=== PATIENT | male | born 1955 | race Caucasian/White ===

== ENCOUNTER 2018-09-20 12:59 | Inpatient (IN) ==
[2018-09-20] MEDS ORDERED: *HR* HYDROmorphone 2 MG/ML SYRINGE IM ONE (14:11)
[2018-09-20] MEDS ORDERED: Ondansetron ODT 4 MG TAB.RAPDIS SL ONE (14:11)
--- NOTE | 2018-09-20 14:17 | Emergency Department Note ---
Disposition Clinical Impression: Intractable low back pain Closed wedge compression fracture of T1 vertebra Qualifiers: Encounter type: initial encounter Qualified Code(s): S22.010A - Wedge compression fracture of first thoracic vertebra, initial encounter for closed fracture Ankylosing spondylitis Qualifiers: Ankylosing spondylitis location: unspecified site of spine Qualified Code(s): M 45.9 - Ankylosing spondylitis of unspecified sites in spine Disposition: Admitted As Inpatient Condition: Fair Referrals: Rafal Conklin DO [Primary Care Provider] - Forms: ED Satisfaction Letter Back Pain HPI - General Chief Complaint: ED Back Pain/Injury Stated Complaint: back pain Time Seen by Provider: 09/20/18 13:02 Source: patient, family, EMS Mode of arrival: EMS Limitations: no limitations Nursing Notes Reviewed: Yes Vital Signs Reviewed: Yes - History of Present Illness HPI Narrative: Patient presents by squad for evaluation of back pain. He has a history of transverse myelitis, status post internal fixation of fractures at T T12 and L1. He also has history of ankylosing spondylitis. He has had intermittent muscle spasms in the left hip flexor that caused him severe pain and often result in him falling because of the severe pain. He denies weakness in the legs or syncopal episode. He denies any new paresthesias since the fall. The pain is across the low back and does not radiate. It is worse with movement and nothing makes it better. He denies abdominal pain, dysuria, loss of bowel control, changes in his intermittent urinary incontinence, saddle anesthesia or leg weakness. He has had no recent procedures. 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 Denies: numbness, weakness, incontinence of bowel/bladder, fever, chills, abdominal pain, dysuria, hematuria Treatments prior to arrival: other (none) - Related Data Home Medications Medication Instructions Recorded Confirmed Acarbose [Precose] 100 mg PO TID 10/21/15 05/29/18 Atorvastatin [Lipitor] 40 mg PO HS 10/21/15 05/29/18 Esomeprazole Magnesium [Nexium] 20 mg PO Q48H 10/21/15 05/29/18 Gabapentin [Neurontin] 600 mg PO TID 10/21/15 05/29/18 Lisinopril 15 mg PO DAILY 10/21/15 05/29/18 Metformin HCl [Glucophage] 1,000 mg PO BID 10/21/15 05/29/18 Multivitamin [Multivitamins] 1 tab PO HS 10/21/15 05/29/18 Nadolol 20 mg PO HS 10/21/15 05/29/18 Tamsulosin HCl [Flomax] 0.4 mg PO HS 10/21/15 05/29/18 amLODIPine [Norvasc] 5 mg PO QPM 10/21/15 05/29/18 hydroCHLOROthiazide 12.5 mg PO DAILY 10/21/15 05/29/18 [Hydrochlorothiazide] OxyCODONE/APAP 10/325 [Percocet 1 tab PO Q6HR PRN 04/26/16 05/29/18 10/325 MG] Empagliflozin [Jardiance] 25 mg PO DAILY 05/29/18 05/29/18 Liraglutide [Victoza 2-Darell] 1.8 mg SQ DAILY 05/29/18 05/29/18 Tizanidine HCl 4 mg PO HS 05/29/18 05/29/18 Previous Rx's Medication Instructions Recorded Levofloxacin [Levaquin] 750 mg PO DAILY #2 tablet 06/05/18 Sennosides/Docusate Sodium [Senna 2 each PO BID #0 tablet 06/05/18 Plus] Allergies Allergy/AdvReac Type Severity Reaction Status Date / Time celecoxib [From Celebrex] AdvReac See Verified 05/29/18 21:58 Comments infliximab [From Remicade] AdvReac See Verified 05/29/18 21:58 Comments NSAIDS (Non-Steroidal AdvReac See Verified 05/29/18 21:58 Anti-Inflamma Comments All systems ED: reviewed and negative except as stated. Review of Systems: As Per HPI Constitutional: Denies: fever, chills, weakness Cardiovascular: Denies: chest pain, palpitations, dyspnea on exertion Respiratory: Denies: cough, dyspnea Gastrointestinal: Denies: abdominal pain, nausea, vomiting, diarrhea, constipation, hematemesis, melena, hematochezia Genitourinary: Denies: urgency, dysuria, frequency, hematuria, discharge Musculoskeletal: Reports: as per HPI, back pain. Denies: neck pain, joint swelling, arthralgia, myalgia Integumentary: Denies: rash, lesions Neurological: Denies: headache, weakness, numbness, paresthesias Hematological/Lymphatic: Denies: easy bleeding, easy bruising Past Medical History - Past Medical History Attestation: Yes The following information was validated with the patient. Source: patient Medical history: Reports: arthritis, diabetes, hypertension, renal disease, other (, Transverse myelitis, T and L fractures s/p ORIF 05/25) Surgical history: Reports: no surgical history Psychiatric history: Reports: no psych history - Social History Smoking Status: Former smoker Smokeless Tobacco Status: No Alcohol use: Reports: none Drug use: Reports: none Physical Exam - General Limitations: no limitations General appearance: alert, in no apparent distress - Head Head exam: atraumatic, normocephalic, normal inspection - Eye Eye exam: Present: normal appearance. Absent: scleral icterus, conjunctival injection, periorbital swelling - ENT ENT exam: mucous membranes moist - Neck Neck exam: Present: normal inspection, full ROM, trachea midline. Absent: tenderness, meningismus - Chest Chest inspection: Present: normal inspection - Respiratory Respiratory exam: Absent: respiratory distress - Cardiovascular Cardiovascular exam: Present: regular rate - Extremities Exam Extremities exam: Present: normal inspection, normal capillary refill. Absent: tenderness, pedal edema, joint swelling, calf tenderness - Expanded Lower Extremity Exam Hip/Pelvis exam: Absent: tenderness, swelling, ecchymosis, deformity, crepitus, dislocation, erythema, external rotation, internal rotation, shortening, pelvis stable Upper leg exam: Absent: tenderness, swelling Knee exam: Present: full ROM, knee extension intact. Absent: tenderness, swelling Lower leg exam: Present: Achilles tendon intact. Absent: tenderness, swelling, Homans' sign Ankle exam: Present: normal inspection, full ROM. Absent: tenderness Foot/toe exam: Present: normal inspection, full ROM. Absent: tenderness Neurovascular/Tendon exam: Present: normal capillary refill, normal fine/light touch. Absent: pulse deficit, motor deficit, extremity cold to touch, pallor, foot drop, significant pain with passive ROM of distal joint - Back Exam Back exam: Present: paraspinal tenderness, vertebral tenderness. Absent: full ROM, tenderness, CVA tenderness (L), sciatic notch tenderness (R), sciatic notch tenderness (L) - Neurological Exam Neurological exam: Present: alert, oriented X3, CN II-XII intact, normal gait. Absent: motor sensory deficit - Psychiatric Psychiatric exam: Present: normal affect, normal mood - Skin Skin exam: Present: warm, dry, intact, normal color Course Course Narrative: Patient has history of ankylosing spondylitis, is status post fall in May with fracture of L1 and T12 that required internal fixation, as well as transverse myelitis. He presents from home by squad for evaluation of back pain after fall. He states that he has been having intermittent muscle cramps in the left hip flexor for several months. Sometimes they are worse than others. Sometimes they cause him to fall. He has had two falls in the last six months, but was able to get assistance to get back up to his walker. Today when he fell, it was initially to the right side but then onto his back on a tile floor. He denies hitting his head and denies neck pain or injury. He denies any new paresthesias or weakness. He states that he was down for about an hour before someone was able to help him. He crawled over to the door and let his dog out. A neighbor saw the dog and came over to help him. EMS was then called. On exam he appears uncomfortable but nontoxic. He is very pleasant and cooperative with the exam. Given his extensive spine history. I do not think that plain films will be adequate to evaluate. Additionally, patient is followed by Dr. Ordonez and he recommended to the patient's that the patient have a CAT scan done. CT and pain meds have been ordered. Labs ordered for admitted. No results available. - Reevaluation(s) Reevaluation #1: Patient has not yet received his pain medication. Case was discussed with Dr. Iverson. He has had [id number] time with the patient and agrees with the assessment, plan. Time: 15:17 Reevaluation #2: Pain is improved waiting on CAT scan Time: 16:15 Reevaluation #3: Went to discuss the results with the patient. He appears to be more comfortable however, states that the medication is no longer helping. He states that when he returned from CAT scan he had an episode of urinary incontinence that consi sted of more volume than usual. He also has tried but is unable to get up and walk due to the pain. Strength and sensation are still intact, normal and symmetric bilaterally. Sensory/ motor/ reflex exam were repeated and are unchanged. Will consult with Dr. Ordonez. Time: 17:05 - Consultations Consultation #1: Case discussed with Dr. Ordonez. He requests that we order an MRI of the cervical, thoracic and lumbar spine without contrast and that the patient be admitted to the hospitalist for pain control. Case discussed with hospitalist. Patient has been accepted for admission. Time: 17:11 Vital Signs Temperature 98.2 F 09/20/18 13:03 Pulse Rate 77 09/20/18 13:03 Respiratory Rate 18 09/20/18 13:03 Blood Pressure 139/85 09/20/18 13:03 O2 Sat by Pulse Oximetry 98 09/20/18 13:03 Temperature 98.2 F 09/20/18 13:03 Pulse Rate 64 09/20/18 16:14 Respiratory Rate 18 09/20/18 16:14 Blood Pressure 177/94 09/20/18 16:14 O2 Sat by Pulse Oximetry 100 09/20/18 16:14 Oxygen Delivery Oxygen Delivery Room Air Back Pain/Injury - Medical Records Medical records reviewed: Yes I reviewed the patient's medical records. - Radiology Data Radiology results reviewed: Yes I reviewed the patient's radiology results. Attestation Statement - Attestation Attestation: For this encounter, I have reviewed the COLLEGE DIRECTOR or PA documentation, treatment plan, and medical decision making; and I have had face to face time with this patient. [id number] time provided. Patient sustained a mechanical fall. He has a history of ankylosing spondylitis and previous fracture secondary to trauma. CT studies of his thoracic and lumbar spine ordered by the physician retail assistant
[2018-09-20] MEDS ORDERED: *HR* HYDROmorphone (PF) 1 MG/ML SYRINGE IVP ONE (16:56)
[2018-09-20] MEDS ORDERED: Ondansetron 4 MG/2 ML VIAL IVP ONE (16:56)
[2018-09-20] MEDS ORDERED: Naloxone 0.4 MG/ML INJ IVP PRN (17:55)
[2018-09-20] MEDS ORDERED: D5% in Water 1,000 ML IVC PRN (17:57)
[2018-09-20] MEDS ORDERED: Dextrose Gel 15 GM/37.5 ML TUBE PO PRN ×2 (17:57)
[2018-09-20] MEDS ORDERED: *HR* Dextrose 50 % in Water (Syg) 50 ML SYRINGE IVP PRN (17:57)
--- NOTE | 2018-09-20 18:29 | Internal Med History&Physical ---
Date of Encounter: 09/20/18 Time of Encounter: 18:21 Internal Medicine - H&P: HPI Chief complaint: back pain/spasm and frequent falls Admitted From: Home Plans for Post Hospital Care: Home History of present illness: Mr. Lyles is a 63 year old male PMH of transverse myelitis, ankylosis spondilitis, DM, HTN, HLD and spinal fusion T9-L4 on 05/31/18. Patient presented to the ED due to back spasms, and pain associated with frequent falls. Patient reports that for the past 2 weeks he has been experiencing severe 10/10 back spasms and everything he has one of those episodes if he is stand up he has fell to the ground. He denies hitting his head, or loosing consciousness. Reports that today while he was standing at the kitchen table he had this severe back spam and fell to the ground again. states that this has happened 3 times this week and 1-2 times last week. He denies fever/chills. Reports constant sharp 8/10 back pain, reports that he has back pain for the most part but it is about 5/10, but for the past couple of days he believes the back pain is worsening. He reports a chronic hx of bowel incontinence due to his hx of transverse myelitis, but stated that for the past couple of days he has notice urinary incontinence which is new to him. report chronic numbness and tingling. Past Med Surg Social Fam HX - Past Medical History Medical history: arthritis, diabetes, hypertension, renal disease, other (, Transverse myelitis, T and L fractures s/p ORIF 05/25) Additional medical history: Ankylosing spondilitis, Psychiatric history: no psych history - Past Surgical History Surgical History: no surgical history Additional surgical history: Kypho, lami, rt. knee replacement, tosillectomy, ankle surgery, 3 back surgery in total - Social History Smoking Status: Former smoker Smokeless Tobacco Status: No Alcohol use: none Drug use: none - Family History Father Living Status: Hx Family Cancer: Yes ( at age 65 - Spine cancer) Mother Family Member Ethnicity: Non- Living Status: Still Living Hx Family Cardiac Disorders: Yes Internal Medicine - H&P: Meds Acarbose [Precose] 100 mg PO TID 10/21/15 [History] Atorvastatin [Lipitor] 40 mg PO HS 10/21/15 [History] Esomeprazole Magnesium [Nexium] 20 mg PO Q48H 10/21/15 [History] Gabapentin [Neurontin] 600 mg PO 1500 10/21/15 [History] Lisinopril 15 mg PO QAM 10/21/15 [History] Metformin HCl [Glucophage] 1,000 mg PO BIDWM 10/21/15 [History] Multivitamin [Multivitamins] 1 tab PO HS 10/21/15 [History] Nadolol 20 mg PO HS 10/21/15 [History] Tamsulosin HCl [Flomax] 0.4 mg PO HS 10/21/15 [History] amLODIPine [Norvasc] 5 mg PO QPM 10/21/15 [History] hydroCHLOROthiazide [Hydrochlorothiazide] 12.5 mg PO QAM 10/21/15 [History] OxyCODONE/APAP 10/325 [Percocet 10/325 MG] 1 tab PO Q6HR PRN 04/26/16 [History] Empagliflozin [Jardiance] 25 mg PO DAILY 05/29/18 [History] Tizanidine HCl 4 mg PO TID 05/29/18 [History] Aspirin [Adult Aspirin Regimen] 81 mg PO QAM 09/20/18 [History] Dulaglutide [Trulicity] 1.5 mg SQ MO 09/20/18 [History] Fluticasone Propionate Nasal [Flonase] 2 spray NS HS PRN 09/20/18 [History] Gabapentin 300 mg PO QAM 09/20/18 [History] Gabapentin 900 mg PO HS 09/20/18 [History] Glucosamine HCl 3,000 mg PO QAM 09/20/18 [History] Levocetirizine Dihydrochloride [Allergy Relief (Xyzal)] 5 mg PO DAILY 09/20/18 [History] Sennosides/Docusate Sodium [Senna Plus] 2 tab PO QPM 09/20/18 [History] Turmeric Root Extract [Turmeric Curcumin] 500 mg PO TID 09/20/18 [History] Allergy/AdvReac Type Severity Reaction Status Date / Time celecoxib [From Celebrex] AdvReac See Verified 09/20/18 18:10 Comments infliximab [From Remicade] AdvReac See Verified 09/20/18 18:10 Comments NSAIDS (Non-Steroidal AdvReac See Verified 09/20/18 18:10 Anti-Inflamma Comments All Systems PM: A 10-system review of systems was performed and is negative for pertinent findings except as documented above in the HPI. - Constitutional Constitutional: weakness, no chills, no fever(s) - EENT Eyes: no irritation, no pain Nose, mouth and throat: no bleeding gums, no mouth pain - Breasts Breasts: no pain, no swelling - Cardiovascular Cardiovascular ROS IM: no chest pain, no dyspnea, no edema, no orthopnea, no palpitations - Respiratory Respiratory: no cough, no wheezing - Gastrointestinal Gastrointestinal: fecal incontinence (chornic), no abdominal pain, no nausea, no vomiting - Genitourinary Genitourinary ROS male: urinary incontinence, no dysuria, no nocturia - Musculoskeletal Musculoskeletal ROS IM: back pain, muscle cramps, muscle weakness, numbness, stiffness, tingling - Integumentary Integumentary IM: no erythema, no rash, no sores - Neurological Neurological ROS: no frequent falls, no lack of coordination - Psychiatric Psychiatric: no anxiety, no irritability - Endocrine Endocrine IM: no cold intolerance, no excessive sweating - Allergic/Immunologic Allergic/Immunologic: no uticaria, no GI upset with certain foods - Constitutional Vitals: Temp Pulse Resp BP Pulse Ox 98.2 F 64 18 177/94 100 09/20/18 13:03 09/20/18 16:14 09/20/18 16:14 09/20/18 16:14 09/20/18 16:14 Exam: Vitals: reviewed General: Alert and oriented x4. In mild distress due to back pain and spasms Skin: Normal color, no rash, no lesions. HEENT: EOM, pupils equal, round and reactive. Cardiovascular: RRR, normal S1 & S2, no rubs, murmurs or gallops. Lungs: CTA b/l, no wheezes or crackles. Abdomen: Soft, non-tender, no rigidity. Extremities: strength is 5/5 in the lower and upper extremities. 2+ reflexes. Neurological: Normal cognition and motor skills. Rest of the physical exam is non contributory Internal Med - H&P Results - Impressions ITS Impressions Lumbar Spine CT 09/20/18 14:11 IMPRESSION: 1. Redemonstration of findings consistent with cervical and thoracic ankylosing spondylitis. 2. Subtle new irregularity of the T1 superior endplate which may represent mild posttraumatic superior endplate compression fracture. No evidence of posttraumatic canal/foraminal stenosis. 3. 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 4. Interval T9-L4 posterior fusion with intact hardware. The right T12 intrapedicular screw tip inferior margin abuts the chronic fracture plane and avascular necrosis of the vertebral body from the prior May fracture. 5. Normal lumbar spine alignment with intact fixation hardware in multilevel degenerative changes. No acute fracture. 6. Remote L3 vertebroplasty. D/ / 09/20/2018 16:35:04 Ezekiel Moran MD / sloan Interpreting Provider: Ezekiel Moran MD Thoracic Spine CT 09/20/18 14:11 IMPRESSION: 1. Redemonstration of findings consistent with cervical and thoracic ankylosing spondylitis. 2. Subtle new irregularity of the T1 superior endplate which may represent mild posttraumatic superior endplate compression fracture. No evidence of posttraumatic canal/foraminal stenosis. 3. 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 4. Interval T9-L4 posterior fusion with intact hardware. The right T12 intrapedicular screw tip inferior margin abuts the chronic fracture plane and avascular necrosis of the vertebral body from the prior May fracture. 5. Normal lumbar spine alignment with intact fixation hardware in multilevel degenerative changes. No acute fracture. 6. Remote L3 vertebroplasty. D/ / 09/20/2018 16:35:04 Ezekiel Moran MD / sloan Interpreting Provider: Ezekiel Moran MD - Assessment and Plan (1) Intractable low back pain Current Visit: Yes Status: Acute Assessment and plan: CT/CT lumbar spine wo con IMPRESSION: 1. Redemonstration of findings consistent with cervical and thoracic ankylosing spondylitis. 2. Subtle new irregularity of the T1 superior endplate which may represent mild posttraumatic superior endplate compression fracture. No evidence of posttraumatic canal/foraminal stenosis. 3. 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 4. Interval T9-L4 posterior fusion with intact hardware. The right T12 intrapedicular screw tip inferior margin abuts the chronic fracture plane and avascular necrosis of the vertebral body from the prior May fracture. 5. Normal lumbar spine alignment with intact fixation hardware in multilevel degenerative changes. No acute fracture. 6. Remote L3 vertebroplasty. Plan spinal surgeon consulted, recemmended MRI of the spine ESR, CPR ordered pain control with percocet 10/325mg/PO 1tab Q6HR PRN senna plus UA Pt/OT (2) HLD (hyperlipidemia) Current Visit: Yes Status: Chronic Assessment and plan: on atorvastatin 40mg/PO daily Qualifiers: Hyperlipidemia type: unspecified Qualified Code(s): E78.5 - Hyperlipidemia, unspecified (3) Ankylosing spondylitis Current Visit: Yes Status: Chronic Assessment and plan: plan of care as per problem #1. Qualifiers: Ankylosing spondylitis location: unspecified site of spine Qualified Code(s): M45.9 - Ankylosing spondylitis of unspecified sites in spine (4) DMII (diabetes mellitus, type 2) Current Visit: No Status: Chronic Assessment and plan: carbs controlled diet. will start patient on short and long acting insulin coverage Qualifiers: Diabetes mellitus half-way insulin use: unspecified assistant terminal manager insulin use status Diabetes mellitus complication status: with unspecified complications Qualified Code(s): E11.8 - Type 2 diabetes mellitus with unspecified complications (5) HTN (hypertension) Current Visit: No Status: Chronic Assessment and plan: will resume home mediations after verified by the pharmacy Qualifiers: Hypertension type: essential hypertension Qualified Code(s): I10 - Essential (primary) hypertension (6) DVT prophylaxis Current Visit: Yes Status: Acute Assessment and plan: heparin Subq - Time Spent With Patient Total time spent is greater than 50% in coordination of care (as documented) at patient's floor/unit and/or counseling patient: Greater than 35 minutes (45)
[2018-09-20 19:35] LABS: Bilirubin,Urine Negative (Negative); Blood,Urine Small (Negative); Clarity,Urine Cloudy (Clear); Color,Urine Yellow (Yellow); Glucose,Urine (UA) >=1000 mg/dL (Normal); Ketones,Urine Negative (Negative); Leukocyte Esterase,Urine Small (Negative); Nitrite,Urine Positive (Negative); Protein,Urine Negative (Neg-Trace); Specific Gravity,Urine 1.018 (1.010-1.025); Urobilinogen,Urine Normal (Normal)
[2018-09-20 19:37] LABS: Bacteria,Urine Many per hpf (None-Few); Hyaline Casts,Urine None Seen per lpf (None-Few); Squamous Epithelial Cell,Urine Few per lpf (None-Few); WBC,Urine 30-50 per hpf (0-3)
[2018-09-20 19:45] LABS: Basophils # 0.1 K/mcL (0.0-0.2); Basophils % 0.7 %; Eosinophils # 0.3 K/mcL (0.0-0.6); Eosinophils % 3.3 %; Hematocrit 36.5 % (37.5-50.1); Hemoglobin 11.6 g/dL (12.9-16.9); Immature Granulocytes % 0.4 % (0-4); Lymphocytes # 1.9 K/mcL (0.6-4.6); Lymphocytes % 22.8 %; Mean Corpuscular HGB Conc 31.8 g/dL (31.6-35.5); Mean Corpuscular Hemoglobin 27.1 pg (28.0-33.3); Mean Corpuscular Volume 85.3 fL (83.0-100.0); Mean Platelet Volume 8.9 fL (9.4-12.4); Monocytes % 11.3 %; Neutrophils # 5.2 K/mcL (1.6-8.9); Platelet Count 242 K/mcL (140-400); Red Blood Count 4.28 M/mcL (4.19-5.50); Segmented Neutrophils % 61.5 %
[2018-09-20 19:57] LABS: Prothrombin Time 11.7 Seconds (9.4-12.1)
[2018-09-20 20:03] LABS: BUN/Creatinine Ratio 21 (6-26); Blood Urea Nitrogen 24 mg/dL (8-23); Calcium 8.8 mg/dL (8.6-10.3); Carbon Dioxide 30 mEq/L (23-29); Chloride 108 mEq/L (98-107); Glucose 90 mg/dL (70-105); Magnesium 1.9 mg/dL (1.6-2.6); Osmolality,Calculated 300 (280-300); Phosphorous 3.7 mg/dL (2.7-4.5); Potassium 4.5 mEq/L (3.5-5.1); Sodium 143 mEq/L (136-145); eGFR For Non-African Americans > 60 (> 60)
[2018-09-20] MEDS: amLODIPine 5 MG TABLET PO SCH (23:17)
[2018-09-20] MEDS: Gabapentin 300 MG CAPSULE PO SCH (23:17)
[2018-09-20] MEDS: Insulin DETEMIR 100 UNIT/ML X5UNITS SQ SCH (23:18)
[2018-09-20] MEDS: *HR* OxyCODONE/APAP 10/325 TABLET PO PRN (23:18)
[2018-09-20] MEDS: *HR* Heparin 5,000 UNIT/ML VIAL SQ SCH (23:18)
[2018-09-21] MEDS: *HR* Heparin 5,000 UNIT/ML VIAL SQ SCH ×2 (06:15→18:25)
[2018-09-21 06:48] LABS: Eosinophils % 1.5 %; Hematocrit 35.5 % (37.5-50.1); Hemoglobin 11.3 g/dL (12.9-16.9); Immature Granulocytes % 0.3 % (0-4); Mean Corpuscular HGB Conc 31.8 g/dL (31.6-35.5); Mean Corpuscular Hemoglobin 27.3 pg (28.0-33.3); Mean Corpuscular Volume 85.7 fL (83.0-100.0); Mean Platelet Volume 9.4 fL (9.4-12.4); Monocytes % 8.4 %; Platelet Count 246 K/mcL (140-400); Red Blood Count 4.14 M/mcL (4.19-5.50); Segmented Neutrophils % 69.2 %
[2018-09-21 06:49] LABS: Basophils # 0.1 K/mcL (0.0-0.2); Basophils % 0.6 %; Eosinophils # 0.1 K/mcL (0.0-0.6); Lymphocytes # 1.6 K/mcL (0.6-4.6); Monocytes # 0.7 K/mcL (0.0-1.3); Neutrophils # 5.4 K/mcL (1.6-8.9)
[2018-09-21 07:08] LABS: BUN/Creatinine Ratio 17 (6-26); Blood Urea Nitrogen 22 mg/dL (8-23); Calcium 9.2 mg/dL (8.6-10.3); Carbon Dioxide 27 mEq/L (23-29); Chloride 103 mEq/L (98-107); Glucose 156 mg/dL (70-105); Osmolality,Calculated 297 (280-300); Potassium 4.6 mEq/L (3.5-5.1); Sodium 140 mEq/L (136-145); eGFR For Non-African Americans 57 (> 60)
[2018-09-21] MEDS: Insulin LISPRO 300 UNITS/3 ML VIAL SQ SCH ×3 (07:59→20:59)
--- NOTE | 2018-09-21 10:04 | Internal Med Progress Note ---
Hospitalist Progress Note - Encounter Date of Encounter: 09/21/18 Time of Encounter: 10:02 - Subjective Interval History: I have seen and evaluated the patient at bedside. Patient reports the back pain has decreased to a 2-3/10 while he is in bed, denies back spams. denies chest pain, shortness of breath, fever or chills. - Exam Vitals: Temp Pulse Resp BP Pulse Ox 98.4 F 60 18 116/73 98 09/21/18 07:04 09/21/18 07:04 09/21/18 07:04 09/21/18 07:04 09/21/18 07:04 Exam: Vitals: reviewed General: Alert and oriented x4. In no distress Cardiovascular: RRR, normal S1 & S2, no rubs, murmurs or gallops. Lungs: CTA b/l, no wheezes or crackles. Abdomen: Soft, non-tender, no rigidity. NABS in all 4 quadrants Extremities: strength is 5/5 in the lower and upper extremities. 2+ reflexes. Neurological: No focal neurological abnormalities Rest of the physical exam is non contributory - Assessment and Plan (1) Intractable low back pain Current Visit: Yes Status: Acute Assessment and Plan: MR/MR cervical spine wo con IMPRESSION: 1. Mild central spinal canal narrowing at C3-C4 and C4-C5. 2. No evidence of an acute fracture. MR/MR lumbar spine wo con IMPRESSION: 1. There is a T12 inferior endplate fracture, better seen on the previous CT. This is partially obscured by susceptibility artifact on today's exam. 2. No other evidence of an acute fracture. 3. Mild-moderate central spinal canal MR/MR thoracic spine wo con IMPRESSION: 1. T12 inferior endplate fracture better seen on the previous CT. 2. Sequela of a T9-L4 fusion. 3. Epidural lipomatosis. 4. No new fracture is identified. Plan Continue pain control with Percocet 10/325 one tablet by mouth every 6 hours when necessary Orthopedic recommendation appreciated. Continue senna + 1 tab by mouth daily. Baclofen 15 mg by mouth 3 times a day when necessary for muscle spasm. (2) HLD (hyperlipidemia) Current Visit: Yes Status: Chronic Assessment and Plan: Continue atorvastatin 40 mg by mouth daily. (3) Ankylosing spondylitis Current Visit: Yes Status: Chronic (4) DMII (diabetes mellitus, type 2) Current Visit: No Status: Chronic Assessment and Plan: Blood sugar is well controlled. Continue Levemir 5 units twice a day, and lispro low-dose sliding scale before meals. (5) HTN (hypertension) Current Visit: No Status: Chronic Assessment and Plan: Blood pressures well controlled on amlodipine and lisinopril. On nadolol 20 mg by mouth at bedtime. (6) UTI (urinary tract infection) Current Visit: No Status: Acute Assessment and Plan: Patient reported urinary incontinence. Started on ceftriaxone 1 g IV daily Urine culture: Pending. DVT Prophylaxis: On heparin subcutaneous. - Summary of Assessment and Plan Summary of Assessment and Plan: Patient to remain in the hospital due to back pain, muscle spasm and urinary tract infection. - Time Spent with Patient Total time spent is greater than 50% in coordination of care (as documented) at patient's floor/unit and/or counseling patient: Greater than 35 minutes (40) Plan of Care Discussed with: patient (and the nurse.) Internal Medicine: Result - Labs CBC & Chem 7: 09/21/18 06:14 09/21/18 06:14 Labs: Short CBC 09/20/18 09/21/18 Range/Units 17:48 06:14 WBC 8.4 7.8 (4.3-11.1) K/mcL Hgb 11.6 L 11.3 L (12.9-16.9) g/dL Hct 36.5 L 35.5 L (37.5-50.1) % Plt Count 242 246 (140-400) K/mcL Neutrophils # 5.2 5.4 (1.6-8.9) K/mcL BMP 09/20/18 09/21/18 17:48 06:14 Sodium 143 140 Potassium 4.5 4.6 Chloride 108 H 103 Carbon Dioxide 30 H 27 BUN 24 H 22 Creatinine 1.15 1.27 Glucose 90 156 H Calcium 8.8 9.2 Urine 09/20/18 Range/Units 19:15 Urine Color Yellow (Yellow) Urine Clarity Cloudy A (Clear) Urine pH 6.0 (5.0-8.0) pH Units Ur Specific [place] 1.018 (1.010-1.025) Urine Protein Negative (Neg-Trace) mg/dL Urine Glucose (UA) >=1000 H (Normal) mg/dL - ABG Interpretation ABG results: PT/INR, D-dimer PT 11.7 Seconds (9.4-12.1) 09/20/18 17:55 - Impressions Impressions Lumbar Spine CT 09/20/18 14:11 IMPRESSION: 1. Redemonstration of findings consistent with cervical and thoracic ankylosing spondylitis. 2. Subtle new irregularity of the T1 superior endplate which may represent mild posttraumatic superior endplate compression fracture. No evidence of posttraumatic canal/foraminal stenosis. 3. 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 4. Interval T9-L4 posterior fusion with intact hardware. The right T12 intrapedicular screw tip inferior margin abuts the chronic fracture plane and avascular necrosis of the vertebral body from the prior May fracture. 5. Normal lumbar spine alignment with intact fixation hardware in multilevel degenerative changes. No acute fracture. 6. Remote L3 vertebroplasty. D/ / 09/20/2018 16:35:04 Ezekiel Moran MD / sloan Interpreting Provider: Ezekiel Moran MD Thoracic Spine CT 09/20/18 14:11 IMPRESSION: 1. Redemonstration of findings consistent with cervical and thoracic ankylosing spondylitis. 2. Subtle new irregularity of the T1 superior endplate which may represent mild posttraumatic superior endplate compression fracture. No evidence of posttraumatic canal/foraminal stenosis. 3. 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 4. Interval T9-L4 posterior fusion with intact hardware. The right T12 intrapedicular screw tip inferior margin abuts the chronic fracture plane and avascular necrosis of the vertebral body from the prior May fracture. 5. Normal lumbar spine alignment with intact fixation hardware in multilevel degenerative changes. No acute fracture. 6. Remote L3 vertebroplasty. D/ / 09/20/2018 16:35:04 Ezekiel Moran MD / sloan Interpreting Provider: Ezekiel Moran MD Cervical Spine MRI 09/20/18 17:46 IMPRESSION: 1. Mild central spinal canal narrowing at C3-C4 and C4-C5. 2. No evidence of an acute fracture. D/ / 09/20/2018 22:04:26 Clayton Tamayo MD / heather Interpreting Provider: Clayton Tamayo MD Lumbar Spine MRI 09/20/18 17:46 IMPRESSION: 1. There is a T12 inferior endplate fracture, better seen on the previous CT. This is partially obscured by susceptibility artifact on today's exam. 2. No other evidence of an acute fracture. 3. Mild-moderate central spinal canal narrowing at L4-L5. 4. Sequela of L3 vertebroplasty. D/ / 09/20/2018 22:13:03 Clayton Tamayo MD / heather Interpreting Provider: Clayton Tamayo MD Thoracic Spine MRI 09/20/18 17:46 IMPRESSION: 1. T12 inferior endplate fracture better seen on the previous CT. 2. Sequela of a T9-L4 fusion. 3. Epidural lipomatosis. 4. No new fracture is identified. D/ / 09/20/2018 22:21:53 Clayton Tamayo MD / heather Interpreting Provider: Clayton Tamayo MD Consult Discharge Plan - Plan Referrals: Rafal Conklin DO [Primary Care Provider] - (2) HLD (hyperlipidemia) Qualifiers: Hyperlipidemia type: unspecified Qualified Code(s): E78.5 - Hyperlipidemia, unspecified (3) Ankylosing spondylitis Qualifiers: Ankylosing spondylitis location: unspecified site of spine Qualified Code(s): M45.9 - Ankylosing spondylitis of unspecified sites in spine (4) DMII (diabetes mellitus, type 2) Qualifiers: Diabetes mellitus mcfp insulin use: unspecified mcfp insulin use status Diabetes mellitus complication status: with unspecified complications Qualified Code(s): E11.8 - Type 2 diabetes mellitus with unspecified complications (5) HTN (hypertension) Qualifiers: Hypertension type: essential hypertension Qualified Code(s): I10 - Essential (primary) hypertension (6) UTI (urinary tract infection) Qualifiers: Urinary tract infection type: site unspecified Hematuria presence: without hematuria Qualified Code(s): N39.0 - Urinary tract infection, site not specified
[2018-09-21] MEDS: Gabapentin 300 MG CAPSULE PO SCH ×3 (10:59→21:01)
[2018-09-21] MEDS: cefTRIAXone 1,000 MG in Water for inj. (sterile) 20 ML 10 ML IVP SCH (11:00)
[2018-09-21] MEDS: *HR* OxyCODONE/APAP 10/325 TABLET PO PRN ×2 (11:00→23:27)
[2018-09-21] MEDS: amLODIPine 5 MG TABLET PO SCH (11:00)
[2018-09-21] MEDS: Baclofen 10 MG TABLET PO PRN ×2 (11:01→18:46)
[2018-09-21] MEDS: Insulin DETEMIR 100 UNIT/ML X5UNITS SQ SCH ×2 (11:04→21:02)
--- NOTE | 2018-09-21 11:18 | Orthopedic Consult Note ---
Date of Encounter: 09/21/18 Time of Encounter: 11:16 Assessment and Plan (1) Intractable low back pain Current Visit: Yes Status: Acute The diagnosis and treatment recommendations were discussed with patient. Pain control per primary team. Up with PT as he is able this weekend. Dr. Ordonez will be back to evaluate him and to review his recent imaging and discuss any further recommendations. History of Present Illness HPI: Mr. Lyles is a 63 year old male with PMH of transverse myelitis, ankylosis spondilitis, DM, HTN, HLD and spinal fusion T9-L4 on 05/31/18. Patient presented to the ED due to back spasms, and pain associated with frequent falls, ongoing for about the past 2 weeks. He denies hitting his head, or LOC. Reports that today while he was standing at the kitchen table he had this severe back spasm and fell to the ground again, this has happened multiple times over past few weeks. Has had worsening back pain as well. He reports a chronic hx of bowel incontinence due to his hx of transverse myelitis, but stated that for the past couple of days he has notice urinary incontinence which is new to him. Report chronic numbness and tingling that is unchanged. Past Med Surg Social Fam HX - Past Medical History Medical history: arthritis, diabetes, hypertension, renal disease, other Additional medical history: Ankylosing spondilitis, Psychiatric history: no psych history - Past Surgical History Surgical History: no surgical history Additional surgical history: Kypho, lami, rt. knee replacement, tosillectomy, ankle surgery, T12-L1 fusion - Social History Smoking Status: Former smoker Smokeless Tobacco Status: No Alcohol use: occasionally Drug use: none - Family History Father Living Status: Hx Family Cancer: Yes ( at age 65 - Spine cancer) Mother Family Member Ethnicity: Non- Living Status: Still Living Hx Family Cardiac Disorders: Yes Medications and Allergies Acarbose [Precose] 100 mg PO TID 10/21/15 [History] Atorvastatin [Lipitor] 40 mg PO HS 10/21/15 [History] Esomeprazole Magnesium [Nexium] 20 mg PO Q48H 10/21/15 [History] Gabapentin [Neurontin] 600 mg PO 1500 10/21/15 [History] Lisinopril 15 mg PO QAM 10/21/15 [History] Metformin HCl [Glucophage] 1,000 mg PO BIDWM 10/21/15 [History] Multivitamin [Multivitamins] 1 tab PO HS 10/21/15 [History] Nadolol 20 mg PO HS 10/21/15 [History] Tamsulosin HCl [Flomax] 0.4 mg PO HS 10/21/15 [History] amLODIPine [Norvasc] 5 mg PO QPM 10/21/15 [History] hydroCHLOROthiazide [Hydrochlorothiazide] 12.5 mg PO QAM 10/21/15 [History] OxyCODONE/APAP 10/325 [Percocet 10/325 MG] 1 tab PO Q6HR PRN 04/26/16 [History] Empagliflozin [Jardiance] 25 mg PO DAILY 05/29/18 [History] Tizanidine HCl 4 mg PO TID PRN 05/29/18 [History] Aspirin [Adult Aspirin Regimen] 81 mg PO QAM 09/20/18 [History] Dulaglutide [Trulicity] 1.5 mg SQ MO 09/20/18 [History] Fluticasone Propionate Nasal [Flonase] 2 spray NS HS PRN 09/20/18 [History] Gabapentin 300 mg PO QAM 09/20/18 [History] Gabapentin 900 mg PO HS 09/20/18 [History] Glucosamine HCl 3,000 mg PO QAM 09/20/18 [History] Levocetirizine Dihydrochloride [Allergy Relief (Xyzal)] 5 mg PO DAILY 09/20/18 [History] Sennosides/Docusate Sodium [Senna Plus] 2 tab PO QPM 09/20/18 [History] Turmeric Root Extract [Turmeric Curcumin] 500 mg PO TID 09/20/18 [History] Allergy/AdvReac Type Severity Reaction Status Date / Time celecoxib [From Celebrex] AdvReac See Verified 09/20/18 18:10 Comments infliximab [From Remicade] AdvReac See Verified 09/20/18 18:10 Comments NSAIDS (Non-Steroidal AdvReac See Verified 09/20/18 18:10 Anti-Inflamma Comments All Systems Reviewed: The remainder of the systems were reviewed and are negative except as noted in the HPI. Physical Exam - Constitutional Vitals: Temp Pulse Resp BP Pulse Ox 98.3 F 64 16 117/71 96 09/21/18 11:11 09/21/18 11:11 09/21/18 11:11 09/21/18 11:11 09/21/18 11:11 Exam: Consult Exam: Constitutional -Vitals reviewed -The patient is well developed and well nourished. -Mood is pleasant. -The patient is well groomed. Psychiatric -The patient is fully alert and oriented x 3. Respiratory: -Respiratory effort normal Abdomen: -Soft abdomen -Non tender -Non distended: Back: Incision c/d/i with no surrounding erythema or drainage. Left upper extremity: -No tenderness to palpation throughout. -Able to make an "OK" sign, cross the index and long fingers, and extend the thumb. -Sensation grossly intact to light touch throughout the median, radial, and ulnar distributions. -Radial pulse is present; Fingers have good capillary refill. Right upper extremity: -No tenderness to palpation throughout. -Able to make an "OK" sign, cross the index and long fingers, and extend the thumb. -Sensation grossly intact to light touch throughout the median, radial, and ulnar distributions. -Radial pulse is present; Fingers have good capillary refill. Left lower extremity: -No deformities. The overlying skin is intact. No obvious signs of acute trauma. -No tenderness to palpation throughout. -No pain with passive motion of the hip, knee, ankle, and toes within the limits of the bed. -Able to dorsiflex and plantarflex the ankle and toes with maintained strength. -Toes have good capillary refill. Right lower extremity: -No deformities. The overlying skin is intact. No obvious signs of acute trauma. -No tenderness to palpation throughout. -No pain with passive motion of the hip, knee, ankle, and toes within the limits of the bed. -Able to dorsiflex and plantarflex the ankle and toes with maintained strength. -Toes have good capillary refill. Results - Labs Result Diagrams: 09/21/18 06:14 09/21/18 06:14 Labs: Abnormal lab results RBC 4.14 M/mcL (4.19-5.50) L 09/21/18 06:14 Hgb 11.3 g/dL (12.9-16.9) L 09/21/18 06:14 Hct 35.5 % (37.5-50.1) L 09/21/18 06:14 MCH 27.3 pg (28.0-33.3) L 09/21/18 06:14 MPV 8.9 fL (9.4-12.4) L 09/20/18 17:48 Chloride 108 mEq/L (98-107) H 09/20/18 17:48 Carbon Dioxide 30 mEq/L (23-29) H 09/20/18 17:48 BUN 24 mg/dL (8-23) H 09/20/18 17:48 Est GFR (Non-Af Amer) 57 (> 60) L 09/21/18 06:14 Glucose 156 mg/dL (70-105) H 09/21/18 06:14 POC Glucose 120 mg/dL (70-99) H 09/21/18 07:10 Cloudy (Clear) A 09/20/18 19:15 >=1000 mg/dL (Normal) H 09/20/18 19:15 Small (Negative) H 09/20/18 19:15 Positive (Negative) A 09/20/18 19:15 Ur Leukocyte Esterase Small (Negative) H 09/20/18 19:15 3-5 per hpf (0-3) H 09/20/18 19:15 30-50 per hpf (0-3) H 09/20/18 19:15 Many per hpf (None-Few) H 09/20/18 19:15 Ur Culture Indicated? YES (NO) A 09/20/18 19:15 H & H 09/20/18 09/21/18 Range/Units 17:48 06:14 Hgb 11.6 L 11.3 L (12.9-16.9) g/dL Hct 36.5 L 35.5 L (37.5-50.1) % All other labs normal. Consult Discharge Plan - Plan Referrals: Rafal Conklin, [Primary Care Provider] -
[2018-09-21] MEDS: Ondansetron 4 MG/2 ML VIAL IVP PRN (15:45)
[2018-09-21] MEDS: Sennosides/Docusate Sodium TABLET PO PRN (18:46)
[2018-09-22] MEDS: Baclofen 10 MG TABLET PO PRN ×2 (07:15→15:34)
[2018-09-22] MEDS: *HR* Heparin 5,000 UNIT/ML VIAL SQ SCH (07:15)
[2018-09-22] MEDS: Gabapentin 300 MG CAPSULE PO SCH ×2 (08:22→15:29)
[2018-09-22] MEDS: amLODIPine 5 MG TABLET PO SCH (08:22)
[2018-09-22] MEDS: cefTRIAXone 1,000 MG in Water for inj. (sterile) 20 ML 10 ML IVP SCH (08:23)
[2018-09-22] MEDS: Insulin DETEMIR 100 UNIT/ML X5UNITS SQ SCH (08:23)
[2018-09-22] MEDS: Insulin LISPRO 300 UNITS/3 ML VIAL SQ SCH ×2 (08:24→12:00)
--- NOTE | 2018-09-22 08:45 | Discharge Summary ---
Orders not resulted at time of discharge: Pending orders 09/20/18 19:15 Culture,Urine [RM] Stat Date of Encounter: 09/22/18 Time of Encounter: 08:45 - Discharge Diagnosis (1) Intractable low back pain Priority: Primary Status: Acute (2) HLD (hyperlipidemia) Priority: Secondary Status: Chronic Qualifiers: Hyperlipidemia type: unspecified Qualified Code(s): E78.5 - Hyperlipidemia, unspecified (3) Ankylosing spondylitis Priority: Secondary Status: Chronic Qualifiers: Ankylosing spondylitis location: unspecified site of spine Qualified Code(s): M45.9 - Ankylosing spondylitis of unspecified sites in spine (4) DMII (diabetes mellitus, type 2) Priority: Secondary Status: Chronic Qualifiers: Diabetes mellitus fpc insulin use: unspecified fpc insulin use status Diabetes mellitus complication status: with unspecified complications Qualified Code(s): E11.8 - Type 2 diabetes mellitus with unspecified complications (5) HTN (hypertension) Priority: Secondary Status: Chronic Qualifiers: Hypertension type: essential hypertension Qualified Code(s): I10 - Essential (primary) hypertension (6) UTI (urinary tract infection) Priority: Secondary Status: Acute Qualifiers: Urinary tract infection type: site unspecified Hematuria presence: without hematuria Qualified Code(s): N39.0 - Urinary tract infection, site not sp ecified Hospital course: Mr. Lyles is a 63 year old male PMH of transverse myelitis, ankylosis spondilitis, DM, HTN, HLD and spinal fusion T9-L4 on 05/31/18. Patient presented to the ED due to back spasms, and pain associated with frequent falls. Patient was admitted to the hospital due to intractable back pain and frequent falls. Spinal surgery consulted and recommended to obtain multiple images of the spine. CT/CT lumbar spine wo con IMPRESSION: 1. Redemonstration of findings consistent with cervical and thoracic. ankylosing spondylitis. 2. Subtle new irregularity of the T1 superior endplate which may represent mild posttraumatic superior endplate compression fracture. No evidence of posttraumatic canal/foraminal stenosis. 3. 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 horizontal fracture plane with mild progressive paravertebral soft tissue density which may represent hemorrhage or inflammation. 4. Interval T9-L4 posterior fusion with intact hardware. The right T12 intrapedicular screw tip inferior margin abuts the chronic fracture plane and avascular necrosis of the vertebral body from the prior May fracture. 5. Normal lumbar spine alignment with intact fixation hardware in multilevel. degenerative changes. No acute fracture. 6. Remote L3 vertebroplasty. MR/MR cervical spine wo con IMPRESSION: 1. Mild central spinal canal narrowing at C3-C4 and C4-C5. 2. No evidence of an acute fracture. MR/MR lumbar spine wo con IMPRESSION: 1. There is a T12 inferior endplate fracture, better seen on the previous CT. This is partially obscured by susceptibility artifact on today's exam. 2. No other evidence of an acute fracture. 3. Mild-moderate central spinal canal narrowing at L4-L5. 4. Sequela of L3 vertebroplasty. MR/MR thoracic spine wo con IMPRESSION: 1. T12 inferior endplate fracture better seen on the previous CT. 2. Sequela of a T9-L4 fusion. 3. Epidural lipomatosis. 4. No new fracture is identified. Patient was managed with pain control and muscle relaxant with significant improvement of his symptoms. Patient also complained of urinary incontinence and UA was diagnostic for a UTI. UC grew gram negative ben. Spinal surgeon recommended the patient to follow up at his office on Sunday09/27/18. Patient is hemodynamically stable to be discharged home. PT/OT evaluated the patient and recommended outpatient rehab. - Time Spent with Patient Total time spent providing and/or coordinating discharge services: Time spent: Greater than 30 minutes (35) - Discharge Medications Prescriptions: New Amoxicillin/Clavulanate [Augmentin] 875 mg PO BIDWM 4 Days #8 tablet Baclofen [Lioresal] 15 mg PO TID PRN 30 Days #90 tablet PRN Reason: Spasms Continued amLODIPine [Norvasc] 5 mg PO QPM Atorvastatin [Lipitor] 40 mg PO HS Tamsulosin HCl [Flomax] 0.4 mg PO HS Nadolol 20 mg PO HS Multivitamin [Multivitamins] 1 tab PO HS Metformin HCl [Glucophage] 1,000 mg PO BIDWM Lisinopril 15 mg PO QAM hydroCHLOROthiazide [Hydrochlorothiazide] 12.5 mg PO QAM Gabapentin [Neurontin] 600 mg PO 1500 Esomeprazole Magnesium [Nexium] 20 mg PO Q48H Acarbose [Precose] 100 mg PO TID OxyCODONE/APAP 10/325 [Percocet 10/325 MG] 1 tab PO Q6HR PRN PRN Reason: Pain Empagliflozin [Jardiance] 25 mg PO DAILY Aspirin [Adult Aspirin Regimen] 81 mg PO QAM Dulaglutide [Trulicity] 1.5 mg SQ MO Fluticasone Propionate Nasal [Flonase] 2 spray NS HS PRN PRN Reason: Allergy Symptoms Gabapentin 300 mg PO QAM Gabapentin 900 mg PO HS Glucosamine HCl 3,000 mg PO QAM Levocetirizine Dihydrochloride [Allergy Relief (Xyzal)] 5 mg PO DAILY Sennosides/Docusate Sodium [Senna Plus] 2 tab PO QPM Turmeric Root Extract [Turmeric Curcumin] 500 mg PO TID Discontinued Tizanidine HCl 4 mg PO TID PRN PRN Reason: Muscle Spasm Home Medications: Acarbose [Precose] 100 mg PO TID 10/21/15 [History] Atorvastatin [Lipitor] 40 mg PO HS 10/21/15 [History] Esomeprazole Magnesium [Nexium] 20 mg PO Q48H 10/21/15 [History] Gabapentin [Neurontin] 600 mg PO 1500 10/21/15 [History] Lisinopril 15 mg PO QAM 10/21/15 [History] Metformin HCl [Glucophage] 1,000 mg PO BIDWM 10/21/15 [History] Multivitamin [Multivitamins] 1 tab PO HS 10/21/15 [History] Nadolol 20 mg PO HS 10/21/15 [History] Tamsulosin HCl [Flomax] 0.4 mg PO HS 10/21/15 [History] amLODIPine [Norvasc] 5 mg PO QPM 10/21/15 [History] hydroCHLOROthiazide [Hydrochlorothiazide] 12.5 mg PO QAM 10/21/15 [History] OxyCODONE/APAP 10/325 [Percocet 10/325 MG] 1 tab PO Q6HR PRN 04/26/16 [History] Empagliflozin [Jardiance] 25 mg PO DAILY 05/29/18 [History] Aspirin [Adult Aspirin Regimen] 81 mg PO QAM 09/20/18 [History] Dulaglutide [Trulicity] 1.5 mg SQ MO 09/20/18 [History] Fluticasone Propionate Nasal [Flonase] 2 spray NS HS PRN 09/20/18 [History] Gabapentin 300 mg PO QAM 09/20/18 [History] Gabapentin 900 mg PO HS 09/20/18 [History] Glucosamine HCl 3,000 mg PO QAM 09/20/18 [History] Levocetirizine Dihydrochloride [Allergy Relief (Xyzal)] 5 mg PO DAILY 09/20/18 [History] Sennosides/Docusate Sodium [Senna Plus] 2 tab PO QPM 09/20/18 [History] Turmeric Root Extract [Turmeric Curcumin] 500 mg PO TID 09/20/18 [History] Amoxicillin/Clavulanate [Augmentin] 875 mg PO BIDWM 4 Days #8 tablet 09/22/18 [Rx] Baclofen [Lioresal] 15 mg PO TID PRN 30 Days #90 tablet 09/22/18 [Rx] Allergies/Adverse Reactions: Allergy/AdvReac Type Severity Reaction Status Date / Time celecoxib [From Celebrex] AdvReac See Verified 09/20/18 18:10 Comments infliximab [From Remicade] AdvReac See Verified 09/20/18 18:10 Comments NSAIDS (Non-Steroidal AdvReac See Verified 09/20/18 18:10 Anti-Inflamma Comments Date of admission: 09/21/18 13:56 Primary care physician: Rafal Conklin DO Consults: 09/20/18 18:01 Consult to Orthopedic Surgery [CONS] Routine Consulting Provider: [facility] Reason for Consult: back pain Call Completed: No 09/21/18 08:39 Consult to Physical Therapy [CONS] Routine Comment: Evaluate, develop and implement POC Reason for Consult: eval and treat Does patient have active BEDREST order?: No Is patient medically & hemodynamically stable?: Yes Patient assessed for mobility or mobilized this visit?: No 09/21/18 08:40 Consult to Occupational Therapy [CONS] Routine Comment: Evaluate, develop and implement POC Reason for Consult: eval and treat Does patient have active BEDREST order?: No Is patient medically & hemodynamically stable?: Yes Patient assessed for mobility or mobilized this visit?: No - Constitutional Vitals: Temp Pulse Resp BP Pulse Ox 97.5 F L 70 16 144/83 97 09/22/18 07:00 09/22/18 07:00 09/22/18 07:00 09/22/18 07:00 09/22/18 07:00 Exam: Vitals: Reviewed General: Alert and oriented x4. In no distress Cardiovascular: RRR, normal S1 & S2, no rubs, murmurs or gallops. Lungs: CTA b/l, no wheezes or crackles. Abdomen: Soft, non-tender, no rigidity. NABS in all 4 quadrants Extremities: strength is 5/5 in the lower and upper extremities. 2+ reflexes. Neurological: No focal neurological abnormalities Rest of the physical exam is non contributory - Patient Status Disposition: Home, Self-Care Condition: Fair Functional capacity at discharge: uses cane/walker Overall status at discharge: patient is back to baseline - Discharge Instructions Follow Up With: Rafal Conklin DO [Primary Care Provider] - - Diet and Activity Activity: as per physical therapy, resume usual activities as tolerated Diet: diabetic diet, low salt diet
[2018-09-22] MEDS: *HR* OxyCODONE/APAP 10/325 TABLET PO PRN (13:28)
[2018-09-22] MEDS: Sennosides/Docusate Sodium TABLET PO PRN (13:28)
[2018-09-22 15:23] VITALS: BP 128/75
[2018-09-22] MEDS: Ondansetron 4 MG/2 ML VIAL IVP PRN (15:29)
== END 2018-09-22 16:05 | disposition home or self-care (01) | DRG 552 ==
LOC: EMEROOARM 12:59 → 3NENU 12:59
PROVIDERS: ADMIT Internal Medicine Nephrology; ATTEND Internal Medicine Nephrology

== ENCOUNTER 2019-02-03 10:16 | Observation (INO) ==
[2019-02-03 12:41] LABS: Basophils # 0.1 K/mcL (0.0-0.2); Basophils % 1.2 %; Eosinophils # 0.3 K/mcL (0.0-0.6); Eosinophils % 4.8 %; Hematocrit 37.2 % (37.5-50.1); Hemoglobin 11.7 g/dL (12.9-16.9); Immature Granulocytes % 0.6 % (0-4); Lymphocytes # 1.2 K/mcL (0.6-4.6); Lymphocytes % 18.5 %; Mean Corpuscular HGB Conc 31.5 g/dL (31.6-35.5); Mean Corpuscular Hemoglobin 27.5 pg (28.0-33.3); Mean Corpuscular Volume 87.3 fL (83.0-100.0); Mean Platelet Volume 9.3 fL (9.4-12.4); Monocytes # 0.6 K/mcL (0.0-1.3); Monocytes % 9.4 %; Neutrophils # 4.4 K/mcL (1.6-8.9); Platelet Count 252 K/mcL (140-400); Red Blood Count 4.26 M/mcL (4.19-5.50); Segmented Neutrophils % 65.5 %; White Blood Count 6.7 K/mcL (4.3-11.1)
[2019-02-03 12:59] LABS: Blood Urea Nitrogen 26 mg/dL (8-23); Carbon Dioxide 28 mEq/L (23-29); Chloride 106 mEq/L (98-107); Potassium 4.3 mEq/L (3.5-5.1); Sodium 143 mEq/L (136-145)
[2019-02-03 13:00] LABS: BUN/Creatinine Ratio 22 (6-26); Calcium 9.2 mg/dL (8.6-10.3); Glucose 136 mg/dL (70-105); Osmolality,Calculated 303 (280-300); eGFR For African Americans > 60 (> 60); eGFR For Non-African Americans > 60 (> 60)
[2019-02-03] MEDS ORDERED: Naloxone 0.4 MG/ML INJ IVP PRN (13:24)
[2019-02-03] MEDS ORDERED: Ondansetron 4 MG/2 ML VIAL IVP PRN (13:24)
[2019-02-03] MEDS ORDERED: *HR* Dextrose 50 % in Water (Syg) 50 ML SYRINGE IVP PRN (13:31)
[2019-02-03] MEDS ORDERED: Dextrose Gel 15 GM/37.5 ML TUBE PO PRN ×2 (13:31)
[2019-02-03] MEDS ORDERED: D5% in Water 1,000 ML IVC PRN (13:31)
[2019-02-03 13:57] LABS: Bilirubin,Urine Negative (Negative); Blood,Urine Negative (Negative); Clarity,Urine Cloudy (Clear); Color,Urine Yellow (Yellow); Glucose,Urine (UA) >=1000 mg/dL (Normal); Ketones,Urine Negative (Negative); Leukocyte Esterase,Urine Moderate (Negative); Nitrite,Urine Negative (Negative); Protein,Urine Trace mg/dL (Neg-Trace); Specific Gravity,Urine 1.023 (1.010-1.025); Urobilinogen,Urine Normal (Normal)
[2019-02-03 14:01] LABS: Bacteria,Urine Many per hpf (None-Few); Hyaline Casts,Urine Moderate per lpf (None-Few); RBC,Urine 0-3 per hpf (0-3); Squamous Epithelial Cell,Urine Many per lpf (None-Few); WBC,Urine 50-100 per hpf (0-3)
[2019-02-03] MEDS: 0.9 % Sodium Chloride 1,000 ML IVC SCH (15:55)
[2019-02-03] MEDS ORDERED: Fluticasone Propionate Nasal 50 MCG/SPRAY BOTTLE NS PRN (15:57)
[2019-02-03] MEDS: Insulin LISPRO 300 UNITS/3 ML VIAL SQ SCH (17:58)
[2019-02-03] MEDS: *HR* Heparin 5,000 UNIT/ML VIAL SQ SCH (22:02)
[2019-02-03] MEDS: Multivit/Ca/Min/Fe/FA 1 TAB TABLET PO SCH (22:02)
[2019-02-03] MEDS: Gabapentin 300 MG CAPSULE PO SCH (22:02)
[2019-02-03] MEDS: Baclofen 10 MG TABLET PO SCH (22:04)
[2019-02-03] MEDS: Loratadine 10 MG TABLET PO SCH (22:04)
[2019-02-04] MEDS: *HR* Heparin 5,000 UNIT/ML VIAL SQ SCH ×3 (06:09→21:42)
[2019-02-04 07:01] LABS: Hematocrit 34.6 % (37.5-50.1); Hemoglobin 10.9 g/dL (12.9-16.9); Mean Corpuscular HGB Conc 31.5 g/dL (31.6-35.5); Mean Corpuscular Hemoglobin 27.9 pg (28.0-33.3); Mean Corpuscular Volume 88.7 fL (83.0-100.0); Mean Platelet Volume 9.7 fL (9.4-12.4); Platelet Count 233 K/mcL (140-400); Red Cell Distribution Width 15.1 % (11.5-14.5); Segmented Neutrophils % 60.1 %; White Blood Count 7.5 K/mcL (4.3-11.1)
[2019-02-04 07:02] LABS: Basophils # 0.1 K/mcL (0.0-0.2); Basophils % 0.7 %; Eosinophils # 0.4 K/mcL (0.0-0.6); Eosinophils % 4.7 %; Immature Granulocytes % 0.5 % (0-4); Lymphocytes # 1.9 K/mcL (0.6-4.6); Lymphocytes % 25.2 %; Monocytes # 0.7 K/mcL (0.0-1.3); Monocytes % 8.8 %; Neutrophils # 4.5 K/mcL (1.6-8.9)
[2019-02-04 07:20] LABS: BUN/Creatinine Ratio 21 (6-26); Blood Urea Nitrogen 26 mg/dL (8-23); Calcium 8.8 mg/dL (8.6-10.3); Carbon Dioxide 28 mEq/L (23-29); Chloride 108 mEq/L (98-107); Glucose 118 mg/dL (70-105); Osmolality,Calculated 294 (280-300); Potassium 3.7 mEq/L (3.5-5.1); Sodium 139 mEq/L (136-145); eGFR For African Americans > 60 (> 60); eGFR For Non-African Americans > 60 (> 60)
[2019-02-04] MEDS: Insulin LISPRO 300 UNITS/3 ML VIAL SQ SCH ×3 (10:00→17:17)
[2019-02-04] MEDS: amLODIPine 5 MG TABLET PO SCH (10:02)
[2019-02-04] MEDS: Baclofen 10 MG TABLET PO SCH ×3 (10:02→21:41)
[2019-02-04] MEDS: hydroCHLOROthiazide 25 MG TABLET PO SCH (10:02)
[2019-02-04] MEDS: Aspirin Enteric Coated 81 MG Tablet PO SCH (10:02)
[2019-02-04] MEDS: Gabapentin 300 MG CAPSULE PO SCH ×2 (10:02→21:40)
[2019-02-04] MEDS: *HR* HYDROcodone/Acet 5/325 mg TABLET PO PRN (10:11)
[2019-02-04] MEDS ORDERED: cefTRIAXone 1,000 MG in Water for inj. (sterile) 10 ML IVP SCH (15:00)
[2019-02-04] MEDS: Loratadine 10 MG TABLET PO SCH (21:41)
[2019-02-04] MEDS: Multivit/Ca/Min/Fe/FA 1 TAB TABLET PO SCH (21:42)
[2019-02-04] MEDS: Nystatin POWDER 30 GM BOTTLE TP SCH (22:22)
[2019-02-05 00:58] LABS: % Iron Saturation 13 % (20-55); Iron 49 mcg/dL (65-175); Transferrin 279 mg/dL (203-362)
[2019-02-05] MEDS: 0.9 % Sodium Chloride 1,000 ML IVC SCH (03:48)
[2019-02-05] MEDS: *HR* Heparin 5,000 UNIT/ML VIAL SQ SCH ×2 (05:19→13:51)
[2019-02-05] MEDS: Insulin LISPRO 300 UNITS/3 ML VIAL SQ SCH ×2 (08:08→12:22)
[2019-02-05] MEDS: Aspirin Enteric Coated 81 MG Tablet PO SCH (09:29)
[2019-02-05] MEDS: amLODIPine 5 MG TABLET PO SCH (09:29)
[2019-02-05] MEDS: Baclofen 10 MG TABLET PO SCH (09:29)
[2019-02-05] MEDS: hydroCHLOROthiazide 25 MG TABLET PO SCH (09:29)
[2019-02-05] MEDS: Nystatin POWDER 30 GM BOTTLE TP SCH (09:30)
[2019-02-05] MEDS: Gabapentin 300 MG CAPSULE PO SCH (09:30)
[2019-02-05] MEDS: *HR* HYDROcodone/Acet 5/325 mg TABLET PO PRN (09:37)
[2019-02-05 11:46] VITALS: BP 161/78
== END 2019-02-05 14:46 ==
LOC: 3BNU 10:16 → EMEROOARM 10:16 → SUATTDRO 13:27 → 3BNU 13:51
PROVIDERS: ADMIT Pharmacist; ATTEND Family Medicine

== ENCOUNTER 2019-03-09 14:15 | Observation (INO) ==
[2019-03-09] MEDS ORDERED: Morphine Sulfate Immed Rel 15 MG TABLET PO STA ×2 (14:36→14:44)
[2019-03-09] MEDS ORDERED: *HR* FentaNYL (PF) 100 MCG/2 ML VIAL IM ONE (18:42)
[2019-03-09] MEDS ORDERED: Morphine Sulfate 2 MG/ML SYRINGE IVP ONE (23:04)
[2019-03-10 00:02] LABS: Alanine Aminotransferase 15 Units/L (7-52); Albumin 3.8 g/dL (3.5-5.7); Albumin/Globulin Ratio 1.2 (1.1-2.2); Alkaline Phosphatase 66 Units/L (34-104); Aspartate Amino Transferase 17 Units/L (13-39); BUN/Creatinine Ratio 24 (6-26); Bilirubin,Total 0.5 mg/dL (0.3-1.0); Blood Urea Nitrogen 29 mg/dL (8-23); Carbon Dioxide 24 mEq/L (23-29); Chloride 108 mEq/L (98-107); Globulin 3.3 g/dL (2.4-3.5); Glucose 90 mg/dL (70-105); Osmolality,Calculated 297 (280-300); Potassium 4.1 mEq/L (3.5-5.1); Sodium 141 mEq/L (136-145); Total Protein 7.1 g/dL (6.4-8.9); eGFR For African Americans > 60 (> 60); eGFR For Non-African Americans 60 (> 60)
[2019-03-10] MEDS ORDERED: Naloxone 0.4 MG/ML INJ IVP PRN (01:41)
[2019-03-10] MEDS ORDERED: D5% in Water 1,000 ML IVC PRN (01:43)
[2019-03-10] MEDS ORDERED: Dextrose Gel 15 GM/37.5 ML TUBE PO PRN ×2 (01:43)
[2019-03-10] MEDS ORDERED: *HR* Dextrose 50 % in Water (Syg) 50 ML SYRINGE IVP PRN (01:43)
[2019-03-10] MEDS: *HR* HYDROmorphone (PF) 1 MG/ML SYRINGE IVP PRN ×4 (03:23→20:28)
[2019-03-10 04:19] LABS: Hematocrit 38.4 % (37.5-50.1); Hemoglobin 12.1 g/dL (12.9-16.9); Mean Corpuscular HGB Conc 31.5 g/dL (31.6-35.5); Mean Corpuscular Hemoglobin 27.9 pg (28.0-33.3); Mean Corpuscular Volume 88.5 fL (83.0-100.0); Mean Platelet Volume 9.7 fL (9.4-12.4); Platelet Count 280 K/mcL (140-400); Red Blood Count 4.34 M/mcL (4.19-5.50)
[2019-03-10 04:39] LABS: BUN/Creatinine Ratio 22 (6-26); Blood Urea Nitrogen 28 mg/dL (8-23); Calcium 8.9 mg/dL (8.6-10.3); Carbon Dioxide 28 mEq/L (23-29); Chloride 105 mEq/L (98-107); Glucose 113 mg/dL (70-105); Osmolality,Calculated 300 (280-300); Potassium 3.8 mEq/L (3.5-5.1); Sodium 142 mEq/L (136-145); eGFR For African Americans > 60 (> 60); eGFR For Non-African Americans 57 (> 60)
[2019-03-10] MEDS: *HR* Heparin 5,000 UNIT/ML VIAL SQ SCH ×2 (05:33→16:04)
[2019-03-10] MEDS: Insulin LISPRO 300 UNITS/3 ML VIAL SQ SCH ×4 (09:51→20:44)
[2019-03-10] MEDS: Aspirin Enteric Coated 81 MG Tablet PO SCH (09:52)
[2019-03-10] MEDS: amLODIPine 5 MG TABLET PO SCH (09:52)
[2019-03-10] MEDS ORDERED: Ondansetron 4 MG/2 ML VIAL IVP ONE (11:51)
[2019-03-10] MEDS ORDERED: 0.9 % Sodium Chloride 1,000 ML IVC SCH (14:00)
[2019-03-10] MEDS ORDERED: Baclofen 10 MG TABLET PO SCH (16:12)
[2019-03-10] MEDS: Gabapentin 300 MG CAPSULE PO SCH ×2 (16:49→20:31)
[2019-03-10] MEDS: Baclofen 10 MG TABLET PO PRN (20:31)
[2019-03-10] MEDS: *HR* OxyCODONE/APAP 10/325 TABLET PO PRN (20:31)
[2019-03-11] MEDS: *HR* Heparin 5,000 UNIT/ML VIAL SQ SCH ×2 (05:11→18:06)
[2019-03-11] MEDS: *HR* Metformin 500 MG TABLET PO SCH ×2 (07:34→16:40)
[2019-03-11] MEDS: amLODIPine 5 MG TABLET PO SCH (07:34)
[2019-03-11] MEDS: Aspirin Enteric Coated 81 MG Tablet PO SCH (07:35)
[2019-03-11] MEDS: Insulin LISPRO 300 UNITS/3 ML VIAL SQ SCH ×4 (07:35→20:21)
[2019-03-11] MEDS: Gabapentin 300 MG CAPSULE PO SCH ×3 (07:35→20:12)
[2019-03-11] MEDS: *HR* OxyCODONE/APAP 10/325 TABLET PO PRN ×3 (07:41→20:12)
[2019-03-11] MEDS: Baclofen 10 MG TABLET PO PRN ×2 (10:10→16:40)
[2019-03-11] MEDS ORDERED: NON-FORMULARY MEDICATION 1 EACH EACH (Gabapentin [Neurontin] 600 MG) PO SCH (15:00)
[2019-03-11] MEDS ORDERED: Gabapentin 300 MG CAPSULE PO SCH ×2 (16:11→16:32)
[2019-03-12] MEDS: Baclofen 10 MG TABLET PO PRN ×2 (00:37→09:33)
[2019-03-12] MEDS: *HR* Heparin 5,000 UNIT/ML VIAL SQ SCH (06:06)
[2019-03-12 06:38] VITALS: BP 127/73
[2019-03-12] MEDS: Aspirin Enteric Coated 81 MG Tablet PO SCH (09:32)
[2019-03-12] MEDS: *HR* OxyCODONE/APAP 10/325 TABLET PO PRN (09:32)
[2019-03-12] MEDS: Gabapentin 300 MG CAPSULE PO SCH (09:33)
[2019-03-12] MEDS: *HR* Metformin 500 MG TABLET PO SCH (09:33)
[2019-03-12] MEDS: Insulin LISPRO 300 UNITS/3 ML VIAL SQ SCH (09:33)
[2019-03-12] MEDS: amLODIPine 5 MG TABLET PO SCH (09:33)
== END 2019-03-12 11:00 ==
LOC: EMEROOARM 14:15 → 3NENU 14:15 → SUATTDRO 23:34 → 3NENU 03-10 00:01
PROVIDERS: ADMIT Family Medicine; ATTEND Internal Medicine

== ENCOUNTER 2019-05-16 23:57 | Inpatient (IN) ==
[2019-05-17] MEDS ORDERED: *HR* OxyCODONE Immed Rel 5 MG TABLET PO STA (00:16)
[2019-05-17 01:05] LABS: Basophils # 0.1 K/mcL (0.0-0.2); Basophils % 0.7 %; Eosinophils # 0.2 K/mcL (0.0-0.6); Hematocrit 38.7 % (37.5-50.1); Hemoglobin 12.1 g/dL (12.9-16.9); Immature Granulocytes % 1.6 % (0-4); Lymphocytes # 1.5 K/mcL (0.6-4.6); Lymphocytes % 15.5 %; Mean Corpuscular HGB Conc 31.3 g/dL (31.6-35.5); Mean Corpuscular Hemoglobin 28.1 pg (28.0-33.3); Mean Platelet Volume 9.8 fL (9.4-12.4); Monocytes # 0.9 K/mcL (0.0-1.3); Neutrophils # 6.8 K/mcL (1.6-8.9); Platelet Count 242 K/mcL (140-400); Segmented Neutrophils % 71.2 %; White Blood Count 9.6 K/mcL (4.3-11.1)
[2019-05-17 01:09] LABS: BUN/Creatinine Ratio 18 (6-26); Blood Urea Nitrogen 24 mg/dL (8-23); C-Reactive Protein 10 mg/L (Less than 10); Calcium 9.2 mg/dL (8.6-10.3); Carbon Dioxide 27 mEq/L (23-29); Chloride 105 mEq/L (98-107); Glucose 138 mg/dL (70-105); Osmolality,Calculated 298 (280-300); Sodium 141 mEq/L (136-145); eGFR For African Americans > 60 (> 60); eGFR For Non-African Americans 56 (> 60)
[2019-05-17] MEDS ORDERED: *HR* HYDROmorphone (PF) 1 MG/ML SYRINGE IVP ONE ×2 (01:59→08:17)
[2019-05-17] MEDS ORDERED: 0.9 % Sodium Chloride 1,000 ML IVC ONE (02:46)
[2019-05-17] MEDS ORDERED: diazePAM 5 MG TABLET PO ONE (04:36)
[2019-05-17] MEDS ORDERED: *HR* FentaNYL (PF) 100 MCG/2 ML VIAL IVP ONE (04:36)
[2019-05-17] MEDS ORDERED: Naloxone 0.4 MG/ML INJ IVP PRN (10:46)
[2019-05-17] MEDS ORDERED: Dextrose Gel 15 GM/37.5 ML TUBE PO PRN ×2 (10:51)
[2019-05-17] MEDS ORDERED: *HR* Dextrose 50 % in Water (Syg) 50 ML SYRINGE IVP PRN (10:51)
[2019-05-17] MEDS ORDERED: D5% in Water 1,000 ML IVC PRN (10:51)
[2019-05-17] MEDS: Insulin LISPRO 300 UNITS/3 ML VIAL SQ SCH ×2 (12:32→16:15)
[2019-05-17] MEDS: Gabapentin 300 MG CAPSULE PO SCH ×2 (15:48→22:14)
[2019-05-17] MEDS: Baclofen 10 MG TABLET PO SCH ×2 (15:48→22:14)
[2019-05-17] MEDS: *HR* HYDROmorphone 20 MG/20 ML PCA IVC PRN (16:39)
[2019-05-17] MEDS: *HR* Heparin 5,000 UNIT/ML VIAL SQ SCH (17:50)
[2019-05-17] MEDS: Insulin DETEMIR 100 UNIT/ML X5UNITS SQ SCH (22:20)
[2019-05-18 08:16] LABS: Basophils # 0.1 K/mcL (0.0-0.2); Basophils % 0.6 %; Eosinophils # 0.4 K/mcL (0.0-0.6); Hematocrit 35.6 % (37.5-50.1); Hemoglobin 11.2 g/dL (12.9-16.9); INR 1.1; Immature Granulocytes % 0.3 % (0-4); Lymphocytes # 1.3 K/mcL (0.6-4.6); Lymphocytes % 14.3 %; Mean Corpuscular HGB Conc 31.5 g/dL (31.6-35.5); Mean Corpuscular Hemoglobin 28.4 pg (28.0-33.3); Mean Corpuscular Volume 90.1 fL (83.0-100.0); Mean Platelet Volume 9.9 fL (9.4-12.4); Monocytes % 11.7 %; Neutrophils # 6.1 K/mcL (1.6-8.9); Platelet Count 192 K/mcL (140-400); Prothrombin Time 12.4 Seconds (9.4-12.1); Red Blood Count 3.95 M/mcL (4.19-5.50); Red Cell Distribution Width 14.9 % (11.5-14.5); Segmented Neutrophils % 69.1 %; White Blood Count 8.8 K/mcL (4.3-11.1)
[2019-05-18 08:19] LABS: Activated Partial Thrombo Time 28.9 Seconds (26.0-36.0)
[2019-05-18 08:32] LABS: BUN/Creatinine Ratio 16 (6-26); Blood Urea Nitrogen 19 mg/dL (8-23); Calcium 8.5 mg/dL (8.6-10.3); Carbon Dioxide 26 mEq/L (23-29); Chloride 102 mEq/L (98-107); Glucose 125 mg/dL (70-105); Osmolality,Calculated 286 (280-300); Phosphorous 3.6 mg/dL (2.7-4.5); Potassium 3.9 mEq/L (3.5-5.1); Sodium 136 mEq/L (136-145); eGFR For African Americans > 60 (> 60); eGFR For Non-African Americans > 60 (> 60)
[2019-05-18] MEDS: Insulin LISPRO 300 UNITS/3 ML VIAL SQ SCH ×3 (08:49→16:34)
[2019-05-18] MEDS: Gabapentin 300 MG CAPSULE PO SCH ×3 (08:57→20:50)
[2019-05-18] MEDS: amLODIPine 5 MG TABLET PO SCH (08:57)
[2019-05-18] MEDS: Baclofen 10 MG TABLET PO SCH ×3 (08:57→20:52)
[2019-05-18] MEDS: Aspirin Enteric Coated 81 MG Tablet PO SCH (08:57)
[2019-05-18] MEDS: *HR* Heparin 5,000 UNIT/ML VIAL SQ SCH ×2 (08:57→19:30)
[2019-05-18] MEDS: 0.9 % Sodium Chloride 1,000 ML IVC SCH ×2 (19:39→19:40)
[2019-05-18] MEDS: Insulin DETEMIR 100 UNIT/ML X5UNITS SQ SCH (20:56)
[2019-05-19] MEDS: *HR* Heparin 5,000 UNIT/ML VIAL SQ SCH ×2 (06:07→18:09)
[2019-05-19] MEDS: Insulin LISPRO 300 UNITS/3 ML VIAL SQ SCH ×3 (08:21→18:09)
[2019-05-19] MEDS: Baclofen 10 MG TABLET PO SCH ×3 (08:23→21:18)
[2019-05-19] MEDS: Aspirin Enteric Coated 81 MG Tablet PO SCH (08:23)
[2019-05-19] MEDS: Gabapentin 300 MG CAPSULE PO SCH ×3 (08:23→21:18)
[2019-05-19] MEDS: amLODIPine 5 MG TABLET PO SCH (08:23)
[2019-05-19] MEDS: hydroCHLOROthiazide 25 MG TABLET PO SCH (08:23)
[2019-05-19] MEDS ORDERED: diazePAM 10 MG TABLET PO ONE (16:22)
[2019-05-19] MEDS ORDERED: *HR* FentaNYL (PF) 100 MCG/2 ML VIAL IVP PRN (17:23)
[2019-05-19] MEDS: Insulin DETEMIR 100 UNIT/ML X5UNITS SQ SCH (21:18)
[2019-05-19] MEDS: 0.9 % Sodium Chloride 1,000 ML IVC SCH (21:19)
[2019-05-19] MEDS: *HR* HYDROmorphone 20 MG/20 ML PCA IVC PRN (22:49)
[2019-05-20] MEDS: *HR* Heparin 5,000 UNIT/ML VIAL SQ SCH ×2 (05:44→17:47)
[2019-05-20] MEDS: Gabapentin 300 MG CAPSULE PO SCH ×3 (08:11→20:49)
[2019-05-20] MEDS: Aspirin Enteric Coated 81 MG Tablet PO SCH (08:11)
[2019-05-20] MEDS: Baclofen 10 MG TABLET PO SCH ×3 (08:11→20:49)
[2019-05-20] MEDS: Insulin LISPRO 300 UNITS/3 ML VIAL SQ SCH ×3 (08:12→17:47)
[2019-05-20] MEDS ORDERED: diazePAM 10 MG TABLET PO ONE (08:55)
[2019-05-20] MEDS ORDERED: *HR* FentaNYL (PF) 100 MCG/2 ML VIAL IVP PRN (08:57)
[2019-05-20] MEDS ORDERED: ceFAZolin 2,000 MG in 0.9 % Sodium Chloride 100 ML IVPB ONE (14:58)
[2019-05-20] MEDS: Insulin DETEMIR 100 UNIT/ML X5UNITS SQ SCH (20:49)
[2019-05-21] MEDS: 0.9 % Sodium Chloride 1,000 ML IVC SCH (00:02)
[2019-05-21 01:18] LABS: Hematocrit 36.2 % (37.5-50.1); Hemoglobin 11.4 g/dL (12.9-16.9); Mean Corpuscular HGB Conc 31.5 g/dL (31.6-35.5); Mean Corpuscular Hemoglobin 27.7 pg (28.0-33.3); Mean Corpuscular Volume 87.9 fL (83.0-100.0); Mean Platelet Volume 9.4 fL (9.4-12.4); Platelet Count 227 K/mcL (140-400); Red Blood Count 4.12 M/mcL (4.19-5.50); Red Cell Distribution Width 14.8 % (11.5-14.5)
[2019-05-21 01:21] LABS: INR 1.1; Prothrombin Time 12.4 Seconds (9.4-12.1)
[2019-05-21 01:41] LABS: BUN/Creatinine Ratio 20 (6-26); Blood Urea Nitrogen 24 mg/dL (8-23); Calcium 8.8 mg/dL (8.6-10.3); Carbon Dioxide 29 mEq/L (23-29); Chloride 100 mEq/L (98-107); Glucose 165 mg/dL (70-105); Osmolality,Calculated 292 (280-300); Potassium 4.5 mEq/L (3.5-5.1); Sodium 137 mEq/L (136-145); eGFR For African Americans > 60 (> 60); eGFR For Non-African Americans > 60 (> 60)
[2019-05-21] MEDS ORDERED: Morphine Sulfate 2 MG/ML SYRINGE IVP PRN (02:42)
[2019-05-21] MEDS: *HR* Heparin 5,000 UNIT/ML VIAL SQ SCH ×2 (05:11→18:39)
[2019-05-21] MEDS ORDERED: Bacitracin 50,000 UNIT, Polymyxin B Sulfate 500,000 UNIT, Sodium Chloride IRRigation 1,... IR ONE (06:00)
[2019-05-21] MEDS: amLODIPine 5 MG TABLET PO SCH (09:29)
[2019-05-21] MEDS: hydroCHLOROthiazide 25 MG TABLET PO SCH (09:29)
[2019-05-21] MEDS: Aspirin Enteric Coated 81 MG Tablet PO SCH (09:29)
[2019-05-21] MEDS: Baclofen 10 MG TABLET PO SCH ×3 (09:30→20:12)
[2019-05-21] MEDS: Insulin LISPRO 300 UNITS/3 ML VIAL SQ SCH ×3 (09:30→17:37)
[2019-05-21] MEDS: Gabapentin 300 MG CAPSULE PO SCH ×3 (09:30→20:12)
[2019-05-21] MEDS ORDERED: CeFAZolin Syr 2,000MG/20 ML 2,000 MG/20 ML SYRINGE IVPB ONE ×2 (09:45→10:00)
[2019-05-21] MEDS: *HR* HYDROmorphone 20 MG/20 ML PCA IVC PRN (11:20)
[2019-05-21] MEDS: Insulin DETEMIR 100 UNIT/ML X5UNITS SQ SCH (20:16)
[2019-05-22] MEDS: *HR* Heparin 5,000 UNIT/ML VIAL SQ SCH ×2 (06:02→19:36)
[2019-05-22] MEDS: hydroCHLOROthiazide 25 MG TABLET PO SCH (07:33)
[2019-05-22] MEDS: Aspirin Enteric Coated 81 MG Tablet PO SCH (07:33)
[2019-05-22] MEDS: Gabapentin 300 MG CAPSULE PO SCH ×3 (07:34→22:58)
[2019-05-22] MEDS: Baclofen 10 MG TABLET PO SCH ×3 (07:34→22:58)
[2019-05-22] MEDS: amLODIPine 5 MG TABLET PO SCH (07:34)
[2019-05-22] MEDS: Insulin LISPRO 300 UNITS/3 ML VIAL SQ SCH ×3 (07:38→19:35)
[2019-05-22] MEDS ORDERED: CeFAZolin Syr 2,000MG/20 ML 2,000 MG/20 ML SYRINGE IVPB ONE (14:00)
[2019-05-22] MEDS ORDERED: Bacitracin 50,000 UNIT, Polymyxin B Sulfate 500,000 UNIT, Sodium Chloride IRRigation 1,... IR ONE (14:30)
[2019-05-22] MEDS ORDERED: *HR* Propofol 200 MG/20 ML VIAL IVP ONE ×4 (14:34→20:14)
[2019-05-22] MEDS ORDERED: Propofol 500 MG/50 ML INFUS..BTL ONE ×4 (14:34→19:16)
[2019-05-22] MEDS ORDERED: *HR* Remifentanil 2 MG VIAL IVP ONE ×2 (14:35→17:16)
[2019-05-22] MEDS ORDERED: *HR* Midazolam HCl 2 MG/2 ML VIAL ONE (14:35)
[2019-05-22] MEDS ORDERED: *HR* Phenylephrine 10 MG/ML VIAL ONE (14:38)
[2019-05-22] MEDS ORDERED: Ondansetron 4 MG/2 ML VIAL ONE (14:44)
[2019-05-22] MEDS ORDERED: Lidocaine -MPF 4% 5 ML AMPUL ONE (14:44)
[2019-05-22] MEDS ORDERED: *HR* Succinylcholine 200 MG/10 ML VIAL IVP ONE (14:44)
[2019-05-22] MEDS ORDERED: Lidocaine -MPF 2% 2 ML VIAL ONE ×2 (14:44→14:45)
[2019-05-22] MEDS ORDERED: *HR* Rocuronium Bromide 50 MG/5 ML VIAL ONE (14:52)
[2019-05-22] MEDS ORDERED: *HR* FentaNYL (PF) 100 MCG/2 ML VIAL ONE (15:03)
[2019-05-22] MEDS ORDERED: Heparin 1,000 UNITS/500 mL 500 ML ONE (15:06)
[2019-05-22] MEDS ORDERED: Lacri-Lube 3.5 GM TUBE ONE (15:49)
[2019-05-22] MEDS ORDERED: EPHEDrine 50 MG/ML VIAL ONE (15:51)
[2019-05-22 17:32] LABS: ABG Base Excess -1 mEq/L (-2 to 3); ABG HCO3 27 mEq/L (21-27); ABG Oxygen Saturation 98 % (95-98); ABG PCO2 56 mmHg (35-45); ABG PH 7.29 pH Units (7.32-7.45); ABG PO2 120 mmHg (85-104); ABG TCO2 28 mEq/L (20-26); Blood Gas VT 500 cc
[2019-05-22] MEDS ORDERED: *HR* EPINEPHrine 30 MG/30 ML MDV ONE (17:36)
[2019-05-22 17:38] LABS: Basophils # 0.1 K/mcL (0.0-0.2); Basophils % 0.6 %; Eosinophils # 0.4 K/mcL (0.0-0.6); Eosinophils % 4.6 %; Hematocrit 32.2 % (37.5-50.1); Hemoglobin 10.2 g/dL (12.9-16.9); Immature Granulocytes % 0.5 % (0-4); Lymphocytes # 1.3 K/mcL (0.6-4.6); Lymphocytes % 17.3 %; Mean Corpuscular HGB Conc 31.7 g/dL (31.6-35.5); Mean Corpuscular Hemoglobin 28.7 pg (28.0-33.3); Mean Corpuscular Volume 90.7 fL (83.0-100.0); Mean Platelet Volume 9.7 fL (9.4-12.4); Monocytes # 0.7 K/mcL (0.0-1.3); Monocytes % 8.4 %; Neutrophils # 5.3 K/mcL (1.6-8.9); Platelet Count 239 K/mcL (140-400); Red Blood Count 3.55 M/mcL (4.19-5.50); Red Cell Distribution Width 14.7 % (11.5-14.5); Segmented Neutrophils % 68.6 %; White Blood Count 7.8 K/mcL (4.3-11.1)
[2019-05-22] MEDS ORDERED: *HR* Remifentanil 1 MG VIAL IVP ONE ×2 (18:31→19:06)
[2019-05-22] MEDS ORDERED: *HR* HYDROMORPHONE 2 MG/ML VIAL ONE (19:19)
[2019-05-22] MEDS ORDERED: *HR* Labetalol 20 MG/4 ML SYRINGE IVP PRN (20:25)
[2019-05-22] MEDS ORDERED: *HR* OxyCODONE Immed Rel 5 MG TABLET PO PRN (20:25)
[2019-05-22] MEDS ORDERED: *HR* Promethazine 25 MG/ML VIAL IVP PRN (20:25)
[2019-05-22] MEDS ORDERED: *HR* HYDROmorphone 2 MG TABLET PO PRN (20:25)
[2019-05-22] MEDS ORDERED: *HR* HYDROmorphone (PF) 1 MG/ML SYRINGE IVP PRN (20:25)
[2019-05-22] MEDS ORDERED: Dexamethasone 4 MG/ML VIAL ONE (21:06)
[2019-05-22] MEDS: 0.9 % Sodium Chloride 1,000 ML IVC SCH ×2 (22:57→22:58)
[2019-05-22] MEDS: Insulin DETEMIR 100 UNIT/ML X5UNITS SQ SCH (22:58)
[2019-05-23] MEDS ORDERED: *HR* HYDROcodone/Acet 5/325 mg TABLET PO PRN ×2 (00:41→12:42)
[2019-05-23] MEDS ORDERED: Ondansetron 4 MG/2 ML VIAL IVP PRN ×2 (00:41→12:42)
[2019-05-23] MEDS ORDERED: Naloxone 0.4 MG/ML INJ IVP PRN ×2 (00:41→12:42)
[2019-05-23] MEDS ORDERED: Acetaminophen 325 MG TABLET PO PRN ×2 (00:41→12:42)
[2019-05-23] MEDS: *HR* OxyCODONE Immed Rel 5 MG TABLET PO PRN ×4 (01:12→20:13)
[2019-05-23] MEDS: Ringers Solution, Lactated 1,000 ML IVC SCH ×2 (01:14→19:33)
[2019-05-23] MEDS ORDERED: *HR* FentaNYL PATCH 50 MCG PATCH TD SCH (02:45)
[2019-05-23] MEDS ORDERED: Ketorolac 15 MG/ML VIAL IVP ONE (02:47)
[2019-05-23 04:55] LABS: Basophils % 0.3 %; Eosinophils % 0.1 %; Hematocrit 33.4 % (37.5-50.1); Immature Granulocytes % 0.7 % (0-4); Lymphocytes # 0.6 K/mcL (0.6-4.6); Lymphocytes % 5.5 %; Mean Corpuscular HGB Conc 32.9 g/dL (31.6-35.5); Mean Corpuscular Hemoglobin 28.4 pg (28.0-33.3); Mean Corpuscular Volume 86.3 fL (83.0-100.0); Mean Platelet Volume 9.8 fL (9.4-12.4); Monocytes # 0.4 K/mcL (0.0-1.3); Monocytes % 3.7 %; Neutrophils # 9.1 K/mcL (1.6-8.9); Platelet Count 197 K/mcL (140-400); Red Blood Count 3.87 M/mcL (4.19-5.50); Red Cell Distribution Width 14.2 % (11.5-14.5); Segmented Neutrophils % 89.7 %; White Blood Count 10.1 K/mcL (4.3-11.1)
[2019-05-23 05:10] LABS: BUN/Creatinine Ratio 28 (6-26); Blood Urea Nitrogen 31 mg/dL (8-23); Calcium 8.6 mg/dL (8.6-10.3); Carbon Dioxide 25 mEq/L (23-29); Chloride 99 mEq/L (98-107); Glucose 234 mg/dL (70-105); Osmolality,Calculated 296 (280-300); Potassium 4.4 mEq/L (3.5-5.1); Sodium 136 mEq/L (136-145); eGFR For African Americans > 60 (> 60); eGFR For Non-African Americans > 60 (> 60)
[2019-05-23] MEDS ORDERED: *HR* OxyCODONE Immed Rel 5 MG TABLET PO PRN ×2 (12:42→14:04)
[2019-05-23] MEDS ORDERED: *HR* Dextrose 50 % in Water (Syg) 50 ML SYRINGE IVP PRN (13:47)
[2019-05-23] MEDS ORDERED: D5% in Water 1,000 ML IVC PRN (13:47)
[2019-05-23] MEDS ORDERED: Dextrose Gel 15 GM/37.5 ML TUBE PO PRN ×2 (13:47)
[2019-05-23] MEDS ORDERED: HYDROcodone BIT/Homatropine 5 MG TABLET PO PRN (14:04)
[2019-05-23] MEDS ORDERED: Gabapentin 300 MG CAPSULE PO SCH (15:00)
[2019-05-23] MEDS ORDERED: Baclofen 10 MG TABLET PO SCH (15:00)
[2019-05-23 15:27] LABS: Estimated Average Glucose 166 mg/dl
[2019-05-23] MEDS: Acetaminophen IV 1,000 MG/100 ML INFUS..BTL IVPB SCH ×2 (17:25→22:34)
[2019-05-23] MEDS: Insulin LISPRO 300 UNITS/3 ML VIAL SQ SCH (17:26)
[2019-05-23] MEDS: Gabapentin 300 MG CAPSULE PO SCH (20:13)
[2019-05-23] MEDS ORDERED: Insulin LISPRO 300 UNITS/3 ML VIAL SQ SCH (21:00)
[2019-05-24] MEDS: HYDROcodone BIT/Homatropine 5 MG TABLET PO PRN ×3 (01:00→20:36)
[2019-05-24 01:28] LABS: Basophils % 0.2 %; Eosinophils % 0.4 %; Hematocrit 28.5 % (37.5-50.1); Immature Granulocytes % 0.5 % (0-4); Lymphocytes # 0.9 K/mcL (0.6-4.6); Lymphocytes % 9.9 %; Mean Corpuscular HGB Conc 32.6 g/dL (31.6-35.5); Mean Corpuscular Hemoglobin 27.9 pg (28.0-33.3); Mean Corpuscular Volume 85.6 fL (83.0-100.0); Mean Platelet Volume 9.8 fL (9.4-12.4); Monocytes # 0.9 K/mcL (0.0-1.3); Monocytes % 10.3 %; Neutrophils # 6.7 K/mcL (1.6-8.9); Platelet Count 223 K/mcL (140-400); Red Blood Count 3.33 M/mcL (4.19-5.50); Red Cell Distribution Width 14.5 % (11.5-14.5); Segmented Neutrophils % 78.7 %; White Blood Count 8.6 K/mcL (4.3-11.1)
[2019-05-24 01:32] LABS: Hemoglobin 9.3 g/dL (12.9-16.9)
[2019-05-24 01:46] LABS: Alanine Aminotransferase 8 Units/L (7-52); Albumin 3.3 g/dL (3.5-5.7); Alkaline Phosphatase 77 Units/L (34-104); Aspartate Amino Transferase 16 Units/L (13-39); BUN/Creatinine Ratio 31 (6-26); Bilirubin,Total 0.4 mg/dL (0.3-1.0); Blood Urea Nitrogen 34 mg/dL (8-23); Calcium 8.4 mg/dL (8.6-10.3); Carbon Dioxide 25 mEq/L (23-29); Chloride 101 mEq/L (98-107); Globulin 3.3 g/dL (2.4-3.5); Glucose 176 mg/dL (70-105); Magnesium 2.1 mg/dL (1.6-2.6); Osmolality,Calculated 292 (280-300); Potassium 4.1 mEq/L (3.5-5.1); Sodium 135 mEq/L (136-145); Total Protein 6.6 g/dL (6.4-8.9); eGFR For African Americans > 60 (> 60); eGFR For Non-African Americans > 60 (> 60)
[2019-05-24] MEDS: *HR* OxyCODONE Immed Rel 5 MG TABLET PO PRN ×3 (04:16→18:09)
[2019-05-24] MEDS: Acetaminophen IV 1,000 MG/100 ML INFUS..BTL IVPB SCH ×3 (06:01→22:40)
[2019-05-24] MEDS: Gabapentin 300 MG CAPSULE PO SCH ×3 (07:55→20:36)
[2019-05-24] MEDS: Insulin LISPRO 300 UNITS/3 ML VIAL SQ SCH ×3 (07:57→17:51)
[2019-05-24] MEDS ORDERED: Baclofen 10 MG TABLET PO SCH (09:00)
[2019-05-24] MEDS: hydroCHLOROthiazide 25 MG TABLET PO SCH (13:06)
[2019-05-24] MEDS: Baclofen 10 MG TABLET PO SCH ×2 (14:28→20:36)
[2019-05-24] MEDS: Insulin DETEMIR 100 UNIT/ML X5UNITS SQ SCH (20:36)
[2019-05-25] MEDS: *HR* OxyCODONE Immed Rel 5 MG TABLET PO PRN ×3 (01:20→17:34)
[2019-05-25 02:30] LABS: Hematocrit 27.9 % (37.5-50.1); Hemoglobin 8.8 g/dL (12.9-16.9)
[2019-05-25] MEDS: HYDROcodone BIT/Homatropine 5 MG TABLET PO PRN ×3 (03:10→20:30)
[2019-05-25] MEDS: Acetaminophen IV 1,000 MG/100 ML INFUS..BTL IVPB SCH ×3 (06:42→23:13)
[2019-05-25] MEDS: Insulin LISPRO 300 UNITS/3 ML VIAL SQ SCH ×3 (08:22→17:34)
[2019-05-25] MEDS: Baclofen 10 MG TABLET PO SCH ×3 (08:23→20:30)
[2019-05-25] MEDS: Gabapentin 300 MG CAPSULE PO SCH ×3 (08:25→20:30)
[2019-05-25] MEDS: hydroCHLOROthiazide 25 MG TABLET PO SCH (08:25)
[2019-05-25] MEDS: Insulin DETEMIR 100 UNIT/ML X5UNITS SQ SCH (20:30)
[2019-05-26] MEDS: *HR* OxyCODONE Immed Rel 5 MG TABLET PO PRN ×3 (01:55→23:11)
[2019-05-26] MEDS ORDERED: *HR* FentaNYL PATCH 50 MCG PATCH TD SCH (02:45)
[2019-05-26] MEDS: Acetaminophen IV 1,000 MG/100 ML INFUS..BTL IVPB SCH (06:14)
[2019-05-26 06:52] LABS: Hematocrit 31.1 % (37.5-50.1); Hemoglobin 9.8 g/dL (12.9-16.9)
[2019-05-26 07:10] LABS: BUN/Creatinine Ratio 22 (6-26); Blood Urea Nitrogen 20 mg/dL (8-23); Calcium 8.7 mg/dL (8.6-10.3); Carbon Dioxide 27 mEq/L (23-29); Chloride 102 mEq/L (98-107); Glucose 158 mg/dL (70-105); Osmolality,Calculated 292 (280-300); Potassium 4.2 mEq/L (3.5-5.1); Sodium 138 mEq/L (136-145); eGFR For African Americans > 60 (> 60); eGFR For Non-African Americans > 60 (> 60)
[2019-05-26] MEDS: hydroCHLOROthiazide 25 MG TABLET PO SCH (07:38)
[2019-05-26] MEDS: Gabapentin 300 MG CAPSULE PO SCH ×3 (07:39→21:47)
[2019-05-26] MEDS: Baclofen 10 MG TABLET PO SCH ×3 (07:39→21:47)
[2019-05-26] MEDS: Insulin LISPRO 300 UNITS/3 ML VIAL SQ SCH ×3 (07:41→16:22)
[2019-05-26] MEDS: *HR* FentaNYL PATCH 50 MCG PATCH TD SCH (10:09)
[2019-05-26] MEDS: HYDROcodone BIT/Homatropine 5 MG TABLET PO PRN ×2 (13:21→19:23)
[2019-05-26] MEDS: Insulin DETEMIR 100 UNIT/ML X5UNITS SQ SCH (21:48)
[2019-05-27] MEDS: HYDROcodone BIT/Homatropine 5 MG TABLET PO PRN ×2 (03:14→22:55)
[2019-05-27 06:47] LABS: Hematocrit 29.6 % (37.5-50.1); Hemoglobin 9.5 g/dL (12.9-16.9); Mean Corpuscular HGB Conc 32.1 g/dL (31.6-35.5); Mean Corpuscular Hemoglobin 27.9 pg (28.0-33.3); Mean Corpuscular Volume 87.1 fL (83.0-100.0); Mean Platelet Volume 9.8 fL (9.4-12.4); Platelet Count 289 K/mcL (140-400); Red Cell Distribution Width 14.6 % (11.5-14.5); White Blood Count 10.3 K/mcL (4.3-11.1)
[2019-05-27 07:07] LABS: BUN/Creatinine Ratio 20 (6-26); Blood Urea Nitrogen 18 mg/dL (8-23); Calcium 8.4 mg/dL (8.6-10.3); Carbon Dioxide 25 mEq/L (23-29); Chloride 102 mEq/L (98-107); Glucose 152 mg/dL (70-105); Osmolality,Calculated 291 (280-300); Potassium 4.3 mEq/L (3.5-5.1); Sodium 138 mEq/L (136-145); eGFR For African Americans > 60 (> 60); eGFR For Non-African Americans > 60 (> 60)
[2019-05-27] MEDS: Insulin LISPRO 300 UNITS/3 ML VIAL SQ SCH ×3 (08:10→17:36)
[2019-05-27] MEDS: *HR* OxyCODONE Immed Rel 5 MG TABLET PO PRN ×3 (09:06→20:06)
[2019-05-27] MEDS: Baclofen 10 MG TABLET PO SCH ×3 (09:06→20:05)
[2019-05-27] MEDS: Gabapentin 300 MG CAPSULE PO SCH ×3 (09:06→20:05)
[2019-05-27] MEDS: hydroCHLOROthiazide 25 MG TABLET PO SCH (09:07)
[2019-05-27] MEDS: Insulin DETEMIR 100 UNIT/ML X5UNITS SQ SCH (20:06)
[2019-05-28] MEDS: *HR* OxyCODONE Immed Rel 5 MG TABLET PO PRN ×4 (02:22→21:07)
[2019-05-28] MEDS: HYDROcodone BIT/Homatropine 5 MG TABLET PO PRN ×2 (06:36→13:06)
[2019-05-28] MEDS: Gabapentin 300 MG CAPSULE PO SCH ×3 (07:53→21:06)
[2019-05-28] MEDS: Insulin LISPRO 300 UNITS/3 ML VIAL SQ SCH ×3 (07:53→18:04)
[2019-05-28] MEDS: Baclofen 10 MG TABLET PO SCH ×3 (07:53→21:05)
[2019-05-28] MEDS: hydroCHLOROthiazide 25 MG TABLET PO SCH (07:54)
[2019-05-28] MEDS: Insulin DETEMIR 100 UNIT/ML X5UNITS SQ SCH (21:07)
[2019-05-29] MEDS: *HR* OxyCODONE Immed Rel 5 MG TABLET PO PRN (04:26)
[2019-05-29 06:27] VITALS: BP 105/67
[2019-05-29] MEDS: Insulin LISPRO 300 UNITS/3 ML VIAL SQ SCH (08:02)
[2019-05-29] MEDS: hydroCHLOROthiazide 25 MG TABLET PO SCH (08:03)
[2019-05-29] MEDS: Baclofen 10 MG TABLET PO SCH (08:03)
[2019-05-29] MEDS: Gabapentin 300 MG CAPSULE PO SCH (08:03)
[2019-05-29] MEDS: *HR* FentaNYL PATCH 50 MCG PATCH TD SCH (08:04)
== END 2019-05-29 09:40 | DRG 457 ==
LOC: 3NENU 23:57 → EMEROOARM 23:57 → SUATTDRO 05-17 10:18 → 3NENU 05-17 11:00 → SUATTDRO 05-18 12:20 → ICNU 05-22 22:28 → 3NENU 05-23 14:14
PROVIDERS: ADMIT Internal Medicine; ATTEND Internal Medicine

== ENCOUNTER 2019-06-05 19:13 | Inpatient (IN) ==
[2019-06-05] MEDS ORDERED: 0.9 % Sodium Chloride 1,000 ML IVC ONE ×2 (19:27→20:56)
[2019-06-05 19:51] LABS: Basophils # 0.1 K/mcL (0.0-0.2); Basophils % 0.3 %; Hematocrit 34.5 % (37.5-50.1); Hemoglobin 10.8 g/dL (12.9-16.9); Lymphocytes # 0.6 K/mcL (0.6-4.6); Lymphocytes % 2.6 %; Mean Corpuscular HGB Conc 31.3 g/dL (31.6-35.5); Mean Corpuscular Hemoglobin 27.1 pg (28.0-33.3); Mean Corpuscular Volume 86.7 fL (83.0-100.0); Mean Platelet Volume 8.8 fL (9.4-12.4); Monocytes # 1.4 K/mcL (0.0-1.3); Monocytes % 6.7 %; Platelet Count 314 K/mcL (140-400); Red Blood Count 3.98 M/mcL (4.19-5.50); Red Cell Distribution Width 14.8 % (11.5-14.5); Segmented Neutrophils % 89.4 %; White Blood Count 21.3 K/mcL (4.3-11.1)
[2019-06-05 20:00] LABS: INR 1.3; Prothrombin Time 15.1 Seconds (9.4-12.1)
[2019-06-05 20:13] LABS: Alanine Aminotransferase 11 Units/L (7-52); Albumin 3.5 g/dL (3.5-5.7); Albumin/Globulin Ratio 0.9 (1.1-2.2); Alkaline Phosphatase 152 Units/L (34-104); Aspartate Amino Transferase 19 Units/L (13-39); BUN/Creatinine Ratio 15 (6-26); Bilirubin,Total 0.9 mg/dL (0.3-1.0); Blood Urea Nitrogen 53 mg/dL (8-23); Calcium 8.9 mg/dL (8.6-10.3); Carbon Dioxide 20 mEq/L (23-29); Chloride 99 mEq/L (98-107); Globulin 3.8 g/dL (2.4-3.5); Glucose 186 mg/dL (70-105); Osmolality,Calculated 299 (280-300); Sodium 135 mEq/L (136-145); Total Protein 7.3 g/dL (6.4-8.9); Troponin I < 0.03 ng/mL (< 0.04); eGFR For African Americans 22 (> 60); eGFR For Non-African Americans 18 (> 60)
[2019-06-05 20:24] LABS: Bilirubin,Urine Negative (Negative); Blood,Urine Large (Negative); Clarity,Urine Turbid (Clear); Color,Urine Yellow (Yellow); Glucose,Urine (UA) >=1000 mg/dL (Normal); Ketones,Urine Negative (Negative); Leukocyte Esterase,Urine Large (Negative); Nitrite,Urine Negative (Negative); Protein,Urine 100 mg/dL (Neg-Trace); Urobilinogen,Urine Normal (Normal)
[2019-06-05 20:25] LABS: Bacteria,Urine Many per hpf (None-Few); Hyaline Casts,Urine None Seen per lpf (None-Few); RBC,Urine 30-50 per hpf (0-3); Squamous Epithelial Cell,Urine Many per lpf (None-Few); WBC,Urine TNTC per hpf (0-3)
[2019-06-05] MEDS ORDERED: cefTRIAXone 1,000 MG in Water for inj. (sterile) 10 ML IVP ONE (20:54)
[2019-06-05] MEDS ORDERED: Ondansetron ODT 4 MG TAB.RAPDIS SL PRN (22:41)
[2019-06-05] MEDS ORDERED: Naloxone 0.4 MG/ML INJ IVP PRN (22:41)
[2019-06-05] MEDS ORDERED: 0.9 % Sodium Chloride 1,000 ML ONE (22:47)
[2019-06-05] MEDS ORDERED: 0.9 % Sodium Chloride 500 ML IVC ONE (22:58)
[2019-06-06] MEDS ORDERED: *HR* Heparin 5,000 UNIT/ML VIAL IVP ONE (01:01)
[2019-06-06] MEDS ORDERED: *HR* Heparin 5,000 UNIT/ML VIAL IVP PRN ×2 (01:01)
[2019-06-06] MEDS ORDERED: Heparin 25,000 UNIT/250 ML D5W 25,000 UNIT/250 ML IV.SOLN IVC SCH (01:15)
[2019-06-06] MEDS: 0.9 % Sodium Chloride 1,000 ML IVC SCH ×2 (02:04→06:28)
[2019-06-06] MEDS ORDERED: Acetaminophen IV 500 MG/50 ML INFUS..BTL IVPB ONE (03:53)
[2019-06-06] MEDS ORDERED: Dextrose Gel 15 GM/37.5 ML TUBE PO PRN ×2 (03:59)
[2019-06-06] MEDS ORDERED: D5% in Water 1,000 ML IVC PRN (03:59)
[2019-06-06] MEDS ORDERED: *HR* Dextrose 50 % in Water (Syg) 50 ML SYRINGE IVP PRN (03:59)
[2019-06-06 04:43] LABS: Basophils # 0.1 K/mcL (0.0-0.2); Basophils % 0.3 %; Eosinophils % 0.1 %; Hematocrit 28.4 % (37.5-50.1); Immature Granulocytes % 1.1 % (0-4); Lymphocytes # 0.6 K/mcL (0.6-4.6); Lymphocytes % 3.5 %; Mean Corpuscular HGB Conc 32.4 g/dL (31.6-35.5); Mean Corpuscular Hemoglobin 27.6 pg (28.0-33.3); Mean Corpuscular Volume 85.3 fL (83.0-100.0); Monocytes # 1.1 K/mcL (0.0-1.3); Monocytes % 6.2 %; Platelet Count 257 K/mcL (140-400); Red Blood Count 3.33 M/mcL (4.19-5.50); Red Cell Distribution Width 14.7 % (11.5-14.5); Segmented Neutrophils % 88.8 %; White Blood Count 16.9 K/mcL (4.3-11.1)
[2019-06-06 04:44] LABS: Hemoglobin 9.2 g/dL (12.9-16.9)
[2019-06-06 04:48] LABS: Heparin anti-factor XA UFH 0.28 IU/mL (0.30-0.70); INR 1.4; Prothrombin Time 15.9 Seconds (9.4-12.1)
[2019-06-06 05:05] LABS: Magnesium 1.8 mg/dL (1.6-2.6); Phosphorous 4.2 mg/dL (2.7-4.5)
[2019-06-06] MEDS: Insulin LISPRO 300 UNITS/3 ML VIAL SQ SCH ×2 (06:03→11:47)
[2019-06-06 06:29] LABS: Basophils # 0.1 K/mcL (0.0-0.2); Basophils % 0.3 %; Eosinophils % 0.2 %; Hemoglobin 8.1 g/dL (12.9-16.9); Immature Granulocytes % 1.3 % (0-4); Lymphocytes # 0.5 K/mcL (0.6-4.6); Lymphocytes % 3.6 %; Mean Corpuscular HGB Conc 32.4 g/dL (31.6-35.5); Mean Corpuscular Hemoglobin 27.9 pg (28.0-33.3); Mean Corpuscular Volume 86.2 fL (83.0-100.0); Mean Platelet Volume 8.9 fL (9.4-12.4); Monocytes # 1.1 K/mcL (0.0-1.3); Monocytes % 6.9 %; Neutrophils # 13.3 K/mcL (1.6-8.9); Platelet Count 223 K/mcL (140-400); Red Cell Distribution Width 14.6 % (11.5-14.5); Segmented Neutrophils % 87.7 %; White Blood Count 15.2 K/mcL (4.3-11.1)
[2019-06-06] MEDS ORDERED: Norepinephrine 4 MG in 0.9 % Sodium Chloride 250 ML IVC SCH (06:45)
[2019-06-06 06:47] LABS: Albumin 2.6 g/dL (3.5-5.7); Albumin/Globulin Ratio 0.9 (1.1-2.2); Bilirubin,Total 0.5 mg/dL (0.3-1.0); Calcium 7.6 mg/dL (8.6-10.3); Globulin 2.9 g/dL (2.4-3.5); Magnesium 1.7 mg/dL (1.6-2.6); Phosphorous 4.1 mg/dL (2.7-4.5); Potassium 4.1 mEq/L (3.5-5.1); Total Protein 5.5 g/dL (6.4-8.9)
[2019-06-06] MEDS ORDERED: Piperacillin/Tazobactam 3.375 GM in 0.9 % Sodium Chloride Mini Bag 100 ML IVPB SCH (08:00)
[2019-06-06] MEDS ORDERED: Perflutren Lipid Microsphere 1.3 ML in 0.9 % Sodium Chloride 8.7 ML IVP ONE (08:48)
[2019-06-06 11:38] LABS: Acinetobacter baumannii by PCR Not Detected (Not Detect); Candida albicans by PCR Not Detected (Not Detect); Candida glabrata by PCR Not Detected (Not Detect); Candida krusei by PCR Not Detected (Not Detect); Candida parapsilosis by PCR Not Detected (Not Detect); Candida tropicalis by PCR Not Detected (Not Detect); Enterobacter cloacae Cmplx PCR Not Detected (Not Detect); Enterococcus by PCR Not Detected (Not Detect); Escherichia coli by PCR Not Detected (Not Detect); Klebsiella oxytoca by PCR Not Detected (Not Detect); Klebsiella pneumoniae by PCR DETECTED (Not Detect); Proteus by PCR Not Detected (Not Detect); Pseudomonas aeruginosa by PCR Not Detected (Not Detect); Serratia marcescens by PCR Not Detected (Not Detect); Staphylococcus aureus by PCR Not Detected (Not Detect); Staphylococcus by PCR Not Detected (Not Detect); Streptococcus agalactiae(B)PCR Not Detected (Not Detect); Streptococcus by PCR Not Detected (Not Detect); Streptococcus pneumoniae PCR Not Detected (Not Detect); Streptococcus pyogenes (A) PCR Not Detected (Not Detect); blaKPC Carbapenem-Resist Gene Not Detected (Not Detect); mecA Methicillin-Resist Gene Not Detected (Not Detect); vanA/B Vancomycin-Resist Genes Not Detected (Not Detect)
[2019-06-06] MEDS ORDERED: Acetaminophen 325 MG TABLET PO PRN (11:46)
[2019-06-06 12:18] VITALS: BP 92/57
[2019-06-06] MEDS ORDERED: Aminoglycoside Consult 1 EACH MC ONE (13:19)
[2019-06-06] MEDS ORDERED: Insulin DETEMIR 100 UNIT/ML X5UNITS SQ SCH (21:00)
== END 2019-06-06 13:20 | disposition short-term general hospital (02) | DRG 871 ==
LOC: EMEROOARM 19:13 → ICNU 19:13 → 2ANU 19:13 → ICNU 06-06 01:55
PROVIDERS: ADMIT Internal Medicine; ATTEND Internal Medicine

== ENCOUNTER 2021-01-28 20:32 | Observation (INO) ==
[2021-01-29] MEDS ORDERED: *HR* HYDROmorphone (PF) 1 MG/ML SYRINGE IVP ONE ×3 (00:14→09:45)
[2021-01-29 00:58] LABS: Calcium 8.2 mg/dL (8.6-10.3); Potassium 3.8 mEq/L (3.5-5.1)
[2021-01-29 01:02] LABS: Basophils % 0.4 %; Eosinophils # 0.2 K/mcL (0.0-0.6); Eosinophils % 1.9 %; Hematocrit 34.5 % (37.5-50.1); Hemoglobin 11.1 g/dL (12.9-16.9); Immature Granulocytes % 0.4 % (0-4); Lymphocytes # 1.3 K/mcL (0.6-4.6); Lymphocytes % 12.9 %; Mean Corpuscular HGB Conc 32.2 g/dL (31.6-35.5); Mean Corpuscular Hemoglobin 29.7 pg (28.0-33.3); Mean Corpuscular Volume 92.2 fL (83.0-100.0); Mean Platelet Volume 10.5 fL (9.4-12.4); Monocytes # 1.1 K/mcL (0.0-1.3); Monocytes % 11.1 %; Neutrophils # 7.1 K/mcL (1.6-8.9); Platelet Count 228 K/mcL (140-400); Red Blood Count 3.74 M/mcL (4.19-5.50); Red Cell Distribution Width 13.9 % (11.5-14.5); Segmented Neutrophils % 73.3 %; White Blood Count 9.7 K/mcL (4.3-11.1)
[2021-01-29] MEDS ORDERED: 0.9 % Sodium Chloride 1,000 ML IVC ONE (04:37)
[2021-01-29] MEDS ORDERED: Ondansetron 4 MG/2 ML VIAL IVP PRN (05:30)
[2021-01-29] MEDS ORDERED: Naloxone 0.4 MG/ML INJ IVP PRN (05:30)
[2021-01-29] MEDS ORDERED: Acetaminophen 325 MG TABLET PO PRN (06:00)
[2021-01-29] MEDS ORDERED: D5% in Water 1,000 ML IVC PRN (06:32)
[2021-01-29] MEDS ORDERED: *HR* Dextrose 50 % in Water (Syg) 50 ML SYRINGE IVP PRN (06:32)
[2021-01-29] MEDS ORDERED: Dextrose Gel 15 GM/37.5 ML TUBE PO PRN ×2 (06:32)
[2021-01-29] MEDS ORDERED: *HR* HYDROmorphone (PF) 1 MG/ML SYRINGE IVP PRN (06:32)
[2021-01-29] MEDS: Insulin LISPRO 300 UNITS/3 ML VIAL SUBQ SCH ×3 (09:19→17:48)
[2021-01-29] MEDS ORDERED: 0.9 % Sodium Chloride 1,000 ML IVC SCH (10:00)
[2021-01-29] MEDS ORDERED: Baclofen 10 MG TABLET PO STA (11:00)
[2021-01-29 16:12] LABS: Bacteria,Urine Few per hpf (None-Few); Bilirubin,Urine Negative (Negative); Blood,Urine Moderate (Negative); Clarity,Urine Turbid (Clear); Color,Urine Light-Yellow (Yellow); Glucose,Urine (UA) Normal (Normal); Ketones,Urine Negative (Negative); Leukocyte Esterase,Urine Large (Negative); Mucus,Urine Few per lpf (None-Few); Nitrite,Urine Negative (Negative); Protein,Urine 70 mg/dL (Neg-Trace); Specific Gravity,Urine 1.016 (1.010-1.025); Squamous Epithelial Cell,Urine Few per hpf (None-Few); Urobilinogen,Urine Normal (Normal); WBC,Urine TNTC per hpf (0-3)
[2021-01-29] MEDS: Baclofen 10 MG TABLET PO SCH ×2 (17:47→21:16)
[2021-01-29 19:06] LABS: Basophils % 0.5 %; Eosinophils # 0.2 K/mcL (0.0-0.6); Eosinophils % 2.9 %; Hematocrit 35.5 % (37.5-50.1); Hemoglobin 11.8 g/dL (12.9-16.9); Immature Granulocytes % 0.7 % (0-4); Lymphocytes # 0.9 K/mcL (0.6-4.6); Lymphocytes % 11.2 %; Mean Corpuscular HGB Conc 33.2 g/dL (31.6-35.5); Mean Corpuscular Hemoglobin 30.5 pg (28.0-33.3); Mean Corpuscular Volume 91.7 fL (83.0-100.0); Mean Platelet Volume 10.1 fL (9.4-12.4); Monocytes # 0.8 K/mcL (0.0-1.3); Monocytes % 9.9 %; Neutrophils # 6.1 K/mcL (1.6-8.9); Platelet Count 242 K/mcL (140-400); Red Blood Count 3.87 M/mcL (4.19-5.50); Red Cell Distribution Width 13.7 % (11.5-14.5); Segmented Neutrophils % 74.8 %; White Blood Count 8.2 K/mcL (4.3-11.1)
[2021-01-29 19:18] LABS: INR 1.1; Prothrombin Time 12.4 Seconds (9.4-12.1)
[2021-01-29 19:27] LABS: Albumin 3.2 g/dL (3.5-5.7); Albumin/Globulin Ratio 0.8 (1.1-2.2); Bilirubin,Total 0.7 mg/dL (0.3-1.0); Calcium 8.4 mg/dL (8.6-10.3); Globulin 3.9 g/dL (2.4-3.5); Magnesium 2.1 mg/dL (1.6-2.6); Potassium 3.9 mEq/L (3.5-5.1); Total Protein 7.1 g/dL (6.4-8.9)
[2021-01-29 19:29] LABS: Estimated Average Glucose 126 mg/dl
[2021-01-29] MEDS: Sennosides/Docusate Sodium TABLET PO SCH (21:17)
[2021-01-30 05:20] LABS: Calcium 8.3 mg/dL (8.6-10.3); Potassium 4.2 mEq/L (3.5-5.1)
[2021-01-30 05:39] LABS: Basophils % 0.4 %; Eosinophils # 0.3 K/mcL (0.0-0.6); Eosinophils % 3.6 %; Hematocrit 34.1 % (37.5-50.1); Immature Granulocytes % 0.9 % (0-4); Lymphocytes # 0.9 K/mcL (0.6-4.6); Lymphocytes % 11.7 %; Mean Corpuscular HGB Conc 32.3 g/dL (31.6-35.5); Mean Corpuscular Hemoglobin 29.4 pg (28.0-33.3); Mean Corpuscular Volume 91.2 fL (83.0-100.0); Mean Platelet Volume 10.4 fL (9.4-12.4); Monocytes # 0.6 K/mcL (0.0-1.3); Monocytes % 7.8 %; Neutrophils # 6.1 K/mcL (1.6-8.9); Platelet Count 239 K/mcL (140-400); Red Blood Count 3.74 M/mcL (4.19-5.50); Red Cell Distribution Width 13.8 % (11.5-14.5); Segmented Neutrophils % 75.6 %
[2021-01-30] MEDS: Baclofen 10 MG TABLET PO SCH ×3 (08:08→19:35)
[2021-01-30] MEDS: Sennosides/Docusate Sodium TABLET PO SCH ×2 (08:09→19:35)
[2021-01-30] MEDS: Insulin LISPRO 300 UNITS/3 ML VIAL SUBQ SCH ×3 (08:10→18:30)
[2021-01-30] MEDS ORDERED: *HR* HYDROmorphone (PF) 1 MG/ML SYRINGE IVP PRN (09:47)
[2021-01-31] MEDS: Baclofen 10 MG TABLET PO SCH ×3 (08:38→20:27)
[2021-01-31] MEDS: Insulin LISPRO 300 UNITS/3 ML VIAL SUBQ SCH ×3 (08:39→17:36)
[2021-01-31] MEDS: Sennosides/Docusate Sodium TABLET PO SCH ×2 (08:39→20:27)
[2021-01-31] MEDS: predniSONE 20 MG TABLET PO SCH (10:03)
[2021-01-31 12:48] LABS: Calcium 8.8 mg/dL (8.6-10.3); Potassium 4.5 mEq/L (3.5-5.1)
[2021-01-31] MEDS ORDERED: Ringers Solution, Lactated 1,000 ML IVC SCH (20:45)
[2021-02-01] MEDS: Sennosides/Docusate Sodium TABLET PO SCH ×2 (08:32→20:35)
[2021-02-01] MEDS: Baclofen 10 MG TABLET PO SCH ×3 (08:33→20:34)
[2021-02-01] MEDS: predniSONE 20 MG TABLET PO SCH (08:33)
[2021-02-01] MEDS: Insulin LISPRO 300 UNITS/3 ML VIAL SUBQ SCH ×3 (08:37→17:22)
[2021-02-02 04:56] LABS: Basophils % 0.3 %; Hematocrit 36.2 % (37.5-50.1); Hemoglobin 12.1 g/dL (12.9-16.9); Immature Granulocytes % 1.6 % (0-4); Lymphocytes # 0.8 K/mcL (0.6-4.6); Lymphocytes % 5.3 %; Mean Corpuscular HGB Conc 33.4 g/dL (31.6-35.5); Mean Corpuscular Hemoglobin 29.9 pg (28.0-33.3); Mean Corpuscular Volume 89.4 fL (83.0-100.0); Mean Platelet Volume 9.6 fL (9.4-12.4); Monocytes % 6.9 %; Platelet Count 298 K/mcL (140-400); Red Blood Count 4.05 M/mcL (4.19-5.50); Red Cell Distribution Width 13.2 % (11.5-14.5); Segmented Neutrophils % 85.9 %
[2021-02-02 04:58] LABS: Neutrophils # 12.6 K/mcL (1.6-8.9); White Blood Count 14.7 K/mcL (4.3-11.1)
[2021-02-02 05:18] LABS: Calcium 9.3 mg/dL (8.6-10.3); Potassium 5.3 mEq/L (3.5-5.1)
[2021-02-02] MEDS: Sennosides/Docusate Sodium TABLET PO SCH ×2 (08:11→20:42)
[2021-02-02] MEDS: Baclofen 10 MG TABLET PO SCH ×3 (08:12→20:41)
[2021-02-02] MEDS: Insulin LISPRO 300 UNITS/3 ML VIAL SUBQ SCH ×3 (08:21→16:48)
[2021-02-02] MEDS: hydroCHLOROthiazide 25 MG TABLET PO SCH (10:10)
[2021-02-02] MEDS: predniSONE 20 MG TABLET PO SCH (10:10)
[2021-02-02] MEDS: amLODIPine 5 MG TABLET PO SCH (10:10)
[2021-02-02] MEDS ORDERED: Milk and Molasses Enema 200 ML RC ONE (17:50)
[2021-02-03] MEDS ORDERED: hydrALAZINE 10 MG TABLET PO PRN (00:29)
[2021-02-03 03:49] VITALS: O2SAT 96
[2021-02-03] MEDS ORDERED: *HR* Labetalol 20 MG/4 ML SYRINGE IVP ONE (03:51)
[2021-02-03 05:49] LABS: Basophils % 0.3 %; Eosinophils % 0.1 %; Hematocrit 37.5 % (37.5-50.1); Hemoglobin 12.4 g/dL (12.9-16.9); Immature Granulocytes % 1.6 % (0-4); Lymphocytes # 0.9 K/mcL (0.6-4.6); Lymphocytes % 6.9 %; Mean Corpuscular HGB Conc 33.1 g/dL (31.6-35.5); Mean Corpuscular Hemoglobin 30.3 pg (28.0-33.3); Mean Corpuscular Volume 91.7 fL (83.0-100.0); Mean Platelet Volume 9.8 fL (9.4-12.4); Monocytes % 7.1 %; Neutrophils # 11.5 K/mcL (1.6-8.9); Platelet Count 312 K/mcL (140-400); Red Blood Count 4.09 M/mcL (4.19-5.50); Red Cell Distribution Width 13.2 % (11.5-14.5); White Blood Count 13.7 K/mcL (4.3-11.1)
[2021-02-03 06:11] LABS: BUN/Creatinine Ratio 36 (6-26); Blood Urea Nitrogen 50 mg/dL (8-23); Calcium 9.5 mg/dL (8.6-10.3); Carbon Dioxide 24 mEq/L (23-29); Chloride 105 mEq/L (98-107); Glucose 260 mg/dL (70-105); Osmolality,Calculated 306 (280-300); Potassium 5.3 mEq/L (3.5-5.1); Sodium 137 mEq/L (136-145); eGFR For African Americans > 60 (> 60); eGFR For Non-African Americans 51 (> 60)
[2021-02-03] MEDS ORDERED: Aspirin Enteric Coated 81 MG Tablet PO SCH (09:00)
[2021-02-03] MEDS: Insulin LISPRO 300 UNITS/3 ML VIAL SUBQ SCH ×2 (09:08→13:39)
[2021-02-03] MEDS: Baclofen 10 MG TABLET PO SCH ×2 (09:08→13:36)
[2021-02-03] MEDS: predniSONE 20 MG TABLET PO SCH (09:09)
[2021-02-03] MEDS: amLODIPine 5 MG TABLET PO SCH (09:09)
[2021-02-03] MEDS: hydroCHLOROthiazide 25 MG TABLET PO SCH (09:10)
[2021-02-03] MEDS: Sennosides/Docusate Sodium TABLET PO SCH (09:10)
[2021-02-03 12:05] VITALS: PULSE 52; TEMP 97.9
[2021-02-03] MEDS ORDERED: lisinopriL 20 MG TABLET PO SCH (13:45)
[2021-02-03 14:39] LABS: Influenza A PCR Negative (Negative); Influenza B PCR Negative (Negative); Resp. Syncytial Virus PCR Negative (Negative)
[2021-02-03 15:05] LABS: SARS-CoV-2 by PCR (In House) Negative (Negative)
[2021-02-03 15:25] VITALS: BP 169/71
[2021-02-04] MEDS ORDERED: predniSONE 20 MG TABLET PO SCH (09:00)
[2021-02-05] MEDS ORDERED: predniSONE 20 MG TABLET PO SCH (09:00)
== END 2021-02-03 16:06 | disposition other institution (70) ==
LOC: 4WAOSI 20:32 → EMEROOARM 20:32 → SUATTDRO 01-29 05:22 → 4WAOSI 01-29 06:35
PROVIDERS: ADMIT Internal Medicine; ATTEND Internal Medicine

== ENCOUNTER 2021-02-15 14:59 | Inpatient (IN) ==
[2021-02-16] MEDS ORDERED: Naloxone 0.4 MG/ML INJ IVP PRN (03:25)
[2021-02-16 05:08] LABS: Basophils % 0.3 %; Eosinophils # 0.2 K/mcL (0.0-0.6); Eosinophils % 1.9 %; Hemoglobin 9.2 g/dL (12.9-16.9); Immature Granulocytes % 0.7 % (0-4); Lymphocytes # 1.4 K/mcL (0.6-4.6); Mean Corpuscular HGB Conc 32.9 g/dL (31.6-35.5); Mean Corpuscular Hemoglobin 30.5 pg (28.0-33.3); Mean Corpuscular Volume 92.7 fL (83.0-100.0); Mean Platelet Volume 10.1 fL (9.4-12.4); Monocytes # 1.2 K/mcL (0.0-1.3); Monocytes % 10.7 %; Neutrophils # 7.9 K/mcL (1.6-8.9); Platelet Count 257 K/mcL (140-400); Red Blood Count 3.02 M/mcL (4.19-5.50); Red Cell Distribution Width 13.5 % (11.5-14.5); Segmented Neutrophils % 73.4 %; White Blood Count 10.8 K/mcL (4.3-11.1)
[2021-02-16 05:24] LABS: Calcium 8.6 mg/dL (8.6-10.3); Potassium 4.9 mEq/L (3.5-5.1)
[2021-02-16 05:28] LABS: INR 1.1; Prothrombin Time 12.1 Seconds (9.4-12.1)
[2021-02-16] MEDS: *HR* OxyCODONE/APAP 10/325 TABLET PO SCH ×5 (05:46→21:43)
[2021-02-16] MEDS: Sennosides/Docusate Sodium TABLET PO PRN (05:51)
[2021-02-16] MEDS: Insulin DETEMIR 100 UNIT/ML X5UNITS SUBQ SCH ×2 (07:59→21:44)
[2021-02-16] MEDS: amLODIPine 5 MG TABLET PO SCH (07:59)
[2021-02-16] MEDS: Baclofen 10 MG TABLET PO SCH ×3 (07:59→21:43)
[2021-02-16] MEDS: Gabapentin 300 MG CAPSULE PO SCH ×3 (07:59→21:44)
[2021-02-16] MEDS: Aspirin Enteric Coated 81 MG Tablet PO SCH (07:59)
[2021-02-16] MEDS: Fluticasone Propionate Nasal 50 MCG/SPRAY BOTTLE NS PRN (08:00)
[2021-02-16] MEDS: Piperacillin/Tazobactam 3.375 GM in 0.9 % Sodium Chloride Mini Bag 100 ML IVPB SCH ×2 (16:00→23:59)
[2021-02-16 18:30] LABS: Bilirubin,Urine Negative (Negative); Blood,Urine Negative (Negative); Clarity,Urine Clear (Clear); Color,Urine Yellow (Yellow); Glucose,Urine (UA) Normal (Normal); Ketones,Urine Negative (Negative); Leukocyte Esterase,Urine Moderate (Negative); Nitrite,Urine Negative (Negative); Protein,Urine 30 mg/dL (Neg-Trace); RBC,Urine 0-3 per hpf (0-3); Squamous Epithelial Cell,Urine Few per hpf (None-Few); Urobilinogen,Urine Normal (Normal); WBC,Urine 30-50 per hpf (0-3)
[2021-02-16] MEDS: Loratadine 10 MG TABLET PO SCH (21:44)
[2021-02-17] MEDS: *HR* OxyCODONE/APAP 10/325 TABLET PO SCH ×4 (08:14→23:02)
[2021-02-17] MEDS: Aspirin Enteric Coated 81 MG Tablet PO SCH (08:14)
[2021-02-17] MEDS: Gabapentin 300 MG CAPSULE PO SCH ×3 (08:14→23:02)
[2021-02-17] MEDS: lisinopriL 20 MG TABLET PO SCH (08:14)
[2021-02-17] MEDS: Baclofen 10 MG TABLET PO SCH ×3 (08:14→23:02)
[2021-02-17] MEDS: Piperacillin/Tazobactam 3.375 GM in 0.9 % Sodium Chloride Mini Bag 100 ML IVPB SCH ×3 (08:15→23:03)
[2021-02-17] MEDS: Insulin DETEMIR 100 UNIT/ML X5UNITS SUBQ SCH (08:15)
[2021-02-17] MEDS: amLODIPine 5 MG TABLET PO SCH (08:15)
[2021-02-17] MEDS ORDERED: Dextrose Gel 15 GM/37.5 ML TUBE PO PRN ×2 (10:35)
[2021-02-17] MEDS ORDERED: *HR* Dextrose 50 % in Water (Syg) 50 ML SYRINGE IVP PRN (10:35)
[2021-02-17] MEDS ORDERED: D5% in Water 1,000 ML IVC PRN (10:35)
[2021-02-17] MEDS: Insulin LISPRO 300 UNITS/3 ML VIAL SUBQ SCH ×4 (11:59→16:49)
[2021-02-17] MEDS: *HR* Heparin 5,000 UNIT/ML VIAL SQ SCH (16:34)
[2021-02-17] MEDS ORDERED: Insulin DETEMIR 100 UNIT/ML X5UNITS SUBQ SCH (21:00)
[2021-02-17] MEDS: Loratadine 10 MG TABLET PO SCH (23:03)
[2021-02-18 05:06] LABS: Basophils % 0.3 %; Calcium 8.1 mg/dL (8.6-10.3); Eosinophils # 0.3 K/mcL (0.0-0.6); Hematocrit 26.4 % (37.5-50.1); Hemoglobin 8.5 g/dL (12.9-16.9); Immature Granulocytes % 0.7 % (0-4); Lymphocytes # 1.3 K/mcL (0.6-4.6); Lymphocytes % 14.9 %; Magnesium 1.7 mg/dL (1.6-2.6); Mean Corpuscular HGB Conc 32.2 g/dL (31.6-35.5); Mean Corpuscular Hemoglobin 29.6 pg (28.0-33.3); Mean Platelet Volume 10.4 fL (9.4-12.4); Monocytes # 0.8 K/mcL (0.0-1.3); Monocytes % 8.7 %; Neutrophils # 6.3 K/mcL (1.6-8.9); Phosphorous 3.3 mg/dL (2.7-4.5); Platelet Count 189 K/mcL (140-400); Potassium 4.9 mEq/L (3.5-5.1); Red Blood Count 2.87 M/mcL (4.19-5.50); Red Cell Distribution Width 13.6 % (11.5-14.5); Segmented Neutrophils % 72.4 %; White Blood Count 8.7 K/mcL (4.3-11.1)
[2021-02-18] MEDS: *HR* Heparin 5,000 UNIT/ML VIAL SQ SCH ×2 (05:14→17:10)
[2021-02-18] MEDS: Insulin LISPRO 300 UNITS/3 ML VIAL SUBQ SCH ×6 (08:48→17:09)
[2021-02-18] MEDS: Aspirin Enteric Coated 81 MG Tablet PO SCH (08:56)
[2021-02-18] MEDS: Gabapentin 300 MG CAPSULE PO SCH ×3 (08:57→22:01)
[2021-02-18] MEDS: amLODIPine 5 MG TABLET PO SCH (08:57)
[2021-02-18] MEDS: lisinopriL 20 MG TABLET PO SCH (08:57)
[2021-02-18] MEDS: *HR* OxyCODONE/APAP 10/325 TABLET PO SCH ×4 (08:57→22:00)
[2021-02-18] MEDS: Baclofen 10 MG TABLET PO SCH ×3 (08:58→22:01)
[2021-02-18] MEDS: Piperacillin/Tazobactam 3.375 GM in 0.9 % Sodium Chloride Mini Bag 100 ML IVPB SCH ×2 (08:59→17:08)
[2021-02-18] MEDS: Insulin DETEMIR 100 UNIT/ML X5UNITS SUBQ SCH ×2 (10:46→22:01)
[2021-02-18] MEDS: Loratadine 10 MG TABLET PO SCH (22:00)
[2021-02-19] MEDS: Piperacillin/Tazobactam 3.375 GM in 0.9 % Sodium Chloride Mini Bag 100 ML IVPB SCH ×2 (00:26→09:34)
[2021-02-19] MEDS: *HR* Heparin 5,000 UNIT/ML VIAL SQ SCH ×2 (06:23→17:20)
[2021-02-19] MEDS: amLODIPine 5 MG TABLET PO SCH (09:35)
[2021-02-19] MEDS: *HR* OxyCODONE/APAP 10/325 TABLET PO SCH ×4 (09:35→23:08)
[2021-02-19] MEDS: Gabapentin 300 MG CAPSULE PO SCH ×3 (09:35→23:08)
[2021-02-19] MEDS: Baclofen 10 MG TABLET PO SCH ×3 (09:35→23:08)
[2021-02-19] MEDS: lisinopriL 20 MG TABLET PO SCH (09:35)
[2021-02-19] MEDS: Aspirin Enteric Coated 81 MG Tablet PO SCH (09:35)
[2021-02-19] MEDS: Insulin LISPRO 300 UNITS/3 ML VIAL SUBQ SCH ×6 (09:36→17:19)
[2021-02-19] MEDS: Insulin DETEMIR 100 UNIT/ML X5UNITS SUBQ SCH ×2 (10:00→23:08)
[2021-02-19 20:37] LABS: Calcium 8.3 mg/dL (8.6-10.3); Magnesium 1.9 mg/dL (1.6-2.6); Phosphorous 3.3 mg/dL (2.7-4.5); Potassium 4.6 mEq/L (3.5-5.1)
[2021-02-19] MEDS: Loratadine 10 MG TABLET PO SCH (23:08)
[2021-02-20 05:29] LABS: Calcium 8.2 mg/dL (8.6-10.3); Magnesium 1.9 mg/dL (1.6-2.6); Phosphorous 3.6 mg/dL (2.7-4.5); Potassium 4.7 mEq/L (3.5-5.1)
[2021-02-20] MEDS: *HR* Heparin 5,000 UNIT/ML VIAL SQ SCH ×2 (06:46→17:56)
[2021-02-20] MEDS: amLODIPine 5 MG TABLET PO SCH (09:47)
[2021-02-20] MEDS: Aspirin Enteric Coated 81 MG Tablet PO SCH (09:47)
[2021-02-20] MEDS: Gabapentin 300 MG CAPSULE PO SCH ×3 (09:47→20:55)
[2021-02-20] MEDS: lisinopriL 20 MG TABLET PO SCH (09:47)
[2021-02-20] MEDS: Baclofen 10 MG TABLET PO SCH ×3 (09:48→20:55)
[2021-02-20] MEDS: Insulin LISPRO 300 UNITS/3 ML VIAL SUBQ SCH ×6 (09:49→17:57)
[2021-02-20] MEDS: Insulin DETEMIR 100 UNIT/ML X5UNITS SUBQ SCH ×2 (10:02→20:56)
[2021-02-20] MEDS: *HR* OxyCODONE/APAP 10/325 TABLET PO SCH ×2 (10:19→16:05)
[2021-02-20] MEDS: cefTRIAXone 1,000 MG in Water for inj. (sterile) 10 ML IVP SCH (11:08)
[2021-02-20] MEDS: Sennosides/Docusate Sodium TABLET PO PRN (17:56)
[2021-02-20] MEDS: Loratadine 10 MG TABLET PO SCH (20:55)
[2021-02-20] MEDS: Acetaminophen 325 MG TABLET PO PRN (20:55)
[2021-02-21] MEDS: *HR* Heparin 5,000 UNIT/ML VIAL SQ SCH ×2 (06:27→17:10)
[2021-02-21] MEDS: Insulin LISPRO 300 UNITS/3 ML VIAL SUBQ SCH ×6 (07:41→17:11)
[2021-02-21] MEDS: amLODIPine 5 MG TABLET PO SCH (08:47)
[2021-02-21] MEDS: Aspirin Enteric Coated 81 MG Tablet PO SCH (08:47)
[2021-02-21] MEDS: lisinopriL 20 MG TABLET PO SCH (08:47)
[2021-02-21] MEDS: Gabapentin 300 MG CAPSULE PO SCH ×3 (08:47→23:00)
[2021-02-21] MEDS: Insulin DETEMIR 100 UNIT/ML X5UNITS SUBQ SCH ×2 (08:48→23:00)
[2021-02-21] MEDS: Baclofen 10 MG TABLET PO SCH ×3 (08:48→23:00)
[2021-02-21] MEDS: cefTRIAXone 1,000 MG in Water for inj. (sterile) 10 ML IVP SCH (08:48)
[2021-02-21] MEDS: Sennosides/Docusate Sodium TABLET PO PRN (08:57)
[2021-02-21] MEDS: *HR* OxyCODONE/APAP 10/325 TABLET PO PRN ×2 (08:57→22:59)
[2021-02-21 12:47] LABS: Basophils % 0.4 %; Eosinophils # 0.2 K/mcL (0.0-0.6); Eosinophils % 2.7 %; Hematocrit 24.5 % (37.5-50.1); Hemoglobin 7.8 g/dL (12.9-16.9); Immature Granulocytes % 1.1 % (0-4); Lymphocytes # 1.1 K/mcL (0.6-4.6); Lymphocytes % 13.3 %; Mean Corpuscular HGB Conc 31.8 g/dL (31.6-35.5); Mean Corpuscular Hemoglobin 29.1 pg (28.0-33.3); Mean Corpuscular Volume 91.4 fL (83.0-100.0); Mean Platelet Volume 10.2 fL (9.4-12.4); Monocytes # 0.8 K/mcL (0.0-1.3); Monocytes % 9.4 %; Platelet Count 259 K/mcL (140-400); Red Blood Count 2.68 M/mcL (4.19-5.50); Red Cell Distribution Width 13.8 % (11.5-14.5); Segmented Neutrophils % 73.1 %; White Blood Count 8.3 K/mcL (4.3-11.1)
[2021-02-21 13:08] LABS: Calcium 8.3 mg/dL (8.6-10.3); Potassium 4.5 mEq/L (3.5-5.1)
[2021-02-21] MEDS: Piperacillin/Tazobactam 3.375 GM in 0.9 % Sodium Chloride Mini Bag 100 ML IVPB SCH ×3 (13:19→23:01)
[2021-02-21] MEDS: (Dulaglutide [Trulicity] 1.5 MG/0.5 ML Pen.Injctr) SQ SCH (13:23)
[2021-02-21 14:12] LABS: Bacteria,Urine Few per hpf (None-Few); Bilirubin,Urine Negative (Negative); Blood,Urine Negative (Negative); Clarity,Urine Clear (Clear); Color,Urine Yellow (Yellow); Glucose,Urine (UA) 30 mg/dL (Normal); Ketones,Urine Negative (Negative); Leukocyte Esterase,Urine Small (Negative); Mucus,Urine Few per lpf (None-Few); Nitrite,Urine Negative (Negative); Protein,Urine 70 mg/dL (Neg-Trace); RBC,Urine 0-3 per hpf (0-3); Specific Gravity,Urine 1.021 (1.010-1.025); Squamous Epithelial Cell,Urine Few per hpf (None-Few); Urobilinogen,Urine Normal (Normal)
[2021-02-21] MEDS: Loratadine 10 MG TABLET PO SCH (23:00)
[2021-02-22 05:22] LABS: Basophils % 0.5 %; Eosinophils # 0.3 K/mcL (0.0-0.6); Eosinophils % 4.1 %; Hematocrit 25.4 % (37.5-50.1); Hemoglobin 7.9 g/dL (12.9-16.9); Immature Granulocytes % 1.3 % (0-4); Lymphocytes # 1.5 K/mcL (0.6-4.6); Lymphocytes % 18.3 %; Mean Corpuscular HGB Conc 31.1 g/dL (31.6-35.5); Mean Corpuscular Hemoglobin 28.6 pg (28.0-33.3); Mean Platelet Volume 10.3 fL (9.4-12.4); Monocytes % 12.3 %; Neutrophils # 5.3 K/mcL (1.6-8.9); Platelet Count 302 K/mcL (140-400); Red Blood Count 2.76 M/mcL (4.19-5.50); Red Cell Distribution Width 13.9 % (11.5-14.5); Segmented Neutrophils % 63.5 %; White Blood Count 8.3 K/mcL (4.3-11.1)
[2021-02-22] MEDS: *HR* Heparin 5,000 UNIT/ML VIAL SQ SCH ×2 (05:30→17:06)
[2021-02-22 07:08] LABS: Calcium 8.3 mg/dL (8.6-10.3); Magnesium 1.8 mg/dL (1.6-2.6); Phosphorous 4.1 mg/dL (2.7-4.5); Potassium 4.7 mEq/L (3.5-5.1)
[2021-02-22] MEDS: Aspirin Enteric Coated 81 MG Tablet PO SCH (08:51)
[2021-02-22] MEDS: Gabapentin 300 MG CAPSULE PO SCH ×3 (08:51→21:44)
[2021-02-22] MEDS: Baclofen 10 MG TABLET PO SCH ×3 (08:51→21:44)
[2021-02-22] MEDS: amLODIPine 5 MG TABLET PO SCH (08:51)
[2021-02-22] MEDS: lisinopriL 20 MG TABLET PO SCH (08:51)
[2021-02-22] MEDS: Insulin LISPRO 300 UNITS/3 ML VIAL SUBQ SCH ×6 (08:55→17:06)
[2021-02-22] MEDS: Insulin DETEMIR 100 UNIT/ML X5UNITS SUBQ SCH ×2 (11:33→21:46)
[2021-02-22] MEDS: Piperacillin/Tazobactam 3.375 GM in 0.9 % Sodium Chloride Mini Bag 100 ML IVPB SCH ×2 (15:33→16:02)
[2021-02-22] MEDS: *HR* OxyCODONE/APAP 10/325 TABLET PO PRN (21:44)
[2021-02-22] MEDS: Loratadine 10 MG TABLET PO SCH (21:45)
[2021-02-23] MEDS: Piperacillin/Tazobactam 3.375 GM in 0.9 % Sodium Chloride Mini Bag 100 ML IVPB SCH ×3 (00:40→15:08)
[2021-02-23] MEDS: *HR* Heparin 5,000 UNIT/ML VIAL SQ SCH ×2 (05:32→17:22)
[2021-02-23] MEDS: Insulin DETEMIR 100 UNIT/ML X5UNITS SUBQ SCH ×2 (07:33→21:27)
[2021-02-23] MEDS: Insulin LISPRO 300 UNITS/3 ML VIAL SUBQ SCH ×6 (07:33→17:23)
[2021-02-23] MEDS: Baclofen 10 MG TABLET PO SCH ×3 (07:34→21:27)
[2021-02-23] MEDS: lisinopriL 20 MG TABLET PO SCH (07:34)
[2021-02-23] MEDS: Aspirin Enteric Coated 81 MG Tablet PO SCH (07:34)
[2021-02-23] MEDS: Gabapentin 300 MG CAPSULE PO SCH ×3 (07:34→21:27)
[2021-02-23] MEDS: amLODIPine 5 MG TABLET PO SCH (07:34)
[2021-02-23 07:57] LABS: Hematocrit 28.5 % (37.5-50.1)
[2021-02-23 08:07] LABS: BUN/Creatinine Ratio 19 (6-26); Blood Urea Nitrogen 26 mg/dL (8-23); Calcium 8.5 mg/dL (8.6-10.3); Carbon Dioxide 25 mEq/L (23-29); Chloride 104 mEq/L (98-107); Glucose 133 mg/dL (70-105); Magnesium 1.8 mg/dL (1.6-2.6); Osmolality,Calculated 289 (280-300); Potassium 4.3 mEq/L (3.5-5.1); Sodium 136 mEq/L (136-145); eGFR For African Americans > 60 (> 60); eGFR For Non-African Americans 54 (> 60)
[2021-02-23] MEDS: *HR* OxyCODONE/APAP 10/325 TABLET PO PRN ×2 (11:58→21:27)
[2021-02-23] MEDS: Sennosides/Docusate Sodium TABLET PO PRN (21:27)
[2021-02-23] MEDS: Loratadine 10 MG TABLET PO SCH (21:27)
[2021-02-24] MEDS: Piperacillin/Tazobactam 3.375 GM in 0.9 % Sodium Chloride Mini Bag 100 ML IVPB SCH ×3 (00:11→16:50)
[2021-02-24] MEDS: Acetaminophen 325 MG TABLET PO PRN (04:30)
[2021-02-24 04:45] LABS: Basophils % 0.5 %; Eosinophils # 0.6 K/mcL (0.0-0.6); Eosinophils % 7.5 %; Hematocrit 26.8 % (37.5-50.1); Hemoglobin 8.7 g/dL (12.9-16.9); Immature Granulocytes % 3.6 % (0-4); Lymphocytes % 24.7 %; Mean Corpuscular HGB Conc 32.5 g/dL (31.6-35.5); Mean Corpuscular Hemoglobin 29.9 pg (28.0-33.3); Mean Corpuscular Volume 92.1 fL (83.0-100.0); Mean Platelet Volume 10.2 fL (9.4-12.4); Monocytes # 0.7 K/mcL (0.0-1.3); Monocytes % 8.5 %; Neutrophils # 4.6 K/mcL (1.6-8.9); Platelet Count 369 K/mcL (140-400); Red Blood Count 2.91 M/mcL (4.19-5.50); Red Cell Distribution Width 13.3 % (11.5-14.5); Segmented Neutrophils % 55.2 %; White Blood Count 8.3 K/mcL (4.3-11.1)
[2021-02-24 05:08] LABS: BUN/Creatinine Ratio 19 (6-26); Blood Urea Nitrogen 25 mg/dL (8-23); Calcium 7.9 mg/dL (8.6-10.3); Carbon Dioxide 27 mEq/L (23-29); Chloride 102 mEq/L (98-107); Glucose 114 mg/dL (70-105); Magnesium 1.9 mg/dL (1.6-2.6); Osmolality,Calculated 287 (280-300); Potassium 4.4 mEq/L (3.5-5.1); Sodium 136 mEq/L (136-145); eGFR For African Americans > 60 (> 60); eGFR For Non-African Americans 56 (> 60)
[2021-02-24] MEDS: *HR* Heparin 5,000 UNIT/ML VIAL SQ SCH ×2 (05:34→16:51)
[2021-02-24] MEDS: *HR* OxyCODONE/APAP 10/325 TABLET PO PRN ×2 (05:34→17:02)
[2021-02-24 06:42] LABS: Estimated Average Glucose 183 mg/dl
[2021-02-24] MEDS: Insulin LISPRO 300 UNITS/3 ML VIAL SUBQ SCH ×6 (08:00→17:12)
[2021-02-24] MEDS: Insulin DETEMIR 100 UNIT/ML X5UNITS SUBQ SCH ×2 (08:01→20:49)
[2021-02-24] MEDS: Aspirin Enteric Coated 81 MG Tablet PO SCH (08:02)
[2021-02-24] MEDS: Gabapentin 300 MG CAPSULE PO SCH ×3 (08:02→20:48)
[2021-02-24] MEDS: Baclofen 10 MG TABLET PO SCH ×3 (08:03→20:48)
[2021-02-24] MEDS: amLODIPine 5 MG TABLET PO SCH (08:03)
[2021-02-24] MEDS: lisinopriL 20 MG TABLET PO SCH (08:03)
[2021-02-24] MEDS: polyethylene glycoL 3350 17 GM POWD.PACK PO SCH (11:20)
[2021-02-24] MEDS: Simethicone 80 MG TAB.CHEW PO PRN (14:41)
[2021-02-24] MEDS: Sennosides/Docusate Sodium TABLET PO PRN (20:48)
[2021-02-24] MEDS: Loratadine 10 MG TABLET PO SCH (20:49)
[2021-02-24] MEDS: Fluticasone Propionate Nasal 50 MCG/SPRAY BOTTLE NS PRN (20:58)
[2021-02-25] MEDS: *HR* OxyCODONE/APAP 10/325 TABLET PO PRN ×2 (00:52→12:26)
[2021-02-25 04:29] LABS: Basophils # 0.1 K/mcL (0.0-0.2); Basophils % 0.7 %; Eosinophils # 0.7 K/mcL (0.0-0.6); Eosinophils % 7.1 %; Hematocrit 26.2 % (37.5-50.1); Hemoglobin 8.6 g/dL (12.9-16.9); Immature Granulocytes % 3.9 % (0-4); Lymphocytes # 2.2 K/mcL (0.6-4.6); Lymphocytes % 20.9 %; Mean Corpuscular HGB Conc 32.8 g/dL (31.6-35.5); Mean Corpuscular Hemoglobin 29.9 pg (28.0-33.3); Mean Platelet Volume 10.1 fL (9.4-12.4); Monocytes # 0.7 K/mcL (0.0-1.3); Monocytes % 7.2 %; Neutrophils # 6.2 K/mcL (1.6-8.9); Platelet Count 442 K/mcL (140-400); Red Blood Count 2.88 M/mcL (4.19-5.50); Red Cell Distribution Width 13.4 % (11.5-14.5); Segmented Neutrophils % 60.2 %; White Blood Count 10.3 K/mcL (4.3-11.1)
[2021-02-25 04:51] LABS: BUN/Creatinine Ratio 18 (6-26); Blood Urea Nitrogen 23 mg/dL (8-23); Calcium 8.1 mg/dL (8.6-10.3); Carbon Dioxide 25 mEq/L (23-29); Chloride 104 mEq/L (98-107); Glucose 200 mg/dL (70-105); Magnesium 1.8 mg/dL (1.6-2.6); Osmolality,Calculated 291 (280-300); Potassium 4.8 mEq/L (3.5-5.1); Sodium 136 mEq/L (136-145); eGFR For African Americans > 60 (> 60); eGFR For Non-African Americans 55 (> 60)
[2021-02-25] MEDS: *HR* Heparin 5,000 UNIT/ML VIAL SQ SCH ×2 (06:28→17:04)
[2021-02-25] MEDS: Aspirin Enteric Coated 81 MG Tablet PO SCH (07:33)
[2021-02-25] MEDS: Baclofen 10 MG TABLET PO SCH ×3 (07:33→21:20)
[2021-02-25] MEDS: Gabapentin 300 MG CAPSULE PO SCH ×3 (07:33→21:20)
[2021-02-25] MEDS: amLODIPine 5 MG TABLET PO SCH (07:34)
[2021-02-25] MEDS: Insulin LISPRO 300 UNITS/3 ML VIAL SUBQ SCH ×6 (07:34→17:05)
[2021-02-25] MEDS: polyethylene glycoL 3350 17 GM POWD.PACK PO SCH (07:34)
[2021-02-25] MEDS: lisinopriL 20 MG TABLET PO SCH (07:34)
[2021-02-25] MEDS: Insulin DETEMIR 100 UNIT/ML X5UNITS SUBQ SCH ×2 (07:35→21:20)
[2021-02-25] MEDS ORDERED: Sulfamethoxazole/Trimeth DS 1 EACH TABLET PO SCH (09:00)
[2021-02-25] MEDS ORDERED: Linezolid 600 MG TABLET PO SCH (12:15)
[2021-02-25] MEDS: Simethicone 80 MG TAB.CHEW PO PRN (14:16)
[2021-02-25] MEDS: Lactobacillus 1 EACH CAP.SPRINK PO SCH (21:19)
[2021-02-25] MEDS: Loratadine 10 MG TABLET PO SCH (21:20)
[2021-02-26] MEDS: *HR* Heparin 5,000 UNIT/ML VIAL SQ SCH ×2 (05:08→18:01)
[2021-02-26 06:45] LABS: Hematocrit 26.7 % (37.5-50.1); Hemoglobin 8.7 g/dL (12.9-16.9); Mean Corpuscular HGB Conc 32.6 g/dL (31.6-35.5); Mean Corpuscular Hemoglobin 29.5 pg (28.0-33.3); Mean Corpuscular Volume 90.5 fL (83.0-100.0); Mean Platelet Volume 9.8 fL (9.4-12.4); Platelet Count 503 K/mcL (140-400); Red Blood Count 2.95 M/mcL (4.19-5.50); Red Cell Distribution Width 13.6 % (11.5-14.5); White Blood Count 9.5 K/mcL (4.3-11.1)
[2021-02-26 07:08] LABS: % Iron Saturation 13 % (20-55); BUN/Creatinine Ratio 19 (6-26); Blood Urea Nitrogen 24 mg/dL (8-23); Calcium 8.5 mg/dL (8.6-10.3); Carbon Dioxide 24 mEq/L (23-29); Chloride 104 mEq/L (98-107); Glucose 137 mg/dL (70-105); Iron 30 mcg/dL (65-175); Magnesium 1.8 mg/dL (1.6-2.6); Osmolality,Calculated 286 (280-300); Potassium 4.7 mEq/L (3.5-5.1); Sodium 135 mEq/L (136-145); Transferrin 164 mg/dL (203-362); eGFR For African Americans > 60 (> 60); eGFR For Non-African Americans 57 (> 60)
[2021-02-26 07:23] LABS: Ferritin 479 ng/mL (20-250)
[2021-02-26 07:28] LABS: Folate 12.5 ng/mL (3.0-16.0)
[2021-02-26] MEDS: Insulin LISPRO 300 UNITS/3 ML VIAL SUBQ SCH ×6 (07:59→18:23)
[2021-02-26] MEDS: polyethylene glycoL 3350 17 GM POWD.PACK PO SCH (08:00)
[2021-02-26] MEDS: Lactobacillus 1 EACH CAP.SPRINK PO SCH ×2 (08:00→22:02)
[2021-02-26] MEDS: Aspirin Enteric Coated 81 MG Tablet PO SCH (08:00)
[2021-02-26] MEDS: amLODIPine 5 MG TABLET PO SCH (08:00)
[2021-02-26] MEDS: Gabapentin 300 MG CAPSULE PO SCH ×3 (08:00→22:02)
[2021-02-26] MEDS: Baclofen 10 MG TABLET PO SCH ×3 (08:00→22:02)
[2021-02-26] MEDS: Insulin DETEMIR 100 UNIT/ML X5UNITS SUBQ SCH ×2 (08:04→22:09)
[2021-02-26 08:41] LABS: Eosinophils # 0.4 K/mcL (0.0-0.6); Monocytes # 0.2 K/mcL (0.0-1.3); Platelet Estimate Normal (Normal)
[2021-02-26] MEDS: *HR* OxyCODONE/APAP 10/325 TABLET PO PRN (15:13)
[2021-02-26] MEDS: Loratadine 10 MG TABLET PO SCH (22:02)
[2021-02-27] MEDS: *HR* OxyCODONE/APAP 10/325 TABLET PO PRN ×2 (00:31→22:05)
[2021-02-27 04:45] LABS: Hematocrit 27.4 % (37.5-50.1); Hemoglobin 8.5 g/dL (12.9-16.9); Mean Corpuscular Hemoglobin 28.9 pg (28.0-33.3); Mean Corpuscular Volume 93.2 fL (83.0-100.0); Mean Platelet Volume 9.7 fL (9.4-12.4); Platelet Count 479 K/mcL (140-400); Red Blood Count 2.94 M/mcL (4.19-5.50); Red Cell Distribution Width 13.7 % (11.5-14.5); White Blood Count 8.1 K/mcL (4.3-11.1)
[2021-02-27 04:55] LABS: BUN/Creatinine Ratio 20 (6-26); Blood Urea Nitrogen 28 mg/dL (8-23); Calcium 8.1 mg/dL (8.6-10.3); Carbon Dioxide 26 mEq/L (23-29); Chloride 103 mEq/L (98-107); Glucose 199 mg/dL (70-105); Magnesium 1.8 mg/dL (1.6-2.6); Osmolality,Calculated 289 (280-300); Potassium 5.2 mEq/L (3.5-5.1); Sodium 134 mEq/L (136-145); eGFR For African Americans > 60 (> 60); eGFR For Non-African Americans 52 (> 60)
[2021-02-27 05:56] LABS: Anisocytosis 1+ (Not Present); Lymphocytes # 0.3 K/mcL (0.6-4.6); Monocytes # 0.8 K/mcL (0.0-1.3); Neutrophils # 6.6 K/mcL (1.6-8.9); Platelet Estimate Normal (Normal); Poikilocytosis 1+ (Not Present)
[2021-02-27] MEDS: *HR* Heparin 5,000 UNIT/ML VIAL SQ SCH ×2 (06:13→17:34)
[2021-02-27] MEDS ORDERED: SODIUM ZIRCONIUM CYCLOSILICATE 5 GM POWD.PACK PO ONE (09:00)
[2021-02-27] MEDS: Insulin LISPRO 300 UNITS/3 ML VIAL SUBQ SCH ×6 (09:51→18:51)
[2021-02-27] MEDS: Insulin DETEMIR 100 UNIT/ML X5UNITS SUBQ SCH ×2 (09:57→22:09)
[2021-02-27] MEDS: polyethylene glycoL 3350 17 GM POWD.PACK PO SCH (09:57)
[2021-02-27] MEDS: amLODIPine 5 MG TABLET PO SCH (09:58)
[2021-02-27] MEDS: Baclofen 10 MG TABLET PO SCH ×3 (09:58→22:05)
[2021-02-27] MEDS: Gabapentin 300 MG CAPSULE PO SCH ×3 (09:58→22:05)
[2021-02-27] MEDS: Lactobacillus 1 EACH CAP.SPRINK PO SCH ×2 (09:59→22:06)
[2021-02-27] MEDS: Aspirin Enteric Coated 81 MG Tablet PO SCH (09:59)
[2021-02-27] MEDS: Loratadine 10 MG TABLET PO SCH (22:06)
[2021-02-27] MEDS: Fluticasone Propionate Nasal 50 MCG/SPRAY BOTTLE NS PRN (22:26)
[2021-02-28 04:14] LABS: Hematocrit 27.9 % (37.5-50.1); Hemoglobin 8.9 g/dL (12.9-16.9); Mean Corpuscular HGB Conc 31.9 g/dL (31.6-35.5); Mean Corpuscular Hemoglobin 29.2 pg (28.0-33.3); Mean Corpuscular Volume 91.5 fL (83.0-100.0); Mean Platelet Volume 9.6 fL (9.4-12.4); Platelet Count 472 K/mcL (140-400); Red Blood Count 3.05 M/mcL (4.19-5.50); Red Cell Distribution Width 13.9 % (11.5-14.5)
[2021-02-28 04:31] LABS: Anisocytosis 1+ (Not Present); Eosinophils # 0.2 K/mcL (0.0-0.6); Lymphocytes # 1.4 K/mcL (0.6-4.6); Monocytes # 0.8 K/mcL (0.0-1.3); Neutrophils # 5.1 K/mcL (1.6-8.9); Platelet Estimate Normal (Normal); Polychromasia 1+ (Not Present)
[2021-02-28 04:32] LABS: BUN/Creatinine Ratio 24 (6-26); Blood Urea Nitrogen 31 mg/dL (8-23); Calcium 7.9 mg/dL (8.6-10.3); Carbon Dioxide 27 mEq/L (23-29); Chloride 104 mEq/L (98-107); Glucose 204 mg/dL (70-105); Magnesium 1.9 mg/dL (1.6-2.6); Osmolality,Calculated 292 (280-300); Potassium 4.6 mEq/L (3.5-5.1); Sodium 135 mEq/L (136-145); eGFR For African Americans > 60 (> 60); eGFR For Non-African Americans 56 (> 60)
[2021-02-28] MEDS: *HR* Heparin 5,000 UNIT/ML VIAL SQ SCH ×2 (06:36→17:23)
[2021-02-28] MEDS: lisinopriL 10 MG TABLET PO SCH (10:10)
[2021-02-28] MEDS: Baclofen 10 MG TABLET PO SCH ×3 (10:10→20:49)
[2021-02-28] MEDS: amLODIPine 5 MG TABLET PO SCH (10:10)
[2021-02-28] MEDS: Lactobacillus 1 EACH CAP.SPRINK PO SCH ×2 (10:11→20:49)
[2021-02-28] MEDS: polyethylene glycoL 3350 17 GM POWD.PACK PO SCH (10:11)
[2021-02-28] MEDS: Aspirin Enteric Coated 81 MG Tablet PO SCH (10:11)
[2021-02-28] MEDS: Gabapentin 300 MG CAPSULE PO SCH ×3 (10:11→20:49)
[2021-02-28] MEDS: *HR* OxyCODONE/APAP 10/325 TABLET PO PRN (10:17)
[2021-02-28] MEDS: Insulin LISPRO 300 UNITS/3 ML VIAL SUBQ SCH ×6 (10:18→17:28)
[2021-02-28] MEDS: Insulin DETEMIR 100 UNIT/ML X5UNITS SUBQ SCH ×2 (12:03→20:50)
[2021-02-28] MEDS: (Dulaglutide [Trulicity] 1.5 MG/0.5 ML Pen.Injctr) SQ SCH (20:29)
[2021-02-28] MEDS: Loratadine 10 MG TABLET PO SCH (20:49)
[2021-02-28] MEDS: Fluticasone Propionate Nasal 50 MCG/SPRAY BOTTLE NS PRN (23:12)
[2021-03-01] MEDS: *HR* Heparin 5,000 UNIT/ML VIAL SQ SCH ×2 (05:45→17:51)
[2021-03-01 05:54] LABS: Hemoglobin 9.7 g/dL (12.9-16.9); Mean Corpuscular HGB Conc 32.3 g/dL (31.6-35.5); Mean Corpuscular Hemoglobin 29.4 pg (28.0-33.3); Mean Corpuscular Volume 90.9 fL (83.0-100.0); Mean Platelet Volume 9.4 fL (9.4-12.4); Platelet Count 539 K/mcL (140-400); Red Cell Distribution Width 13.9 % (11.5-14.5); White Blood Count 9.7 K/mcL (4.3-11.1)
[2021-03-01 06:13] LABS: Calcium 8.5 mg/dL (8.6-10.3); Magnesium 1.9 mg/dL (1.6-2.6); Potassium 4.7 mEq/L (3.5-5.1)
[2021-03-01 06:24] LABS: Eosinophils # 0.4 K/mcL (0.0-0.6); Lymphocytes # 2.5 K/mcL (0.6-4.6); Monocytes # 0.4 K/mcL (0.0-1.3)
[2021-03-01 06:25] LABS: Anisocytosis 1+ (Not Present); Ovalocytes 1+ (Not Present); Poikilocytosis 1+ (Not Present); Reactive Lymphocytes Present (Not Present)
[2021-03-01] MEDS: lisinopriL 10 MG TABLET PO SCH (09:29)
[2021-03-01] MEDS: amLODIPine 5 MG TABLET PO SCH (09:29)
[2021-03-01] MEDS: Gabapentin 300 MG CAPSULE PO SCH ×3 (09:29→20:39)
[2021-03-01] MEDS: Aspirin Enteric Coated 81 MG Tablet PO SCH (09:29)
[2021-03-01] MEDS: Lactobacillus 1 EACH CAP.SPRINK PO SCH ×2 (09:29→20:40)
[2021-03-01] MEDS: Baclofen 10 MG TABLET PO SCH ×3 (09:30→20:40)
[2021-03-01] MEDS: polyethylene glycoL 3350 17 GM POWD.PACK PO SCH (09:33)
[2021-03-01] MEDS: Insulin DETEMIR 100 UNIT/ML X5UNITS SUBQ SCH ×2 (09:59→20:40)
[2021-03-01] MEDS: Insulin LISPRO 300 UNITS/3 ML VIAL SUBQ SCH ×6 (09:59→16:39)
[2021-03-01] MEDS ORDERED: Lactulose Oral Soln 20 GM/30 ML UDC PO ONE (12:50)
[2021-03-01] MEDS: Loratadine 10 MG TABLET PO SCH (20:39)
[2021-03-02] MEDS: *HR* OxyCODONE/APAP 10/325 TABLET PO PRN ×2 (00:46→11:00)
[2021-03-02] MEDS: Fluticasone Propionate Nasal 50 MCG/SPRAY BOTTLE NS PRN (00:46)
[2021-03-02] MEDS: *HR* Heparin 5,000 UNIT/ML VIAL SQ SCH (05:28)
[2021-03-02 07:28] VITALS: BP 105/64; PULSE 84; TEMP 97.9; O2SAT 95
[2021-03-02] MEDS: lisinopriL 10 MG TABLET PO SCH (08:42)
[2021-03-02] MEDS: amLODIPine 5 MG TABLET PO SCH (08:42)
[2021-03-02] MEDS: Lactobacillus 1 EACH CAP.SPRINK PO SCH (08:42)
[2021-03-02] MEDS: Gabapentin 300 MG CAPSULE PO SCH (08:42)
[2021-03-02] MEDS: Baclofen 10 MG TABLET PO SCH (08:43)
[2021-03-02] MEDS: Insulin LISPRO 300 UNITS/3 ML VIAL SUBQ SCH ×2 (08:43→08:45)
[2021-03-02] MEDS: Insulin DETEMIR 100 UNIT/ML X5UNITS SUBQ SCH (08:43)
[2021-03-02] MEDS: Aspirin Enteric Coated 81 MG Tablet PO SCH (08:43)
[2021-03-02] MEDS: polyethylene glycoL 3350 17 GM POWD.PACK PO SCH (08:43)
== END 2021-03-02 11:23 | DRG 570 ==
LOC: 4WAOSI → SUATTDRO 02-16 02:59
PROVIDERS: ADMIT Family Medicine; ATTEND Internal Medicine

== ENCOUNTER 2021-03-18 19:29 | Inpatient (IN) ==
[2021-03-18] MEDS ORDERED: Ertapenem 1,000 MG in 0.9 % Sodium Chloride Mini Bag 100 ML IVPB STA (20:59)
[2021-03-18 21:08] LABS: Basophils # 0.1 K/mcL (0.0-0.2); Basophils % 0.8 %; Eosinophils # 0.7 K/mcL (0.0-0.6); Eosinophils % 4.6 %; Hemoglobin 9.5 g/dL (12.9-16.9); Immature Granulocytes % 2.9 % (0-4); Lymphocytes # 1.8 K/mcL (0.6-4.6); Lymphocytes % 12.8 %; Mean Corpuscular HGB Conc 30.6 g/dL (31.6-35.5); Mean Corpuscular Hemoglobin 27.8 pg (28.0-33.3); Mean Corpuscular Volume 90.6 fL (83.0-100.0); Mean Platelet Volume 9.9 fL (9.4-12.4); Monocytes % 6.8 %; Neutrophils # 10.3 K/mcL (1.6-8.9); Platelet Count 508 K/mcL (140-400); Red Blood Count 3.42 M/mcL (4.19-5.50); Red Cell Distribution Width 14.3 % (11.5-14.5); Segmented Neutrophils % 72.1 %; White Blood Count 14.3 K/mcL (4.3-11.1)
[2021-03-18 21:17] LABS: Calcium 8.6 mg/dL (8.6-10.3); Potassium 4.5 mEq/L (3.5-5.1)
[2021-03-18] MEDS ORDERED: *HR* OxyCODONE/APAP 10/325 TABLET PO STA (22:23)
[2021-03-18 23:58] LABS: Bacteria,Urine Few per hpf (None-Few); Bilirubin,Urine Negative (Negative); Blood,Urine Negative (Negative); Clarity,Urine Turbid (Clear); Color,Urine Yellow (Yellow); Glucose,Urine (UA) Normal (Normal); Hyaline Casts,Urine Few per lpf (None Seen); Ketones,Urine Negative (Negative); Leukocyte Esterase,Urine Large (Negative); Mucus,Urine Few per lpf (None-Few); Nitrite,Urine Negative (Negative); PH,Urine 5.5 pH Units (5.0-8.0); Protein,Urine 50 mg/dL (Neg-Trace); Specific Gravity,Urine 1.017 (1.010-1.025); Squamous Epithelial Cell,Urine Moderate per hpf (None-Few); Urobilinogen,Urine Normal (Normal); WBC,Urine 50-100 per hpf (0-3)
[2021-03-19] MEDS ORDERED: Naloxone 0.4 MG/ML INJ IVP PRN (00:20)
[2021-03-19] MEDS ORDERED: D5% in Water 1,000 ML IVC PRN (01:12)
[2021-03-19] MEDS ORDERED: *HR* Dextrose 50 % in Water (Syg) 50 ML SYRINGE IVP PRN (01:12)
[2021-03-19] MEDS ORDERED: Dextrose Gel 15 GM/37.5 ML TUBE PO PRN ×2 (01:12)
[2021-03-19] MEDS: *HR* OxyCODONE/APAP 10/325 TABLET PO PRN ×4 (03:11→23:31)
[2021-03-19 05:51] LABS: Basophils # 0.1 K/mcL (0.0-0.2); Basophils % 0.6 %; Eosinophils # 0.7 K/mcL (0.0-0.6); Eosinophils % 5.6 %; Hematocrit 28.1 % (37.5-50.1); Hemoglobin 8.9 g/dL (12.9-16.9); Immature Granulocytes % 1.2 % (0-4); Lymphocytes # 1.9 K/mcL (0.6-4.6); Lymphocytes % 15.4 %; Mean Corpuscular HGB Conc 31.7 g/dL (31.6-35.5); Mean Corpuscular Hemoglobin 28.1 pg (28.0-33.3); Mean Corpuscular Volume 88.6 fL (83.0-100.0); Mean Platelet Volume 9.7 fL (9.4-12.4); Monocytes % 8.3 %; Neutrophils # 8.3 K/mcL (1.6-8.9); Platelet Count 428 K/mcL (140-400); Red Blood Count 3.17 M/mcL (4.19-5.50); Red Cell Distribution Width 14.2 % (11.5-14.5); Segmented Neutrophils % 68.9 %
[2021-03-19 06:08] LABS: Alanine Aminotransferase 33 Units/L (7-52); Albumin 2.4 g/dL (3.5-5.7); Albumin/Globulin Ratio 0.6 (1.1-2.2); Alkaline Phosphatase 111 Units/L (34-104); Aspartate Amino Transferase 33 Units/L (13-39); BUN/Creatinine Ratio 14 (6-26); Bilirubin,Total 0.3 mg/dL (0.3-1.0); Blood Urea Nitrogen 19 mg/dL (8-23); Calcium 8.1 mg/dL (8.6-10.3); Carbon Dioxide 25 mEq/L (23-29); Chloride 105 mEq/L (98-107); Globulin 4.1 g/dL (2.4-3.5); Glucose 136 mg/dL (70-105); Osmolality,Calculated 290 (280-300); Potassium 4.2 mEq/L (3.5-5.1); Sodium 138 mEq/L (136-145); Total Protein 6.5 g/dL (6.4-8.9); eGFR For African Americans > 60 (> 60); eGFR For Non-African Americans 54 (> 60)
[2021-03-19] MEDS: Insulin LISPRO 300 UNITS/3 ML VIAL SUBQ SCH ×4 (07:22→21:09)
[2021-03-19] MEDS ORDERED: Simethicone 80 MG TAB.CHEW PO PRN (07:50)
[2021-03-19] MEDS: Gabapentin 300 MG CAPSULE PO SCH ×3 (08:07→21:09)
[2021-03-19] MEDS: Cefepime HCl 1,000 MG in Water for inj. (sterile) 10 ML IVP SCH ×3 (08:07→23:32)
[2021-03-19] MEDS: Aspirin Enteric Coated 81 MG Tablet PO SCH (08:07)
[2021-03-19] MEDS: Baclofen 10 MG TABLET PO SCH ×3 (08:07→21:07)
[2021-03-19] MEDS: Lactobacillus 1 EACH CAP.SPRINK PO SCH ×2 (08:07→21:07)
[2021-03-19] MEDS: polyethylene glycoL 3350 17 GM POWD.PACK PO SCH (08:08)
[2021-03-19] MEDS: Insulin DETEMIR 100 UNIT/ML X5UNITS SUBQ SCH ×2 (09:40→21:12)
[2021-03-19] MEDS: Fluticasone Propionate Nasal 50 MCG/SPRAY BOTTLE NS PRN (21:05)
[2021-03-19] MEDS: Loratadine 10 MG TABLET PO SCH (21:07)
[2021-03-19] MEDS: Multivit/Ca/Min/Fe/FA 1 TAB TABLET PO SCH (21:09)
[2021-03-20] MEDS: Insulin LISPRO 300 UNITS/3 ML VIAL SUBQ SCH ×4 (09:09→21:48)
[2021-03-20] MEDS: Lactobacillus 1 EACH CAP.SPRINK PO SCH ×2 (09:11→21:46)
[2021-03-20] MEDS: Aspirin Enteric Coated 81 MG Tablet PO SCH (09:11)
[2021-03-20] MEDS: Gabapentin 300 MG CAPSULE PO SCH ×3 (09:11→21:49)
[2021-03-20] MEDS: hydroCHLOROthiazide 25 MG TABLET PO SCH (09:11)
[2021-03-20] MEDS: Insulin DETEMIR 100 UNIT/ML X5UNITS SUBQ SCH ×2 (09:12→21:49)
[2021-03-20] MEDS: Cefepime HCl 1,000 MG in Water for inj. (sterile) 10 ML IVP SCH ×2 (09:12→16:09)
[2021-03-20] MEDS: Baclofen 10 MG TABLET PO SCH ×3 (09:12→21:49)
[2021-03-20] MEDS: polyethylene glycoL 3350 17 GM POWD.PACK PO SCH (09:12)
[2021-03-20] MEDS ORDERED: Vancomycin 1,500 MG/265 ML IV.SOLN IVPB ONE (12:26)
[2021-03-20] MEDS: *HR* Heparin 5,000 UNIT/ML VIAL SQ SCH (17:41)
[2021-03-20] MEDS: Loratadine 10 MG TABLET PO SCH (21:45)
[2021-03-20] MEDS: Multivit/Ca/Min/Fe/FA 1 TAB TABLET PO SCH (21:50)
[2021-03-20] MEDS: *HR* OxyCODONE/APAP 10/325 TABLET PO PRN (21:50)
[2021-03-20] MEDS: Fluticasone Propionate Nasal 50 MCG/SPRAY BOTTLE NS PRN (21:53)
[2021-03-21] MEDS: Cefepime HCl 1,000 MG in Water for inj. (sterile) 10 ML IVP SCH ×2 (02:01→08:16)
[2021-03-21] MEDS: *HR* Heparin 5,000 UNIT/ML VIAL SQ SCH ×2 (05:01→16:31)
[2021-03-21 06:38] LABS: Basophils # 0.1 K/mcL (0.0-0.2); Basophils % 0.6 %; Eosinophils # 0.4 K/mcL (0.0-0.6); Eosinophils % 2.5 %; Hematocrit 26.8 % (37.5-50.1); Hemoglobin 8.6 g/dL (12.9-16.9); Immature Granulocytes % 2.7 % (0-4); Lymphocytes # 1.8 K/mcL (0.6-4.6); Lymphocytes % 10.7 %; Mean Corpuscular HGB Conc 32.1 g/dL (31.6-35.5); Mean Corpuscular Hemoglobin 28.7 pg (28.0-33.3); Mean Corpuscular Volume 89.3 fL (83.0-100.0); Mean Platelet Volume 9.6 fL (9.4-12.4); Monocytes % 5.7 %; Neutrophils # 13.3 K/mcL (1.6-8.9); Platelet Count 481 K/mcL (140-400); Red Cell Distribution Width 14.5 % (11.5-14.5); Segmented Neutrophils % 77.8 %; White Blood Count 17.1 K/mcL (4.3-11.1)
[2021-03-21 06:58] LABS: BUN/Creatinine Ratio 14 (6-26); Blood Urea Nitrogen 20 mg/dL (8-23); Calcium 8.3 mg/dL (8.6-10.3); Carbon Dioxide 23 mEq/L (23-29); Chloride 101 mEq/L (98-107); Glucose 239 mg/dL (70-105); Magnesium 1.8 mg/dL (1.6-2.6); Osmolality,Calculated 282 (280-300); Potassium 4.3 mEq/L (3.5-5.1); Sodium 131 mEq/L (136-145); eGFR For African Americans > 60 (> 60); eGFR For Non-African Americans 52 (> 60)
[2021-03-21] MEDS: polyethylene glycoL 3350 17 GM POWD.PACK PO SCH (08:15)
[2021-03-21] MEDS: Baclofen 10 MG TABLET PO SCH ×3 (08:15→20:22)
[2021-03-21] MEDS: Lactobacillus 1 EACH CAP.SPRINK PO SCH ×2 (08:16→20:21)
[2021-03-21] MEDS: Gabapentin 300 MG CAPSULE PO SCH ×3 (08:16→20:22)
[2021-03-21] MEDS: Aspirin Enteric Coated 81 MG Tablet PO SCH (08:16)
[2021-03-21] MEDS: hydroCHLOROthiazide 25 MG TABLET PO SCH (08:16)
[2021-03-21] MEDS: Insulin LISPRO 300 UNITS/3 ML VIAL SUBQ SCH ×4 (08:19→20:22)
[2021-03-21] MEDS: Insulin DETEMIR 100 UNIT/ML X5UNITS SUBQ SCH ×2 (08:20→20:39)
[2021-03-21] MEDS: *HR* OxyCODONE/APAP 10/325 TABLET PO PRN ×2 (08:28→17:24)
[2021-03-21] MEDS: Sennosides/Docusate Sodium TABLET PO PRN (08:28)
[2021-03-21] MEDS: Piperacillin/Tazobactam 3.375 GM in 0.9 % Sodium Chloride Mini Bag 100 ML IVPB SCH (16:31)
[2021-03-21] MEDS: Loratadine 10 MG TABLET PO SCH (20:22)
[2021-03-21] MEDS: Multivit/Ca/Min/Fe/FA 1 TAB TABLET PO SCH (20:22)
[2021-03-22] MEDS: Piperacillin/Tazobactam 3.375 GM in 0.9 % Sodium Chloride Mini Bag 100 ML IVPB SCH ×3 (00:12→14:39)
[2021-03-22] MEDS: *HR* OxyCODONE/APAP 10/325 TABLET PO PRN ×4 (00:12→22:27)
[2021-03-22] MEDS: *HR* Heparin 5,000 UNIT/ML VIAL SQ SCH ×2 (05:38→17:13)
[2021-03-22] MEDS: Aspirin Enteric Coated 81 MG Tablet PO SCH (08:10)
[2021-03-22] MEDS: polyethylene glycoL 3350 17 GM POWD.PACK PO SCH (08:10)
[2021-03-22] MEDS: Baclofen 10 MG TABLET PO SCH ×3 (08:10→21:06)
[2021-03-22] MEDS: hydroCHLOROthiazide 25 MG TABLET PO SCH (08:11)
[2021-03-22] MEDS: Gabapentin 300 MG CAPSULE PO SCH ×3 (08:11→21:06)
[2021-03-22] MEDS: Lactobacillus 1 EACH CAP.SPRINK PO SCH ×2 (08:11→21:04)
[2021-03-22] MEDS: Sennosides/Docusate Sodium TABLET PO PRN (08:11)
[2021-03-22] MEDS: Insulin LISPRO 300 UNITS/3 ML VIAL SUBQ SCH ×4 (08:12→21:05)
[2021-03-22] MEDS: Insulin DETEMIR 100 UNIT/ML X5UNITS SUBQ SCH ×2 (08:13→21:05)
[2021-03-22 09:58] LABS: Basophils # 0.1 K/mcL (0.0-0.2); Basophils % 0.6 %; Eosinophils # 0.7 K/mcL (0.0-0.6); Eosinophils % 5.6 %; Hematocrit 25.2 % (37.5-50.1); Immature Granulocytes % 2.2 % (0-4); Lymphocytes # 1.6 K/mcL (0.6-4.6); Lymphocytes % 12.7 %; Mean Corpuscular HGB Conc 31.7 g/dL (31.6-35.5); Mean Corpuscular Hemoglobin 28.2 pg (28.0-33.3); Mean Corpuscular Volume 88.7 fL (83.0-100.0); Mean Platelet Volume 9.5 fL (9.4-12.4); Monocytes % 7.3 %; Neutrophils # 9.3 K/mcL (1.6-8.9); Platelet Count 459 K/mcL (140-400); Red Blood Count 2.84 M/mcL (4.19-5.50); Red Cell Distribution Width 14.3 % (11.5-14.5); Segmented Neutrophils % 71.6 %
[2021-03-22 10:12] LABS: BUN/Creatinine Ratio 15 (6-26); Blood Urea Nitrogen 20 mg/dL (8-23); Calcium 7.9 mg/dL (8.6-10.3); Carbon Dioxide 26 mEq/L (23-29); Chloride 101 mEq/L (98-107); Glucose 173 mg/dL (70-105); Magnesium 1.8 mg/dL (1.6-2.6); Osmolality,Calculated 283 (280-300); Phosphorous 3.2 mg/dL (2.7-4.5); Potassium 4.1 mEq/L (3.5-5.1); Sodium 133 mEq/L (136-145); eGFR For African Americans > 60 (> 60); eGFR For Non-African Americans 55 (> 60)
[2021-03-22] MEDS ORDERED: polyethylene glycoL 3350 17 GM POWD.PACK PO SCH (21:00)
[2021-03-22] MEDS: Loratadine 10 MG TABLET PO SCH (21:04)
[2021-03-22] MEDS: Multivit/Ca/Min/Fe/FA 1 TAB TABLET PO SCH (21:06)
[2021-03-23] MEDS: Piperacillin/Tazobactam 3.375 GM in 0.9 % Sodium Chloride Mini Bag 100 ML IVPB SCH ×3 (01:29→20:08)
[2021-03-23] MEDS ORDERED: *HR* FentaNYL (PF) 100 MCG/2 ML VIAL ONE ×2 (07:16→09:46)
[2021-03-23] MEDS ORDERED: *HR* Propofol 200 MG/20 ML VIAL IVP ONE (07:16)
[2021-03-23] MEDS ORDERED: *HR* Succinylcholine 200 MG/10 ML VIAL IVP ONE (07:19)
[2021-03-23] MEDS ORDERED: Lidocaine -MPF 2% 5 ML VIAL ONE (07:19)
[2021-03-23] MEDS ORDERED: Ondansetron 4 MG/2 ML VIAL ONE (07:19)
[2021-03-23] MEDS ORDERED: Lidocaine HCL 4 ML Topical Solution (Laryng-O-Jet Kit Sterile Pak) TP ONE (07:19)
[2021-03-23 07:53] LABS: Basophils # 0.1 K/mcL (0.0-0.2); Basophils % 0.8 %; Eosinophils # 0.6 K/mcL (0.0-0.6); Eosinophils % 4.5 %; Hemoglobin 8.8 g/dL (12.9-16.9); Immature Granulocytes % 1.6 % (0-4); Lymphocytes # 1.7 K/mcL (0.6-4.6); Lymphocytes % 12.3 %; Mean Corpuscular HGB Conc 30.3 g/dL (31.6-35.5); Mean Corpuscular Hemoglobin 27.5 pg (28.0-33.3); Mean Corpuscular Volume 90.6 fL (83.0-100.0); Mean Platelet Volume 9.6 fL (9.4-12.4); Monocytes # 1.1 K/mcL (0.0-1.3); Monocytes % 8.3 %; Platelet Count 533 K/mcL (140-400); Red Cell Distribution Width 14.4 % (11.5-14.5); Segmented Neutrophils % 72.5 %; White Blood Count 13.7 K/mcL (4.3-11.1)
[2021-03-23 08:12] LABS: BUN/Creatinine Ratio 15 (6-26); Blood Urea Nitrogen 18 mg/dL (8-23); Calcium 8.5 mg/dL (8.6-10.3); Carbon Dioxide 23 mEq/L (23-29); Chloride 102 mEq/L (98-107); Glucose 136 mg/dL (70-105); Magnesium 1.8 mg/dL (1.6-2.6); Osmolality,Calculated 282 (280-300); Phosphorous 3.2 mg/dL (2.7-4.5); Potassium 4.4 mEq/L (3.5-5.1); Sodium 134 mEq/L (136-145); eGFR For African Americans > 60 (> 60); eGFR For Non-African Americans > 60 (> 60)
[2021-03-23] MEDS: Insulin LISPRO 300 UNITS/3 ML VIAL SUBQ SCH ×3 (08:19→20:57)
[2021-03-23] MEDS: hydroCHLOROthiazide 25 MG TABLET PO SCH (08:26)
[2021-03-23] MEDS: Baclofen 10 MG TABLET PO SCH ×3 (08:27→20:59)
[2021-03-23] MEDS: Gabapentin 300 MG CAPSULE PO SCH ×3 (08:27→20:59)
[2021-03-23] MEDS: Aspirin Enteric Coated 81 MG Tablet PO SCH (08:27)
[2021-03-23] MEDS: *HR* Heparin 5,000 UNIT/ML VIAL SQ SCH ×2 (08:27→17:56)
[2021-03-23] MEDS: Lactobacillus 1 EACH CAP.SPRINK PO SCH ×2 (08:27→20:57)
[2021-03-23] MEDS ORDERED: *HR* HYDROmorphone PF 0.5 MG/0.5 ML SYRINGE IVP PRN (08:51)
[2021-03-23] MEDS ORDERED: *HR* Rocuronium Bromide 50 MG/5 ML VIAL ONE (09:03)
[2021-03-23] MEDS ORDERED: EPHEDrine 50 MG/ML VIAL ONE (09:21)
[2021-03-23] MEDS ORDERED: Sugammadex Sodium 200 MG/2 ML VIAL IV ONE (09:54)
[2021-03-23] MEDS ORDERED: Dextrose Gel 15 GM/37.5 ML TUBE PO PRN ×2 (11:50)
[2021-03-23] MEDS ORDERED: D5% in Water 1,000 ML IVC PRN (11:50)
[2021-03-23] MEDS ORDERED: Sennosides/Docusate Sodium TABLET PO PRN (11:50)
[2021-03-23] MEDS ORDERED: Simethicone 80 MG TAB.CHEW PO PRN (11:50)
[2021-03-23] MEDS ORDERED: Fluticasone Propionate Nasal 50 MCG/SPRAY BOTTLE NS PRN (11:50)
[2021-03-23] MEDS ORDERED: *HR* Dextrose 50 % in Water (Syg) 50 ML SYRINGE IVP PRN (11:50)
[2021-03-23] MEDS ORDERED: Naloxone 0.4 MG/ML INJ IVP PRN (11:50)
[2021-03-23] MEDS: Insulin DETEMIR 100 UNIT/ML X5UNITS SUBQ SCH (12:10)
[2021-03-23] MEDS: *HR* OxyCODONE/APAP 10/325 TABLET PO PRN ×2 (13:55→20:58)
[2021-03-23] MEDS: Loratadine 10 MG TABLET PO SCH (20:58)
[2021-03-23] MEDS: Multivit/Ca/Min/Fe/FA 1 TAB TABLET PO SCH (20:59)
[2021-03-23] MEDS ORDERED: Insulin DETEMIR 100 UNIT/ML X5UNITS SUBQ SCH (21:00)
[2021-03-23] MEDS: polyethylene glycoL 3350 17 GM POWD.PACK PO SCH (21:06)
[2021-03-24] MEDS: Piperacillin/Tazobactam 3.375 GM in 0.9 % Sodium Chloride Mini Bag 100 ML IVPB SCH ×4 (00:36→23:18)
[2021-03-24] MEDS ORDERED: 0.9 % Sodium Chloride 250 ML ONE (02:46)
[2021-03-24] MEDS: *HR* OxyCODONE/APAP 10/325 TABLET PO PRN ×3 (03:37→21:39)
[2021-03-24] MEDS: *HR* Heparin 5,000 UNIT/ML VIAL SQ SCH ×2 (05:10→18:26)
[2021-03-24 07:23] LABS: Basophils % 0.3 %; Hematocrit 26.2 % (37.5-50.1); Hemoglobin 8.1 g/dL (12.9-16.9); Immature Granulocytes % 1.2 % (0-4); Lymphocytes # 1.1 K/mcL (0.6-4.6); Mean Corpuscular HGB Conc 30.9 g/dL (31.6-35.5); Mean Corpuscular Hemoglobin 27.7 pg (28.0-33.3); Mean Corpuscular Volume 89.7 fL (83.0-100.0); Mean Platelet Volume 9.8 fL (9.4-12.4); Monocytes # 0.8 K/mcL (0.0-1.3); Monocytes % 5.3 %; Neutrophils # 13.2 K/mcL (1.6-8.9); Platelet Count 488 K/mcL (140-400); Red Blood Count 2.92 M/mcL (4.19-5.50); Segmented Neutrophils % 86.2 %; White Blood Count 15.4 K/mcL (4.3-11.1)
[2021-03-24] MEDS: polyethylene glycoL 3350 17 GM POWD.PACK PO SCH ×2 (07:54→21:33)
[2021-03-24] MEDS: Gabapentin 300 MG CAPSULE PO SCH ×3 (07:55→21:33)
[2021-03-24] MEDS: Lactobacillus 1 EACH CAP.SPRINK PO SCH ×2 (07:55→21:33)
[2021-03-24] MEDS: Baclofen 10 MG TABLET PO SCH ×3 (07:56→21:34)
[2021-03-24] MEDS: Insulin LISPRO 300 UNITS/3 ML VIAL SUBQ SCH ×7 (07:56→21:42)
[2021-03-24] MEDS: hydroCHLOROthiazide 25 MG TABLET PO SCH (08:14)
[2021-03-24 08:17] LABS: BUN/Creatinine Ratio 17 (6-26); Blood Urea Nitrogen 19 mg/dL (8-23); Calcium 8.3 mg/dL (8.6-10.3); Carbon Dioxide 23 mEq/L (23-29); Chloride 102 mEq/L (98-107); Glucose 343 mg/dL (70-105); Magnesium 1.8 mg/dL (1.6-2.6); Osmolality,Calculated 294 (280-300); Phosphorous 2.9 mg/dL (2.7-4.5); Potassium 4.4 mEq/L (3.5-5.1); Sodium 134 mEq/L (136-145); eGFR For African Americans > 60 (> 60); eGFR For Non-African Americans > 60 (> 60)
[2021-03-24] MEDS: Aspirin Enteric Coated 81 MG Tablet PO SCH (08:22)
[2021-03-24] MEDS: Insulin DETEMIR 100 UNIT/ML X5UNITS SUBQ SCH ×2 (10:38→22:01)
[2021-03-24] MEDS: Loratadine 10 MG TABLET PO SCH (21:33)
[2021-03-24] MEDS: Multivit/Ca/Min/Fe/FA 1 TAB TABLET PO SCH (21:33)
[2021-03-25] MEDS: *HR* Heparin 5,000 UNIT/ML VIAL SQ SCH ×2 (05:24→18:23)
[2021-03-25] MEDS: Lactobacillus 1 EACH CAP.SPRINK PO SCH ×2 (08:49→20:21)
[2021-03-25] MEDS: Insulin DETEMIR 100 UNIT/ML X5UNITS SUBQ SCH ×2 (08:49→20:22)
[2021-03-25] MEDS: polyethylene glycoL 3350 17 GM POWD.PACK PO SCH ×2 (08:49→20:22)
[2021-03-25] MEDS: Baclofen 10 MG TABLET PO SCH ×3 (08:49→20:21)
[2021-03-25] MEDS: Gabapentin 300 MG CAPSULE PO SCH ×3 (08:50→20:21)
[2021-03-25] MEDS: Insulin LISPRO 300 UNITS/3 ML VIAL SUBQ SCH ×7 (08:51→20:45)
[2021-03-25] MEDS: Aspirin Enteric Coated 81 MG Tablet PO SCH (08:51)
[2021-03-25] MEDS: hydroCHLOROthiazide 25 MG TABLET PO SCH (08:51)
[2021-03-25] MEDS: Piperacillin/Tazobactam 3.375 GM in 0.9 % Sodium Chloride Mini Bag 100 ML IVPB SCH ×3 (08:52→23:22)
[2021-03-25] MEDS ORDERED: Lidocaine -MPF 1% 5 ML AMPUL INFILT ONE (11:40)
[2021-03-25] MEDS: *HR* OxyCODONE/APAP 10/325 TABLET PO PRN ×2 (13:06→20:20)
[2021-03-25] MEDS: Loratadine 10 MG TABLET PO SCH (20:21)
[2021-03-25] MEDS: Multivit/Ca/Min/Fe/FA 1 TAB TABLET PO SCH (20:21)
[2021-03-26] MEDS: *HR* OxyCODONE/APAP 10/325 TABLET PO PRN ×3 (04:10→21:01)
[2021-03-26] MEDS: *HR* Heparin 5,000 UNIT/ML VIAL SQ SCH ×2 (05:23→17:21)
[2021-03-26 05:39] LABS: Basophils # 0.1 K/mcL (0.0-0.2); Basophils % 0.9 %; Eosinophils # 0.4 K/mcL (0.0-0.6); Eosinophils % 3.2 %; Hematocrit 25.5 % (37.5-50.1); Hemoglobin 7.9 g/dL (12.9-16.9); Lymphocytes # 2.4 K/mcL (0.6-4.6); Lymphocytes % 17.4 %; Mean Corpuscular Hemoglobin 27.7 pg (28.0-33.3); Mean Corpuscular Volume 89.5 fL (83.0-100.0); Mean Platelet Volume 9.4 fL (9.4-12.4); Monocytes # 0.8 K/mcL (0.0-1.3); Monocytes % 5.7 %; Neutrophils # 9.8 K/mcL (1.6-8.9); Platelet Count 480 K/mcL (140-400); Red Blood Count 2.85 M/mcL (4.19-5.50); Red Cell Distribution Width 14.3 % (11.5-14.5); Segmented Neutrophils % 70.8 %; White Blood Count 13.8 K/mcL (4.3-11.1)
[2021-03-26 06:01] LABS: BUN/Creatinine Ratio 24 (6-26); Blood Urea Nitrogen 27 mg/dL (8-23); Carbon Dioxide 26 mEq/L (23-29); Chloride 105 mEq/L (98-107); Glucose 219 mg/dL (70-105); Magnesium 1.6 mg/dL (1.6-2.6); Osmolality,Calculated 294 (280-300); Phosphorous 3.3 mg/dL (2.7-4.5); Potassium 4.3 mEq/L (3.5-5.1); Sodium 136 mEq/L (136-145); eGFR For African Americans > 60 (> 60); eGFR For Non-African Americans > 60 (> 60)
[2021-03-26] MEDS: Insulin LISPRO 300 UNITS/3 ML VIAL SUBQ SCH ×7 (08:23→20:57)
[2021-03-26] MEDS: Piperacillin/Tazobactam 3.375 GM in 0.9 % Sodium Chloride Mini Bag 100 ML IVPB SCH ×3 (08:24→23:50)
[2021-03-26] MEDS: polyethylene glycoL 3350 17 GM POWD.PACK PO SCH ×2 (08:24→20:59)
[2021-03-26] MEDS: Lactobacillus 1 EACH CAP.SPRINK PO SCH ×2 (08:24→20:58)
[2021-03-26] MEDS: Baclofen 10 MG TABLET PO SCH ×3 (08:25→20:56)
[2021-03-26] MEDS: Aspirin Enteric Coated 81 MG Tablet PO SCH (08:25)
[2021-03-26] MEDS: hydroCHLOROthiazide 25 MG TABLET PO SCH (08:25)
[2021-03-26] MEDS: Gabapentin 300 MG CAPSULE PO SCH ×3 (08:25→20:56)
[2021-03-26] MEDS: Insulin DETEMIR 100 UNIT/ML X5UNITS SUBQ SCH ×2 (08:32→20:56)
[2021-03-26] MEDS: Multivit/Ca/Min/Fe/FA 1 TAB TABLET PO SCH (20:56)
[2021-03-26] MEDS: Loratadine 10 MG TABLET PO SCH (20:56)
[2021-03-27] MEDS: *HR* Heparin 5,000 UNIT/ML VIAL SQ SCH ×2 (05:43→17:56)
[2021-03-27 06:14] LABS: Hematocrit 26.7 % (37.5-50.1); Hemoglobin 8.3 g/dL (12.9-16.9); Mean Corpuscular HGB Conc 31.1 g/dL (31.6-35.5); Mean Corpuscular Hemoglobin 27.7 pg (28.0-33.3); Mean Platelet Volume 9.5 fL (9.4-12.4); Platelet Count 482 K/mcL (140-400); Red Cell Distribution Width 14.4 % (11.5-14.5); White Blood Count 15.8 K/mcL (4.3-11.1)
[2021-03-27 06:34] LABS: BUN/Creatinine Ratio 21 (6-26); Blood Urea Nitrogen 21 mg/dL (8-23); Calcium 8.2 mg/dL (8.6-10.3); Carbon Dioxide 26 mEq/L (23-29); Chloride 105 mEq/L (98-107); Glucose 136 mg/dL (70-105); Osmolality,Calculated 291 (280-300); Potassium 4.1 mEq/L (3.5-5.1); Sodium 138 mEq/L (136-145); eGFR For African Americans > 60 (> 60); eGFR For Non-African Americans > 60 (> 60)
[2021-03-27] MEDS: Gabapentin 300 MG CAPSULE PO SCH ×3 (08:29→21:44)
[2021-03-27] MEDS: hydroCHLOROthiazide 25 MG TABLET PO SCH (08:29)
[2021-03-27] MEDS: Baclofen 10 MG TABLET PO SCH ×3 (08:29→21:44)
[2021-03-27] MEDS: Lactobacillus 1 EACH CAP.SPRINK PO SCH ×2 (08:29→21:44)
[2021-03-27] MEDS: Aspirin Enteric Coated 81 MG Tablet PO SCH (08:29)
[2021-03-27] MEDS: polyethylene glycoL 3350 17 GM POWD.PACK PO SCH ×2 (08:31→21:45)
[2021-03-27] MEDS: Piperacillin/Tazobactam 3.375 GM in 0.9 % Sodium Chloride Mini Bag 100 ML IVPB SCH ×3 (08:32→23:41)
[2021-03-27] MEDS: Insulin LISPRO 300 UNITS/3 ML VIAL SUBQ SCH ×7 (08:47→21:44)
[2021-03-27] MEDS: Insulin DETEMIR 100 UNIT/ML X5UNITS SUBQ SCH ×2 (08:51→21:44)
[2021-03-27] MEDS: *HR* OxyCODONE/APAP 10/325 TABLET PO PRN ×2 (08:52→17:55)
[2021-03-27] MEDS: Multivit/Ca/Min/Fe/FA 1 TAB TABLET PO SCH (21:44)
[2021-03-27] MEDS: Loratadine 10 MG TABLET PO SCH (21:44)
[2021-03-28] MEDS: *HR* OxyCODONE/APAP 10/325 TABLET PO PRN ×3 (01:39→17:07)
[2021-03-28] MEDS: *HR* Heparin 5,000 UNIT/ML VIAL SQ SCH ×2 (05:32→16:54)
[2021-03-28 05:58] LABS: Basophils # 0.1 K/mcL (0.0-0.2); Basophils % 0.7 %; Eosinophils # 0.5 K/mcL (0.0-0.6); Hematocrit 25.1 % (37.5-50.1); Hemoglobin 8.1 g/dL (12.9-16.9); Immature Granulocytes % 1.6 % (0-4); Lymphocytes # 2.2 K/mcL (0.6-4.6); Lymphocytes % 16.6 %; Mean Corpuscular HGB Conc 32.3 g/dL (31.6-35.5); Mean Corpuscular Hemoglobin 28.7 pg (28.0-33.3); Mean Platelet Volume 9.5 fL (9.4-12.4); Monocytes # 0.9 K/mcL (0.0-1.3); Monocytes % 6.3 %; Neutrophils # 9.5 K/mcL (1.6-8.9); Platelet Count 456 K/mcL (140-400); Red Blood Count 2.82 M/mcL (4.19-5.50); Red Cell Distribution Width 15.2 % (11.5-14.5); Segmented Neutrophils % 70.8 %; White Blood Count 13.4 K/mcL (4.3-11.1)
[2021-03-28 06:18] LABS: Alanine Aminotransferase 20 Units/L (7-52); Albumin 2.5 g/dL (3.5-5.7); Albumin/Globulin Ratio 0.7 (1.1-2.2); Alkaline Phosphatase 80 Units/L (34-104); Aspartate Amino Transferase 24 Units/L (13-39); BUN/Creatinine Ratio 23 (6-26); Bilirubin,Total 0.3 mg/dL (0.3-1.0); Blood Urea Nitrogen 24 mg/dL (8-23); Calcium 8.2 mg/dL (8.6-10.3); Carbon Dioxide 27 mEq/L (23-29); Chloride 104 mEq/L (98-107); Globulin 3.5 g/dL (2.4-3.5); Glucose 196 mg/dL (70-105); Osmolality,Calculated 295 (280-300); Potassium 4.2 mEq/L (3.5-5.1); Sodium 138 mEq/L (136-145); eGFR For African Americans > 60 (> 60); eGFR For Non-African Americans > 60 (> 60)
[2021-03-28] MEDS: Insulin LISPRO 300 UNITS/3 ML VIAL SUBQ SCH ×7 (08:43→21:33)
[2021-03-28] MEDS: Piperacillin/Tazobactam 3.375 GM in 0.9 % Sodium Chloride Mini Bag 100 ML IVPB SCH ×2 (08:44→16:55)
[2021-03-28] MEDS: Aspirin Enteric Coated 81 MG Tablet PO SCH (08:45)
[2021-03-28] MEDS: Gabapentin 300 MG CAPSULE PO SCH ×3 (08:45→21:39)
[2021-03-28] MEDS: Lactobacillus 1 EACH CAP.SPRINK PO SCH ×2 (08:46→21:39)
[2021-03-28] MEDS: hydroCHLOROthiazide 25 MG TABLET PO SCH (08:46)
[2021-03-28] MEDS: Insulin DETEMIR 100 UNIT/ML X5UNITS SUBQ SCH ×2 (08:46→21:40)
[2021-03-28] MEDS: Baclofen 10 MG TABLET PO SCH ×3 (08:46→21:39)
[2021-03-28] MEDS: polyethylene glycoL 3350 17 GM POWD.PACK PO SCH ×2 (08:56→21:41)
[2021-03-28] MEDS: Loratadine 10 MG TABLET PO SCH (21:39)
[2021-03-28] MEDS: Multivit/Ca/Min/Fe/FA 1 TAB TABLET PO SCH (21:39)
[2021-03-29] MEDS: Piperacillin/Tazobactam 3.375 GM in 0.9 % Sodium Chloride Mini Bag 100 ML IVPB SCH ×4 (01:01→23:52)
[2021-03-29] MEDS: *HR* OxyCODONE/APAP 10/325 TABLET PO PRN ×3 (01:01→20:58)
[2021-03-29] MEDS: *HR* Heparin 5,000 UNIT/ML VIAL SQ SCH ×2 (05:54→17:51)
[2021-03-29] MEDS: Insulin DETEMIR 100 UNIT/ML X5UNITS SUBQ SCH ×2 (08:26→20:22)
[2021-03-29] MEDS: Lactobacillus 1 EACH CAP.SPRINK PO SCH ×2 (08:28→20:20)
[2021-03-29] MEDS: polyethylene glycoL 3350 17 GM POWD.PACK PO SCH ×2 (08:28→20:22)
[2021-03-29] MEDS: Gabapentin 300 MG CAPSULE PO SCH ×3 (08:28→20:21)
[2021-03-29] MEDS: Baclofen 10 MG TABLET PO SCH ×3 (08:28→20:21)
[2021-03-29] MEDS: hydroCHLOROthiazide 25 MG TABLET PO SCH (08:28)
[2021-03-29] MEDS: Insulin LISPRO 300 UNITS/3 ML VIAL SUBQ SCH ×7 (08:29→20:21)
[2021-03-29] MEDS: Aspirin Enteric Coated 81 MG Tablet PO SCH (13:47)
[2021-03-29] MEDS: Multivit/Ca/Min/Fe/FA 1 TAB TABLET PO SCH (20:21)
[2021-03-29] MEDS: Loratadine 10 MG TABLET PO SCH (20:22)
[2021-03-30] MEDS: *HR* Heparin 5,000 UNIT/ML VIAL SQ SCH ×2 (06:25→18:44)
[2021-03-30] MEDS: Piperacillin/Tazobactam 3.375 GM in 0.9 % Sodium Chloride Mini Bag 100 ML IVPB SCH ×3 (09:40→23:45)
[2021-03-30] MEDS: Insulin LISPRO 300 UNITS/3 ML VIAL SUBQ SCH ×7 (09:41→21:10)
[2021-03-30] MEDS: Insulin DETEMIR 100 UNIT/ML X5UNITS SUBQ SCH ×2 (09:41→21:19)
[2021-03-30] MEDS: Aspirin Enteric Coated 81 MG Tablet PO SCH (09:42)
[2021-03-30] MEDS: hydroCHLOROthiazide 25 MG TABLET PO SCH (09:42)
[2021-03-30] MEDS: Gabapentin 300 MG CAPSULE PO SCH ×3 (09:42→21:20)
[2021-03-30] MEDS: Lactobacillus 1 EACH CAP.SPRINK PO SCH ×2 (09:42→21:20)
[2021-03-30] MEDS: *HR* OxyCODONE/APAP 10/325 TABLET PO PRN ×3 (09:42→23:45)
[2021-03-30] MEDS: Baclofen 10 MG TABLET PO SCH ×3 (09:42→21:16)
[2021-03-30] MEDS: polyethylene glycoL 3350 17 GM POWD.PACK PO SCH ×2 (09:48→21:27)
[2021-03-30] MEDS: Loratadine 10 MG TABLET PO SCH (21:16)
[2021-03-30] MEDS: Multivit/Ca/Min/Fe/FA 1 TAB TABLET PO SCH (21:18)
[2021-03-31 04:32] LABS: Basophils # 0.1 K/mcL (0.0-0.2); Basophils % 0.9 %; Eosinophils # 0.7 K/mcL (0.0-0.6); Eosinophils % 7.3 %; Hematocrit 26.8 % (37.5-50.1); Hemoglobin 8.5 g/dL (12.9-16.9); Immature Granulocytes % 1.3 % (0-4); Lymphocytes # 1.7 K/mcL (0.6-4.6); Lymphocytes % 17.8 %; Mean Corpuscular HGB Conc 31.7 g/dL (31.6-35.5); Mean Corpuscular Hemoglobin 28.8 pg (28.0-33.3); Mean Corpuscular Volume 90.8 fL (83.0-100.0); Mean Platelet Volume 9.5 fL (9.4-12.4); Monocytes # 0.9 K/mcL (0.0-1.3); Monocytes % 9.6 %; Platelet Count 391 K/mcL (140-400); Red Blood Count 2.95 M/mcL (4.19-5.50); Red Cell Distribution Width 16.4 % (11.5-14.5); Segmented Neutrophils % 63.1 %; White Blood Count 9.5 K/mcL (4.3-11.1)
[2021-03-31 04:49] LABS: BUN/Creatinine Ratio 20 (6-26); Blood Urea Nitrogen 22 mg/dL (8-23); Carbon Dioxide 25 mEq/L (23-29); Chloride 100 mEq/L (98-107); Glucose 263 mg/dL (70-105); Osmolality,Calculated 288 (280-300); Potassium 4.1 mEq/L (3.5-5.1); Sodium 133 mEq/L (136-145); eGFR For African Americans > 60 (> 60); eGFR For Non-African Americans > 60 (> 60)
[2021-03-31] MEDS: *HR* Heparin 5,000 UNIT/ML VIAL SQ SCH ×2 (06:20→16:25)
[2021-03-31] MEDS: Piperacillin/Tazobactam 3.375 GM in 0.9 % Sodium Chloride Mini Bag 100 ML IVPB SCH ×3 (09:11→23:43)
[2021-03-31] MEDS: *HR* OxyCODONE/APAP 10/325 TABLET PO PRN ×3 (09:12→23:43)
[2021-03-31] MEDS: polyethylene glycoL 3350 17 GM POWD.PACK PO SCH ×2 (09:12→21:13)
[2021-03-31] MEDS: Lactobacillus 1 EACH CAP.SPRINK PO SCH ×2 (09:13→21:05)
[2021-03-31] MEDS: Aspirin Enteric Coated 81 MG Tablet PO SCH (09:13)
[2021-03-31] MEDS: Gabapentin 300 MG CAPSULE PO SCH ×3 (09:13→21:05)
[2021-03-31] MEDS: Baclofen 10 MG TABLET PO SCH ×3 (09:13→21:05)
[2021-03-31] MEDS: hydroCHLOROthiazide 25 MG TABLET PO SCH (09:13)
[2021-03-31] MEDS: Insulin LISPRO 300 UNITS/3 ML VIAL SUBQ SCH ×7 (09:14→21:06)
[2021-03-31] MEDS: Insulin DETEMIR 100 UNIT/ML X5UNITS SUBQ SCH ×2 (09:14→21:07)
[2021-03-31] MEDS: Loratadine 10 MG TABLET PO SCH (21:05)
[2021-03-31] MEDS: Multivit/Ca/Min/Fe/FA 1 TAB TABLET PO SCH (21:05)
[2021-04-01] MEDS: *HR* Heparin 5,000 UNIT/ML VIAL SQ SCH ×2 (06:19→17:44)
[2021-04-01 06:48] LABS: Basophils # 0.1 K/mcL (0.0-0.2); Basophils % 0.7 %; Eosinophils # 0.7 K/mcL (0.0-0.6); Eosinophils % 6.8 %; Hematocrit 27.1 % (37.5-50.1); Hemoglobin 8.5 g/dL (12.9-16.9); Immature Granulocytes % 0.9 % (0-4); Lymphocytes # 1.8 K/mcL (0.6-4.6); Lymphocytes % 18.6 %; Mean Corpuscular HGB Conc 31.4 g/dL (31.6-35.5); Mean Corpuscular Hemoglobin 28.4 pg (28.0-33.3); Mean Corpuscular Volume 90.6 fL (83.0-100.0); Mean Platelet Volume 9.6 fL (9.4-12.4); Monocytes # 0.9 K/mcL (0.0-1.3); Monocytes % 9.8 %; Platelet Count 374 K/mcL (140-400); Red Blood Count 2.99 M/mcL (4.19-5.50); Red Cell Distribution Width 16.4 % (11.5-14.5); Segmented Neutrophils % 63.2 %; White Blood Count 9.6 K/mcL (4.3-11.1)
[2021-04-01 07:07] LABS: BUN/Creatinine Ratio 16 (6-26); Blood Urea Nitrogen 20 mg/dL (8-23); Calcium 8.2 mg/dL (8.6-10.3); Carbon Dioxide 27 mEq/L (23-29); Chloride 103 mEq/L (98-107); Glucose 186 mg/dL (70-105); Osmolality,Calculated 289 (280-300); Potassium 4.2 mEq/L (3.5-5.1); Sodium 136 mEq/L (136-145); eGFR For African Americans > 60 (> 60); eGFR For Non-African Americans 56 (> 60)
[2021-04-01] MEDS: Insulin LISPRO 300 UNITS/3 ML VIAL SUBQ SCH ×6 (08:38→17:43)
[2021-04-01] MEDS: Piperacillin/Tazobactam 3.375 GM in 0.9 % Sodium Chloride Mini Bag 100 ML IVPB SCH ×2 (08:38→16:06)
[2021-04-01] MEDS: hydroCHLOROthiazide 25 MG TABLET PO SCH (08:39)
[2021-04-01] MEDS: Aspirin Enteric Coated 81 MG Tablet PO SCH (08:39)
[2021-04-01] MEDS: Insulin DETEMIR 100 UNIT/ML X5UNITS SUBQ SCH (08:39)
[2021-04-01] MEDS: polyethylene glycoL 3350 17 GM POWD.PACK PO SCH (08:39)
[2021-04-01] MEDS: Baclofen 10 MG TABLET PO SCH ×2 (08:39→16:06)
[2021-04-01] MEDS: *HR* OxyCODONE/APAP 10/325 TABLET PO PRN ×2 (08:39→16:06)
[2021-04-01] MEDS: Lactobacillus 1 EACH CAP.SPRINK PO SCH (08:39)
[2021-04-01] MEDS: Gabapentin 300 MG CAPSULE PO SCH ×2 (08:39→16:05)
[2021-04-01 14:49] LABS: Adenovirus Not Detected (Not Detect); Bordetella Pertussis Not Detected (Not Detect); Chlamydophila pneumoniae Not Detected (Not Detect); Coronavirus 229E Not Detected (Not Detect); Coronavirus HKU1 Not Detected (Not Detect); Coronavirus NL63 Not Detected (Not Detect); Coronavirus OC43 Not Detected (Not Detect); Human Metapneumovirus Not Detected (Not Detect); Human Rhinovirus/Enterovirus Not Detected (Not Detect); Influenza A Subtype 2009 H1 Not Detected (Not Detect); Influenza B Not Detected (Not Detect); Mycoplasma pneumoniae Not Detected (Not Detect); Parainfluenza Virus 1 Not Detected (Not Detect); Parainfluenza Virus 2 Not Detected (Not Detect); Parainfluenza Virus 3 Not Detected (Not Detect); Parainfluenza Virus 4 Not Detected (Not Detect); Respiratory Syncytial Virus DETECTED (Not Detect); SARS-CoV-2 Not Detected (Not Detect)
[2021-04-01 15:21] VITALS: BP 132/71; PULSE 65; TEMP 97.9; O2SAT 98
== END 2021-04-01 19:15 | DRG 853 ==
LOC: EMEROOARM 19:29 → 3ANU 19:29 → SUATTDRO 23:14 → 3ANU 23:56 → SUATTDRO 03-19 09:53
PROVIDERS: ADMIT Internal Medicine; ATTEND Internal Medicine

== ENCOUNTER 2021-04-22 09:12 | Inpatient (IN) ==
[2021-04-22] MEDS ORDERED: Piperacillin/Tazobactam 3.375 GM in 0.9 % Sodium Chloride Mini Bag 100 ML IVPB ONE (09:18)
[2021-04-22] MEDS ORDERED: Cefepime HCl 2,000 MG in 0.9 % Sodium Chloride Mini Bag 100 ML IVPB STA (09:40)
[2021-04-22] MEDS ORDERED: *HR* FentaNYL (PF) 100 MCG/2 ML VIAL IVP STA (10:01)
[2021-04-22] MEDS ORDERED: Ondansetron 4 MG/2 ML VIAL IVP ONE (10:01)
[2021-04-22 10:13] LABS: Hematocrit 32.5 % (37.5-50.1); Hemoglobin 10.2 g/dL (12.9-16.9); Mean Corpuscular HGB Conc 31.4 g/dL (31.6-35.5); Mean Corpuscular Hemoglobin 27.9 pg (28.0-33.3); Mean Corpuscular Volume 88.8 fL (83.0-100.0); Mean Platelet Volume 10.3 fL (9.4-12.4); Platelet Count 278 K/mcL (140-400); Red Blood Count 3.66 M/mcL (4.19-5.50); Red Cell Distribution Width 17.1 % (11.5-14.5); White Blood Count 9.9 K/mcL (4.3-11.1)
[2021-04-22 10:29] LABS: Alanine Aminotransferase 8 Units/L (7-52); Albumin 2.8 g/dL (3.5-5.7); Albumin/Globulin Ratio 0.7 (1.1-2.2); Alkaline Phosphatase 65 Units/L (34-104); Aspartate Amino Transferase 18 Units/L (13-39); Bilirubin,Direct 0.2 mg/dL (0.0-0.2); Bilirubin,Indirect 0.1 mg/dL (0.0-1.0); Bilirubin,Total 0.3 mg/dL (0.3-1.0); Blood Urea Nitrogen 40 mg/dL (8-23); Calcium 8.7 mg/dL (8.6-10.3); Carbon Dioxide 22 mEq/L (23-29); Chloride 110 mEq/L (98-107); Globulin 3.9 g/dL (2.4-3.5); Glucose 142 mg/dL (70-105); Osmolality,Calculated 296 (280-300); Sodium 137 mEq/L (136-145); Total Protein 6.7 g/dL (6.4-8.9)
[2021-04-22] MEDS ORDERED: Melatonin 3 MG TABLET PO PRN (11:08)
[2021-04-22] MEDS ORDERED: Naloxone 0.4 MG/ML INJ IVP PRN (11:08)
[2021-04-22] MEDS ORDERED: Dextrose Gel 15 GM/37.5 ML TUBE PO PRN ×2 (11:10)
[2021-04-22] MEDS ORDERED: *HR* Dextrose 50 % in Water (Syg) 50 ML SYRINGE IVP PRN (11:10)
[2021-04-22] MEDS ORDERED: D5% in Water 1,000 ML IVC PRN (11:10)
[2021-04-22 11:33] LABS: BUN/Creatinine Ratio 30 (6-26); eGFR For African Americans > 60 (> 60); eGFR For Non-African Americans 54 (> 60)
[2021-04-22 12:19] LABS: Influenza A PCR Negative (Negative); Influenza B PCR Negative (Negative); Resp. Syncytial Virus PCR Negative (Negative)
[2021-04-22 12:23] LABS: SARS-CoV-2 by PCR (In House) Negative (Negative)
[2021-04-22] MEDS: Ringers Solution, Lactated 1,000 ML IVC SCH (14:21)
[2021-04-22 15:43] LABS: C-Reactive Protein 52 mg/L (Less than 10)
[2021-04-22] MEDS ORDERED: Piperacillin/Tazobactam 3.375 GM in 0.9 % Sodium Chloride Mini Bag 100 ML IVPB SCH (16:00)
[2021-04-22] MEDS ORDERED: Fluticasone Propionate Nasal 50 MCG/SPRAY BOTTLE NS PRN (18:26)
[2021-04-22] MEDS: Lactobacillus 1 EACH CAP.SPRINK PO SCH (21:50)
[2021-04-22] MEDS: Baclofen 10 MG TABLET PO SCH (21:50)
[2021-04-22] MEDS: Gabapentin 300 MG CAPSULE PO SCH (21:51)
[2021-04-22] MEDS: *HR* Heparin 5,000 UNIT/ML VIAL SQ SCH (21:51)
[2021-04-22] MEDS: Vancomycin 1,500 MG/265 ML IV.SOLN IVPB SCH (22:03)
[2021-04-23] MEDS: MetroNIDAZOLE 500 MG/100 ML 500 MG/100 ML BAG IVPB SCH ×3 (01:33→17:00)
[2021-04-23] MEDS: Ringers Solution, Lactated 1,000 ML IVC SCH (03:56)
[2021-04-23 04:17] LABS: Amorphous Sediment,Urine Few per hpf (None-Few); Bacteria,Urine Few per hpf (None-Few); Bilirubin,Urine Negative (Negative); Blood,Urine Moderate (Negative); Clarity,Urine Ex.Turbid (Clear); Color,Urine Yellow (Yellow); Glucose,Urine (UA) Normal (Normal); Ketones,Urine Negative (Negative); Leukocyte Esterase,Urine Large (Negative); Mucus,Urine Few per lpf (None-Few); Nitrite,Urine Negative (Negative); Protein,Urine 100 mg/dL (Neg-Trace); RBC,Urine 50-100 per hpf (0-3); Squamous Epithelial Cell,Urine Few per hpf (None-Few); Transitional Epi Cells,Urine Few per hpf (None-Few); Urobilinogen,Urine Normal (Normal); WBC,Urine TNTC per hpf (0-3)
[2021-04-23 04:20] LABS: Basophils # 0.1 K/mcL (0.0-0.2); Eosinophils # 0.4 K/mcL (0.0-0.6); Eosinophils % 4.9 %; Hematocrit 29.2 % (37.5-50.1); Hemoglobin 8.9 g/dL (12.9-16.9); Immature Granulocytes % 0.6 % (0-4); Lymphocytes # 0.8 K/mcL (0.6-4.6); Lymphocytes % 9.5 %; Mean Corpuscular HGB Conc 30.5 g/dL (31.6-35.5); Mean Corpuscular Hemoglobin 27.1 pg (28.0-33.3); Mean Platelet Volume 10.3 fL (9.4-12.4); Monocytes % 11.9 %; Neutrophils # 6.3 K/mcL (1.6-8.9); Platelet Count 261 K/mcL (140-400); Red Blood Count 3.28 M/mcL (4.19-5.50); Red Cell Distribution Width 17.3 % (11.5-14.5); Segmented Neutrophils % 72.1 %; White Blood Count 8.8 K/mcL (4.3-11.1)
[2021-04-23 05:02] LABS: Folate 17.9 ng/mL (3.0-16.0)
[2021-04-23] MEDS: *HR* Heparin 5,000 UNIT/ML VIAL SQ SCH ×3 (05:27→21:43)
[2021-04-23 05:42] LABS: BUN/Creatinine Ratio 25 (6-26); Blood Urea Nitrogen 39 mg/dL (8-23); Calcium 8.3 mg/dL (8.6-10.3); Carbon Dioxide 21 mEq/L (23-29); Chloride 111 mEq/L (98-107); Glucose 125 mg/dL (70-105); Iron < 10 mcg/dL (65-175); Magnesium 1.7 mg/dL (1.6-2.6); Osmolality,Calculated 297 (280-300); Phosphorous 2.9 mg/dL (2.7-4.5); Potassium 4.2 mEq/L (3.5-5.1); Sodium 138 mEq/L (136-145); Transferrin 91 mg/dL (203-362); eGFR For African Americans 56 (> 60); eGFR For Non-African Americans 46 (> 60)
[2021-04-23 06:16] LABS: Ferritin 278 ng/mL (20-250)
[2021-04-23] MEDS ORDERED: 0.9 % Sodium Chloride 1,000 ML IVC SCH (07:45)
[2021-04-23] MEDS: Lactobacillus 1 EACH CAP.SPRINK PO SCH ×2 (08:49→21:43)
[2021-04-23] MEDS: Baclofen 10 MG TABLET PO SCH ×3 (08:50→21:43)
[2021-04-23] MEDS: Gabapentin 300 MG CAPSULE PO SCH ×3 (08:50→21:43)
[2021-04-23] MEDS ORDERED: lisinopriL 20 MG TABLET PO SCH (09:00)
[2021-04-23] MEDS ORDERED: Aspirin Enteric Coated 81 MG Tablet PO SCH (09:00)
[2021-04-23] MEDS ORDERED: Vitamin B Complex/Vit C/Vit E 1 EACH TABLET PO SCH (09:00)
[2021-04-23] MEDS ORDERED: Iron Sucrose Complex 400 MG in 0.9 % Sodium Chloride 250 ML IVPB ONE (09:22)
[2021-04-23] MEDS ORDERED: Acetaminophen 325 MG TABLET PO PRN (13:14)
[2021-04-23] MEDS: Insulin LISPRO 300 UNITS/3 ML VIAL SUBQ SCH ×2 (13:46→17:10)
[2021-04-23] MEDS: Vancomycin 1,500 MG/265 ML IV.SOLN IVPB SCH ×2 (13:51→21:44)
[2021-04-23] MEDS: Cefepime HCl 2,000 MG in Water for inj. (sterile) 20 ML IVP SCH (18:03)
[2021-04-23] MEDS ORDERED: Insulin LISPRO 300 UNITS/3 ML VIAL SUBQ SCH (21:00)
[2021-04-24] MEDS: MetroNIDAZOLE 500 MG/100 ML 500 MG/100 ML BAG IVPB SCH (00:55)
[2021-04-24] MEDS: Cefepime HCl 2,000 MG in Water for inj. (sterile) 20 ML IVP SCH ×2 (05:06→18:45)
[2021-04-24] MEDS: *HR* Heparin 5,000 UNIT/ML VIAL SQ SCH ×3 (05:06→22:05)
[2021-04-24] MEDS ORDERED: Lidocaine -MPF 2% 5 ML VIAL ONE (07:05)
[2021-04-24] MEDS ORDERED: Ondansetron 4 MG/2 ML VIAL ONE (07:05)
[2021-04-24] MEDS ORDERED: *HR* Succinylcholine 200 MG/10 ML VIAL IVP ONE (07:05)
[2021-04-24] MEDS ORDERED: Lidocaine HCL 4 ML Topical Solution (Laryng-O-Jet Kit Sterile Pak) TP ONE (07:05)
[2021-04-24] MEDS ORDERED: *HR* Rocuronium Bromide 50 MG/5 ML VIAL ONE (07:05)
[2021-04-24] MEDS ORDERED: *HR* Propofol 200 MG/20 ML VIAL IVP ONE (07:06)
[2021-04-24] MEDS ORDERED: *HR* FentaNYL (PF) 100 MCG/2 ML VIAL ONE (07:13)
[2021-04-24] MEDS: Insulin LISPRO 300 UNITS/3 ML VIAL SUBQ SCH ×4 (07:21→22:07)
[2021-04-24] MEDS ORDERED: Famotidine 20 MG/2 ML VIAL ONE (07:37)
[2021-04-24] MEDS ORDERED: Acetaminophen IV 1,000 MG/100 ML BAG IVPB ONE (07:37)
[2021-04-24] MEDS ORDERED: Ondansetron 4 MG/2 ML VIAL IVP PRN ×2 (08:42→10:07)
[2021-04-24] MEDS ORDERED: *HR* HYDROmorphone PF 0.5 MG/0.5 ML SYRINGE IVP PRN ×2 (08:42→10:07)
[2021-04-24] MEDS ORDERED: Ketamine HCL *QUVA* 50mg (1mL) SYRINGE ONE (09:01)
[2021-04-24] MEDS ORDERED: Sugammadex Sodium 200 MG/2 ML VIAL IV ONE (09:08)
[2021-04-24] MEDS ORDERED: Fluticasone Propionate Nasal 50 MCG/SPRAY BOTTLE NS PRN (10:07)
[2021-04-24] MEDS ORDERED: *HR* Dextrose 50 % in Water (Syg) 50 ML SYRINGE IVP PRN (10:07)
[2021-04-24] MEDS ORDERED: Acetaminophen 325 MG TABLET PO PRN (10:07)
[2021-04-24] MEDS ORDERED: Dextrose Gel 15 GM/37.5 ML TUBE PO PRN ×2 (10:07)
[2021-04-24] MEDS ORDERED: Naloxone 0.4 MG/ML INJ IVP PRN (10:07)
[2021-04-24] MEDS ORDERED: D5% in Water 1,000 ML IVC PRN (10:07)
[2021-04-24] MEDS ORDERED: 0.9 % Sodium Chloride 1,000 ML IVC ONE (11:05)
[2021-04-24] MEDS ORDERED: 0.9 % Sodium Chloride 1,000 ML ONE (11:10)
[2021-04-24 11:26] LABS: Basophils # 0.1 K/mcL (0.0-0.2); Basophils % 0.7 %; Eosinophils # 0.4 K/mcL (0.0-0.6); Eosinophils % 3.8 %; Hematocrit 26.1 % (37.5-50.1); Hemoglobin 7.9 g/dL (12.9-16.9); Immature Granulocytes % 1.2 % (0-4); Lymphocytes # 0.4 K/mcL (0.6-4.6); Lymphocytes % 3.3 %; Mean Corpuscular HGB Conc 30.3 g/dL (31.6-35.5); Mean Corpuscular Hemoglobin 27.3 pg (28.0-33.3); Mean Corpuscular Volume 90.3 fL (83.0-100.0); Mean Platelet Volume 10.1 fL (9.4-12.4); Monocytes # 0.5 K/mcL (0.0-1.3); Monocytes % 4.4 %; Neutrophils # 9.8 K/mcL (1.6-8.9); Platelet Count 224 K/mcL (140-400); Red Blood Count 2.89 M/mcL (4.19-5.50); Red Cell Distribution Width 17.2 % (11.5-14.5); Segmented Neutrophils % 86.6 %; White Blood Count 11.3 K/mcL (4.3-11.1)
[2021-04-24 11:46] LABS: Calcium 7.6 mg/dL (8.6-10.3); Potassium 4.1 mEq/L (3.5-5.1)
[2021-04-24] MEDS: 0.9 % Sodium Chloride 1,000 ML IVC SCH ×2 (13:26→22:04)
[2021-04-24] MEDS ORDERED: Gabapentin 300 MG CAPSULE PO SCH (15:00)
[2021-04-24] MEDS: Baclofen 10 MG TABLET PO SCH ×2 (15:52→22:06)
[2021-04-24] MEDS ORDERED: MetroNIDAZOLE 500 MG/100 ML 500 MG/100 ML BAG IVPB SCH (16:00)
[2021-04-24] MEDS ORDERED: Vancomycin 1,500 MG/265 ML IV.SOLN IVPB SCH (21:00)
[2021-04-24] MEDS: Lactobacillus 1 EACH CAP.SPRINK PO SCH (22:06)
[2021-04-24] MEDS: Gabapentin 300 MG CAPSULE PO SCH (22:06)
[2021-04-25] MEDS: MetroNIDAZOLE 500 MG/100 ML 500 MG/100 ML BAG IVPB SCH ×2 (00:23→09:22)
[2021-04-25 05:06] LABS: Hematocrit 25.8 % (37.5-50.1); Hemoglobin 8.1 g/dL (12.9-16.9); Mean Corpuscular HGB Conc 31.4 g/dL (31.6-35.5); Mean Corpuscular Hemoglobin 28.2 pg (28.0-33.3); Mean Corpuscular Volume 89.9 fL (83.0-100.0); Mean Platelet Volume 10.3 fL (9.4-12.4); Platelet Count 242 K/mcL (140-400); Red Blood Count 2.87 M/mcL (4.19-5.50); Red Cell Distribution Width 17.2 % (11.5-14.5); White Blood Count 9.3 K/mcL (4.3-11.1)
[2021-04-25 05:25] LABS: Calcium 7.8 mg/dL (8.6-10.3); Potassium 4.2 mEq/L (3.5-5.1)
[2021-04-25] MEDS: Cefepime HCl 2,000 MG in Water for inj. (sterile) 20 ML IVP SCH ×2 (05:27→17:45)
[2021-04-25] MEDS: *HR* Heparin 5,000 UNIT/ML VIAL SQ SCH ×3 (05:28→20:42)
[2021-04-25] MEDS ORDERED: lisinopriL 20 MG TABLET PO SCH (09:00)
[2021-04-25] MEDS: Insulin LISPRO 300 UNITS/3 ML VIAL SUBQ SCH ×4 (09:22→20:45)
[2021-04-25] MEDS: Baclofen 10 MG TABLET PO SCH ×3 (09:23→20:41)
[2021-04-25] MEDS: Lactobacillus 1 EACH CAP.SPRINK PO SCH ×2 (09:23→20:41)
[2021-04-25] MEDS: Vitamin B Complex/Vit C/Vit E 1 EACH TABLET PO SCH (09:23)
[2021-04-25] MEDS: Aspirin Enteric Coated 81 MG Tablet PO SCH (09:23)
[2021-04-25] MEDS: Gabapentin 300 MG CAPSULE PO SCH ×3 (09:23→20:41)
[2021-04-25] MEDS: metroNIDAZOLE 500 MG TABLET PO SCH ×2 (14:50→20:40)
[2021-04-25 18:31] LABS: Sodium, Urine 88.2 mEq/L
[2021-04-26] MEDS: *HR* Heparin 5,000 UNIT/ML VIAL SQ SCH ×3 (06:15→20:16)
[2021-04-26] MEDS: Cefepime HCl 1,000 MG in 0.9 % Sodium Chloride Mini Bag 100 ML IVPB SCH ×2 (06:15→18:55)
[2021-04-26] MEDS: Insulin LISPRO 300 UNITS/3 ML VIAL SUBQ SCH ×4 (08:18→20:28)
[2021-04-26] MEDS: Aspirin Enteric Coated 81 MG Tablet PO SCH (08:33)
[2021-04-26] MEDS: Vitamin B Complex/Vit C/Vit E 1 EACH TABLET PO SCH (08:33)
[2021-04-26] MEDS: Gabapentin 300 MG CAPSULE PO SCH ×3 (08:33→20:16)
[2021-04-26] MEDS: Lactobacillus 1 EACH CAP.SPRINK PO SCH ×2 (08:33→20:16)
[2021-04-26] MEDS: Baclofen 10 MG TABLET PO SCH ×3 (08:33→20:16)
[2021-04-26] MEDS: metroNIDAZOLE 500 MG TABLET PO SCH ×3 (08:33→20:15)
[2021-04-26 09:06] LABS: Hematocrit 31.8 % (37.5-50.1); Mean Corpuscular HGB Conc 30.5 g/dL (31.6-35.5); Mean Corpuscular Hemoglobin 26.9 pg (28.0-33.3); Mean Corpuscular Volume 88.3 fL (83.0-100.0); Mean Platelet Volume 9.9 fL (9.4-12.4); Platelet Count 256 K/mcL (140-400); Red Cell Distribution Width 17.1 % (11.5-14.5); White Blood Count 9.2 K/mcL (4.3-11.1)
[2021-04-26 09:19] LABS: Hemoglobin 9.7 g/dL (12.9-16.9)
[2021-04-26 09:27] LABS: Calcium 8.4 mg/dL (8.6-10.3); Potassium 4.1 mEq/L (3.5-5.1)
[2021-04-26 09:35] LABS: Acinetobacter baumannii by PCR Not Detected (Not Detect); Candida glabrata by PCR Not Detected (Not Detect); Candida krusei by PCR Not Detected (Not Detect); Candida parapsilosis by PCR Not Detected (Not Detect); Candida tropicalis by PCR Not Detected (Not Detect); Enterobacter cloacae Cmplx PCR Not Detected (Not Detect); Enterobacteriaceae by PCR Not Detected (Not Detect); Enterococcus by PCR Not Detected (Not Detect); Escherichia coli by PCR Not Detected (Not Detect); Klebsiella oxytoca by PCR Not Detected (Not Detect); Klebsiella pneumoniae by PCR Not Detected (Not Detect); Proteus by PCR Not Detected (Not Detect); Pseudomonas aeruginosa by PCR Not Detected (Not Detect); Serratia marcescens by PCR Not Detected (Not Detect); Staphylococcus aureus by PCR Not Detected (Not Detect); Staphylococcus by PCR Not Detected (Not Detect); Streptococcus agalactiae(B)PCR Not Detected (Not Detect); Streptococcus by PCR Not Detected (Not Detect); Streptococcus pneumoniae PCR Not Detected (Not Detect); Streptococcus pyogenes (A) PCR Not Detected (Not Detect)
[2021-04-26 09:36] LABS: Candida albicans by PCR DETECTED (Not Detect)
[2021-04-26] MEDS: Micafungin 100 MG in 0.9 % Sodium Chloride Mini Bag 100 ML IVPB SCH (11:56)
[2021-04-27] MEDS: Cefepime HCl 1,000 MG in 0.9 % Sodium Chloride Mini Bag 100 ML IVPB SCH ×2 (05:13→17:37)
[2021-04-27] MEDS: *HR* Heparin 5,000 UNIT/ML VIAL SQ SCH (05:14)
[2021-04-27 08:18] LABS: Basophils # 0.1 K/mcL (0.0-0.2); Basophils % 0.7 %; Eosinophils # 0.5 K/mcL (0.0-0.6); Eosinophils % 7.1 %; Hematocrit 32.2 % (37.5-50.1); Hemoglobin 9.8 g/dL (12.9-16.9); Immature Granulocytes % 1.1 % (0-4); Lymphocytes # 0.6 K/mcL (0.6-4.6); Lymphocytes % 7.2 %; Mean Corpuscular HGB Conc 30.4 g/dL (31.6-35.5); Mean Corpuscular Hemoglobin 27.2 pg (28.0-33.3); Mean Corpuscular Volume 89.4 fL (83.0-100.0); Mean Platelet Volume 10.5 fL (9.4-12.4); Monocytes # 0.6 K/mcL (0.0-1.3); Monocytes % 7.6 %; Neutrophils # 5.8 K/mcL (1.6-8.9); Platelet Count 210 K/mcL (140-400); Red Cell Distribution Width 17.2 % (11.5-14.5); Segmented Neutrophils % 76.3 %; White Blood Count 7.6 K/mcL (4.3-11.1)
[2021-04-27] MEDS ORDERED: *HR* Alteplase (Cathflo) 2 MG VIAL IVP ONE (09:42)
[2021-04-27 09:46] LABS: Albumin 2.5 g/dL (3.5-5.7); Albumin/Globulin Ratio 0.7 (1.1-2.2); Bilirubin,Total 0.3 mg/dL (0.3-1.0); Calcium 7.9 mg/dL (8.6-10.3); Globulin 3.5 g/dL (2.4-3.5); Potassium 3.9 mEq/L (3.5-5.1)
[2021-04-27] MEDS: Vitamin B Complex/Vit C/Vit E 1 EACH TABLET PO SCH (10:24)
[2021-04-27] MEDS: metroNIDAZOLE 500 MG TABLET PO SCH ×3 (10:25→20:14)
[2021-04-27] MEDS: Lactobacillus 1 EACH CAP.SPRINK PO SCH ×2 (10:25→20:16)
[2021-04-27] MEDS: Baclofen 10 MG TABLET PO SCH ×3 (10:25→20:16)
[2021-04-27] MEDS: Insulin LISPRO 300 UNITS/3 ML VIAL SUBQ SCH ×4 (10:26→20:22)
[2021-04-27] MEDS: Gabapentin 300 MG CAPSULE PO SCH ×3 (10:26→20:16)
[2021-04-27] MEDS: Aspirin Enteric Coated 81 MG Tablet PO SCH (10:26)
[2021-04-27 12:37] LABS: Adenovirus Not Detected (Not Detect); Bordetella Pertussis Not Detected (Not Detect); Chlamydophila pneumoniae Not Detected (Not Detect); Coronavirus 229E Not Detected (Not Detect); Coronavirus HKU1 Not Detected (Not Detect); Coronavirus NL63 Not Detected (Not Detect); Coronavirus OC43 Not Detected (Not Detect); Human Metapneumovirus Not Detected (Not Detect); Human Rhinovirus/Enterovirus Not Detected (Not Detect); Influenza A Subtype 2009 H1 Not Detected (Not Detect); Influenza B Not Detected (Not Detect); Mycoplasma pneumoniae Not Detected (Not Detect); Parainfluenza Virus 1 Not Detected (Not Detect); Parainfluenza Virus 2 Not Detected (Not Detect); Parainfluenza Virus 3 Not Detected (Not Detect); Parainfluenza Virus 4 Not Detected (Not Detect); Respiratory Syncytial Virus Not Detected (Not Detect)
[2021-04-27 12:40] LABS: SARS-CoV-2 DETECTED (Not Detect)
[2021-04-27] MEDS: Ipratropium 1 PUFF INHALER IH SCH ×2 (15:53→19:57)
[2021-04-27] MEDS ORDERED: Remdesivir 200 MG in 0.9 % Sodium Chloride 100 ML IVPB ONE (16:30)
[2021-04-27] MEDS: Micafungin 100 MG in 0.9 % Sodium Chloride Mini Bag 100 ML IVPB SCH (18:03)
[2021-04-28] MEDS: Ipratropium 1 PUFF INHALER IH SCH ×7 (00:04→23:32)
[2021-04-28] MEDS: *HR* Enoxaparin 40 MG/0.4 ML SYRINGE SQ SCH (05:32)
[2021-04-28] MEDS: Cefepime HCl 1,000 MG in 0.9 % Sodium Chloride Mini Bag 100 ML IVPB SCH ×2 (05:32→18:16)
[2021-04-28] MEDS ORDERED: Remdesivir 200 MG in 0.9 % Sodium Chloride 100 ML IVPB ONE (08:47)
[2021-04-28] MEDS: Insulin LISPRO 300 UNITS/3 ML VIAL SUBQ SCH ×4 (08:58→20:46)
[2021-04-28] MEDS: Vitamin B Complex/Vit C/Vit E 1 EACH TABLET PO SCH ×2 (08:59→10:01)
[2021-04-28] MEDS: Baclofen 10 MG TABLET PO SCH ×4 (08:59→20:34)
[2021-04-28] MEDS: Gabapentin 300 MG CAPSULE PO SCH ×4 (08:59→20:32)
[2021-04-28] MEDS: Aspirin Enteric Coated 81 MG Tablet PO SCH ×2 (08:59→10:00)
[2021-04-28] MEDS: Lactobacillus 1 EACH CAP.SPRINK PO SCH ×3 (08:59→20:31)
[2021-04-28] MEDS: metroNIDAZOLE 500 MG TABLET PO SCH ×4 (08:59→20:32)
[2021-04-28] MEDS: Micafungin 100 MG in 0.9 % Sodium Chloride Mini Bag 100 ML IVPB SCH (10:02)
[2021-04-28 11:20] LABS: Hematocrit 30.2 % (37.5-50.1); Hemoglobin 9.3 g/dL (12.9-16.9); Mean Corpuscular HGB Conc 30.8 g/dL (31.6-35.5); Mean Corpuscular Volume 87.8 fL (83.0-100.0); Mean Platelet Volume 10.5 fL (9.4-12.4); Platelet Count 217 K/mcL (140-400); Red Blood Count 3.44 M/mcL (4.19-5.50); Red Cell Distribution Width 17.4 % (11.5-14.5); White Blood Count 9.2 K/mcL (4.3-11.1)
[2021-04-28 11:52] LABS: Albumin 2.5 g/dL (3.5-5.7); Albumin/Globulin Ratio 0.8 (1.1-2.2); Bilirubin,Indirect 0.3 mg/dL (0.0-1.0); Bilirubin,Total 0.3 mg/dL (0.3-1.0); Calcium 7.7 mg/dL (8.6-10.3); Globulin 3.1 g/dL (2.4-3.5); Potassium 3.9 mEq/L (3.5-5.1); Total Protein 5.6 g/dL (6.4-8.9)
[2021-04-28] MEDS ORDERED: Fluconazole 400 MG/200 ML 400 MG/200 ML BAG IVPB ONE (15:15)
[2021-04-28] MEDS ORDERED: Remdesivir 100 MG in 0.9 % Sodium Chloride 100 ML IVPB SCH (16:30)
[2021-04-28] MEDS: 0.9 % Sodium Chloride 1,000 ML IVC SCH (18:15)
[2021-04-29] MEDS: Ipratropium 1 PUFF INHALER IH SCH ×6 (03:41→23:39)
[2021-04-29 05:14] LABS: Hematocrit 28.2 % (37.5-50.1); Mean Corpuscular HGB Conc 31.9 g/dL (31.6-35.5); Mean Corpuscular Volume 87.9 fL (83.0-100.0); Mean Platelet Volume 10.5 fL (9.4-12.4); Platelet Count 202 K/mcL (140-400); Red Blood Count 3.21 M/mcL (4.19-5.50); Red Cell Distribution Width 17.1 % (11.5-14.5); White Blood Count 7.2 K/mcL (4.3-11.1)
[2021-04-29 05:16] LABS: Albumin 2.3 g/dL (3.5-5.7); Albumin/Globulin Ratio 0.8 (1.1-2.2); Bilirubin,Direct 0.1 mg/dL (0.0-0.2); Bilirubin,Indirect 0.2 mg/dL (0.0-1.0); Bilirubin,Total 0.3 mg/dL (0.3-1.0); Total Protein 5.3 g/dL (6.4-8.9)
[2021-04-29] MEDS: Cefepime HCl 1,000 MG in 0.9 % Sodium Chloride Mini Bag 100 ML IVPB SCH (05:19)
[2021-04-29] MEDS: *HR* Enoxaparin 40 MG/0.4 ML SYRINGE SQ SCH (05:20)
[2021-04-29 05:38] LABS: Calcium 7.3 mg/dL (8.6-10.3); Magnesium 1.7 mg/dL (1.6-2.6); Potassium 4.2 mEq/L (3.5-5.1)
[2021-04-29] MEDS: 0.9 % Sodium Chloride 1,000 ML IVC SCH (05:48)
[2021-04-29] MEDS ORDERED: 0.9 % Sodium Chloride 1,000 ML IVC SCH (07:30)
[2021-04-29] MEDS: Aspirin Enteric Coated 81 MG Tablet PO SCH (09:32)
[2021-04-29] MEDS: metroNIDAZOLE 500 MG TABLET PO SCH (09:32)
[2021-04-29] MEDS: Lactobacillus 1 EACH CAP.SPRINK PO SCH ×2 (09:33→21:14)
[2021-04-29] MEDS: Vitamin B Complex/Vit C/Vit E 1 EACH TABLET PO SCH (09:33)
[2021-04-29] MEDS: Baclofen 10 MG TABLET PO SCH ×3 (09:33→21:14)
[2021-04-29] MEDS: Gabapentin 300 MG CAPSULE PO SCH ×2 (09:33→21:14)
[2021-04-29] MEDS: Remdesivir 100 MG in 0.9 % Sodium Chloride 100 ML IVPB SCH (09:38)
[2021-04-29] MEDS: Insulin LISPRO 300 UNITS/3 ML VIAL SUBQ SCH ×3 (09:43→18:20)
[2021-04-29] MEDS: Fluconazole 200 MG/100 ML 200 MG/100 ML BAG IVPB SCH (12:14)
[2021-04-29] MEDS: Piperacillin/Tazobactam 3.375 GM in 0.9 % Sodium Chloride Mini Bag 100 ML IVPB SCH (16:02)
[2021-04-30] MEDS: Piperacillin/Tazobactam 3.375 GM in 0.9 % Sodium Chloride Mini Bag 100 ML IVPB SCH ×3 (01:00→16:53)
[2021-04-30] MEDS: Ipratropium 1 PUFF INHALER IH SCH ×6 (03:20→23:59)
[2021-04-30] MEDS: *HR* Enoxaparin 40 MG/0.4 ML SYRINGE SQ SCH (05:58)
[2021-04-30 06:35] LABS: Calcium 7.5 mg/dL (8.6-10.3); Potassium 3.7 mEq/L (3.5-5.1)
[2021-04-30 06:37] LABS: Albumin 2.5 g/dL (3.5-5.7); Albumin/Globulin Ratio 0.8 (1.1-2.2); Bilirubin,Direct 0.1 mg/dL (0.0-0.2); Bilirubin,Indirect 0.3 mg/dL (0.0-1.0); Bilirubin,Total 0.4 mg/dL (0.3-1.0); Globulin 3.3 g/dL (2.4-3.5); Total Protein 5.8 g/dL (6.4-8.9)
[2021-04-30] MEDS: Insulin LISPRO 300 UNITS/3 ML VIAL SUBQ SCH ×5 (10:06→20:52)
[2021-04-30] MEDS: Gabapentin 300 MG CAPSULE PO SCH ×2 (10:10→20:49)
[2021-04-30] MEDS: Vitamin B Complex/Vit C/Vit E 1 EACH TABLET PO SCH (10:10)
[2021-04-30] MEDS: Lactobacillus 1 EACH CAP.SPRINK PO SCH ×2 (10:10→20:49)
[2021-04-30] MEDS: Baclofen 10 MG TABLET PO SCH ×3 (10:11→20:49)
[2021-04-30] MEDS: Fluconazole 200 MG/100 ML 200 MG/100 ML BAG IVPB SCH (10:11)
[2021-04-30] MEDS: Aspirin Enteric Coated 81 MG Tablet PO SCH (10:11)
[2021-04-30] MEDS ORDERED: Albumin 25% 25gram/100mL 25 GM/100 ML IV.SOLN IVPB SCH (18:00)
[2021-04-30] MEDS: Albumin 25% 25gram/100mL 25 GM/100 ML IV.SOLN IVPB SCH (23:08)
[2021-05-01] MEDS: Piperacillin/Tazobactam 3.375 GM in 0.9 % Sodium Chloride Mini Bag 100 ML IVPB SCH ×3 (02:48→15:10)
[2021-05-01] MEDS: Ipratropium 1 PUFF INHALER IH SCH ×6 (04:54→23:53)
[2021-05-01] MEDS: *HR* Enoxaparin 40 MG/0.4 ML SYRINGE SQ SCH (05:44)
[2021-05-01] MEDS ORDERED: 0.9 % Sodium Chloride 1,000 ML IVC SCH (08:00)
[2021-05-01] MEDS: Baclofen 10 MG TABLET PO SCH ×3 (08:16→20:27)
[2021-05-01] MEDS: Vitamin B Complex/Vit C/Vit E 1 EACH TABLET PO SCH (08:17)
[2021-05-01] MEDS: Fluconazole 200 MG/100 ML 200 MG/100 ML BAG IVPB SCH (08:17)
[2021-05-01] MEDS: Gabapentin 300 MG CAPSULE PO SCH (08:17)
[2021-05-01] MEDS: Aspirin Enteric Coated 81 MG Tablet PO SCH (08:17)
[2021-05-01] MEDS: Lactobacillus 1 EACH CAP.SPRINK PO SCH ×2 (08:17→20:27)
[2021-05-01] MEDS: Insulin DETEMIR 100 UNIT/ML X5UNITS SUBQ SCH ×2 (08:18→20:28)
[2021-05-01] MEDS: Insulin LISPRO 300 UNITS/3 ML VIAL SUBQ SCH ×4 (08:18→20:28)
[2021-05-01] MEDS: Albumin 25% 25gram/100mL 25 GM/100 ML IV.SOLN IVPB SCH ×2 (12:37→20:29)
[2021-05-01] MEDS: amLODIPine 5 MG TABLET PO SCH (18:59)
[2021-05-01] MEDS: Gabapentin 100 MG CAPSULE PO SCH (20:28)
[2021-05-01] MEDS ORDERED: 0.9 % Sodium Chloride 1,000 ML IV ONE (21:07)
[2021-05-02] MEDS: Piperacillin/Tazobactam 3.375 GM in 0.9 % Sodium Chloride Mini Bag 100 ML IVPB SCH ×3 (00:51→16:03)
[2021-05-02] MEDS: Ipratropium 1 PUFF INHALER IH SCH ×7 (04:39→23:46)
[2021-05-02] MEDS: *HR* Enoxaparin 40 MG/0.4 ML SYRINGE SQ SCH (06:49)
[2021-05-02 07:05] LABS: Hematocrit 26.5 % (37.5-50.1); Hemoglobin 8.6 g/dL (12.9-16.9); Mean Corpuscular HGB Conc 32.5 g/dL (31.6-35.5); Mean Corpuscular Hemoglobin 27.8 pg (28.0-33.3); Mean Corpuscular Volume 85.8 fL (83.0-100.0); Mean Platelet Volume 10.9 fL (9.4-12.4); Platelet Count 201 K/mcL (140-400); Red Blood Count 3.09 M/mcL (4.19-5.50)
[2021-05-02 07:27] LABS: Calcium 7.1 mg/dL (8.6-10.3); Potassium 3.3 mEq/L (3.5-5.1)
[2021-05-02] MEDS: Fluconazole 200 MG/100 ML 200 MG/100 ML BAG IVPB SCH (10:53)
[2021-05-02] MEDS: Insulin LISPRO 300 UNITS/3 ML VIAL SUBQ SCH ×6 (10:54→20:54)
[2021-05-02] MEDS: Insulin DETEMIR 100 UNIT/ML X5UNITS SUBQ SCH ×2 (10:55→20:54)
[2021-05-02] MEDS: Baclofen 10 MG TABLET PO SCH ×3 (11:09→22:17)
[2021-05-02] MEDS: Gabapentin 100 MG CAPSULE PO SCH ×2 (11:09→22:18)
[2021-05-02] MEDS: Aspirin Enteric Coated 81 MG Tablet PO SCH (11:10)
[2021-05-02] MEDS: amLODIPine 5 MG TABLET PO SCH (11:10)
[2021-05-02] MEDS: Vitamin B Complex/Vit C/Vit E 1 EACH TABLET PO SCH (11:10)
[2021-05-02] MEDS: Lactobacillus 1 EACH CAP.SPRINK PO SCH ×2 (11:10→22:17)
[2021-05-02] MEDS: Albumin 25% 25gram/100mL 25 GM/100 ML IV.SOLN IVPB SCH (15:55)
[2021-05-03] MEDS: Piperacillin/Tazobactam 3.375 GM in 0.9 % Sodium Chloride Mini Bag 100 ML IVPB SCH ×3 (00:31→16:20)
[2021-05-03] MEDS: Ipratropium 1 PUFF INHALER IH SCH (03:43)
[2021-05-03 05:33] LABS: Hematocrit 33.5 % (37.5-50.1); Mean Corpuscular HGB Conc 33.1 g/dL (31.6-35.5); Mean Corpuscular Hemoglobin 27.5 pg (28.0-33.3); Mean Corpuscular Volume 82.9 fL (83.0-100.0); Mean Platelet Volume 10.9 fL (9.4-12.4); Platelet Count 249 K/mcL (140-400); Red Blood Count 4.04 M/mcL (4.19-5.50); Red Cell Distribution Width 16.8 % (11.5-14.5)
[2021-05-03 05:38] LABS: Hemoglobin 11.1 g/dL (12.9-16.9); White Blood Count 21.3 K/mcL (4.3-11.1)
[2021-05-03] MEDS: *HR* Enoxaparin 40 MG/0.4 ML SYRINGE SQ SCH (05:39)
[2021-05-03 06:36] LABS: Calcium 7.4 mg/dL (8.6-10.3); Potassium 3.5 mEq/L (3.5-5.1)
[2021-05-03] MEDS: Insulin LISPRO 300 UNITS/3 ML VIAL SUBQ SCH ×7 (09:36→22:36)
[2021-05-03] MEDS: Insulin DETEMIR 100 UNIT/ML X5UNITS SUBQ SCH ×2 (09:37→22:36)
[2021-05-03] MEDS: Lactobacillus 1 EACH CAP.SPRINK PO SCH ×2 (09:37→22:34)
[2021-05-03] MEDS: Fluconazole 100 MG TABLET PO SCH (09:37)
[2021-05-03] MEDS: Aspirin Enteric Coated 81 MG Tablet PO SCH (09:37)
[2021-05-03] MEDS: Baclofen 10 MG TABLET PO SCH ×2 (09:38→22:49)
[2021-05-03] MEDS: amLODIPine 5 MG TABLET PO SCH (09:39)
[2021-05-03] MEDS: Vitamin B Complex/Vit C/Vit E 1 EACH TABLET PO SCH (09:39)
[2021-05-03] MEDS: Gabapentin 100 MG CAPSULE PO SCH ×2 (09:39→22:47)
[2021-05-03] MEDS: Remdesivir 100 MG in 0.9 % Sodium Chloride 100 ML IVPB SCH (22:51)
[2021-05-04] MEDS: Piperacillin/Tazobactam 3.375 GM in 0.9 % Sodium Chloride Mini Bag 100 ML IVPB SCH ×3 (00:44→17:26)
[2021-05-04] MEDS: *HR* Enoxaparin 40 MG/0.4 ML SYRINGE SQ SCH (05:18)
[2021-05-04 06:13] LABS: Basophils # 0.1 K/mcL (0.0-0.2); Basophils % 0.6 %; Eosinophils # 1.8 K/mcL (0.0-0.6); Eosinophils % 8.7 %; Hematocrit 36.1 % (37.5-50.1); Hemoglobin 11.9 g/dL (12.9-16.9); Immature Granulocytes % 0.7 % (0-4); Lymphocytes # 3.8 K/mcL (0.6-4.6); Mean Corpuscular Hemoglobin 27.7 pg (28.0-33.3); Monocytes # 0.8 K/mcL (0.0-1.3); Monocytes % 3.8 %; Neutrophils # 14.3 K/mcL (1.6-8.9); Platelet Count 276 K/mcL (140-400); Red Cell Distribution Width 17.3 % (11.5-14.5); Segmented Neutrophils % 68.2 %; White Blood Count 20.9 K/mcL (4.3-11.1)
[2021-05-04 06:34] LABS: Calcium 7.7 mg/dL (8.6-10.3); Potassium 3.8 mEq/L (3.5-5.1)
[2021-05-04 06:38] LABS: Anisocytosis 1+ (Not Present); Platelet Estimate Normal (Normal); Reactive Lymphocytes Present (Not Present)
[2021-05-04] MEDS: Insulin LISPRO 300 UNITS/3 ML VIAL SUBQ SCH ×7 (08:58→21:30)
[2021-05-04] MEDS: Insulin DETEMIR 100 UNIT/ML X5UNITS SUBQ SCH ×2 (09:04→21:47)
[2021-05-04] MEDS: Fluconazole 100 MG TABLET PO SCH (09:15)
[2021-05-04] MEDS: Gabapentin 100 MG CAPSULE PO SCH ×2 (09:15→21:45)
[2021-05-04] MEDS: Aspirin Enteric Coated 81 MG Tablet PO SCH (09:15)
[2021-05-04] MEDS: amLODIPine 5 MG TABLET PO SCH (09:16)
[2021-05-04] MEDS: Baclofen 10 MG TABLET PO SCH ×2 (09:16→21:45)
[2021-05-04] MEDS: Lactobacillus 1 EACH CAP.SPRINK PO SCH (09:19)
[2021-05-04] MEDS: Vitamin B Complex/Vit C/Vit E 1 EACH TABLET PO SCH (09:20)
[2021-05-05] MEDS: Piperacillin/Tazobactam 3.375 GM in 0.9 % Sodium Chloride Mini Bag 100 ML IVPB SCH ×3 (00:34→18:25)
[2021-05-05] MEDS: Lactobacillus 1 EACH CAP.SPRINK PO SCH ×2 (00:55→10:24)
[2021-05-05 05:48] LABS: Basophils # 0.1 K/mcL (0.0-0.2); Basophils % 0.5 %; Eosinophils # 2.5 K/mcL (0.0-0.6); Eosinophils % 12.7 %; Hematocrit 35.3 % (37.5-50.1); Hemoglobin 11.4 g/dL (12.9-16.9); Immature Granulocytes % 0.6 % (0-4); Lymphocytes # 4.1 K/mcL (0.6-4.6); Lymphocytes % 20.3 %; Mean Corpuscular HGB Conc 32.3 g/dL (31.6-35.5); Mean Corpuscular Hemoglobin 27.2 pg (28.0-33.3); Mean Corpuscular Volume 84.2 fL (83.0-100.0); Mean Platelet Volume 11.5 fL (9.4-12.4); Monocytes # 0.8 K/mcL (0.0-1.3); Monocytes % 4.1 %; Neutrophils # 12.4 K/mcL (1.6-8.9); Platelet Count 262 K/mcL (140-400); Red Blood Count 4.19 M/mcL (4.19-5.50); Red Cell Distribution Width 17.5 % (11.5-14.5); Segmented Neutrophils % 61.8 %
[2021-05-05] MEDS: *HR* Enoxaparin 40 MG/0.4 ML SYRINGE SQ SCH (05:52)
[2021-05-05 06:09] LABS: Albumin 2.5 g/dL (3.5-5.7); Calcium 7.8 mg/dL (8.6-10.3); Magnesium 1.7 mg/dL (1.6-2.6); Phosphorous 3.2 mg/dL (2.7-4.5); Potassium 3.5 mEq/L (3.5-5.1)
[2021-05-05 06:22] LABS: Platelet Estimate Normal (Normal); Poikilocytosis 1+ (Not Present); Reactive Lymphocytes Present (Not Present)
[2021-05-05] MEDS: Baclofen 10 MG TABLET PO SCH (10:24)
[2021-05-05] MEDS: amLODIPine 5 MG TABLET PO SCH (10:24)
[2021-05-05] MEDS: Gabapentin 100 MG CAPSULE PO SCH (10:24)
[2021-05-05] MEDS: Aspirin Enteric Coated 81 MG Tablet PO SCH (10:24)
[2021-05-05] MEDS: Vitamin B Complex/Vit C/Vit E 1 EACH TABLET PO SCH (10:24)
[2021-05-05] MEDS: Fluconazole 100 MG TABLET PO SCH (10:24)
[2021-05-05] MEDS: Insulin DETEMIR 100 UNIT/ML X5UNITS SUBQ SCH (10:25)
[2021-05-05] MEDS: Insulin LISPRO 300 UNITS/3 ML VIAL SUBQ SCH ×6 (10:26→18:27)
[2021-05-06] MEDS: Lactobacillus 1 EACH CAP.SPRINK PO SCH ×3 (06:48→22:11)
[2021-05-06] MEDS: Insulin DETEMIR 100 UNIT/ML X5UNITS SUBQ SCH ×3 (06:50→22:12)
[2021-05-06] MEDS: Gabapentin 100 MG CAPSULE PO SCH ×3 (06:51→22:12)
[2021-05-06] MEDS: Piperacillin/Tazobactam 3.375 GM in 0.9 % Sodium Chloride Mini Bag 100 ML IVPB SCH ×2 (06:51→09:22)
[2021-05-06] MEDS: Baclofen 10 MG TABLET PO SCH ×3 (06:51→22:11)
[2021-05-06] MEDS: *HR* Enoxaparin 40 MG/0.4 ML SYRINGE SQ SCH (06:53)
[2021-05-06 08:00] LABS: Hematocrit 32.9 % (37.5-50.1); Hemoglobin 10.7 g/dL (12.9-16.9); Mean Corpuscular HGB Conc 32.5 g/dL (31.6-35.5); Mean Corpuscular Hemoglobin 28.2 pg (28.0-33.3); Mean Corpuscular Volume 86.6 fL (83.0-100.0); Mean Platelet Volume 11.6 fL (9.4-12.4); Platelet Count 219 K/mcL (140-400); Red Cell Distribution Width 17.5 % (11.5-14.5); White Blood Count 15.2 K/mcL (4.3-11.1)
[2021-05-06 08:04] LABS: Calcium 7.5 mg/dL (8.6-10.3); Potassium 3.5 mEq/L (3.5-5.1)
[2021-05-06] MEDS: Insulin LISPRO 300 UNITS/3 ML VIAL SUBQ SCH ×8 (09:08→22:14)
[2021-05-06] MEDS: amLODIPine 5 MG TABLET PO SCH (09:21)
[2021-05-06] MEDS: Vitamin B Complex/Vit C/Vit E 1 EACH TABLET PO SCH (09:21)
[2021-05-06] MEDS: Aspirin Enteric Coated 81 MG Tablet PO SCH (09:21)
[2021-05-06] MEDS: Fluconazole 100 MG TABLET PO SCH (09:21)
[2021-05-06 09:49] LABS: Anisocytosis 1+ (Not Present); Eosinophils # 3.7 K/mcL (0.0-0.6); Lymphocytes # 2.4 K/mcL (0.6-4.6); Monocytes # 0.3 K/mcL (0.0-1.3); Neutrophils # 8.8 K/mcL (1.6-8.9); Platelet Estimate Normal (Normal)
[2021-05-06] MEDS ORDERED: PrednisoLONE Oral Soln 15 MG/5 ML UDC PO ONE (10:06)
[2021-05-06] MEDS ORDERED: Famotidine 20 MG/2 ML VIAL IVP SCH (10:06)
[2021-05-06] MEDS: Loratadine 10 MG TABLET PO SCH (11:07)
[2021-05-06 11:24] LABS: Thyroid Stimulating Hormone 1.829 mcIU/mL (0.340-5.600)
[2021-05-06 11:26] LABS: Triiodothyronine (T3) Free 2.66 pg/mL (2.50-3.90)
[2021-05-06] MEDS: 0.9 % Sodium Chloride 1,000 ML IVC SCH (13:30)
[2021-05-06] MEDS: Cefepime HCl 2,000 MG in 0.9 % Sodium Chloride Mini Bag 100 ML IVPB SCH (17:13)
[2021-05-06] MEDS: Famotidine 20 MG/2 ML VIAL IVP SCH (22:13)
[2021-05-07] MEDS: 0.9 % Sodium Chloride 1,000 ML IVC SCH (04:37)
[2021-05-07 06:06] LABS: Amorphous Sediment,Urine Moderate per hpf (None-Few); Bacteria,Urine Few per hpf (None-Few); Bilirubin,Urine Negative (Negative); Blood,Urine Trace (Negative); Clarity,Urine Ex.Turbid (Clear); Color,Urine Yellow (Yellow); Glucose,Urine (UA) 100 mg/dL (Normal); Granular Casts,Urine Many per lpf (None Seen); Hyaline Casts,Urine Few per lpf (None Seen); Ketones,Urine Negative (Negative); Leukocyte Esterase,Urine Large (Negative); Mucus,Urine Few per lpf (None-Few); Nitrite,Urine Negative (Negative); Protein,Urine >=300 mg/dL (Neg-Trace); Specific Gravity,Urine 1.017 (1.010-1.025); Squamous Epithelial Cell,Urine Moderate per hpf (None-Few); Urobilinogen,Urine Normal (Normal); WBC,Urine 50-100 per hpf (0-3)
[2021-05-07] MEDS: *HR* Enoxaparin 40 MG/0.4 ML SYRINGE SQ SCH (06:21)
[2021-05-07] MEDS: Cefepime HCl 2,000 MG in 0.9 % Sodium Chloride Mini Bag 100 ML IVPB SCH (06:22)
[2021-05-07] MEDS: Insulin LISPRO 300 UNITS/3 ML VIAL SUBQ SCH ×7 (09:54→22:15)
[2021-05-07] MEDS: Aspirin Enteric Coated 81 MG Tablet PO SCH (09:55)
[2021-05-07] MEDS: Vitamin B Complex/Vit C/Vit E 1 EACH TABLET PO SCH (09:55)
[2021-05-07] MEDS: Insulin DETEMIR 100 UNIT/ML X5UNITS SUBQ SCH ×2 (09:55→22:18)
[2021-05-07] MEDS: Fluconazole 100 MG TABLET PO SCH (09:56)
[2021-05-07] MEDS: Baclofen 10 MG TABLET PO SCH ×2 (09:56→22:12)
[2021-05-07] MEDS: Gabapentin 100 MG CAPSULE PO SCH ×2 (09:56→22:12)
[2021-05-07] MEDS: amLODIPine 5 MG TABLET PO SCH (09:57)
[2021-05-07] MEDS: Lactobacillus 1 EACH CAP.SPRINK PO SCH (09:57)
[2021-05-07] MEDS: Famotidine 20 MG/2 ML VIAL IVP SCH (09:57)
[2021-05-07] MEDS: Loratadine 10 MG TABLET PO SCH (09:57)
[2021-05-07] MEDS: Meropenem 1,000 MG in 0.9 % Sodium Chloride Mini Bag 100 ML IVPB SCH (17:23)
[2021-05-08] MEDS: Famotidine 20 MG/2 ML VIAL IVP SCH ×2 (00:14→11:45)
[2021-05-08] MEDS: Lactobacillus 1 EACH CAP.SPRINK PO SCH ×3 (00:40→21:53)
[2021-05-08] MEDS: Meropenem 1,000 MG in 0.9 % Sodium Chloride Mini Bag 100 ML IVPB SCH ×2 (05:29→21:43)
[2021-05-08] MEDS: *HR* Enoxaparin 40 MG/0.4 ML SYRINGE SQ SCH (05:29)
[2021-05-08] MEDS: Insulin LISPRO 300 UNITS/3 ML VIAL SUBQ SCH ×3 (08:33→17:19)
[2021-05-08] MEDS: amLODIPine 5 MG TABLET PO SCH (08:51)
[2021-05-08] MEDS: Fluconazole 100 MG TABLET PO SCH (08:51)
[2021-05-08] MEDS: Gabapentin 100 MG CAPSULE PO SCH ×2 (08:52→21:53)
[2021-05-08] MEDS: Loratadine 10 MG TABLET PO SCH (08:52)
[2021-05-08] MEDS: Aspirin Enteric Coated 81 MG Tablet PO SCH (08:52)
[2021-05-08] MEDS: Baclofen 10 MG TABLET PO SCH ×2 (08:52→21:53)
[2021-05-08] MEDS: Vitamin B Complex/Vit C/Vit E 1 EACH TABLET PO SCH (08:52)
[2021-05-08] MEDS: Insulin DETEMIR 100 UNIT/ML X5UNITS SUBQ SCH (11:42)
[2021-05-08 15:20] LABS: ABG Base Excess -6 mEq/L (-2 to 3); ABG HCO3 20 mEq/L (21-27); ABG Oxygen Saturation 87 % (95-98); ABG PCO2 40 mmHg (35-45); ABG PH 7.31 pH Units (7.32-7.45); ABG PO2 58 mmHg (85-104); ABG TCO2 22 mEq/L (20-26)
[2021-05-08] MEDS ORDERED: Bumetanide 1 MG/4 ML VIAL IVP STA (15:33)
[2021-05-08] MEDS: Ipratropium 1 PUFF INHALER IH SCH ×4 (16:02→23:25)
[2021-05-08 17:25] LABS: Basophils % 0.1 %; Basophils % 0.2 %; Eosinophils # 1.6 K/mcL (0.0-0.6); Eosinophils # 1.7 K/mcL (0.0-0.6); Eosinophils % 10.7 %; Hemoglobin 10.1 g/dL (12.9-16.9); Immature Granulocytes % 0.7 % (0-4); Immature Granulocytes % 0.8 % (0-4); Lymphocytes # 1.2 K/mcL (0.6-4.6); Lymphocytes % 7.4 %; Lymphocytes % 7.7 %; Mean Corpuscular HGB Conc 31.6 g/dL (31.6-35.5); Mean Corpuscular HGB Conc 32.3 g/dL (31.6-35.5); Mean Corpuscular Hemoglobin 27.5 pg (28.0-33.3); Mean Corpuscular Hemoglobin 28.2 pg (28.0-33.3); Mean Corpuscular Volume 87.2 fL (83.0-100.0); Mean Corpuscular Volume 87.3 fL (83.0-100.0); Mean Platelet Volume 11.1 fL (9.4-12.4); Mean Platelet Volume 11.8 fL (9.4-12.4); Monocytes # 0.3 K/mcL (0.0-1.3); Monocytes # 0.4 K/mcL (0.0-1.3); Monocytes % 2.2 %; Neutrophils # 12.1 K/mcL (1.6-8.9); Neutrophils # 12.5 K/mcL (1.6-8.9); Platelet Count 167 K/mcL (140-400); Platelet Count 173 K/mcL (140-400); Red Blood Count 3.55 M/mcL (4.19-5.50); Red Blood Count 3.67 M/mcL (4.19-5.50); Red Cell Distribution Width 18.2 % (11.5-14.5); Segmented Neutrophils % 78.4 %; Segmented Neutrophils % 78.6 %; White Blood Count 15.3 K/mcL (4.3-11.1); White Blood Count 15.9 K/mcL (4.3-11.1)
[2021-05-08 17:34] LABS: INR 1.2; Prothrombin Time 12.9 Seconds (9.4-12.1)
[2021-05-08 17:40] LABS: Calcium 7.8 mg/dL (8.6-10.3); Magnesium 1.6 mg/dL (1.6-2.6); Phosphorous 3.6 mg/dL (2.7-4.5); Potassium 3.6 mEq/L (3.5-5.1)
[2021-05-08 17:41] LABS: Calcium 7.7 mg/dL (8.6-10.3); Potassium 3.6 mEq/L (3.5-5.1)
[2021-05-08] MEDS: Melatonin 3 MG TABLET PO PRN (21:44)
[2021-05-09] MEDS: Insulin DETEMIR 100 UNIT/ML X5UNITS SUBQ SCH ×3 (03:25→20:08)
[2021-05-09] MEDS: Insulin LISPRO 300 UNITS/3 ML VIAL SUBQ SCH ×5 (03:27→20:10)
[2021-05-09] MEDS: Ipratropium 1 PUFF INHALER IH SCH ×6 (03:49→23:45)
[2021-05-09] MEDS: Meropenem 1,000 MG in 0.9 % Sodium Chloride Mini Bag 100 ML IVPB SCH ×2 (05:34→17:10)
[2021-05-09] MEDS: *HR* Enoxaparin 40 MG/0.4 ML SYRINGE SQ SCH (05:36)
[2021-05-09 06:23] LABS: Basophils % 0.1 %; Eosinophils % 0.1 %; Hematocrit 28.1 % (37.5-50.1); Hemoglobin 9.2 g/dL (12.9-16.9); Immature Granulocytes % 0.8 % (0-4); Lymphocytes # 1.1 K/mcL (0.6-4.6); Lymphocytes % 8.1 %; Mean Corpuscular HGB Conc 32.7 g/dL (31.6-35.5); Mean Corpuscular Hemoglobin 28.1 pg (28.0-33.3); Mean Corpuscular Volume 85.9 fL (83.0-100.0); Monocytes # 0.2 K/mcL (0.0-1.3); Monocytes % 1.3 %; Neutrophils # 12.5 K/mcL (1.6-8.9); Platelet Count 145 K/mcL (140-400); Red Blood Count 3.27 M/mcL (4.19-5.50); Red Cell Distribution Width 18.5 % (11.5-14.5); Segmented Neutrophils % 89.6 %
[2021-05-09 06:51] LABS: Albumin 2.4 g/dL (3.5-5.7); Bilirubin,Direct 0.1 mg/dL (0.0-0.2); Bilirubin,Indirect 0.3 mg/dL (0.0-1.0); Bilirubin,Total 0.4 mg/dL (0.3-1.0); Calcium 7.8 mg/dL (8.6-10.3); Globulin 2.5 g/dL (2.4-3.5); Potassium 4.1 mEq/L (3.5-5.1); Total Protein 4.9 g/dL (6.4-8.9)
[2021-05-09] MEDS: Fluconazole 100 MG TABLET PO SCH (10:04)
[2021-05-09] MEDS: Baclofen 10 MG TABLET PO SCH ×2 (10:04→20:08)
[2021-05-09] MEDS: Lactobacillus 1 EACH CAP.SPRINK PO SCH ×2 (10:06→20:09)
[2021-05-09] MEDS: Gabapentin 100 MG CAPSULE PO SCH ×2 (10:06→20:09)
[2021-05-09] MEDS: Vitamin B Complex/Vit C/Vit E 1 EACH TABLET PO SCH (10:06)
[2021-05-09] MEDS: amLODIPine 5 MG TABLET PO SCH (10:06)
[2021-05-09] MEDS: Aspirin Enteric Coated 81 MG Tablet PO SCH (10:06)
[2021-05-09] MEDS: Loratadine 10 MG TABLET PO SCH (10:06)
[2021-05-09] MEDS: Bumetanide 1 MG/4 ML VIAL IVP SCH ×2 (10:15→17:11)
[2021-05-10] MEDS ORDERED: Piperacillin/Tazobactam 3.375 GM in 0.9 % Sodium Chloride Mini Bag 100 ML IVPB SCH
[2021-05-10] MEDS: Ipratropium 1 PUFF INHALER IH SCH ×6 (03:58→23:46)
[2021-05-10] MEDS: *HR* Enoxaparin 40 MG/0.4 ML SYRINGE SQ SCH (05:15)
[2021-05-10] MEDS: Meropenem 1,000 MG in 0.9 % Sodium Chloride Mini Bag 100 ML IVPB SCH ×2 (05:15→17:56)
[2021-05-10 05:52] LABS: Basophils % 0.1 %; Hematocrit 26.2 % (37.5-50.1); Hemoglobin 8.3 g/dL (12.9-16.9); Immature Granulocytes % 0.6 % (0-4); Lymphocytes # 1.4 K/mcL (0.6-4.6); Lymphocytes % 12.2 %; Mean Corpuscular HGB Conc 31.7 g/dL (31.6-35.5); Mean Corpuscular Hemoglobin 27.5 pg (28.0-33.3); Mean Corpuscular Volume 86.8 fL (83.0-100.0); Mean Platelet Volume 11.9 fL (9.4-12.4); Monocytes # 0.4 K/mcL (0.0-1.3); Monocytes % 3.7 %; Neutrophils # 9.5 K/mcL (1.6-8.9); Platelet Count 139 K/mcL (140-400); Red Blood Count 3.02 M/mcL (4.19-5.50); Red Cell Distribution Width 18.9 % (11.5-14.5); Segmented Neutrophils % 83.4 %; White Blood Count 11.4 K/mcL (4.3-11.1)
[2021-05-10 06:14] LABS: Albumin 2.5 g/dL (3.5-5.7); Albumin/Globulin Ratio 0.9 (1.1-2.2); Bilirubin,Direct 0.1 mg/dL (0.0-0.2); Bilirubin,Indirect 0.2 mg/dL (0.0-1.0); Bilirubin,Total 0.3 mg/dL (0.3-1.0); Globulin 2.7 g/dL (2.4-3.5); Potassium 4.1 mEq/L (3.5-5.1); Total Protein 5.2 g/dL (6.4-8.9)
[2021-05-10] MEDS: Insulin DETEMIR 100 UNIT/ML X5UNITS SUBQ SCH ×2 (09:42→21:18)
[2021-05-10] MEDS: Insulin LISPRO 300 UNITS/3 ML VIAL SUBQ SCH ×4 (09:43→21:19)
[2021-05-10] MEDS: Bumetanide 1 MG/4 ML VIAL IVP SCH (09:50)
[2021-05-10] MEDS: Baclofen 10 MG TABLET PO SCH ×2 (09:50→21:18)
[2021-05-10] MEDS: Fluconazole 100 MG TABLET PO SCH (09:53)
[2021-05-10] MEDS: Gabapentin 100 MG CAPSULE PO SCH ×2 (09:54→21:17)
[2021-05-10] MEDS: amLODIPine 5 MG TABLET PO SCH (12:29)
[2021-05-10] MEDS: Loratadine 10 MG TABLET PO SCH (12:29)
[2021-05-10] MEDS: Aspirin Enteric Coated 81 MG Tablet PO SCH (12:29)
[2021-05-10] MEDS: Lactobacillus 1 EACH CAP.SPRINK PO SCH ×2 (12:29→21:18)
[2021-05-10] MEDS: Vitamin B Complex/Vit C/Vit E 1 EACH TABLET PO SCH (12:31)
[2021-05-11] MEDS: Ipratropium 1 PUFF INHALER IH SCH ×6 (03:51→23:56)
[2021-05-11] MEDS: *HR* Enoxaparin 40 MG/0.4 ML SYRINGE SQ SCH (05:05)
[2021-05-11] MEDS: Meropenem 1,000 MG in 0.9 % Sodium Chloride Mini Bag 100 ML IVPB SCH ×2 (05:06→16:06)
[2021-05-11 06:39] LABS: Basophils % 0.2 %; Hematocrit 33.3 % (37.5-50.1); Immature Granulocytes % 0.9 % (0-4); Lymphocytes # 1.3 K/mcL (0.6-4.6); Lymphocytes % 10.3 %; Mean Corpuscular HGB Conc 30.9 g/dL (31.6-35.5); Mean Corpuscular Hemoglobin 27.3 pg (28.0-33.3); Mean Corpuscular Volume 88.3 fL (83.0-100.0); Mean Platelet Volume 11.7 fL (9.4-12.4); Monocytes # 0.6 K/mcL (0.0-1.3); Monocytes % 4.7 %; Neutrophils # 10.9 K/mcL (1.6-8.9); Platelet Count 168 K/mcL (140-400); Red Blood Count 3.77 M/mcL (4.19-5.50); Red Cell Distribution Width 19.4 % (11.5-14.5); Segmented Neutrophils % 83.9 %
[2021-05-11 06:44] LABS: Hemoglobin 10.3 g/dL (12.9-16.9)
[2021-05-11 07:05] LABS: Albumin 2.8 g/dL (3.5-5.7); Albumin/Globulin Ratio 0.9 (1.1-2.2); Bilirubin,Direct 0.1 mg/dL (0.0-0.2); Bilirubin,Indirect 0.2 mg/dL (0.0-1.0); Bilirubin,Total 0.3 mg/dL (0.3-1.0); Calcium 8.1 mg/dL (8.6-10.3); Potassium 4.3 mEq/L (3.5-5.1); Total Protein 5.8 g/dL (6.4-8.9)
[2021-05-11] MEDS: Vitamin B Complex/Vit C/Vit E 1 EACH TABLET PO SCH (10:00)
[2021-05-11] MEDS: amLODIPine 5 MG TABLET PO SCH (10:00)
[2021-05-11] MEDS: Loratadine 10 MG TABLET PO SCH (10:00)
[2021-05-11] MEDS: Aspirin Enteric Coated 81 MG Tablet PO SCH (10:00)
[2021-05-11] MEDS: Gabapentin 100 MG CAPSULE PO SCH ×2 (10:00→20:09)
[2021-05-11] MEDS: Baclofen 10 MG TABLET PO SCH ×2 (10:01→20:09)
[2021-05-11] MEDS: Lactobacillus 1 EACH CAP.SPRINK PO SCH ×2 (10:01→20:09)
[2021-05-11] MEDS: Insulin DETEMIR 100 UNIT/ML X5UNITS SUBQ SCH ×2 (10:02→20:09)
[2021-05-11] MEDS: Insulin LISPRO 300 UNITS/3 ML VIAL SUBQ SCH ×3 (10:13→16:11)
[2021-05-11] MEDS ORDERED: Insulin LISPRO 300 UNITS/3 ML VIAL SUBQ SCH (15:49)
[2021-05-11] MEDS ORDERED: Insulin DETEMIR 100 UNIT/ML X5UNITS SUBQ SCH (21:00)
[2021-05-12] MEDS: Ipratropium 1 PUFF INHALER IH SCH ×5 (04:41→20:20)
[2021-05-12] MEDS: Meropenem 1,000 MG in 0.9 % Sodium Chloride Mini Bag 100 ML IVPB SCH ×2 (05:03→17:25)
[2021-05-12] MEDS: *HR* Enoxaparin 40 MG/0.4 ML SYRINGE SQ SCH (05:03)
[2021-05-12 05:18] LABS: Basophils % 0.1 %; Hematocrit 29.6 % (37.5-50.1); Hemoglobin 9.3 g/dL (12.9-16.9); Immature Granulocytes % 0.9 % (0-4); Lymphocytes # 1.1 K/mcL (0.6-4.6); Lymphocytes % 11.6 %; Mean Corpuscular HGB Conc 31.4 g/dL (31.6-35.5); Mean Corpuscular Hemoglobin 27.8 pg (28.0-33.3); Mean Corpuscular Volume 88.4 fL (83.0-100.0); Mean Platelet Volume 12.1 fL (9.4-12.4); Monocytes # 0.5 K/mcL (0.0-1.3); Monocytes % 5.1 %; Platelet Count 159 K/mcL (140-400); Red Blood Count 3.35 M/mcL (4.19-5.50); Red Cell Distribution Width 19.3 % (11.5-14.5); Segmented Neutrophils % 82.3 %; White Blood Count 9.7 K/mcL (4.3-11.1)
[2021-05-12 05:37] LABS: Albumin 2.7 g/dL (3.5-5.7); Bilirubin,Indirect 0.3 mg/dL (0.0-1.0); Bilirubin,Total 0.3 mg/dL (0.3-1.0); Globulin 2.8 g/dL (2.4-3.5); Total Protein 5.5 g/dL (6.4-8.9)
[2021-05-12 05:38] LABS: Calcium 7.9 mg/dL (8.6-10.3); Potassium 4.8 mEq/L (3.5-5.1)
[2021-05-12] MEDS: Lactobacillus 1 EACH CAP.SPRINK PO SCH ×2 (09:33→20:14)
[2021-05-12] MEDS: Vitamin B Complex/Vit C/Vit E 1 EACH TABLET PO SCH (09:33)
[2021-05-12] MEDS: Baclofen 10 MG TABLET PO SCH ×2 (09:33→20:15)
[2021-05-12] MEDS: amLODIPine 5 MG TABLET PO SCH (09:37)
[2021-05-12] MEDS: Gabapentin 100 MG CAPSULE PO SCH ×2 (09:37→20:15)
[2021-05-12] MEDS: Aspirin Enteric Coated 81 MG Tablet PO SCH (09:37)
[2021-05-12] MEDS: Insulin DETEMIR 100 UNIT/ML X5UNITS SUBQ SCH ×2 (09:38→21:57)
[2021-05-12] MEDS: Loratadine 10 MG TABLET PO SCH (09:38)
[2021-05-12] MEDS: Insulin LISPRO 300 UNITS/3 ML VIAL SUBQ SCH ×4 (09:41→21:57)
[2021-05-13] MEDS: Ipratropium 1 PUFF INHALER IH SCH ×6 (00:25→20:03)
[2021-05-13] MEDS: *HR* Enoxaparin 40 MG/0.4 ML SYRINGE SQ SCH (05:20)
[2021-05-13] MEDS: Meropenem 1,000 MG in 0.9 % Sodium Chloride Mini Bag 100 ML IVPB SCH ×3 (05:20→23:39)
[2021-05-13] MEDS: Baclofen 10 MG TABLET PO SCH ×2 (07:55→21:15)
[2021-05-13] MEDS: amLODIPine 5 MG TABLET PO SCH (07:55)
[2021-05-13] MEDS: Lactobacillus 1 EACH CAP.SPRINK PO SCH ×2 (07:55→23:42)
[2021-05-13] MEDS: Gabapentin 100 MG CAPSULE PO SCH ×2 (07:55→21:15)
[2021-05-13] MEDS: Loratadine 10 MG TABLET PO SCH (07:55)
[2021-05-13] MEDS: Aspirin Enteric Coated 81 MG Tablet PO SCH (07:55)
[2021-05-13] MEDS: Vitamin B Complex/Vit C/Vit E 1 EACH TABLET PO SCH (07:56)
[2021-05-13] MEDS: Insulin DETEMIR 100 UNIT/ML X5UNITS SUBQ SCH ×2 (08:04→21:13)
[2021-05-13] MEDS: Insulin LISPRO 300 UNITS/3 ML VIAL SUBQ SCH ×4 (08:04→21:13)
[2021-05-13 09:26] LABS: Basophils % 0.2 %; Hematocrit 31.8 % (37.5-50.1); Hemoglobin 9.9 g/dL (12.9-16.9); Immature Granulocytes % 0.7 % (0-4); Lymphocytes # 1.6 K/mcL (0.6-4.6); Lymphocytes % 12.3 %; Mean Corpuscular HGB Conc 31.1 g/dL (31.6-35.5); Mean Corpuscular Hemoglobin 27.5 pg (28.0-33.3); Mean Corpuscular Volume 88.3 fL (83.0-100.0); Mean Platelet Volume 12.3 fL (9.4-12.4); Monocytes # 0.8 K/mcL (0.0-1.3); Neutrophils # 10.4 K/mcL (1.6-8.9); Platelet Count 178 K/mcL (140-400); Red Cell Distribution Width 18.8 % (11.5-14.5); Segmented Neutrophils % 80.8 %; White Blood Count 12.9 K/mcL (4.3-11.1)
[2021-05-13 09:51] LABS: Albumin 2.6 g/dL (3.5-5.7); Albumin/Globulin Ratio 0.9 (1.1-2.2); Bilirubin,Total 0.3 mg/dL (0.3-1.0); Calcium 8.2 mg/dL (8.6-10.3); Globulin 2.9 g/dL (2.4-3.5); Potassium 4.9 mEq/L (3.5-5.1); Total Protein 5.5 g/dL (6.4-8.9)
[2021-05-13] MEDS ORDERED: Morphine Sulfate 2 MG/ML SYRINGE IVP ONE (14:10)
[2021-05-13] MEDS ORDERED: E-Z-HD (BARIUM SULF) SUSPENSION PO ONE (15:59)
[2021-05-13] MEDS ORDERED: E-Z-PAQUE (BARIUM SULF) SUSP 1 BOTTLE PO ONE (15:59)
[2021-05-14] MEDS: Ipratropium 1 PUFF INHALER IH SCH ×7 (00:08→23:45)
[2021-05-14] MEDS: *HR* Enoxaparin 40 MG/0.4 ML SYRINGE SQ SCH (05:00)
[2021-05-14] MEDS: Lactobacillus 1 EACH CAP.SPRINK PO SCH ×2 (08:57→20:53)
[2021-05-14] MEDS: Gabapentin 100 MG CAPSULE PO SCH ×2 (08:57→20:53)
[2021-05-14] MEDS: Vitamin B Complex/Vit C/Vit E 1 EACH TABLET PO SCH (08:57)
[2021-05-14] MEDS: Aspirin Enteric Coated 81 MG Tablet PO SCH (08:57)
[2021-05-14] MEDS: Loratadine 10 MG TABLET PO SCH (08:58)
[2021-05-14] MEDS: Insulin LISPRO 300 UNITS/3 ML VIAL SUBQ SCH ×4 (08:58→20:54)
[2021-05-14] MEDS: amLODIPine 5 MG TABLET PO SCH (08:58)
[2021-05-14] MEDS: Insulin DETEMIR 100 UNIT/ML X5UNITS SUBQ SCH ×2 (08:58→20:53)
[2021-05-14] MEDS: Baclofen 10 MG TABLET PO SCH ×2 (08:58→20:53)
[2021-05-14] MEDS: Meropenem 1,000 MG in 0.9 % Sodium Chloride Mini Bag 100 ML IVPB SCH ×2 (08:59→16:32)
[2021-05-15] MEDS: Meropenem 1,000 MG in 0.9 % Sodium Chloride Mini Bag 100 ML IVPB SCH ×3 (00:47→20:13)
[2021-05-15] MEDS: Ipratropium 1 PUFF INHALER IH SCH ×5 (03:49→20:11)
[2021-05-15] MEDS: *HR* Enoxaparin 40 MG/0.4 ML SYRINGE SQ SCH (05:05)
[2021-05-15 07:26] LABS: Basophils # 0.1 K/mcL (0.0-0.2); Basophils % 0.6 %; Eosinophils # 0.1 K/mcL (0.0-0.6); Eosinophils % 0.8 %; Hemoglobin 9.6 g/dL (12.9-16.9); Immature Granulocytes % 9.4 % (0-4); Lymphocytes # 2.1 K/mcL (0.6-4.6); Lymphocytes % 12.4 %; Mean Corpuscular Hemoglobin 27.9 pg (28.0-33.3); Mean Corpuscular Volume 90.1 fL (83.0-100.0); Monocytes # 0.9 K/mcL (0.0-1.3); Monocytes % 5.5 %; Neutrophils # 12.2 K/mcL (1.6-8.9); Nucleated Red Blood Cells 0.2 /100 WBC (0); Platelet Count 163 K/mcL (140-400); Red Blood Count 3.44 M/mcL (4.19-5.50); Red Cell Distribution Width 19.3 % (11.5-14.5); Segmented Neutrophils % 71.3 %; White Blood Count 17.1 K/mcL (4.3-11.1)
[2021-05-15] MEDS: Insulin LISPRO 300 UNITS/3 ML VIAL SUBQ SCH ×4 (08:23→21:09)
[2021-05-15] MEDS: Baclofen 10 MG TABLET PO SCH ×2 (08:25→20:14)
[2021-05-15] MEDS: Loratadine 10 MG TABLET PO SCH (08:26)
[2021-05-15] MEDS: Lactobacillus 1 EACH CAP.SPRINK PO SCH ×2 (08:26→20:14)
[2021-05-15] MEDS: amLODIPine 5 MG TABLET PO SCH (08:26)
[2021-05-15] MEDS: Aspirin Enteric Coated 81 MG Tablet PO SCH (08:26)
[2021-05-15] MEDS: Gabapentin 100 MG CAPSULE PO SCH ×2 (08:26→20:14)
[2021-05-15] MEDS: Vitamin B Complex/Vit C/Vit E 1 EACH TABLET PO SCH (08:26)
[2021-05-15] MEDS: Insulin DETEMIR 100 UNIT/ML X5UNITS SUBQ SCH ×2 (08:30→21:09)
[2021-05-15 12:05] LABS: Potassium 5.5 mEq/L (3.5-5.1)
[2021-05-16] MEDS: Ipratropium 1 PUFF INHALER IH SCH ×6 (00:29→19:49)
[2021-05-16] MEDS: Meropenem 1,000 MG in 0.9 % Sodium Chloride Mini Bag 100 ML IVPB SCH ×3 (00:49→21:24)
[2021-05-16] MEDS: *HR* Enoxaparin 40 MG/0.4 ML SYRINGE SQ SCH (05:00)
[2021-05-16] MEDS ORDERED: D5% in Water 1,000 ML IVC SCH (07:45)
[2021-05-16] MEDS ORDERED: Insulin Human Regular 10 UNIT in 0.9 % Sodium Chloride 10 ML IV ONE (07:46)
[2021-05-16] MEDS ORDERED: *HR* Dextrose 50 % in Water (Vial) 50 ML VIAL IVP ONE (07:46)
[2021-05-16] MEDS ORDERED: Calcium Gluconate 1,000 MG/10 ML VIAL IVP ONE (08:00)
[2021-05-16] MEDS ORDERED: Calcium Gluconate 1gm/50mL 1 GM/50 ML BAG IVPB ONE (08:38)
[2021-05-16] MEDS: Lactobacillus 1 EACH CAP.SPRINK PO SCH ×2 (09:32→21:21)
[2021-05-16] MEDS: Loratadine 10 MG TABLET PO SCH (09:32)
[2021-05-16] MEDS: amLODIPine 5 MG TABLET PO SCH (09:32)
[2021-05-16] MEDS: Gabapentin 100 MG CAPSULE PO SCH ×2 (09:32→21:21)
[2021-05-16] MEDS: Aspirin Enteric Coated 81 MG Tablet PO SCH (09:33)
[2021-05-16] MEDS: Baclofen 10 MG TABLET PO SCH ×2 (09:33→21:21)
[2021-05-16] MEDS: Insulin LISPRO 300 UNITS/3 ML VIAL SUBQ SCH ×4 (09:34→21:20)
[2021-05-16] MEDS: Insulin DETEMIR 100 UNIT/ML X5UNITS SUBQ SCH ×2 (10:23→21:24)
[2021-05-16] MEDS: Vitamin B Complex/Vit C/Vit E 1 EACH TABLET PO SCH (10:31)
[2021-05-16 11:44] LABS: Basophils % 0.1 %; Eosinophils % 0.2 %; Hematocrit 32.2 % (37.5-50.1); Hemoglobin 9.5 g/dL (12.9-16.9); Immature Granulocytes % 0.5 % (0-4); Lymphocytes # 1.6 K/mcL (0.6-4.6); Lymphocytes % 8.9 %; Mean Corpuscular HGB Conc 29.5 g/dL (31.6-35.5); Mean Corpuscular Hemoglobin 27.5 pg (28.0-33.3); Mean Corpuscular Volume 93.3 fL (83.0-100.0); Mean Platelet Volume 12.3 fL (9.4-12.4); Monocytes # 0.8 K/mcL (0.0-1.3); Monocytes % 4.8 %; Platelet Count 189 K/mcL (140-400); Red Blood Count 3.45 M/mcL (4.19-5.50); Red Cell Distribution Width 19.7 % (11.5-14.5); Segmented Neutrophils % 85.5 %; White Blood Count 17.6 K/mcL (4.3-11.1)
[2021-05-16 12:02] LABS: Calcium 8.6 mg/dL (8.6-10.3); Potassium 5.2 mEq/L (3.5-5.1)
[2021-05-16] MEDS: D10% in Water 500 ML IVC SCH ×2 (16:27→23:40)
[2021-05-17] MEDS: Ipratropium 1 PUFF INHALER IH SCH ×6 (00:13→21:25)
[2021-05-17 01:08] LABS: Calcium 8.1 mg/dL (8.6-10.3); Potassium 5.5 mEq/L (3.5-5.1)
[2021-05-17] MEDS: D10% in Water 500 ML IVC SCH (06:31)
[2021-05-17] MEDS: *HR* Enoxaparin 40 MG/0.4 ML SYRINGE SQ SCH (06:31)
[2021-05-17] MEDS: Baclofen 10 MG TABLET PO SCH ×2 (09:38→22:06)
[2021-05-17] MEDS: amLODIPine 5 MG TABLET PO SCH (09:38)
[2021-05-17] MEDS: Gabapentin 100 MG CAPSULE PO SCH ×2 (09:38→22:06)
[2021-05-17] MEDS: Aspirin Enteric Coated 81 MG Tablet PO SCH (09:39)
[2021-05-17] MEDS: Vitamin B Complex/Vit C/Vit E 1 EACH TABLET PO SCH (09:39)
[2021-05-17] MEDS: SODIUM ZIRCONIUM CYCLOSILICATE 5 GM POWD.PACK PO SCH (09:39)
[2021-05-17] MEDS: Loratadine 10 MG TABLET PO SCH (09:39)
[2021-05-17] MEDS: Lactobacillus 1 EACH CAP.SPRINK PO SCH ×2 (09:39→22:06)
[2021-05-17] MEDS: Insulin DETEMIR 100 UNIT/ML X5UNITS SUBQ SCH ×2 (09:42→22:05)
[2021-05-17] MEDS: Insulin LISPRO 300 UNITS/3 ML VIAL SUBQ SCH ×7 (09:43→22:05)
[2021-05-17] MEDS: Meropenem 1,000 MG in 0.9 % Sodium Chloride Mini Bag 100 ML IVPB SCH ×2 (09:44→22:09)
[2021-05-17] MEDS ORDERED: Lidocaine -MPF 1% 5 ML AMPUL INFILT STA (14:15)
[2021-05-17] MEDS: D5% in Water 1,000 ML IVC SCH (18:20)
[2021-05-18] MEDS: Ipratropium 1 PUFF INHALER IH SCH ×8 (00:14→21:19)
[2021-05-18 04:34] LABS: Calcium 7.8 mg/dL (8.6-10.3); Potassium 4.7 mEq/L (3.5-5.1)
[2021-05-18] MEDS: *HR* Enoxaparin 40 MG/0.4 ML SYRINGE SQ SCH (07:30)
[2021-05-18] MEDS: Gabapentin 100 MG CAPSULE PO SCH ×3 (08:14→21:09)
[2021-05-18] MEDS: Aspirin Enteric Coated 81 MG Tablet PO SCH ×2 (08:14→08:30)
[2021-05-18] MEDS: amLODIPine 5 MG TABLET PO SCH ×2 (08:14→08:31)
[2021-05-18] MEDS: Loratadine 10 MG TABLET PO SCH ×2 (08:14→08:30)
[2021-05-18] MEDS: Lactobacillus 1 EACH CAP.SPRINK PO SCH ×3 (08:14→21:09)
[2021-05-18] MEDS: Vitamin B Complex/Vit C/Vit E 1 EACH TABLET PO SCH ×2 (08:14→08:31)
[2021-05-18] MEDS: Baclofen 10 MG TABLET PO SCH ×3 (08:14→21:09)
[2021-05-18] MEDS: SODIUM ZIRCONIUM CYCLOSILICATE 5 GM POWD.PACK PO SCH ×2 (08:15→08:31)
[2021-05-18] MEDS: Insulin LISPRO 300 UNITS/3 ML VIAL SUBQ SCH ×6 (08:15→20:52)
[2021-05-18] MEDS: Meropenem 1,000 MG in 0.9 % Sodium Chloride Mini Bag 100 ML IVPB SCH ×2 (08:16→17:26)
[2021-05-18] MEDS: Insulin DETEMIR 100 UNIT/ML X5UNITS SUBQ SCH ×2 (08:16→21:09)
[2021-05-18] MEDS ORDERED: *HR* Dextrose 50 % in Water (Syg) 50 ML SYRINGE IVP STA (08:22)
[2021-05-18] MEDS: D5% in Water 1,000 ML IVC SCH (09:10)
[2021-05-18] MEDS: D10% in Water 500 ML IVC SCH ×3 (11:44→21:07)
[2021-05-18] MEDS ORDERED: Perflutren Lipid Microsphere 1.3 ML in 0.9 % Sodium Chloride 8.7 ML IVP PRN (15:51)
[2021-05-19] MEDS: Meropenem 1,000 MG in 0.9 % Sodium Chloride Mini Bag 100 ML IVPB SCH ×3 (00:14→16:43)
[2021-05-19] MEDS: Ipratropium 1 PUFF INHALER IH SCH ×6 (00:18→20:38)
[2021-05-19 00:53] LABS: Basophils % 0.1 %; Eosinophils # 0.7 K/mcL (0.0-0.6); Eosinophils % 6.3 %; Hematocrit 25.7 % (37.5-50.1); Hemoglobin 7.9 g/dL (12.9-16.9); Immature Granulocytes % 0.4 % (0-4); Immature Platelets 8.9 % (1.1-6.1); Lymphocytes # 1.2 K/mcL (0.6-4.6); Lymphocytes % 10.6 %; Mean Corpuscular HGB Conc 30.7 g/dL (31.6-35.5); Mean Corpuscular Hemoglobin 27.7 pg (28.0-33.3); Mean Corpuscular Volume 90.2 fL (83.0-100.0); Mean Platelet Volume 13.1 fL (9.4-12.4); Monocytes # 0.6 K/mcL (0.0-1.3); Monocytes % 5.1 %; Neutrophils # 8.8 K/mcL (1.6-8.9); Platelet Count 145 K/mcL (140-400); Red Blood Count 2.85 M/mcL (4.19-5.50); Red Cell Distribution Width 19.2 % (11.5-14.5); Segmented Neutrophils % 77.5 %; White Blood Count 11.3 K/mcL (4.3-11.1)
[2021-05-19 01:09] LABS: Calcium 7.6 mg/dL (8.6-10.3); Potassium 4.9 mEq/L (3.5-5.1)
[2021-05-19 01:10] LABS: Magnesium 1.8 mg/dL (1.6-2.6); Phosphorous 3.6 mg/dL (2.7-4.5)
[2021-05-19] MEDS ORDERED: Albumin 25% 25gram/100mL 25 GM/100 ML IV.SOLN IVPB ONE (01:14)
[2021-05-19] MEDS ORDERED: Norepinephrine 4 MG in 0.9 % Sodium Chloride 250 ML IVC SCH (02:15)
[2021-05-19 02:41] LABS: Albumin 2.1 g/dL (3.5-5.7); Albumin/Globulin Ratio 0.8 (1.1-2.2); Bilirubin,Total 0.4 mg/dL (0.3-1.0); Globulin 2.5 g/dL (2.4-3.5); Total Protein 4.6 g/dL (6.4-8.9)
[2021-05-19] MEDS ORDERED: D5% in 0.45% NACL 1,000 ML IVC SCH (02:50)
[2021-05-19 03:58] LABS: Basophils % 0.1 %; Eosinophils # 0.5 K/mcL (0.0-0.6); Eosinophils % 4.5 %; Hematocrit 24.4 % (37.5-50.1); Hemoglobin 7.7 g/dL (12.9-16.9); Immature Granulocytes % 0.5 % (0-4); Lymphocytes # 0.6 K/mcL (0.6-4.6); Lymphocytes % 5.3 %; Mean Corpuscular HGB Conc 31.6 g/dL (31.6-35.5); Mean Corpuscular Hemoglobin 28.1 pg (28.0-33.3); Mean Corpuscular Volume 89.1 fL (83.0-100.0); Monocytes # 0.5 K/mcL (0.0-1.3); Platelet Count 183 K/mcL (140-400); Red Blood Count 2.74 M/mcL (4.19-5.50); Red Cell Distribution Width 19.5 % (11.5-14.5); Segmented Neutrophils % 85.6 %; White Blood Count 11.7 K/mcL (4.3-11.1)
[2021-05-19 04:56] LABS: INR 1.2; Prothrombin Time 13.7 Seconds (9.4-12.1)
[2021-05-19 05:13] LABS: Activated Partial Thrombo Time 28.5 Seconds (26.0-36.0)
[2021-05-19] MEDS: Albumin 25% 25gram/100mL 25 GM/100 ML IV.SOLN IVPB SCH ×2 (05:29→16:42)
[2021-05-19] MEDS: Pantoprazole 40 MG VIAL IVP SCH ×2 (06:13→16:44)
[2021-05-19] MEDS: D10% in Water 500 ML IVC SCH (07:20)
[2021-05-19] MEDS: Aspirin Enteric Coated 81 MG Tablet PO SCH (08:33)
[2021-05-19] MEDS: Lactobacillus 1 EACH CAP.SPRINK PO SCH ×2 (08:33→21:30)
[2021-05-19] MEDS: Baclofen 10 MG TABLET PO SCH ×2 (08:33→21:30)
[2021-05-19] MEDS: Gabapentin 100 MG CAPSULE PO SCH (08:33)
[2021-05-19] MEDS: Loratadine 10 MG TABLET PO SCH (08:33)
[2021-05-19] MEDS: Insulin DETEMIR 100 UNIT/ML X5UNITS SUBQ SCH (08:33)
[2021-05-19] MEDS: Vitamin B Complex/Vit C/Vit E 1 EACH TABLET PO SCH (08:33)
[2021-05-19] MEDS: D5% in Water 1,000 ML IVC SCH ×2 (08:34→21:31)
[2021-05-19] MEDS: Insulin LISPRO 300 UNITS/3 ML VIAL SUBQ SCH ×4 (08:37→21:31)
[2021-05-20] MEDS: Ipratropium 1 PUFF INHALER IH SCH ×6 (00:08→20:34)
[2021-05-20] MEDS: Meropenem 1,000 MG in 0.9 % Sodium Chloride Mini Bag 100 ML IVPB SCH ×4 (00:24→23:52)
[2021-05-20] MEDS: Albumin 25% 25gram/100mL 25 GM/100 ML IV.SOLN IVPB SCH ×3 (00:33→08:08)
[2021-05-20] MEDS: D5% in Water 1,000 ML IVC SCH ×4 (04:46→23:54)
[2021-05-20] MEDS: D10% in Water 500 ML IVC SCH (04:47)
[2021-05-20 05:15] LABS: Eosinophils % 3.9 %; Hematocrit 18.7 % (37.5-50.1); Mean Corpuscular Hemoglobin 28.3 pg (28.0-33.3); Mean Corpuscular Volume 91.2 fL (83.0-100.0); Red Blood Count 2.05 M/mcL (4.19-5.50); Red Cell Distribution Width 19.1 % (11.5-14.5)
[2021-05-20 05:17] LABS: Eosinophils # 0.2 K/mcL (0.0-0.6); Immature Granulocytes % 0.3 % (0-4); Immature Platelets 7.9 % (1.1-6.1); Lymphocytes # 0.8 K/mcL (0.6-4.6); Lymphocytes % 13.8 %; Mean Platelet Volume 12.3 fL (9.4-12.4); Monocytes # 0.4 K/mcL (0.0-1.3); Monocytes % 5.9 %; Segmented Neutrophils % 76.1 %
[2021-05-20 05:33] LABS: Calcium 7.6 mg/dL (8.6-10.3); Magnesium 1.8 mg/dL (1.6-2.6); Phosphorous 3.4 mg/dL (2.7-4.5); Potassium 4.7 mEq/L (3.5-5.1)
[2021-05-20 05:43] LABS: Hemoglobin 5.8 g/dL (12.9-16.9); Neutrophils # 4.6 K/mcL (1.6-8.9); Platelet Count 84 K/mcL (140-400)
[2021-05-20 06:09] LABS: Anisocytosis 1+ (Not Present)
[2021-05-20 06:10] LABS: Platelet Estimate Decreased (Normal)
[2021-05-20] MEDS: Pantoprazole 40 MG VIAL IVP SCH ×2 (06:19→16:29)
[2021-05-20] MEDS ORDERED: 0.9 % Sodium Chloride 250 ML ONE (07:21)
[2021-05-20] MEDS: Insulin LISPRO 300 UNITS/3 ML VIAL SUBQ SCH ×4 (08:07→19:53)
[2021-05-20] MEDS: Lactobacillus 1 EACH CAP.SPRINK PO SCH ×2 (08:09→19:53)
[2021-05-20] MEDS: Loratadine 10 MG TABLET PO SCH (08:09)
[2021-05-20] MEDS: Vitamin B Complex/Vit C/Vit E 1 EACH TABLET PO SCH (08:10)
[2021-05-20] MEDS: Gabapentin 100 MG CAPSULE PO SCH (08:10)
[2021-05-20] MEDS: Baclofen 10 MG TABLET PO SCH ×2 (08:10→19:53)
[2021-05-20] MEDS ORDERED: SODIUM CHLORIDE/NAHCO3/KCL/PEG 4,000 ML SOLN.RECON PO ONE (17:00)
[2021-05-20 18:37] LABS: Hematocrit 24.5 % (37.5-50.1)
[2021-05-20 18:48] LABS: Hemoglobin 7.8 g/dL (12.9-16.9)
[2021-05-21] MEDS: Ipratropium 1 PUFF INHALER IH SCH ×6 (00:31→19:57)
[2021-05-21 04:29] LABS: Basophils % 0.1 %; Eosinophils # 0.6 K/mcL (0.0-0.6); Eosinophils % 8.4 %; Hematocrit 24.6 % (37.5-50.1); Hemoglobin 7.8 g/dL (12.9-16.9); Immature Granulocytes % 0.4 % (0-4); Lymphocytes # 0.8 K/mcL (0.6-4.6); Lymphocytes % 10.9 %; Mean Corpuscular HGB Conc 31.7 g/dL (31.6-35.5); Mean Corpuscular Hemoglobin 28.5 pg (28.0-33.3); Mean Corpuscular Volume 89.8 fL (83.0-100.0); Mean Platelet Volume 12.5 fL (9.4-12.4); Monocytes # 0.5 K/mcL (0.0-1.3); Monocytes % 6.4 %; Neutrophils # 5.3 K/mcL (1.6-8.9); Platelet Count 102 K/mcL (140-400); Red Blood Count 2.74 M/mcL (4.19-5.50); Red Cell Distribution Width 18.1 % (11.5-14.5); Segmented Neutrophils % 73.8 %; White Blood Count 7.2 K/mcL (4.3-11.1)
[2021-05-21 04:32] LABS: Calcium 7.4 mg/dL (8.6-10.3); Magnesium 1.5 mg/dL (1.6-2.6); Phosphorous 2.1 mg/dL (2.7-4.5); Potassium 4.5 mEq/L (3.5-5.1)
[2021-05-21] MEDS: polyethylene glycoL 3350 17 GM POWD.PACK PO PRN (04:50)
[2021-05-21] MEDS: Pantoprazole 40 MG VIAL IVP SCH ×2 (05:24→16:26)
[2021-05-21] MEDS: Meropenem 1,000 MG in 0.9 % Sodium Chloride Mini Bag 100 ML IVPB SCH ×3 (07:25→23:51)
[2021-05-21] MEDS: Insulin LISPRO 300 UNITS/3 ML VIAL SUBQ SCH ×4 (07:25→21:28)
[2021-05-21] MEDS: Baclofen 10 MG TABLET PO SCH ×2 (07:26→21:13)
[2021-05-21] MEDS: Gabapentin 100 MG CAPSULE PO SCH (07:26)
[2021-05-21] MEDS: Lactobacillus 1 EACH CAP.SPRINK PO SCH ×2 (07:26→21:14)
[2021-05-21] MEDS: Loratadine 10 MG TABLET PO SCH (07:26)
[2021-05-21] MEDS: Vitamin B Complex/Vit C/Vit E 1 EACH TABLET PO SCH (07:27)
[2021-05-21] MEDS: D5% in Water 1,000 ML IVC SCH ×3 (07:27→23:51)
[2021-05-21] MEDS ORDERED: Lidocaine -MPF 2% 2 ML VIAL ONE ×2 (10:26)
[2021-05-21] MEDS ORDERED: *HR* Atropine Sulfate 1 MG/10 ML SYRINGE ONE (11:17)
[2021-05-21] MEDS ORDERED: *HR* EPINEPHrine 1 MG/10 ML SYRINGE ONE (11:17)
[2021-05-21] MEDS: Sucralfate 1 GM TABLET PO SCH (21:14)
[2021-05-22] MEDS: Ipratropium 1 PUFF INHALER IH SCH ×7 (00:02→23:36)
[2021-05-22 03:36] LABS: Eosinophils # 0.8 K/mcL (0.0-0.6); Eosinophils % 10.5 %; Hematocrit 23.9 % (37.5-50.1); Hemoglobin 7.8 g/dL (12.9-16.9); Immature Granulocytes % 0.4 % (0-4); Lymphocytes # 0.8 K/mcL (0.6-4.6); Lymphocytes % 11.6 %; Mean Corpuscular HGB Conc 32.6 g/dL (31.6-35.5); Mean Corpuscular Hemoglobin 29.4 pg (28.0-33.3); Mean Corpuscular Volume 90.2 fL (83.0-100.0); Mean Platelet Volume 12.2 fL (9.4-12.4); Monocytes # 0.5 K/mcL (0.0-1.3); Monocytes % 6.9 %; Neutrophils # 5.1 K/mcL (1.6-8.9); Platelet Count 117 K/mcL (140-400); Red Blood Count 2.65 M/mcL (4.19-5.50); Red Cell Distribution Width 18.2 % (11.5-14.5); Segmented Neutrophils % 70.6 %; White Blood Count 7.2 K/mcL (4.3-11.1)
[2021-05-22 03:56] LABS: Calcium 7.4 mg/dL (8.6-10.3); Magnesium 1.4 mg/dL (1.6-2.6); Phosphorous 2.1 mg/dL (2.7-4.5); Potassium 4.2 mEq/L (3.5-5.1)
[2021-05-22] MEDS: Pantoprazole 40 MG VIAL IVP SCH ×2 (06:17→17:01)
[2021-05-22] MEDS: D5% in Water 1,000 ML IVC SCH ×2 (09:40→18:28)
[2021-05-22] MEDS: Insulin LISPRO 300 UNITS/3 ML VIAL SUBQ SCH ×4 (09:41→21:20)
[2021-05-22] MEDS: Loratadine 10 MG TABLET PO SCH (09:42)
[2021-05-22] MEDS: Meropenem 1,000 MG in 0.9 % Sodium Chloride Mini Bag 100 ML IVPB SCH ×2 (09:42→17:01)
[2021-05-22] MEDS: Gabapentin 100 MG CAPSULE PO SCH (09:43)
[2021-05-22] MEDS: Lactobacillus 1 EACH CAP.SPRINK PO SCH ×2 (09:43→21:18)
[2021-05-22] MEDS: Baclofen 10 MG TABLET PO SCH ×2 (09:43→21:18)
[2021-05-22] MEDS: Vitamin B Complex/Vit C/Vit E 1 EACH TABLET PO SCH (09:43)
[2021-05-22] MEDS: Sucralfate 1 GM TABLET PO SCH ×2 (09:43→21:18)
[2021-05-23] MEDS: Meropenem 1,000 MG in 0.9 % Sodium Chloride Mini Bag 100 ML IVPB SCH ×4 (00:16→23:22)
[2021-05-23] MEDS: Ipratropium 1 PUFF INHALER IH SCH ×6 (03:00→23:39)
[2021-05-23] MEDS: D5% in Water 1,000 ML IVC SCH ×2 (03:41→13:04)
[2021-05-23] MEDS: Acetaminophen 325 MG TABLET PO PRN ×2 (03:45→20:21)
[2021-05-23 04:13] LABS: Eosinophils # 0.6 K/mcL (0.0-0.6); Eosinophils % 9.3 %; Hematocrit 22.6 % (37.5-50.1); Hemoglobin 7.4 g/dL (12.9-16.9); Immature Granulocytes % 0.3 % (0-4); Lymphocytes # 0.8 K/mcL (0.6-4.6); Lymphocytes % 11.4 %; Mean Corpuscular HGB Conc 32.7 g/dL (31.6-35.5); Mean Corpuscular Hemoglobin 29.4 pg (28.0-33.3); Mean Corpuscular Volume 89.7 fL (83.0-100.0); Mean Platelet Volume 11.8 fL (9.4-12.4); Monocytes # 0.4 K/mcL (0.0-1.3); Monocytes % 6.7 %; Neutrophils # 4.8 K/mcL (1.6-8.9); Platelet Count 104 K/mcL (140-400); Red Blood Count 2.52 M/mcL (4.19-5.50); Red Cell Distribution Width 17.8 % (11.5-14.5); Segmented Neutrophils % 72.3 %; White Blood Count 6.6 K/mcL (4.3-11.1)
[2021-05-23 04:30] LABS: Calcium 7.2 mg/dL (8.6-10.3); Magnesium 1.3 mg/dL (1.6-2.6); Potassium 4.1 mEq/L (3.5-5.1)
[2021-05-23] MEDS: Pantoprazole 40 MG VIAL IVP SCH ×2 (06:00→16:27)
[2021-05-23] MEDS: Sucralfate 1 GM TABLET PO SCH ×2 (09:40→20:20)
[2021-05-23] MEDS: Baclofen 10 MG TABLET PO SCH ×2 (09:40→20:20)
[2021-05-23] MEDS: Insulin LISPRO 300 UNITS/3 ML VIAL SUBQ SCH ×4 (09:40→20:20)
[2021-05-23] MEDS: Loratadine 10 MG TABLET PO SCH (09:41)
[2021-05-23] MEDS: Vitamin B Complex/Vit C/Vit E 1 EACH TABLET PO SCH (09:41)
[2021-05-23] MEDS: Gabapentin 100 MG CAPSULE PO SCH (09:41)
[2021-05-23] MEDS: Lactobacillus 1 EACH CAP.SPRINK PO SCH ×2 (09:41→20:20)
[2021-05-23] MEDS ORDERED: 0.9 % Sodium Chloride 500 ML IVC ONE (23:57)
[2021-05-24 02:02] LABS: Basophils % 0.2 %; Eosinophils # 0.6 K/mcL (0.0-0.6); Hematocrit 22.3 % (37.5-50.1); Hemoglobin 7.3 g/dL (12.9-16.9); Immature Granulocytes % 0.4 % (0-4); Lymphocytes # 0.8 K/mcL (0.6-4.6); Lymphocytes % 15.6 %; Mean Corpuscular HGB Conc 32.7 g/dL (31.6-35.5); Mean Corpuscular Hemoglobin 29.6 pg (28.0-33.3); Mean Corpuscular Volume 90.3 fL (83.0-100.0); Mean Platelet Volume 12.4 fL (9.4-12.4); Monocytes # 0.3 K/mcL (0.0-1.3); Monocytes % 5.5 %; Neutrophils # 3.4 K/mcL (1.6-8.9); Platelet Count 107 K/mcL (140-400); Red Blood Count 2.47 M/mcL (4.19-5.50); Red Cell Distribution Width 17.6 % (11.5-14.5); Segmented Neutrophils % 66.3 %; White Blood Count 5.1 K/mcL (4.3-11.1)
[2021-05-24 02:23] LABS: Albumin 2.1 g/dL (3.5-5.7); Albumin/Globulin Ratio 0.8 (1.1-2.2); Bilirubin,Direct 0.1 mg/dL (0.0-0.2); Bilirubin,Indirect 0.3 mg/dL (0.0-1.0); Bilirubin,Total 0.4 mg/dL (0.3-1.0); Calcium 7.3 mg/dL (8.6-10.3); Globulin 2.5 g/dL (2.4-3.5); Magnesium 1.4 mg/dL (1.6-2.6); Phosphorous 1.8 mg/dL (2.7-4.5); Potassium 4.5 mEq/L (3.5-5.1); Total Protein 4.6 g/dL (6.4-8.9)
[2021-05-24] MEDS: Ipratropium 1 PUFF INHALER IH SCH ×5 (04:12→21:00)
[2021-05-24] MEDS: Pantoprazole 40 MG VIAL IVP SCH ×2 (05:58→18:32)
[2021-05-24] MEDS: Acetaminophen 325 MG TABLET PO PRN (05:59)
[2021-05-24] MEDS: Insulin LISPRO 300 UNITS/3 ML VIAL SUBQ SCH ×4 (10:10→21:09)
[2021-05-24] MEDS: Baclofen 10 MG TABLET PO SCH ×2 (10:11→21:08)
[2021-05-24] MEDS: Loratadine 10 MG TABLET PO SCH (10:11)
[2021-05-24] MEDS: Lactobacillus 1 EACH CAP.SPRINK PO SCH ×2 (10:12→21:08)
[2021-05-24] MEDS: Gabapentin 100 MG CAPSULE PO SCH (10:12)
[2021-05-24] MEDS: Sucralfate 1 GM TABLET PO SCH ×2 (10:12→21:08)
[2021-05-24] MEDS: Vitamin B Complex/Vit C/Vit E 1 EACH TABLET PO SCH (10:12)
[2021-05-24] MEDS: Meropenem 1,000 MG in 0.9 % Sodium Chloride Mini Bag 100 ML IVPB SCH ×2 (10:13→16:27)
[2021-05-24 14:42] LABS: Amorphous Sediment,Urine Few per hpf (None-Few); Bacteria,Urine Few per hpf (None-Few); Bilirubin,Urine Negative (Negative); Blood,Urine Small (Negative); Clarity,Urine Turbid (Clear); Color,Urine Yellow (Yellow); Glucose,Urine (UA) 300 mg/dL (Normal); Ketones,Urine Negative (Negative); Leukocyte Esterase,Urine Small (Negative); Mucus,Urine Few per lpf (None-Few); Nitrite,Urine Negative (Negative); Protein,Urine 100 mg/dL (Neg-Trace); RBC,Urine 15-30 per hpf (0-3); Specific Gravity,Urine 1.014 (1.010-1.025); Squamous Epithelial Cell,Urine Few per hpf (None-Few); Urobilinogen,Urine Normal (Normal); WBC,Urine 15-30 per hpf (0-3)
[2021-05-25] MEDS: Meropenem 1,000 MG in 0.9 % Sodium Chloride Mini Bag 100 ML IVPB SCH ×3 (00:11→17:14)
[2021-05-25] MEDS: Ipratropium 1 PUFF INHALER IH SCH ×6 (00:13→20:36)
[2021-05-25 00:37] LABS: Eosinophils # 0.6 K/mcL (0.0-0.6); Eosinophils % 11.5 %; Hematocrit 21.5 % (37.5-50.1); Hemoglobin 6.9 g/dL (12.9-16.9); Immature Granulocytes % 0.2 % (0-4); Lymphocytes # 0.6 K/mcL (0.6-4.6); Lymphocytes % 12.7 %; Mean Corpuscular HGB Conc 32.1 g/dL (31.6-35.5); Mean Corpuscular Volume 90.3 fL (83.0-100.0); Mean Platelet Volume 11.6 fL (9.4-12.4); Monocytes # 0.4 K/mcL (0.0-1.3); Monocytes % 7.6 %; Neutrophils # 3.3 K/mcL (1.6-8.9); Platelet Count 115 K/mcL (140-400); Red Blood Count 2.38 M/mcL (4.19-5.50); Red Cell Distribution Width 17.7 % (11.5-14.5); White Blood Count 4.9 K/mcL (4.3-11.1)
[2021-05-25 00:59] LABS: Calcium 7.4 mg/dL (8.6-10.3); Magnesium 1.5 mg/dL (1.6-2.6); Phosphorous 2.3 mg/dL (2.7-4.5); Potassium 4.4 mEq/L (3.5-5.1)
[2021-05-25] MEDS: Acetaminophen 325 MG TABLET PO PRN (04:33)
[2021-05-25] MEDS: Pantoprazole 40 MG VIAL IVP SCH ×2 (04:34→17:16)
[2021-05-25] MEDS: Insulin LISPRO 300 UNITS/3 ML VIAL SUBQ SCH ×4 (09:35→21:34)
[2021-05-25] MEDS: Baclofen 10 MG TABLET PO SCH ×2 (09:37→21:29)
[2021-05-25] MEDS: Sucralfate 1 GM TABLET PO SCH ×2 (09:37→21:29)
[2021-05-25] MEDS: Gabapentin 100 MG CAPSULE PO SCH (09:37)
[2021-05-25] MEDS: Loratadine 10 MG TABLET PO SCH (09:37)
[2021-05-25] MEDS: Vitamin B Complex/Vit C/Vit E 1 EACH TABLET PO SCH (09:37)
[2021-05-25] MEDS: Lactobacillus 1 EACH CAP.SPRINK PO SCH ×2 (12:21→21:29)
[2021-05-25] MEDS: Insulin DETEMIR 100 UNIT/ML X5UNITS SUBQ SCH (21:29)
[2021-05-26] MEDS: Ipratropium 1 PUFF INHALER IH SCH ×7 (00:04→23:08)
[2021-05-26] MEDS: Meropenem 1,000 MG in 0.9 % Sodium Chloride Mini Bag 100 ML IVPB SCH ×3 (00:22→16:58)
[2021-05-26 05:42] LABS: Basophils % 0.2 %; Eosinophils # 0.5 K/mcL (0.0-0.6); Eosinophils % 7.8 %; Hematocrit 21.8 % (37.5-50.1); Hemoglobin 6.8 g/dL (12.9-16.9); Immature Granulocytes % 0.3 % (0-4); Lymphocytes # 0.9 K/mcL (0.6-4.6); Mean Corpuscular HGB Conc 31.2 g/dL (31.6-35.5); Mean Corpuscular Hemoglobin 28.9 pg (28.0-33.3); Mean Corpuscular Volume 92.8 fL (83.0-100.0); Mean Platelet Volume 11.5 fL (9.4-12.4); Monocytes # 0.5 K/mcL (0.0-1.3); Monocytes % 7.2 %; Neutrophils # 4.8 K/mcL (1.6-8.9); Platelet Count 137 K/mcL (140-400); Red Blood Count 2.35 M/mcL (4.19-5.50); Red Cell Distribution Width 18.4 % (11.5-14.5); Segmented Neutrophils % 71.5 %; White Blood Count 6.6 K/mcL (4.3-11.1)
[2021-05-26] MEDS: Pantoprazole 40 MG VIAL IVP SCH ×2 (05:44→17:05)
[2021-05-26 08:14] LABS: Calcium 7.7 mg/dL (8.6-10.3); Magnesium 1.9 mg/dL (1.6-2.6); Phosphorous 2.3 mg/dL (2.7-4.5); Potassium 4.5 mEq/L (3.5-5.1)
[2021-05-26] MEDS: Insulin LISPRO 300 UNITS/3 ML VIAL SUBQ SCH ×4 (09:41→21:45)
[2021-05-26] MEDS: Gabapentin 100 MG CAPSULE PO SCH (09:43)
[2021-05-26] MEDS: Lactobacillus 1 EACH CAP.SPRINK PO SCH ×2 (09:44→20:53)
[2021-05-26] MEDS: Vitamin B Complex/Vit C/Vit E 1 EACH TABLET PO SCH (09:44)
[2021-05-26] MEDS: Baclofen 10 MG TABLET PO SCH ×2 (09:44→20:53)
[2021-05-26] MEDS: Sucralfate 1 GM TABLET PO SCH ×2 (09:44→20:53)
[2021-05-26] MEDS: Loratadine 10 MG TABLET PO SCH (09:44)
[2021-05-26] MEDS ORDERED: 0.9 % Sodium Chloride 250 ML ONE (10:04)
[2021-05-26] MEDS: Simethicone 80 MG TAB.CHEW PO SCH ×2 (15:04→20:53)
[2021-05-26] MEDS: Melatonin 3 MG TABLET PO PRN (20:53)
[2021-05-26] MEDS: Insulin DETEMIR 100 UNIT/ML X5UNITS SUBQ SCH (21:01)
[2021-05-27] MEDS: Meropenem 1,000 MG in 0.9 % Sodium Chloride Mini Bag 100 ML IVPB SCH ×3 (00:55→16:45)
[2021-05-27] MEDS: Ondansetron ODT 4 MG TAB.RAPDIS SL PRN (00:55)
[2021-05-27] MEDS: Ipratropium 1 PUFF INHALER IH SCH ×6 (03:38→23:29)
[2021-05-27] MEDS: Pantoprazole 40 MG VIAL IVP SCH ×2 (05:41→18:32)
[2021-05-27 06:31] LABS: Calcium 7.7 mg/dL (8.6-10.3); Magnesium 1.7 mg/dL (1.6-2.6); Phosphorous 2.8 mg/dL (2.7-4.5); Potassium 4.5 mEq/L (3.5-5.1)
[2021-05-27 06:32] LABS: Basophils % 0.2 %; Eosinophils # 0.6 K/mcL (0.0-0.6); Hematocrit 22.5 % (37.5-50.1); Hemoglobin 7.3 g/dL (12.9-16.9); Immature Granulocytes % 0.4 % (0-4); Lymphocytes # 0.7 K/mcL (0.6-4.6); Lymphocytes % 12.7 %; Mean Corpuscular HGB Conc 32.4 g/dL (31.6-35.5); Mean Corpuscular Hemoglobin 30.5 pg (28.0-33.3); Mean Corpuscular Volume 94.1 fL (83.0-100.0); Mean Platelet Volume 11.5 fL (9.4-12.4); Monocytes # 0.5 K/mcL (0.0-1.3); Neutrophils # 3.4 K/mcL (1.6-8.9); Platelet Count 145 K/mcL (140-400); Red Blood Count 2.39 M/mcL (4.19-5.50); Red Cell Distribution Width 18.1 % (11.5-14.5); Segmented Neutrophils % 65.7 %; White Blood Count 5.1 K/mcL (4.3-11.1)
[2021-05-27] MEDS: Loratadine 10 MG TABLET PO SCH (07:52)
[2021-05-27] MEDS: Vitamin B Complex/Vit C/Vit E 1 EACH TABLET PO SCH (07:52)
[2021-05-27] MEDS: Sucralfate 1 GM TABLET PO SCH ×2 (07:52→21:36)
[2021-05-27] MEDS: Baclofen 10 MG TABLET PO SCH ×2 (07:53→21:36)
[2021-05-27] MEDS: Simethicone 80 MG TAB.CHEW PO SCH ×3 (07:53→21:36)
[2021-05-27] MEDS: Gabapentin 100 MG CAPSULE PO SCH (07:53)
[2021-05-27] MEDS: Lactobacillus 1 EACH CAP.SPRINK PO SCH ×2 (07:53→21:36)
[2021-05-27] MEDS: Insulin LISPRO 300 UNITS/3 ML VIAL SUBQ SCH ×4 (07:57→21:42)
[2021-05-27] MEDS: Insulin DETEMIR 100 UNIT/ML X5UNITS SUBQ SCH (21:46)
[2021-05-28] MEDS: Meropenem 1,000 MG in 0.9 % Sodium Chloride Mini Bag 100 ML IVPB SCH ×4 (01:10→23:20)
[2021-05-28 01:57] LABS: Basophils % 0.2 %; Eosinophils # 0.5 K/mcL (0.0-0.6); Eosinophils % 10.4 %; Hematocrit 22.5 % (37.5-50.1); Hemoglobin 7.1 g/dL (12.9-16.9); Immature Granulocytes % 0.4 % (0-4); Lymphocytes # 0.7 K/mcL (0.6-4.6); Lymphocytes % 15.2 %; Mean Corpuscular HGB Conc 31.6 g/dL (31.6-35.5); Mean Corpuscular Hemoglobin 29.6 pg (28.0-33.3); Mean Corpuscular Volume 93.8 fL (83.0-100.0); Mean Platelet Volume 11.1 fL (9.4-12.4); Monocytes # 0.5 K/mcL (0.0-1.3); Monocytes % 10.8 %; Neutrophils # 2.9 K/mcL (1.6-8.9); Platelet Count 147 K/mcL (140-400); Red Cell Distribution Width 17.8 % (11.5-14.5); White Blood Count 4.5 K/mcL (4.3-11.1)
[2021-05-28 02:16] LABS: Calcium 7.9 mg/dL (8.6-10.3); Magnesium 1.6 mg/dL (1.6-2.6); Phosphorous 2.8 mg/dL (2.7-4.5); Potassium 4.8 mEq/L (3.5-5.1)
[2021-05-28] MEDS: Ipratropium 1 PUFF INHALER IH SCH ×6 (03:45→23:24)
[2021-05-28] MEDS: Pantoprazole 40 MG VIAL IVP SCH ×2 (05:36→17:27)
[2021-05-28] MEDS: Gabapentin 100 MG CAPSULE PO SCH (09:35)
[2021-05-28] MEDS: Baclofen 10 MG TABLET PO SCH ×2 (09:35→20:45)
[2021-05-28] MEDS: Vitamin B Complex/Vit C/Vit E 1 EACH TABLET PO SCH (09:35)
[2021-05-28] MEDS: Loratadine 10 MG TABLET PO SCH (09:35)
[2021-05-28] MEDS: Lactobacillus 1 EACH CAP.SPRINK PO SCH ×2 (09:35→20:45)
[2021-05-28] MEDS: Sucralfate 1 GM TABLET PO SCH ×2 (09:35→20:45)
[2021-05-28] MEDS: Simethicone 80 MG TAB.CHEW PO SCH ×3 (09:35→20:45)
[2021-05-28] MEDS: Insulin LISPRO 300 UNITS/3 ML VIAL SUBQ SCH ×4 (09:37→20:44)
[2021-05-28] MEDS: Acetaminophen 325 MG TABLET PO PRN (20:44)
[2021-05-28] MEDS: Insulin DETEMIR 100 UNIT/ML X5UNITS SUBQ SCH (20:45)
[2021-05-28] MEDS: Mirtazapine 15 MG TABLET PO SCH (20:45)
[2021-05-29 02:16] LABS: Eosinophils # 0.4 K/mcL (0.0-0.6); Eosinophils % 10.8 %; Hematocrit 21.5 % (37.5-50.1); Immature Granulocytes % 0.5 % (0-4); Lymphocytes # 0.8 K/mcL (0.6-4.6); Lymphocytes % 22.6 %; Mean Corpuscular HGB Conc 32.6 g/dL (31.6-35.5); Mean Corpuscular Volume 95.1 fL (83.0-100.0); Mean Platelet Volume 11.2 fL (9.4-12.4); Monocytes # 0.5 K/mcL (0.0-1.3); Monocytes % 12.7 %; Platelet Count 156 K/mcL (140-400); Red Blood Count 2.26 M/mcL (4.19-5.50); Red Cell Distribution Width 17.5 % (11.5-14.5); Segmented Neutrophils % 53.4 %; White Blood Count 3.7 K/mcL (4.3-11.1)
[2021-05-29 02:33] LABS: Calcium 8.1 mg/dL (8.6-10.3); Magnesium 1.6 mg/dL (1.6-2.6); Phosphorous 3.1 mg/dL (2.7-4.5)
[2021-05-29] MEDS: Ipratropium 1 PUFF INHALER IH SCH ×6 (03:28→23:55)
[2021-05-29] MEDS: Pantoprazole 40 MG VIAL IVP SCH ×2 (04:57→19:17)
[2021-05-29] MEDS: Vitamin B Complex/Vit C/Vit E 1 EACH TABLET PO SCH (08:23)
[2021-05-29] MEDS: Sucralfate 1 GM TABLET PO SCH ×2 (08:23→20:25)
[2021-05-29] MEDS: Simethicone 80 MG TAB.CHEW PO SCH ×3 (08:23→20:25)
[2021-05-29] MEDS: Loratadine 10 MG TABLET PO SCH (08:24)
[2021-05-29] MEDS: Lactobacillus 1 EACH CAP.SPRINK PO SCH ×2 (08:24→20:25)
[2021-05-29] MEDS: Gabapentin 100 MG CAPSULE PO SCH (08:24)
[2021-05-29] MEDS: Baclofen 10 MG TABLET PO SCH ×2 (08:24→20:25)
[2021-05-29] MEDS: Meropenem 1,000 MG in 0.9 % Sodium Chloride Mini Bag 100 ML IVPB SCH ×2 (08:25→20:26)
[2021-05-29] MEDS: Insulin LISPRO 300 UNITS/3 ML VIAL SUBQ SCH ×4 (08:55→20:22)
[2021-05-29] MEDS: Acetaminophen 325 MG TABLET PO PRN (20:25)
[2021-05-29] MEDS: Mirtazapine 15 MG TABLET PO SCH (20:25)
[2021-05-29] MEDS: Insulin DETEMIR 100 UNIT/ML X5UNITS SUBQ SCH (20:26)
[2021-05-30] MEDS: Ipratropium 1 PUFF INHALER IH SCH ×4 (03:21→16:20)
[2021-05-30 04:34] LABS: Basophils % 0.2 %; Eosinophils # 0.5 K/mcL (0.0-0.6); Eosinophils % 10.8 %; Hematocrit 22.6 % (37.5-50.1); Hemoglobin 7.1 g/dL (12.9-16.9); Immature Granulocytes % 0.6 % (0-4); Lymphocytes % 20.6 %; Mean Corpuscular HGB Conc 31.4 g/dL (31.6-35.5); Mean Corpuscular Hemoglobin 29.2 pg (28.0-33.3); Mean Platelet Volume 10.3 fL (9.4-12.4); Monocytes # 0.7 K/mcL (0.0-1.3); Monocytes % 14.6 %; Neutrophils # 2.6 K/mcL (1.6-8.9); Platelet Count 188 K/mcL (140-400); Red Blood Count 2.43 M/mcL (4.19-5.50); Red Cell Distribution Width 17.5 % (11.5-14.5); Segmented Neutrophils % 53.2 %; White Blood Count 4.8 K/mcL (4.3-11.1)
[2021-05-30 04:56] LABS: Calcium 8.1 mg/dL (8.6-10.3); Magnesium 1.4 mg/dL (1.6-2.6); Phosphorous 2.7 mg/dL (2.7-4.5); Potassium 4.5 mEq/L (3.5-5.1)
[2021-05-30] MEDS: Pantoprazole 40 MG VIAL IVP SCH ×2 (05:42→17:59)
[2021-05-30] MEDS: Insulin LISPRO 300 UNITS/3 ML VIAL SUBQ SCH ×4 (08:24→21:28)
[2021-05-30] MEDS: Gabapentin 100 MG CAPSULE PO SCH (09:48)
[2021-05-30] MEDS: Meropenem 1,000 MG in 0.9 % Sodium Chloride Mini Bag 100 ML IVPB SCH ×2 (09:48→17:59)
[2021-05-30] MEDS: Baclofen 10 MG TABLET PO SCH ×2 (09:48→21:29)
[2021-05-30] MEDS: Lactobacillus 1 EACH CAP.SPRINK PO SCH ×2 (09:48→21:29)
[2021-05-30] MEDS: Loratadine 10 MG TABLET PO SCH (09:48)
[2021-05-30] MEDS: Vitamin B Complex/Vit C/Vit E 1 EACH TABLET PO SCH (09:48)
[2021-05-30] MEDS: Simethicone 80 MG TAB.CHEW PO SCH ×3 (09:48→21:29)
[2021-05-30] MEDS: Sucralfate 1 GM TABLET PO SCH ×2 (09:48→21:28)
[2021-05-30] MEDS ORDERED: Ipratropium 1 PUFF INHALER IH PRN (16:18)
[2021-05-30] MEDS ORDERED: Meropenem 1,000 MG in 0.9 % Sodium Chloride Mini Bag 100 ML IVPB SCH (17:00)
[2021-05-30] MEDS: Insulin DETEMIR 100 UNIT/ML X5UNITS SUBQ SCH (21:28)
[2021-05-30] MEDS: Mirtazapine 15 MG TABLET PO SCH (21:29)
[2021-05-30] MEDS: Acetaminophen 325 MG TABLET PO PRN (23:10)
[2021-05-31] MEDS: Meropenem 1,000 MG in 0.9 % Sodium Chloride Mini Bag 100 ML IVPB SCH ×3 (02:02→16:58)
[2021-05-31] MEDS: Ondansetron ODT 4 MG TAB.RAPDIS SL PRN ×2 (03:49→09:36)
[2021-05-31] MEDS: Pantoprazole 40 MG VIAL IVP SCH ×2 (05:28→16:59)
[2021-05-31] MEDS: Insulin LISPRO 300 UNITS/3 ML VIAL SUBQ SCH ×3 (09:37→21:14)
[2021-05-31] MEDS: Loratadine 10 MG TABLET PO SCH (09:38)
[2021-05-31] MEDS: Vitamin B Complex/Vit C/Vit E 1 EACH TABLET PO SCH (09:38)
[2021-05-31] MEDS: Simethicone 80 MG TAB.CHEW PO SCH ×3 (09:38→21:19)
[2021-05-31] MEDS: Baclofen 10 MG TABLET PO SCH ×2 (09:38→21:19)
[2021-05-31] MEDS: Lactobacillus 1 EACH CAP.SPRINK PO SCH ×2 (09:38→21:19)
[2021-05-31] MEDS: Gabapentin 100 MG CAPSULE PO SCH (09:38)
[2021-05-31] MEDS: Sucralfate 1 GM TABLET PO SCH ×2 (09:38→21:19)
[2021-05-31] MEDS ORDERED: *HR* Norepinephrine 4 MG/4 ML VIAL IVC ONE (11:45)
[2021-05-31] MEDS ORDERED: *HR* Vasopressin 20 UNIT/ML VIAL ONE (11:45)
[2021-05-31] MEDS ORDERED: *HR* Propofol 200 MG/20 ML VIAL IVP ONE (11:47)
[2021-05-31] MEDS ORDERED: Lidocaine -MPF 2% 5 ML VIAL ONE (11:47)
[2021-05-31 11:50] LABS: Basophils % 0.2 %; Eosinophils # 0.5 K/mcL (0.0-0.6); Eosinophils % 8.8 %; Hematocrit 22.8 % (37.5-50.1); Hemoglobin 7.4 g/dL (12.9-16.9); Immature Granulocytes % 0.9 % (0-4); Lymphocytes # 0.9 K/mcL (0.6-4.6); Lymphocytes % 16.7 %; Mean Corpuscular HGB Conc 32.5 g/dL (31.6-35.5); Mean Corpuscular Hemoglobin 29.8 pg (28.0-33.3); Mean Corpuscular Volume 91.9 fL (83.0-100.0); Mean Platelet Volume 10.6 fL (9.4-12.4); Monocytes # 0.9 K/mcL (0.0-1.3); Monocytes % 16.9 %; Neutrophils # 3.1 K/mcL (1.6-8.9); Platelet Count 227 K/mcL (140-400); Red Blood Count 2.48 M/mcL (4.19-5.50); Red Cell Distribution Width 17.6 % (11.5-14.5); Segmented Neutrophils % 56.5 %; White Blood Count 5.6 K/mcL (4.3-11.1)
[2021-05-31] MEDS ORDERED: *HR* EPINEPHrine 1 MG/10 ML SYRINGE INTRATRACH PRN (11:57)
[2021-05-31 12:12] LABS: Potassium 4.7 mEq/L (3.5-5.1)
[2021-05-31] MEDS ORDERED: *HR* LORazepam 2 MG/ML VIAL IVP ONE (14:16)
[2021-05-31] MEDS: Mirtazapine 15 MG TABLET PO SCH (21:19)
[2021-05-31] MEDS: Insulin DETEMIR 100 UNIT/ML X5UNITS SUBQ SCH (21:19)
[2021-06-01] MEDS: Meropenem 1,000 MG in 0.9 % Sodium Chloride Mini Bag 100 ML IVPB SCH ×3 (01:38→17:27)
[2021-06-01 03:05] LABS: Basophils % 0.3 %; Eosinophils # 0.4 K/mcL (0.0-0.6); Hematocrit 21.4 % (37.5-50.1); Hemoglobin 7.1 g/dL (12.9-16.9); Lymphocytes # 1.1 K/mcL (0.6-4.6); Lymphocytes % 18.4 %; Mean Corpuscular HGB Conc 33.2 g/dL (31.6-35.5); Mean Corpuscular Volume 93.4 fL (83.0-100.0); Mean Platelet Volume 10.6 fL (9.4-12.4); Monocytes % 17.7 %; Neutrophils # 3.2 K/mcL (1.6-8.9); Platelet Count 235 K/mcL (140-400); Red Blood Count 2.29 M/mcL (4.19-5.50); Red Cell Distribution Width 17.7 % (11.5-14.5); Segmented Neutrophils % 55.6 %; White Blood Count 5.8 K/mcL (4.3-11.1)
[2021-06-01 03:14] LABS: Calcium 7.8 mg/dL (8.6-10.3); Potassium 4.9 mEq/L (3.5-5.1)
[2021-06-01] MEDS: Pantoprazole 40 MG VIAL IVP SCH ×2 (05:29→17:27)
[2021-06-01] MEDS: Insulin LISPRO 300 UNITS/3 ML VIAL SUBQ SCH ×4 (08:19→21:15)
[2021-06-01] MEDS: Vitamin B Complex/Vit C/Vit E 1 EACH TABLET PO SCH (08:34)
[2021-06-01] MEDS: Gabapentin 100 MG CAPSULE PO SCH (08:34)
[2021-06-01] MEDS: Simethicone 80 MG TAB.CHEW PO SCH ×3 (08:34→21:15)
[2021-06-01] MEDS: Sucralfate 1 GM TABLET PO SCH ×2 (08:34→21:15)
[2021-06-01] MEDS: Loratadine 10 MG TABLET PO SCH (08:34)
[2021-06-01] MEDS: Lactobacillus 1 EACH CAP.SPRINK PO SCH ×2 (08:34→21:15)
[2021-06-01] MEDS: Baclofen 10 MG TABLET PO SCH ×2 (08:34→21:15)
[2021-06-01] MEDS: Mirtazapine 15 MG TABLET PO SCH (21:15)
[2021-06-01] MEDS: Leptospermum Honey Gel 44 ML TUBE TP SCH (21:15)
[2021-06-01] MEDS: Insulin DETEMIR 100 UNIT/ML X5UNITS SUBQ SCH (21:15)
[2021-06-02] MEDS: Meropenem 1,000 MG in 0.9 % Sodium Chloride Mini Bag 100 ML IVPB SCH ×3 (01:54→18:08)
[2021-06-02 04:07] LABS: Basophils % 0.4 %; Eosinophils # 0.5 K/mcL (0.0-0.6); Eosinophils % 7.2 %; Hematocrit 23.7 % (37.5-50.1); Hemoglobin 7.5 g/dL (12.9-16.9); Immature Granulocytes % 1.3 % (0-4); Lymphocytes # 1.1 K/mcL (0.6-4.6); Mean Corpuscular HGB Conc 31.6 g/dL (31.6-35.5); Mean Corpuscular Hemoglobin 29.2 pg (28.0-33.3); Mean Corpuscular Volume 92.2 fL (83.0-100.0); Mean Platelet Volume 10.1 fL (9.4-12.4); Monocytes # 1.3 K/mcL (0.0-1.3); Monocytes % 17.4 %; Neutrophils # 4.4 K/mcL (1.6-8.9); Platelet Count 284 K/mcL (140-400); Red Blood Count 2.57 M/mcL (4.19-5.50); Red Cell Distribution Width 17.7 % (11.5-14.5); Segmented Neutrophils % 58.7 %; White Blood Count 7.5 K/mcL (4.3-11.1)
[2021-06-02 04:24] LABS: Calcium 7.8 mg/dL (8.6-10.3); Potassium 4.7 mEq/L (3.5-5.1)
[2021-06-02] MEDS: Pantoprazole 40 MG VIAL IVP SCH ×2 (04:41→18:08)
[2021-06-02] MEDS: Acetaminophen 325 MG TABLET PO PRN ×2 (04:41→17:49)
[2021-06-02] MEDS ORDERED: 0.9 % Sodium Chloride 500 ML IVC PRN (06:43)
[2021-06-02] MEDS: Insulin LISPRO 300 UNITS/3 ML VIAL SUBQ SCH ×4 (08:18→21:05)
[2021-06-02] MEDS: Vitamin B Complex/Vit C/Vit E 1 EACH TABLET PO SCH (08:30)
[2021-06-02] MEDS: Sucralfate 1 GM TABLET PO SCH ×2 (08:30→20:38)
[2021-06-02] MEDS: Loratadine 10 MG TABLET PO SCH (08:30)
[2021-06-02] MEDS: Simethicone 80 MG TAB.CHEW PO SCH ×3 (08:30→20:38)
[2021-06-02] MEDS: Lactobacillus 1 EACH CAP.SPRINK PO SCH ×2 (08:30→20:38)
[2021-06-02] MEDS: Gabapentin 100 MG CAPSULE PO SCH (08:30)
[2021-06-02] MEDS: Baclofen 10 MG TABLET PO SCH ×2 (08:30→20:38)
[2021-06-02] MEDS: Leptospermum Honey Gel 44 ML TUBE TP SCH (11:57)
[2021-06-02] MEDS: Melatonin 3 MG TABLET PO PRN (20:38)
[2021-06-02] MEDS: Mirtazapine 15 MG TABLET PO SCH (20:38)
[2021-06-02] MEDS: Insulin DETEMIR 100 UNIT/ML X5UNITS SUBQ SCH (20:39)
[2021-06-02] MEDS: Ondansetron ODT 4 MG TAB.RAPDIS SL PRN (22:10)
[2021-06-03] MEDS: Leptospermum Honey Gel 44 ML TUBE TP SCH ×3 (00:04→20:42)
[2021-06-03] MEDS: Meropenem 1,000 MG in 0.9 % Sodium Chloride Mini Bag 100 ML IVPB SCH ×3 (01:01→17:59)
[2021-06-03] MEDS: Pantoprazole 40 MG VIAL IVP SCH ×2 (05:43→17:59)
[2021-06-03] MEDS: Insulin LISPRO 300 UNITS/3 ML VIAL SUBQ SCH ×4 (08:26→20:42)
[2021-06-03] MEDS: Simethicone 80 MG TAB.CHEW PO SCH ×3 (08:50→20:10)
[2021-06-03] MEDS: Vitamin B Complex/Vit C/Vit E 1 EACH TABLET PO SCH (08:50)
[2021-06-03] MEDS: Sucralfate 1 GM TABLET PO SCH ×2 (08:50→20:10)
[2021-06-03] MEDS: Gabapentin 100 MG CAPSULE PO SCH (08:51)
[2021-06-03] MEDS: Baclofen 10 MG TABLET PO SCH ×2 (08:51→20:10)
[2021-06-03] MEDS: Loratadine 10 MG TABLET PO SCH (08:51)
[2021-06-03] MEDS: Lactobacillus 1 EACH CAP.SPRINK PO SCH ×2 (08:51→20:10)
[2021-06-03] MEDS: Acetaminophen 325 MG TABLET PO PRN ×2 (10:54→20:34)
[2021-06-03 16:09] LABS: Eosinophils % 6.8 %; Lymphocytes % 15.3 %; Mean Corpuscular Volume 95.2 fL (83.0-100.0)
[2021-06-03 16:10] LABS: Basophils # 0.1 K/mcL (0.0-0.2); Basophils % 0.9 %; Eosinophils # 0.5 K/mcL (0.0-0.6); Hematocrit 25.7 % (37.5-50.1); Immature Granulocytes % 2.9 % (0-4); Immature Platelets 3.5 % (1.1-6.1); Lymphocytes # 1.2 K/mcL (0.6-4.6); Mean Corpuscular HGB Conc 31.1 g/dL (31.6-35.5); Mean Corpuscular Hemoglobin 29.6 pg (28.0-33.3); Mean Platelet Volume 10.6 fL (9.4-12.4); Monocytes # 1.1 K/mcL (0.0-1.3); Monocytes % 14.8 %; Neutrophils # 4.6 K/mcL (1.6-8.9); Nucleated Red Blood Cells 0.4 /100 WBC (0); Platelet Count 299 K/mcL (140-400); Red Cell Distribution Width 17.5 % (11.5-14.5); Segmented Neutrophils % 59.3 %; White Blood Count 7.7 K/mcL (4.3-11.1)
[2021-06-03 16:47] LABS: Calcium 7.8 mg/dL (8.6-10.3); Potassium 5.2 mEq/L (3.5-5.1)
[2021-06-03] MEDS: Melatonin 3 MG TABLET PO PRN (20:10)
[2021-06-03] MEDS: Mirtazapine 15 MG TABLET PO SCH (20:10)
[2021-06-03] MEDS: Insulin DETEMIR 100 UNIT/ML X5UNITS SUBQ SCH (20:41)
[2021-06-04] MEDS: Meropenem 1,000 MG in 0.9 % Sodium Chloride Mini Bag 100 ML IVPB SCH ×3 (01:00→18:07)
[2021-06-04] MEDS: Pantoprazole 40 MG VIAL IVP SCH ×2 (05:37→18:07)
[2021-06-04 09:08] LABS: Hematocrit 26.8 % (37.5-50.1); Mean Corpuscular HGB Conc 29.9 g/dL (31.6-35.5); Mean Corpuscular Volume 97.1 fL (83.0-100.0); Nucleated Red Blood Cells 0.3 /100 WBC (0); Platelet Count 287 K/mcL (140-400); Red Blood Count 2.76 M/mcL (4.19-5.50); Red Cell Distribution Width 17.5 % (11.5-14.5); White Blood Count 7.8 K/mcL (4.3-11.1)
[2021-06-04 09:37] LABS: Eosinophils # 0.4 K/mcL (0.0-0.6); Lymphocytes # 0.9 K/mcL (0.6-4.6); Monocytes # 0.7 K/mcL (0.0-1.3); Neutrophils # 5.5 K/mcL (1.6-8.9); Platelet Estimate Normal (Normal); Poikilocytosis 1+ (Not Present)
[2021-06-04] MEDS: Vitamin B Complex/Vit C/Vit E 1 EACH TABLET PO SCH (10:08)
[2021-06-04] MEDS: Baclofen 10 MG TABLET PO SCH ×2 (10:08→20:01)
[2021-06-04] MEDS: Lactobacillus 1 EACH CAP.SPRINK PO SCH ×2 (10:08→20:01)
[2021-06-04] MEDS: Gabapentin 100 MG CAPSULE PO SCH (10:08)
[2021-06-04] MEDS: Sucralfate 1 GM TABLET PO SCH ×2 (10:08→20:01)
[2021-06-04] MEDS: Loratadine 10 MG TABLET PO SCH (10:08)
[2021-06-04] MEDS: Simethicone 80 MG TAB.CHEW PO SCH ×3 (10:08→20:01)
[2021-06-04] MEDS: Insulin LISPRO 300 UNITS/3 ML VIAL SUBQ SCH ×4 (10:08→22:57)
[2021-06-04 10:23] LABS: Albumin 1.9 g/dL (3.5-5.7); Albumin/Globulin Ratio 0.5 (1.1-2.2); Bilirubin,Total 0.2 mg/dL (0.3-1.0); Calcium 7.8 mg/dL (8.6-10.3); Globulin 3.5 g/dL (2.4-3.5); Potassium 4.9 mEq/L (3.5-5.1); Total Protein 5.4 g/dL (6.4-8.9)
[2021-06-04] MEDS ORDERED: Lidocaine/EPI 1:100k 1% 30 ML VIAL INFILT ONE (13:30)
[2021-06-04] MEDS: Leptospermum Honey Gel 44 ML TUBE TP SCH ×2 (14:20→22:57)
[2021-06-04] MEDS: Mirtazapine 15 MG TABLET PO SCH (20:01)
[2021-06-04] MEDS: Insulin DETEMIR 100 UNIT/ML X5UNITS SUBQ SCH (22:58)
[2021-06-05] MEDS: Meropenem 1,000 MG in 0.9 % Sodium Chloride Mini Bag 100 ML IVPB SCH ×3 (02:42→17:08)
[2021-06-05] MEDS: Pantoprazole 40 MG VIAL IVP SCH ×2 (05:05→17:08)
[2021-06-05] MEDS: Insulin LISPRO 300 UNITS/3 ML VIAL SUBQ SCH ×4 (07:19→20:51)
[2021-06-05] MEDS: Loratadine 10 MG TABLET PO SCH (09:19)
[2021-06-05] MEDS: Sucralfate 1 GM TABLET PO SCH ×2 (09:19→20:45)
[2021-06-05] MEDS: Lactobacillus 1 EACH CAP.SPRINK PO SCH ×2 (09:20→20:45)
[2021-06-05] MEDS: Vitamin B Complex/Vit C/Vit E 1 EACH TABLET PO SCH (09:20)
[2021-06-05] MEDS: Gabapentin 100 MG CAPSULE PO SCH (09:20)
[2021-06-05] MEDS: Baclofen 10 MG TABLET PO SCH ×2 (09:20→20:44)
[2021-06-05] MEDS: Simethicone 80 MG TAB.CHEW PO SCH ×3 (09:20→20:44)
[2021-06-05] MEDS: Leptospermum Honey Gel 44 ML TUBE TP SCH ×2 (11:29→21:37)
[2021-06-05 17:45] LABS: Eosinophils # 0.5 K/mcL (0.0-0.6); Hematocrit 22.1 % (37.5-50.1); Hemoglobin 6.9 g/dL (12.9-16.9); Lymphocytes # 1.6 K/mcL (0.6-4.6); Mean Corpuscular HGB Conc 31.2 g/dL (31.6-35.5); Mean Corpuscular Volume 92.9 fL (83.0-100.0); Mean Platelet Volume 10.1 fL (9.4-12.4); Platelet Count 378 K/mcL (140-400); Red Blood Count 2.38 M/mcL (4.19-5.50); Red Cell Distribution Width 17.6 % (11.5-14.5); White Blood Count 11.2 K/mcL (4.3-11.1)
[2021-06-05 17:59] LABS: Albumin 1.7 g/dL (3.5-5.7); Albumin/Globulin Ratio 0.5 (1.1-2.2); Bilirubin,Total 0.2 mg/dL (0.3-1.0); Calcium 7.9 mg/dL (8.6-10.3); Globulin 3.5 g/dL (2.4-3.5); Potassium 5.1 mEq/L (3.5-5.1); Total Protein 5.2 g/dL (6.4-8.9)
[2021-06-05 18:18] LABS: Basophils # 0.2 K/mcL (0.0-0.2); Hypochromasia Present (Not Present); Monocytes # 1.8 K/mcL (0.0-1.3); Neutrophils # 6.7 K/mcL (1.6-8.9); Ovalocytes 1+ (Not Present); Platelet Estimate Normal (Normal); Tear Drop Cells 1+ (Not Present)
[2021-06-05] MEDS: Mirtazapine 15 MG TABLET PO SCH (20:45)
[2021-06-05] MEDS: Insulin DETEMIR 100 UNIT/ML X5UNITS SUBQ SCH (20:50)
[2021-06-06] MEDS: Meropenem 1,000 MG in 0.9 % Sodium Chloride Mini Bag 100 ML IVPB SCH ×3 (01:45→17:26)
[2021-06-06] MEDS: Pantoprazole 40 MG VIAL IVP SCH ×2 (06:28→17:26)
[2021-06-06 07:31] LABS: Hematocrit 21.8 % (37.5-50.1); Hemoglobin 6.7 g/dL (12.9-16.9); Mean Corpuscular HGB Conc 30.7 g/dL (31.6-35.5); Mean Corpuscular Hemoglobin 28.9 pg (28.0-33.3); Mean Platelet Volume 9.9 fL (9.4-12.4); Platelet Count 357 K/mcL (140-400); Red Blood Count 2.32 M/mcL (4.19-5.50); Red Cell Distribution Width 17.7 % (11.5-14.5); White Blood Count 13.2 K/mcL (4.3-11.1)
[2021-06-06 07:34] LABS: Albumin 1.8 g/dL (3.5-5.7); Albumin/Globulin Ratio 0.5 (1.1-2.2); Bilirubin,Total 0.2 mg/dL (0.3-1.0); Calcium 7.9 mg/dL (8.6-10.3); Globulin 3.4 g/dL (2.4-3.5); Total Protein 5.2 g/dL (6.4-8.9)
[2021-06-06] MEDS: Insulin LISPRO 300 UNITS/3 ML VIAL SUBQ SCH ×4 (09:26→20:50)
[2021-06-06] MEDS: Vitamin B Complex/Vit C/Vit E 1 EACH TABLET PO SCH (09:33)
[2021-06-06] MEDS: Baclofen 10 MG TABLET PO SCH ×2 (09:33→20:45)
[2021-06-06] MEDS: Loratadine 10 MG TABLET PO SCH (09:33)
[2021-06-06] MEDS: Lactobacillus 1 EACH CAP.SPRINK PO SCH ×2 (09:33→20:45)
[2021-06-06] MEDS: Simethicone 80 MG TAB.CHEW PO SCH ×3 (09:33→20:57)
[2021-06-06] MEDS: Sucralfate 1 GM TABLET PO SCH ×2 (09:34→20:45)
[2021-06-06] MEDS: Gabapentin 100 MG CAPSULE PO SCH (09:34)
[2021-06-06] MEDS: Leptospermum Honey Gel 44 ML TUBE TP SCH ×2 (09:34→21:33)
[2021-06-06] MEDS ORDERED: 0.9 % Sodium Chloride 250 ML IVC SCH (12:00)
[2021-06-06 12:43] LABS: Eosinophils # 0.3 K/mcL (0.0-0.6)
[2021-06-06 12:44] LABS: Lymphocytes # 2.1 K/mcL (0.6-4.6); Monocytes # 1.5 K/mcL (0.0-1.3); Neutrophils # 8.6 K/mcL (1.6-8.9)
[2021-06-06 12:45] LABS: Platelet Clumps Few (Not Present); Platelet Estimate Normal (Normal); Toxic Granulation Present (Not Present)
[2021-06-06 12:46] LABS: Anisocytosis 1+ (Not Present); Poikilocytosis 1+ (Not Present)
[2021-06-06 12:59] LABS: Hematocrit 21.5 % (37.5-50.1); Hemoglobin 6.6 g/dL (12.9-16.9)
[2021-06-06] MEDS ORDERED: 0.9 % Sodium Chloride 250 ML ONE (14:09)
[2021-06-06] MEDS: Acetaminophen 325 MG TABLET PO PRN (14:53)
[2021-06-06] MEDS ORDERED: *HR* Alteplase (Cathflo) 2 MG VIAL IVP ONE (16:20)
[2021-06-06] MEDS: Mirtazapine 15 MG TABLET PO SCH (20:46)
[2021-06-06] MEDS: Insulin DETEMIR 100 UNIT/ML X5UNITS SUBQ SCH (20:49)
[2021-06-06 21:28] LABS: Hematocrit 24.3 % (37.5-50.1); Hemoglobin 7.7 g/dL (12.9-16.9)
[2021-06-07] MEDS: Acetaminophen 325 MG TABLET PO PRN (00:20)
[2021-06-07] MEDS: Ondansetron ODT 4 MG TAB.RAPDIS SL PRN (00:20)
[2021-06-07] MEDS: Meropenem 1,000 MG in 0.9 % Sodium Chloride Mini Bag 100 ML IVPB SCH ×3 (02:30→17:18)
[2021-06-07 06:14] LABS: Basophils # 0.1 K/mcL (0.0-0.2); Eosinophils # 0.4 K/mcL (0.0-0.6); Eosinophils % 3.9 %; Hematocrit 22.8 % (37.5-50.1); Immature Granulocytes % 6.6 % (0-4); Lymphocytes # 1.4 K/mcL (0.6-4.6); Lymphocytes % 12.9 %; Mean Corpuscular HGB Conc 30.7 g/dL (31.6-35.5); Mean Corpuscular Hemoglobin 29.2 pg (28.0-33.3); Mean Platelet Volume 10.3 fL (9.4-12.4); Monocytes # 1.6 K/mcL (0.0-1.3); Monocytes % 14.5 %; Neutrophils # 6.7 K/mcL (1.6-8.9); Platelet Count 311 K/mcL (140-400); Red Cell Distribution Width 17.3 % (11.5-14.5); Segmented Neutrophils % 61.1 %; White Blood Count 10.9 K/mcL (4.3-11.1)
[2021-06-07] MEDS: Pantoprazole 40 MG VIAL IVP SCH ×2 (06:42→17:19)
[2021-06-07 06:44] LABS: Albumin 1.6 g/dL (3.5-5.7); Albumin/Globulin Ratio 0.5 (1.1-2.2); Bilirubin,Total 0.2 mg/dL (0.3-1.0); Calcium 7.8 mg/dL (8.6-10.3); Globulin 3.2 g/dL (2.4-3.5); Total Protein 4.8 g/dL (6.4-8.9)
[2021-06-07 06:59] LABS: Anisocytosis 1+ (Not Present); Platelet Estimate Normal (Normal); Polychromasia 1+ (Not Present)
[2021-06-07] MEDS: Simethicone 80 MG TAB.CHEW PO SCH ×3 (09:04→22:56)
[2021-06-07] MEDS: Loratadine 10 MG TABLET PO SCH (09:04)
[2021-06-07] MEDS: Sucralfate 1 GM TABLET PO SCH ×2 (09:04→22:52)
[2021-06-07] MEDS: Baclofen 10 MG TABLET PO SCH ×2 (09:04→22:51)
[2021-06-07] MEDS: Vitamin B Complex/Vit C/Vit E 1 EACH TABLET PO SCH (09:04)
[2021-06-07] MEDS: Lactobacillus 1 EACH CAP.SPRINK PO SCH ×2 (09:04→22:52)
[2021-06-07] MEDS: Gabapentin 100 MG CAPSULE PO SCH (09:04)
[2021-06-07] MEDS: Insulin LISPRO 300 UNITS/3 ML VIAL SUBQ SCH ×4 (09:05→22:52)
[2021-06-07] MEDS: Leptospermum Honey Gel 44 ML TUBE TP SCH ×2 (09:05→22:52)
[2021-06-07 09:16] LABS: Hematocrit 26.7 % (37.5-50.1); Hemoglobin 8.3 g/dL (12.9-16.9)
[2021-06-07] MEDS ORDERED: *HR* HYDROmorphone (PF) 1 MG/ML SYRINGE IVP ONE (14:19)
[2021-06-07] MEDS: Mirtazapine 15 MG TABLET PO SCH (22:51)
[2021-06-07] MEDS: Melatonin 3 MG TABLET PO PRN (22:54)
[2021-06-07] MEDS: Insulin DETEMIR 100 UNIT/ML X5UNITS SUBQ SCH (22:56)
[2021-06-08] MEDS: Meropenem 1,000 MG in 0.9 % Sodium Chloride Mini Bag 100 ML IVPB SCH ×3 (02:05→16:19)
[2021-06-08 05:02] LABS: Basophils # 0.2 K/mcL (0.0-0.2); Basophils % 1.1 %; Eosinophils # 0.3 K/mcL (0.0-0.6); Eosinophils % 2.4 %; Hematocrit 24.6 % (37.5-50.1); Hemoglobin 7.6 g/dL (12.9-16.9); Immature Granulocytes % 5.7 % (0-4); Lymphocytes # 1.5 K/mcL (0.6-4.6); Lymphocytes % 11.5 %; Mean Corpuscular HGB Conc 30.9 g/dL (31.6-35.5); Mean Corpuscular Hemoglobin 28.8 pg (28.0-33.3); Mean Corpuscular Volume 93.2 fL (83.0-100.0); Mean Platelet Volume 10.5 fL (9.4-12.4); Monocytes % 14.6 %; Neutrophils # 8.6 K/mcL (1.6-8.9); Platelet Count 376 K/mcL (140-400); Red Blood Count 2.64 M/mcL (4.19-5.50); Red Cell Distribution Width 17.3 % (11.5-14.5); Segmented Neutrophils % 64.7 %; White Blood Count 13.3 K/mcL (4.3-11.1)
[2021-06-08 05:12] LABS: Monocytes # 1.9 K/mcL (0.0-1.3)
[2021-06-08 05:22] LABS: Albumin 1.8 g/dL (3.5-5.7); Albumin/Globulin Ratio 0.5 (1.1-2.2); Bilirubin,Total 0.2 mg/dL (0.3-1.0); Calcium 8.3 mg/dL (8.6-10.3); Globulin 3.5 g/dL (2.4-3.5); Potassium 5.2 mEq/L (3.5-5.1); Total Protein 5.3 g/dL (6.4-8.9)
[2021-06-08 05:49] LABS: Anisocytosis 1+ (Not Present); Platelet Estimate Normal (Normal)
[2021-06-08] MEDS: Pantoprazole 40 MG VIAL IVP SCH ×2 (06:27→16:19)
[2021-06-08] MEDS: Baclofen 10 MG TABLET PO SCH ×2 (08:32→20:10)
[2021-06-08] MEDS: Vitamin B Complex/Vit C/Vit E 1 EACH TABLET PO SCH (08:32)
[2021-06-08] MEDS: Gabapentin 100 MG CAPSULE PO SCH (08:32)
[2021-06-08] MEDS: Sucralfate 1 GM TABLET PO SCH ×2 (08:32→20:10)
[2021-06-08] MEDS: Simethicone 80 MG TAB.CHEW PO SCH ×3 (08:32→20:10)
[2021-06-08] MEDS: Loratadine 10 MG TABLET PO SCH (08:33)
[2021-06-08] MEDS: Lactobacillus 1 EACH CAP.SPRINK PO SCH ×2 (08:33→20:10)
[2021-06-08] MEDS: Insulin LISPRO 300 UNITS/3 ML VIAL SUBQ SCH ×4 (08:34→20:09)
[2021-06-08] MEDS: Acetaminophen 325 MG TABLET PO PRN ×2 (08:42→16:19)
[2021-06-08] MEDS: Leptospermum Honey Gel 44 ML TUBE TP SCH ×2 (13:04→20:10)
[2021-06-08] MEDS: Mirtazapine 15 MG TABLET PO SCH (20:10)
[2021-06-08] MEDS: Melatonin 3 MG TABLET PO PRN (20:10)
[2021-06-08] MEDS: Insulin DETEMIR 100 UNIT/ML X5UNITS SUBQ SCH (20:10)
[2021-06-09] MEDS: Acetaminophen 325 MG TABLET PO PRN (00:12)
[2021-06-09] MEDS: Meropenem 1,000 MG in 0.9 % Sodium Chloride Mini Bag 100 ML IVPB SCH ×3 (01:06→17:14)
[2021-06-09 01:40] LABS: Hematocrit 22.6 % (37.5-50.1); Hemoglobin 6.8 g/dL (12.9-16.9); Mean Corpuscular HGB Conc 30.1 g/dL (31.6-35.5); Mean Corpuscular Hemoglobin 28.1 pg (28.0-33.3); Mean Corpuscular Volume 93.4 fL (83.0-100.0); Mean Platelet Volume 10.2 fL (9.4-12.4); Platelet Count 336 K/mcL (140-400); Red Blood Count 2.42 M/mcL (4.19-5.50); Red Cell Distribution Width 17.2 % (11.5-14.5); White Blood Count 11.2 K/mcL (4.3-11.1)
[2021-06-09 01:53] LABS: Alanine Aminotransferase 29 Units/L (7-52); Albumin 1.6 g/dL (3.5-5.7); Albumin/Globulin Ratio 0.5 (1.1-2.2); Alkaline Phosphatase 101 Units/L (34-104); Aspartate Amino Transferase 46 Units/L (13-39); BUN/Creatinine Ratio 20 (6-26); Bilirubin,Total 0.1 mg/dL (0.3-1.0); Blood Urea Nitrogen 28 mg/dL (8-23); Calcium 7.7 mg/dL (8.6-10.3); Carbon Dioxide 30 mEq/L (23-29); Chloride 106 mEq/L (98-107); Globulin 3.3 g/dL (2.4-3.5); Glucose 280 mg/dL (70-105); Osmolality,Calculated 302 (280-300); Potassium 4.8 mEq/L (3.5-5.1); Sodium 138 mEq/L (136-145); Total Protein 4.9 g/dL (6.4-8.9); eGFR For African Americans > 60 (> 60); eGFR For Non-African Americans 51 (> 60)
[2021-06-09 05:05] LABS: Eosinophils # 0.2 K/mcL (0.0-0.6); Lymphocytes # 1.8 K/mcL (0.6-4.6); Monocytes # 0.9 K/mcL (0.0-1.3); Neutrophils # 7.8 K/mcL (1.6-8.9); Platelet Estimate Normal (Normal)
[2021-06-09] MEDS: Pantoprazole 40 MG VIAL IVP SCH ×2 (05:30→17:14)
[2021-06-09] MEDS: Insulin LISPRO 300 UNITS/3 ML VIAL SUBQ SCH ×4 (08:07→21:34)
[2021-06-09] MEDS: Loratadine 10 MG TABLET PO SCH (08:08)
[2021-06-09] MEDS: Gabapentin 100 MG CAPSULE PO SCH (08:08)
[2021-06-09] MEDS: Simethicone 80 MG TAB.CHEW PO SCH ×3 (08:08→20:12)
[2021-06-09] MEDS: Vitamin B Complex/Vit C/Vit E 1 EACH TABLET PO SCH (08:08)
[2021-06-09] MEDS: Baclofen 10 MG TABLET PO SCH ×2 (08:08→20:12)
[2021-06-09] MEDS: Lactobacillus 1 EACH CAP.SPRINK PO SCH ×2 (08:08→20:12)
[2021-06-09] MEDS: Leptospermum Honey Gel 44 ML TUBE TP SCH ×2 (08:08→21:47)
[2021-06-09] MEDS: Sucralfate 1 GM TABLET PO SCH ×2 (08:08→20:12)
[2021-06-09] MEDS: Mirtazapine 15 MG TABLET PO SCH (20:12)
[2021-06-09] MEDS: Insulin DETEMIR 100 UNIT/ML X5UNITS SUBQ SCH (21:46)
[2021-06-10] MEDS: Meropenem 1,000 MG in 0.9 % Sodium Chloride Mini Bag 100 ML IVPB SCH ×3 (02:10→17:51)
[2021-06-10] MEDS: Pantoprazole 40 MG VIAL IVP SCH ×2 (05:42→17:51)
[2021-06-10 06:08] LABS: Basophils # 0.2 K/mcL (0.0-0.2); Basophils % 1.2 %; Eosinophils # 0.3 K/mcL (0.0-0.6); Eosinophils % 1.9 %; Hematocrit 26.1 % (37.5-50.1); Hemoglobin 8.1 g/dL (12.9-16.9); Immature Granulocytes % 4.9 % (0-4); Lymphocytes # 1.6 K/mcL (0.6-4.6); Mean Corpuscular Hemoglobin 28.6 pg (28.0-33.3); Mean Corpuscular Volume 92.2 fL (83.0-100.0); Mean Platelet Volume 10.1 fL (9.4-12.4); Monocytes # 1.7 K/mcL (0.0-1.3); Monocytes % 11.5 %; Neutrophils # 10.2 K/mcL (1.6-8.9); Platelet Count 361 K/mcL (140-400); Red Blood Count 2.83 M/mcL (4.19-5.50); Red Cell Distribution Width 16.7 % (11.5-14.5); Segmented Neutrophils % 69.5 %; White Blood Count 14.7 K/mcL (4.3-11.1)
[2021-06-10 06:20] LABS: Alanine Aminotransferase 27 Units/L (7-52); Albumin 1.7 g/dL (3.5-5.7); Albumin/Globulin Ratio 0.5 (1.1-2.2); Alkaline Phosphatase 104 Units/L (34-104); Aspartate Amino Transferase 38 Units/L (13-39); BUN/Creatinine Ratio 20 (6-26); Bilirubin,Total 0.2 mg/dL (0.3-1.0); Blood Urea Nitrogen 25 mg/dL (8-23); Carbon Dioxide 32 mEq/L (23-29); Chloride 105 mEq/L (98-107); Globulin 3.3 g/dL (2.4-3.5); Glucose 142 mg/dL (70-105); Osmolality,Calculated 293 (280-300); Potassium 4.7 mEq/L (3.5-5.1); Sodium 138 mEq/L (136-145); eGFR For African Americans > 60 (> 60); eGFR For Non-African Americans 56 (> 60)
[2021-06-10] MEDS: Insulin LISPRO 300 UNITS/3 ML VIAL SUBQ SCH ×4 (07:39→21:35)
[2021-06-10] MEDS: Sucralfate 1 GM TABLET PO SCH ×2 (09:20→21:29)
[2021-06-10] MEDS: Simethicone 80 MG TAB.CHEW PO SCH ×3 (09:20→21:29)
[2021-06-10] MEDS: Loratadine 10 MG TABLET PO SCH (09:20)
[2021-06-10] MEDS: Lactobacillus 1 EACH CAP.SPRINK PO SCH ×2 (09:20→21:29)
[2021-06-10] MEDS: Baclofen 10 MG TABLET PO SCH ×2 (09:20→21:29)
[2021-06-10] MEDS: Leptospermum Honey Gel 44 ML TUBE TP SCH (09:21)
[2021-06-10] MEDS: Gabapentin 100 MG CAPSULE PO SCH (09:21)
[2021-06-10] MEDS: Vitamin B Complex/Vit C/Vit E 1 EACH TABLET PO SCH (09:21)
[2021-06-10] MEDS: Mirtazapine 15 MG TABLET PO SCH (21:29)
[2021-06-10] MEDS: Insulin DETEMIR 100 UNIT/ML X5UNITS SUBQ SCH (21:29)
[2021-06-10] MEDS: Ondansetron ODT 4 MG TAB.RAPDIS SL PRN (23:48)
[2021-06-11] MEDS: Meropenem 1,000 MG in 0.9 % Sodium Chloride Mini Bag 100 ML IVPB SCH ×3 (02:48→16:50)
[2021-06-11] MEDS: Leptospermum Honey Gel 44 ML TUBE TP SCH ×3 (02:48→23:53)
[2021-06-11] MEDS: Pantoprazole 40 MG VIAL IVP SCH ×2 (06:27→16:49)
[2021-06-11] MEDS: Sucralfate 1 GM TABLET PO SCH ×2 (08:16→23:52)
[2021-06-11] MEDS: Simethicone 80 MG TAB.CHEW PO SCH ×3 (08:16→23:52)
[2021-06-11] MEDS: Loratadine 10 MG TABLET PO SCH (08:16)
[2021-06-11] MEDS: Baclofen 10 MG TABLET PO SCH ×2 (08:16→23:56)
[2021-06-11] MEDS: Gabapentin 100 MG CAPSULE PO SCH (08:16)
[2021-06-11] MEDS: Lactobacillus 1 EACH CAP.SPRINK PO SCH ×2 (08:16→23:56)
[2021-06-11] MEDS: Insulin LISPRO 300 UNITS/3 ML VIAL SUBQ SCH ×4 (08:17→16:58)
[2021-06-11] MEDS: Vitamin B Complex/Vit C/Vit E 1 EACH TABLET PO SCH (08:17)
[2021-06-11] MEDS: *HR* HYDROmorphone (PF) 1 MG/ML SYRINGE IVP PRN ×3 (09:52→23:06)
[2021-06-11] MEDS: Melatonin 3 MG TABLET PO PRN (23:05)
[2021-06-11] MEDS: Ondansetron ODT 4 MG TAB.RAPDIS SL PRN (23:41)
[2021-06-11] MEDS: Mirtazapine 15 MG TABLET PO SCH (23:52)
[2021-06-12] MEDS: Insulin DETEMIR 100 UNIT/ML X5UNITS SUBQ SCH ×2 (00:12→20:08)
[2021-06-12] MEDS: Insulin LISPRO 300 UNITS/3 ML VIAL SUBQ SCH ×5 (00:13→20:07)
[2021-06-12] MEDS: Meropenem 1,000 MG in 0.9 % Sodium Chloride Mini Bag 100 ML IVPB SCH ×3 (03:18→16:12)
[2021-06-12] MEDS: Pantoprazole 40 MG VIAL IVP SCH ×2 (08:28→16:12)
[2021-06-12] MEDS: Lactobacillus 1 EACH CAP.SPRINK PO SCH ×2 (08:47→19:23)
[2021-06-12] MEDS: Vitamin B Complex/Vit C/Vit E 1 EACH TABLET PO SCH (08:47)
[2021-06-12] MEDS: Loratadine 10 MG TABLET PO SCH (08:47)
[2021-06-12] MEDS: Baclofen 10 MG TABLET PO SCH ×2 (08:47→19:23)
[2021-06-12] MEDS: Simethicone 80 MG TAB.CHEW PO SCH ×3 (08:47→19:23)
[2021-06-12] MEDS: Gabapentin 100 MG CAPSULE PO SCH (08:47)
[2021-06-12] MEDS: Sucralfate 1 GM TABLET PO SCH ×2 (08:47→19:23)
[2021-06-12] MEDS: *HR* HYDROmorphone (PF) 1 MG/ML SYRINGE IVP PRN ×3 (09:12→18:50)
[2021-06-12] MEDS: Leptospermum Honey Gel 44 ML TUBE TP SCH ×3 (09:56→19:29)
[2021-06-12] MEDS: Mirtazapine 15 MG TABLET PO SCH (19:23)
[2021-06-13] MEDS: Pantoprazole 40 MG VIAL IVP SCH ×2 (02:08→17:22)
[2021-06-13] MEDS: Meropenem 1,000 MG in 0.9 % Sodium Chloride Mini Bag 100 ML IVPB SCH ×3 (02:08→17:23)
[2021-06-13] MEDS: *HR* HYDROmorphone (PF) 1 MG/ML SYRINGE IVP PRN ×3 (02:15→13:44)
[2021-06-13 02:51] LABS: Basophils # 0.2 K/mcL (0.0-0.2); Basophils % 1.2 %; Eosinophils # 0.1 K/mcL (0.0-0.6); Hematocrit 26.6 % (37.5-50.1); Hemoglobin 8.2 g/dL (12.9-16.9); Immature Granulocytes % 3.2 % (0-4); Lymphocytes # 1.6 K/mcL (0.6-4.6); Lymphocytes % 13.2 %; Mean Corpuscular HGB Conc 30.8 g/dL (31.6-35.5); Mean Corpuscular Hemoglobin 28.4 pg (28.0-33.3); Mean Platelet Volume 10.1 fL (9.4-12.4); Monocytes # 1.4 K/mcL (0.0-1.3); Monocytes % 11.3 %; Neutrophils # 8.7 K/mcL (1.6-8.9); Platelet Count 378 K/mcL (140-400); Red Blood Count 2.89 M/mcL (4.19-5.50); Red Cell Distribution Width 16.5 % (11.5-14.5); Segmented Neutrophils % 70.1 %; White Blood Count 12.4 K/mcL (4.3-11.1)
[2021-06-13 02:52] LABS: BUN/Creatinine Ratio 18 (6-26); Blood Urea Nitrogen 21 mg/dL (8-23); Calcium 7.7 mg/dL (8.6-10.3); Carbon Dioxide 33 mEq/L (23-29); Chloride 103 mEq/L (98-107); Glucose 118 mg/dL (70-105); Osmolality,Calculated 292 (280-300); Potassium 4.6 mEq/L (3.5-5.1); Sodium 139 mEq/L (136-145); eGFR For African Americans > 60 (> 60); eGFR For Non-African Americans > 60 (> 60)
[2021-06-13] MEDS: Insulin LISPRO 300 UNITS/3 ML VIAL SUBQ SCH ×4 (07:21→20:32)
[2021-06-13] MEDS: Leptospermum Honey Gel 44 ML TUBE TP SCH ×2 (08:51→20:38)
[2021-06-13] MEDS: Sucralfate 1 GM TABLET PO SCH ×2 (09:06→20:38)
[2021-06-13] MEDS: Loratadine 10 MG TABLET PO SCH (09:06)
[2021-06-13] MEDS: Lactobacillus 1 EACH CAP.SPRINK PO SCH ×2 (09:07→20:38)
[2021-06-13] MEDS: Simethicone 80 MG TAB.CHEW PO SCH ×3 (09:07→20:37)
[2021-06-13] MEDS: Vitamin B Complex/Vit C/Vit E 1 EACH TABLET PO SCH (09:07)
[2021-06-13] MEDS: Gabapentin 100 MG CAPSULE PO SCH (09:07)
[2021-06-13] MEDS: Baclofen 10 MG TABLET PO SCH ×2 (09:07→20:38)
[2021-06-13] MEDS ORDERED: 0.9 % Sodium Chloride 500 ML ONE (09:13)
[2021-06-13] MEDS ORDERED: *HR* FentaNYL (PF) 100 MCG/2 ML VIAL IVP ONE (10:01)
[2021-06-13] MEDS: Ondansetron ODT 4 MG TAB.RAPDIS SL PRN (10:56)
[2021-06-13] MEDS: Mirtazapine 15 MG TABLET PO SCH (20:38)
[2021-06-14] MEDS: *HR* HYDROmorphone (PF) 1 MG/ML SYRINGE IVP PRN ×4 (00:07→20:51)
[2021-06-14] MEDS: Meropenem 1,000 MG in 0.9 % Sodium Chloride Mini Bag 100 ML IVPB SCH ×3 (02:39→16:34)
[2021-06-14 03:32] LABS: Basophils # 0.2 K/mcL (0.0-0.2); Basophils % 1.3 %; Eosinophils # 0.1 K/mcL (0.0-0.6); Eosinophils % 1.2 %; Hemoglobin 8.4 g/dL (12.9-16.9); Immature Granulocytes % 2.3 % (0-4); Lymphocytes # 1.6 K/mcL (0.6-4.6); Lymphocytes % 13.7 %; Mean Corpuscular HGB Conc 31.1 g/dL (31.6-35.5); Mean Corpuscular Hemoglobin 28.7 pg (28.0-33.3); Mean Corpuscular Volume 92.2 fL (83.0-100.0); Mean Platelet Volume 9.9 fL (9.4-12.4); Monocytes # 1.3 K/mcL (0.0-1.3); Monocytes % 10.7 %; Neutrophils # 8.4 K/mcL (1.6-8.9); Platelet Count 387 K/mcL (140-400); Red Blood Count 2.93 M/mcL (4.19-5.50); Red Cell Distribution Width 16.5 % (11.5-14.5); Segmented Neutrophils % 70.8 %; White Blood Count 11.9 K/mcL (4.3-11.1)
[2021-06-14 03:52] LABS: Albumin 1.9 g/dL (3.5-5.7); BUN/Creatinine Ratio 17 (6-26); Blood Urea Nitrogen 20 mg/dL (8-23); Calcium 8.1 mg/dL (8.6-10.3); Carbon Dioxide 33 mEq/L (23-29); Chloride 103 mEq/L (98-107); Glucose 170 mg/dL (70-105); Osmolality,Calculated 295 (280-300); Potassium 4.7 mEq/L (3.5-5.1); Sodium 139 mEq/L (136-145); eGFR For African Americans > 60 (> 60); eGFR For Non-African Americans > 60 (> 60)
[2021-06-14] MEDS: Pantoprazole 40 MG VIAL IVP SCH ×2 (04:49→16:34)
[2021-06-14] MEDS: Sucralfate 1 GM TABLET PO SCH ×2 (08:33→20:51)
[2021-06-14] MEDS: Gabapentin 100 MG CAPSULE PO SCH (08:33)
[2021-06-14] MEDS: Loratadine 10 MG TABLET PO SCH (08:33)
[2021-06-14] MEDS: Vitamin B Complex/Vit C/Vit E 1 EACH TABLET PO SCH (08:33)
[2021-06-14] MEDS: Simethicone 80 MG TAB.CHEW PO SCH ×3 (08:33→20:51)
[2021-06-14] MEDS: Baclofen 10 MG TABLET PO SCH ×2 (08:33→20:51)
[2021-06-14] MEDS: Lactobacillus 1 EACH CAP.SPRINK PO SCH ×2 (08:33→20:51)
[2021-06-14] MEDS: Insulin LISPRO 300 UNITS/3 ML VIAL SUBQ SCH ×4 (08:34→20:38)
[2021-06-14] MEDS: Leptospermum Honey Gel 44 ML TUBE TP SCH ×2 (12:17→21:32)
[2021-06-14] MEDS: Mirtazapine 15 MG TABLET PO SCH (20:51)
[2021-06-15] MEDS: 0.9 % Sodium Chloride 1,000 ML IVC SCH ×3 (00:04→21:03)
[2021-06-15] MEDS: *HR* HYDROmorphone (PF) 1 MG/ML SYRINGE IVP PRN ×4 (02:18→21:05)
[2021-06-15] MEDS: Meropenem 1,000 MG in 0.9 % Sodium Chloride Mini Bag 100 ML IVPB SCH ×3 (02:18→16:12)
[2021-06-15 03:38] LABS: Basophils # 0.1 K/mcL (0.0-0.2); Basophils % 1.2 %; Eosinophils # 0.2 K/mcL (0.0-0.6); Eosinophils % 1.4 %; Hematocrit 23.8 % (37.5-50.1); Hemoglobin 7.2 g/dL (12.9-16.9); Immature Granulocytes % 2.1 % (0-4); Lymphocytes # 1.5 K/mcL (0.6-4.6); Lymphocytes % 12.9 %; Mean Corpuscular HGB Conc 30.3 g/dL (31.6-35.5); Mean Corpuscular Hemoglobin 28.2 pg (28.0-33.3); Mean Corpuscular Volume 93.3 fL (83.0-100.0); Monocytes # 1.3 K/mcL (0.0-1.3); Monocytes % 10.8 %; Neutrophils # 8.4 K/mcL (1.6-8.9); Platelet Count 354 K/mcL (140-400); Red Blood Count 2.55 M/mcL (4.19-5.50); Red Cell Distribution Width 16.7 % (11.5-14.5); Segmented Neutrophils % 71.6 %; White Blood Count 11.7 K/mcL (4.3-11.1)
[2021-06-15 04:00] LABS: BUN/Creatinine Ratio 18 (6-26); Blood Urea Nitrogen 17 mg/dL (8-23); Calcium 6.8 mg/dL (8.6-10.3); Carbon Dioxide 30 mEq/L (23-29); Chloride 111 mEq/L (98-107); Glucose 98 mg/dL (70-105); Osmolality,Calculated 300 (280-300); Potassium 4.2 mEq/L (3.5-5.1); Sodium 144 mEq/L (136-145); eGFR For African Americans > 60 (> 60); eGFR For Non-African Americans > 60 (> 60)
[2021-06-15] MEDS: Pantoprazole 40 MG VIAL IVP SCH ×2 (05:34→16:12)
[2021-06-15] MEDS: Insulin LISPRO 300 UNITS/3 ML VIAL SUBQ SCH ×4 (08:38→21:08)
[2021-06-15] MEDS: Baclofen 10 MG TABLET PO SCH ×2 (09:58→21:05)
[2021-06-15] MEDS: Vitamin B Complex/Vit C/Vit E 1 EACH TABLET PO SCH (09:58)
[2021-06-15] MEDS: Lactobacillus 1 EACH CAP.SPRINK PO SCH ×2 (09:58→21:05)
[2021-06-15] MEDS: Gabapentin 100 MG CAPSULE PO SCH (09:58)
[2021-06-15] MEDS: Simethicone 80 MG TAB.CHEW PO SCH ×3 (09:58→21:05)
[2021-06-15] MEDS: Loratadine 10 MG TABLET PO SCH (09:58)
[2021-06-15] MEDS: Leptospermum Honey Gel 44 ML TUBE TP SCH ×2 (09:58→21:08)
[2021-06-15] MEDS: Sucralfate 1 GM TABLET PO SCH ×2 (09:58→21:05)
[2021-06-15] MEDS ORDERED: *HR* Propofol 200 MG/20 ML VIAL IVP ONE (11:28)
[2021-06-15] MEDS ORDERED: Lidocaine -MPF 4% 5 ML AMPUL ONE (11:28)
[2021-06-15] MEDS ORDERED: *HR* FentaNYL (PF) 100 MCG/2 ML VIAL ONE (11:28)
[2021-06-15] MEDS ORDERED: *HR* Rocuronium Bromide 50 MG/5 ML VIAL ONE (11:28)
[2021-06-15] MEDS ORDERED: Lidocaine -MPF 2% 5 ML VIAL ONE (11:28)
[2021-06-15] MEDS ORDERED: Ondansetron 4 MG/2 ML VIAL ONE (11:28)
[2021-06-15] MEDS ORDERED: EPHEDrine 50 MG/ML VIAL ONE (12:57)
[2021-06-15] MEDS ORDERED: GuaiFENesin Liq 200 MG/10 ML UDC GTUBE PRN (14:52)
[2021-06-15] MEDS ORDERED: GuaiFENesin/Pseudophedrine TABLET PO SCH (15:00)
[2021-06-15] MEDS: Mirtazapine 15 MG TABLET PO SCH (21:05)
[2021-06-16] MEDS: Meropenem 1,000 MG in 0.9 % Sodium Chloride Mini Bag 100 ML IVPB SCH ×3 (02:43→17:15)
[2021-06-16 04:49] LABS: Hematocrit 26.2 % (37.5-50.1); Hemoglobin 8.1 g/dL (12.9-16.9); Mean Corpuscular HGB Conc 30.9 g/dL (31.6-35.5); Mean Corpuscular Hemoglobin 28.8 pg (28.0-33.3); Mean Corpuscular Volume 93.2 fL (83.0-100.0); Platelet Count 332 K/mcL (140-400); Red Blood Count 2.81 M/mcL (4.19-5.50); Red Cell Distribution Width 16.6 % (11.5-14.5); White Blood Count 10.2 K/mcL (4.3-11.1)
[2021-06-16 04:50] LABS: Basophils # 0.1 K/mcL (0.0-0.2); Basophils % 1.3 %; Eosinophils # 0.2 K/mcL (0.0-0.6); Eosinophils % 2.4 %; Immature Granulocytes % 1.8 % (0-4); Lymphocytes # 1.5 K/mcL (0.6-4.6); Lymphocytes % 15.2 %; Mean Platelet Volume 10.2 fL (9.4-12.4); Monocytes # 1.2 K/mcL (0.0-1.3); Monocytes % 11.5 %; Neutrophils # 6.9 K/mcL (1.6-8.9); Segmented Neutrophils % 67.8 %
[2021-06-16 05:10] LABS: BUN/Creatinine Ratio 17 (6-26); Blood Urea Nitrogen 17 mg/dL (8-23); Calcium 7.5 mg/dL (8.6-10.3); Carbon Dioxide 32 mEq/L (23-29); Chloride 106 mEq/L (98-107); Glucose 194 mg/dL (70-105); Osmolality,Calculated 295 (280-300); Potassium 4.5 mEq/L (3.5-5.1); Sodium 139 mEq/L (136-145); eGFR For African Americans > 60 (> 60); eGFR For Non-African Americans > 60 (> 60)
[2021-06-16] MEDS: Pantoprazole 40 MG VIAL IVP SCH ×2 (06:21→16:53)
[2021-06-16] MEDS: 0.9 % Sodium Chloride 1,000 ML IVC SCH (06:21)
[2021-06-16] MEDS: *HR* HYDROmorphone (PF) 1 MG/ML SYRINGE IVP PRN ×4 (06:22→20:41)
[2021-06-16] MEDS: Gabapentin 100 MG CAPSULE PO SCH (08:33)
[2021-06-16] MEDS: Baclofen 10 MG TABLET PO SCH ×2 (08:33→20:33)
[2021-06-16] MEDS: Loratadine 10 MG TABLET PO SCH (08:33)
[2021-06-16] MEDS: Simethicone 80 MG TAB.CHEW PO SCH ×3 (08:33→20:34)
[2021-06-16] MEDS: Lactobacillus 1 EACH CAP.SPRINK PO SCH ×2 (08:33→20:34)
[2021-06-16] MEDS: Sucralfate 1 GM TABLET PO SCH ×2 (08:33→20:34)
[2021-06-16] MEDS: Vitamin B Complex/Vit C/Vit E 1 EACH TABLET PO SCH (08:34)
[2021-06-16] MEDS: Insulin LISPRO 300 UNITS/3 ML VIAL SUBQ SCH ×4 (08:36→20:45)
[2021-06-16] MEDS: Leptospermum Honey Gel 44 ML TUBE TP SCH (11:32)
[2021-06-16] MEDS: Mirtazapine 15 MG TABLET PO SCH (20:34)
[2021-06-17] MEDS: Leptospermum Honey Gel 44 ML TUBE TP SCH ×3 (02:20→21:36)
[2021-06-17] MEDS: Meropenem 1,000 MG in 0.9 % Sodium Chloride Mini Bag 100 ML IVPB SCH ×3 (02:35→17:27)
[2021-06-17] MEDS: *HR* HYDROmorphone (PF) 1 MG/ML SYRINGE IVP PRN ×4 (02:36→18:32)
[2021-06-17] MEDS: Pantoprazole 40 MG VIAL IVP SCH (06:19)
[2021-06-17 06:22] LABS: Basophils # 0.1 K/mcL (0.0-0.2); Basophils % 1.3 %; Eosinophils # 0.3 K/mcL (0.0-0.6); Eosinophils % 2.9 %; Hematocrit 25.7 % (37.5-50.1); Hemoglobin 7.9 g/dL (12.9-16.9); Immature Granulocytes % 1.6 % (0-4); Lymphocytes # 1.4 K/mcL (0.6-4.6); Lymphocytes % 14.7 %; Mean Corpuscular HGB Conc 30.7 g/dL (31.6-35.5); Mean Corpuscular Hemoglobin 28.6 pg (28.0-33.3); Mean Corpuscular Volume 93.1 fL (83.0-100.0); Monocytes % 10.3 %; Neutrophils # 6.7 K/mcL (1.6-8.9); Platelet Count 314 K/mcL (140-400); Red Blood Count 2.76 M/mcL (4.19-5.50); Red Cell Distribution Width 16.4 % (11.5-14.5); Segmented Neutrophils % 69.2 %; White Blood Count 9.7 K/mcL (4.3-11.1)
[2021-06-17 06:40] LABS: BUN/Creatinine Ratio 18 (6-26); Blood Urea Nitrogen 18 mg/dL (8-23); Calcium 7.8 mg/dL (8.6-10.3); Carbon Dioxide 29 mEq/L (23-29); Chloride 106 mEq/L (98-107); Glucose 247 mg/dL (70-105); Osmolality,Calculated 296 (280-300); Potassium 4.5 mEq/L (3.5-5.1); Sodium 138 mEq/L (136-145); eGFR For African Americans > 60 (> 60); eGFR For Non-African Americans > 60 (> 60)
[2021-06-17] MEDS: Lactobacillus 1 EACH CAP.SPRINK PO SCH ×2 (08:54→21:36)
[2021-06-17] MEDS: Baclofen 10 MG TABLET PO SCH ×2 (08:55→21:36)
[2021-06-17] MEDS: Sucralfate 1 GM TABLET PO SCH ×2 (08:55→21:36)
[2021-06-17] MEDS: Gabapentin 100 MG CAPSULE PO SCH ×3 (08:55→21:36)
[2021-06-17] MEDS: Loratadine 10 MG TABLET PO SCH (08:55)
[2021-06-17] MEDS: Vitamin B Complex/Vit C/Vit E 1 EACH TABLET PO SCH (08:55)
[2021-06-17] MEDS: Insulin LISPRO 300 UNITS/3 ML VIAL SUBQ SCH ×4 (08:58→21:44)
[2021-06-17] MEDS: Simethicone 80 MG TAB.CHEW PO SCH ×3 (08:58→21:36)
[2021-06-17] MEDS: Mirtazapine 15 MG TABLET PO SCH (21:36)
[2021-06-18] MEDS: *HR* HYDROmorphone (PF) 1 MG/ML SYRINGE IVP PRN ×3 (00:32→22:37)
[2021-06-18] MEDS: Meropenem 1,000 MG in 0.9 % Sodium Chloride Mini Bag 100 ML IVPB SCH ×3 (02:28→17:04)
[2021-06-18 05:10] LABS: Basophils # 0.1 K/mcL (0.0-0.2); Basophils % 1.1 %; Eosinophils # 0.3 K/mcL (0.0-0.6); Eosinophils % 3.2 %; Hematocrit 25.8 % (37.5-50.1); Immature Granulocytes % 1.7 % (0-4); Lymphocytes # 1.6 K/mcL (0.6-4.6); Mean Corpuscular Hemoglobin 28.8 pg (28.0-33.3); Mean Corpuscular Volume 92.8 fL (83.0-100.0); Mean Platelet Volume 10.6 fL (9.4-12.4); Monocytes # 1.1 K/mcL (0.0-1.3); Monocytes % 10.7 %; Neutrophils # 7.3 K/mcL (1.6-8.9); Platelet Count 329 K/mcL (140-400); Red Blood Count 2.78 M/mcL (4.19-5.50); Red Cell Distribution Width 16.5 % (11.5-14.5); Segmented Neutrophils % 68.3 %; White Blood Count 10.7 K/mcL (4.3-11.1)
[2021-06-18 05:28] LABS: BUN/Creatinine Ratio 19 (6-26); Blood Urea Nitrogen 18 mg/dL (8-23); Calcium 7.8 mg/dL (8.6-10.3); Carbon Dioxide 31 mEq/L (23-29); Chloride 106 mEq/L (98-107); Glucose 218 mg/dL (70-105); Osmolality,Calculated 297 (280-300); Potassium 4.9 mEq/L (3.5-5.1); Sodium 139 mEq/L (136-145); eGFR For African Americans > 60 (> 60); eGFR For Non-African Americans > 60 (> 60)
[2021-06-18] MEDS: Simethicone 80 MG TAB.CHEW PO SCH ×3 (09:10→21:06)
[2021-06-18] MEDS: Sucralfate 1 GM TABLET PO SCH ×2 (09:10→21:06)
[2021-06-18] MEDS: Lactobacillus 1 EACH CAP.SPRINK PO SCH ×2 (09:10→21:06)
[2021-06-18] MEDS: Loratadine 10 MG TABLET PO SCH (09:10)
[2021-06-18] MEDS: Gabapentin 100 MG CAPSULE PO SCH ×3 (09:11→21:06)
[2021-06-18] MEDS: Vitamin B Complex/Vit C/Vit E 1 EACH TABLET PO SCH (09:11)
[2021-06-18] MEDS: Baclofen 10 MG TABLET PO SCH ×2 (09:11→21:06)
[2021-06-18] MEDS: Insulin LISPRO 300 UNITS/3 ML VIAL SUBQ SCH ×4 (09:13→21:17)
[2021-06-18] MEDS: Leptospermum Honey Gel 44 ML TUBE TP SCH ×2 (09:32→21:17)
[2021-06-18] MEDS: Melatonin 3 MG TABLET PO PRN (21:06)
[2021-06-18] MEDS: Mirtazapine 15 MG TABLET PO SCH (21:06)
[2021-06-19] MEDS: Meropenem 1,000 MG in 0.9 % Sodium Chloride Mini Bag 100 ML IVPB SCH ×3 (02:24→17:56)
[2021-06-19 02:43] LABS: Basophils # 0.1 K/mcL (0.0-0.2); Basophils % 0.9 %; Eosinophils # 0.3 K/mcL (0.0-0.6); Eosinophils % 2.5 %; Hematocrit 27.4 % (37.5-50.1); Hemoglobin 8.4 g/dL (12.9-16.9); Immature Granulocytes % 1.5 % (0-4); Lymphocytes # 1.6 K/mcL (0.6-4.6); Lymphocytes % 11.5 %; Mean Corpuscular HGB Conc 30.7 g/dL (31.6-35.5); Mean Corpuscular Hemoglobin 28.1 pg (28.0-33.3); Mean Corpuscular Volume 91.6 fL (83.0-100.0); Mean Platelet Volume 10.2 fL (9.4-12.4); Monocytes # 1.4 K/mcL (0.0-1.3); Monocytes % 10.4 %; Neutrophils # 10.1 K/mcL (1.6-8.9); Platelet Count 330 K/mcL (140-400); Red Blood Count 2.99 M/mcL (4.19-5.50); Red Cell Distribution Width 16.6 % (11.5-14.5); Segmented Neutrophils % 73.2 %; White Blood Count 13.8 K/mcL (4.3-11.1)
[2021-06-19 03:20] LABS: BUN/Creatinine Ratio 25 (6-26); Blood Urea Nitrogen 26 mg/dL (8-23); Calcium 7.9 mg/dL (8.6-10.3); Carbon Dioxide 32 mEq/L (23-29); Chloride 102 mEq/L (98-107); Glucose 239 mg/dL (70-105); Osmolality,Calculated 295 (280-300); Potassium 5.2 mEq/L (3.5-5.1); Sodium 136 mEq/L (136-145); eGFR For African Americans > 60 (> 60); eGFR For Non-African Americans > 60 (> 60)
[2021-06-19] MEDS: *HR* HYDROmorphone (PF) 1 MG/ML SYRINGE IVP PRN ×2 (05:47→21:05)
[2021-06-19] MEDS: Simethicone 80 MG TAB.CHEW PO SCH ×3 (07:45→21:04)
[2021-06-19] MEDS: Insulin LISPRO 300 UNITS/3 ML VIAL SUBQ SCH ×4 (07:45→21:03)
[2021-06-19] MEDS: Lactobacillus 1 EACH CAP.SPRINK PO SCH ×2 (07:45→21:42)
[2021-06-19] MEDS: Baclofen 10 MG TABLET PO SCH ×2 (07:46→21:04)
[2021-06-19] MEDS: Leptospermum Honey Gel 44 ML TUBE TP SCH ×2 (07:46→21:42)
[2021-06-19] MEDS: Loratadine 10 MG TABLET PO SCH (07:46)
[2021-06-19] MEDS: Gabapentin 100 MG CAPSULE PO SCH ×3 (07:46→21:04)
[2021-06-19] MEDS: Vitamin B Complex/Vit C/Vit E 1 EACH TABLET PO SCH (07:46)
[2021-06-19] MEDS: Sucralfate 1 GM TABLET PO SCH ×2 (07:46→21:04)
[2021-06-19] MEDS: Acetaminophen 325 MG TABLET PO PRN (07:56)
[2021-06-19] MEDS: Melatonin 3 MG TABLET PO PRN (21:04)
[2021-06-19] MEDS: Mirtazapine 15 MG TABLET PO SCH (21:04)
[2021-06-20] MEDS: Meropenem 1,000 MG in 0.9 % Sodium Chloride Mini Bag 100 ML IVPB SCH ×2 (01:28→08:25)
[2021-06-20 04:30] LABS: Basophils # 0.1 K/mcL (0.0-0.2); Basophils % 0.8 %; Eosinophils # 0.6 K/mcL (0.0-0.6); Eosinophils % 4.8 %; Hematocrit 24.9 % (37.5-50.1); Hemoglobin 7.6 g/dL (12.9-16.9); Immature Granulocytes % 1.4 % (0-4); Lymphocytes # 1.5 K/mcL (0.6-4.6); Lymphocytes % 12.7 %; Mean Corpuscular HGB Conc 30.5 g/dL (31.6-35.5); Mean Corpuscular Hemoglobin 28.1 pg (28.0-33.3); Mean Corpuscular Volume 92.2 fL (83.0-100.0); Mean Platelet Volume 10.8 fL (9.4-12.4); Monocytes # 1.2 K/mcL (0.0-1.3); Monocytes % 10.3 %; Neutrophils # 8.1 K/mcL (1.6-8.9); Platelet Count 288 K/mcL (140-400); White Blood Count 11.6 K/mcL (4.3-11.1)
[2021-06-20 04:52] LABS: BUN/Creatinine Ratio 30 (6-26); Blood Urea Nitrogen 30 mg/dL (8-23); Carbon Dioxide 31 mEq/L (23-29); Chloride 102 mEq/L (98-107); Glucose 294 mg/dL (70-105); Osmolality,Calculated 299 (280-300); Potassium 5.1 mEq/L (3.5-5.1); Sodium 136 mEq/L (136-145); eGFR For African Americans > 60 (> 60); eGFR For Non-African Americans > 60 (> 60)
[2021-06-20] MEDS: Simethicone 80 MG TAB.CHEW PO SCH ×3 (08:24→20:46)
[2021-06-20] MEDS: Lactobacillus 1 EACH CAP.SPRINK PO SCH ×2 (08:24→20:45)
[2021-06-20] MEDS: Gabapentin 100 MG CAPSULE PO SCH ×3 (08:24→20:45)
[2021-06-20] MEDS: Sucralfate 1 GM TABLET PO SCH ×2 (08:25→20:46)
[2021-06-20] MEDS: Insulin LISPRO 300 UNITS/3 ML VIAL SUBQ SCH ×4 (08:25→20:44)
[2021-06-20] MEDS: Vitamin B Complex/Vit C/Vit E 1 EACH TABLET PO SCH (08:25)
[2021-06-20] MEDS: Baclofen 10 MG TABLET PO SCH ×2 (08:25→20:45)
[2021-06-20] MEDS: Loratadine 10 MG TABLET PO SCH (08:25)
[2021-06-20] MEDS: *HR* HYDROmorphone (PF) 1 MG/ML SYRINGE IVP PRN ×3 (08:26→16:39)
[2021-06-20] MEDS: Leptospermum Honey Gel 44 ML TUBE TP SCH ×2 (16:39→20:46)
[2021-06-20] MEDS: Mirtazapine 15 MG TABLET PO SCH (20:46)
[2021-06-20] MEDS: Insulin DETEMIR 100 UNIT/ML X5UNITS SUBQ SCH (20:48)
[2021-06-20] MEDS: Acetaminophen 325 MG TABLET PO PRN (23:47)
[2021-06-21] MEDS: *HR* HYDROmorphone (PF) 1 MG/ML SYRINGE IVP PRN ×4 (02:40→15:37)
[2021-06-21 02:51] LABS: Basophils # 0.1 K/mcL (0.0-0.2); Basophils % 0.9 %; Eosinophils # 0.7 K/mcL (0.0-0.6); Eosinophils % 4.9 %; Hematocrit 24.8 % (37.5-50.1); Hemoglobin 7.7 g/dL (12.9-16.9); Immature Granulocytes % 1.5 % (0-4); Lymphocytes # 1.8 K/mcL (0.6-4.6); Lymphocytes % 13.1 %; Mean Corpuscular Hemoglobin 28.4 pg (28.0-33.3); Mean Corpuscular Volume 91.5 fL (83.0-100.0); Mean Platelet Volume 10.7 fL (9.4-12.4); Monocytes # 1.3 K/mcL (0.0-1.3); Neutrophils # 9.3 K/mcL (1.6-8.9); Platelet Count 312 K/mcL (140-400); Red Blood Count 2.71 M/mcL (4.19-5.50); Segmented Neutrophils % 69.6 %; White Blood Count 13.4 K/mcL (4.3-11.1)
[2021-06-21 03:07] LABS: Magnesium 1.6 mg/dL (1.6-2.6); Phosphorous 3.4 mg/dL (2.7-4.5)
[2021-06-21 03:08] LABS: BUN/Creatinine Ratio 32 (6-26); Blood Urea Nitrogen 38 mg/dL (8-23); Carbon Dioxide 29 mEq/L (23-29); Chloride 102 mEq/L (98-107); Glucose 218 mg/dL (70-105); Osmolality,Calculated 296 (280-300); Sodium 135 mEq/L (136-145); eGFR For African Americans > 60 (> 60); eGFR For Non-African Americans > 60 (> 60)
[2021-06-21] MEDS: Vitamin B Complex/Vit C/Vit E 1 EACH TABLET PO SCH (08:33)
[2021-06-21] MEDS: Insulin LISPRO 300 UNITS/3 ML VIAL SUBQ SCH ×4 (08:33→20:06)
[2021-06-21] MEDS: Gabapentin 100 MG CAPSULE PO SCH ×2 (08:33→16:32)
[2021-06-21] MEDS: Insulin DETEMIR 100 UNIT/ML X5UNITS SUBQ SCH (08:33)
[2021-06-21] MEDS: Loratadine 10 MG TABLET PO SCH (08:33)
[2021-06-21] MEDS: Sucralfate 1 GM TABLET PO SCH ×2 (08:33→20:07)
[2021-06-21] MEDS: Lactobacillus 1 EACH CAP.SPRINK PO SCH ×2 (08:33→20:07)
[2021-06-21] MEDS: Simethicone 80 MG TAB.CHEW PO SCH ×3 (08:33→20:07)
[2021-06-21] MEDS: Baclofen 10 MG TABLET PO SCH ×2 (08:33→20:06)
[2021-06-21] MEDS ORDERED: Dextrose Gel 15 GM/37.5 ML TUBE PO PRN ×2 (15:22)
[2021-06-21] MEDS ORDERED: *HR* Dextrose 50 % in Water (Syg) 50 ML SYRINGE IVP PRN (15:22)
[2021-06-21] MEDS ORDERED: D5% in Water 1,000 ML IVC PRN (15:22)
[2021-06-21] MEDS: Leptospermum Honey Gel 44 ML TUBE TP SCH ×2 (15:38→20:07)
[2021-06-21] MEDS: Gabapentin 300 MG CAPSULE PO SCH (20:06)
[2021-06-21] MEDS: Mirtazapine 15 MG TABLET PO SCH (20:07)
[2021-06-21] MEDS ORDERED: Insulin DETEMIR 100 UNIT/ML X5UNITS SUBQ SCH (21:00)
[2021-06-22] MEDS: Acetaminophen 325 MG TABLET PO PRN (03:22)
[2021-06-22 05:19] LABS: Basophils # 0.1 K/mcL (0.0-0.2); Basophils % 0.9 %; Eosinophils # 0.7 K/mcL (0.0-0.6); Eosinophils % 4.9 %; Hematocrit 24.6 % (37.5-50.1); Hemoglobin 7.5 g/dL (12.9-16.9); Immature Granulocytes % 1.5 % (0-4); Lymphocytes # 1.8 K/mcL (0.6-4.6); Lymphocytes % 13.6 %; Mean Corpuscular HGB Conc 30.5 g/dL (31.6-35.5); Mean Corpuscular Hemoglobin 28.2 pg (28.0-33.3); Mean Corpuscular Volume 92.5 fL (83.0-100.0); Mean Platelet Volume 11.1 fL (9.4-12.4); Monocytes # 1.5 K/mcL (0.0-1.3); Monocytes % 11.4 %; Neutrophils # 9.2 K/mcL (1.6-8.9); Platelet Count 312 K/mcL (140-400); Red Blood Count 2.66 M/mcL (4.19-5.50); Red Cell Distribution Width 17.1 % (11.5-14.5); Segmented Neutrophils % 67.7 %; White Blood Count 13.6 K/mcL (4.3-11.1)
[2021-06-22 05:49] LABS: BUN/Creatinine Ratio 42 (6-26); Blood Urea Nitrogen 44 mg/dL (8-23); Carbon Dioxide 30 mEq/L (23-29); Chloride 100 mEq/L (98-107); Glucose 259 mg/dL (70-105); Magnesium 1.5 mg/dL (1.6-2.6); Osmolality,Calculated 300 (280-300); Phosphorous 3.7 mg/dL (2.7-4.5); Sodium 135 mEq/L (136-145); eGFR For African Americans > 60 (> 60); eGFR For Non-African Americans > 60 (> 60)
[2021-06-22] MEDS ORDERED: Calcium Gluconate 1gm/50mL 1 GM/50 ML BAG IVPB ONE (05:57)
[2021-06-22 06:35] LABS: Troponin I < 0.03 ng/mL (< 0.04)
[2021-06-22] MEDS: Loratadine 10 MG TABLET PO SCH (09:26)
[2021-06-22] MEDS: Vitamin B Complex/Vit C/Vit E 1 EACH TABLET PO SCH (09:26)
[2021-06-22] MEDS: Simethicone 80 MG TAB.CHEW PO SCH ×3 (09:26→20:58)
[2021-06-22] MEDS: Sucralfate 1 GM TABLET PO SCH ×2 (09:26→20:58)
[2021-06-22] MEDS: Baclofen 10 MG TABLET PO SCH ×2 (09:26→20:58)
[2021-06-22] MEDS: Gabapentin 300 MG CAPSULE PO SCH ×3 (09:26→20:58)
[2021-06-22] MEDS: Insulin LISPRO 300 UNITS/3 ML VIAL SUBQ SCH ×3 (09:27→21:16)
[2021-06-22] MEDS: Insulin DETEMIR 100 UNIT/ML X5UNITS SUBQ SCH ×2 (09:30→21:16)
[2021-06-22] MEDS ORDERED: Isovue-370 500 ML BOTTLE PO ONE (11:26)
[2021-06-22] MEDS ORDERED: Naloxone 0.4 MG/ML INJ IVP PRN (14:21)
[2021-06-22] MEDS: *HR* HYDROmorphone (PF) 1 MG/ML SYRINGE IVP PRN (18:30)
[2021-06-22] MEDS: Ondansetron ODT 4 MG TAB.RAPDIS SL PRN (18:45)
[2021-06-22] MEDS: Melatonin 3 MG TABLET PO PRN (20:58)
[2021-06-22] MEDS: Mirtazapine 15 MG TABLET PO SCH (20:58)
[2021-06-22] MEDS: Lactobacillus 1 EACH CAP.SPRINK PO SCH (20:58)
[2021-06-23 01:55] LABS: Basophils # 0.1 K/mcL (0.0-0.2); Basophils % 0.7 %; Eosinophils # 0.9 K/mcL (0.0-0.6); Hematocrit 23.1 % (37.5-50.1); Hemoglobin 7.2 g/dL (12.9-16.9); Immature Granulocytes % 1.5 % (0-4); Lymphocytes # 1.8 K/mcL (0.6-4.6); Lymphocytes % 13.2 %; Mean Corpuscular HGB Conc 31.2 g/dL (31.6-35.5); Mean Corpuscular Hemoglobin 28.7 pg (28.0-33.3); Mean Platelet Volume 10.7 fL (9.4-12.4); Monocytes # 1.5 K/mcL (0.0-1.3); Monocytes % 11.4 %; Neutrophils # 8.9 K/mcL (1.6-8.9); Platelet Count 300 K/mcL (140-400); Red Blood Count 2.51 M/mcL (4.19-5.50); Red Cell Distribution Width 17.1 % (11.5-14.5); Segmented Neutrophils % 66.2 %; White Blood Count 13.5 K/mcL (4.3-11.1)
[2021-06-23 02:10] LABS: BUN/Creatinine Ratio 39 (6-26); Blood Urea Nitrogen 40 mg/dL (8-23); Carbon Dioxide 28 mEq/L (23-29); Chloride 101 mEq/L (98-107); Glucose 192 mg/dL (70-105); Magnesium 1.8 mg/dL (1.6-2.6); Osmolality,Calculated 297 (280-300); Phosphorous 4.6 mg/dL (2.7-4.5); Potassium 5.1 mEq/L (3.5-5.1); Sodium 136 mEq/L (136-145); eGFR For African Americans > 60 (> 60); eGFR For Non-African Americans > 60 (> 60)
[2021-06-23] MEDS: Gabapentin 300 MG CAPSULE PO SCH ×3 (09:47→21:13)
[2021-06-23] MEDS: Baclofen 10 MG TABLET PO SCH ×2 (09:47→21:13)
[2021-06-23] MEDS: Loratadine 10 MG TABLET PO SCH (09:48)
[2021-06-23] MEDS: Simethicone 80 MG TAB.CHEW PO SCH ×3 (09:48→21:13)
[2021-06-23] MEDS: Lactobacillus 1 EACH CAP.SPRINK PO SCH ×2 (09:48→21:14)
[2021-06-23] MEDS: Insulin DETEMIR 100 UNIT/ML X5UNITS SUBQ SCH ×2 (09:49→21:14)
[2021-06-23] MEDS: Sucralfate 1 GM TABLET PO SCH ×2 (09:49→21:13)
[2021-06-23] MEDS: *HR* HYDROmorphone (PF) 1 MG/ML SYRINGE IVP PRN (15:02)
[2021-06-23] MEDS: Insulin LISPRO 300 UNITS/3 ML VIAL SUBQ SCH ×2 (16:57→21:14)
[2021-06-23] MEDS: Leptospermum Honey Gel 44 ML TUBE TP SCH ×2 (19:30→19:31)
[2021-06-23] MEDS: Melatonin 3 MG TABLET PO PRN (21:13)
[2021-06-23] MEDS: Mirtazapine 15 MG TABLET PO SCH (21:13)
[2021-06-24] MEDS: Gabapentin 300 MG CAPSULE PO SCH ×3 (08:14→20:10)
[2021-06-24] MEDS: Simethicone 80 MG TAB.CHEW PO SCH ×3 (08:14→20:11)
[2021-06-24] MEDS: Lactobacillus 1 EACH CAP.SPRINK PO SCH ×2 (08:14→20:10)
[2021-06-24] MEDS: Sucralfate 1 GM TABLET PO SCH ×2 (08:14→20:10)
[2021-06-24] MEDS: Baclofen 10 MG TABLET PO SCH ×2 (08:14→20:10)
[2021-06-24] MEDS: Insulin DETEMIR 100 UNIT/ML X5UNITS SUBQ SCH ×2 (08:15→20:11)
[2021-06-24] MEDS: Loratadine 10 MG TABLET PO SCH (08:15)
[2021-06-24] MEDS: Insulin LISPRO 300 UNITS/3 ML VIAL SUBQ SCH ×4 (08:16→20:09)
[2021-06-24] MEDS: Leptospermum Honey Gel 44 ML TUBE TP SCH ×2 (08:17→20:11)
[2021-06-24 10:10] LABS: Basophils # 0.1 K/mcL (0.0-0.2); Basophils % 0.6 %; Eosinophils # 0.6 K/mcL (0.0-0.6); Eosinophils % 5.7 %; Hemoglobin 7.3 g/dL (12.9-16.9); Immature Granulocytes % 1.5 % (0-4); Lymphocytes # 1.4 K/mcL (0.6-4.6); Lymphocytes % 12.8 %; Mean Corpuscular HGB Conc 31.7 g/dL (31.6-35.5); Mean Corpuscular Hemoglobin 29.1 pg (28.0-33.3); Mean Corpuscular Volume 91.6 fL (83.0-100.0); Mean Platelet Volume 10.8 fL (9.4-12.4); Monocytes # 1.4 K/mcL (0.0-1.3); Neutrophils # 7.1 K/mcL (1.6-8.9); Platelet Count 298 K/mcL (140-400); Red Blood Count 2.51 M/mcL (4.19-5.50); Red Cell Distribution Width 17.1 % (11.5-14.5); Segmented Neutrophils % 66.4 %; White Blood Count 10.7 K/mcL (4.3-11.1)
[2021-06-24 10:29] LABS: BUN/Creatinine Ratio 36 (6-26); Blood Urea Nitrogen 41 mg/dL (8-23); Calcium 8.1 mg/dL (8.6-10.3); Carbon Dioxide 30 mEq/L (23-29); Chloride 100 mEq/L (98-107); Glucose 322 mg/dL (70-105); Magnesium 1.8 mg/dL (1.6-2.6); Osmolality,Calculated 301 (280-300); Phosphorous 4.8 mg/dL (2.7-4.5); Potassium 5.2 mEq/L (3.5-5.1); Sodium 134 mEq/L (136-145); eGFR For African Americans > 60 (> 60); eGFR For Non-African Americans > 60 (> 60)
[2021-06-24] MEDS: Mirtazapine 15 MG TABLET PO SCH (20:11)
[2021-06-25 07:19] LABS: Hematocrit 21.7 % (37.5-50.1); Hemoglobin 6.8 g/dL (12.9-16.9)
[2021-06-25 07:32] LABS: BUN/Creatinine Ratio 34 (6-26); Blood Urea Nitrogen 38 mg/dL (8-23); Calcium 8.3 mg/dL (8.6-10.3); Carbon Dioxide 30 mEq/L (23-29); Chloride 98 mEq/L (98-107); Glucose 328 mg/dL (70-105); Magnesium 1.7 mg/dL (1.6-2.6); Osmolality,Calculated 296 (280-300); Phosphorous 4.7 mg/dL (2.7-4.5); Potassium 5.3 mEq/L (3.5-5.1); Sodium 132 mEq/L (136-145); eGFR For African Americans > 60 (> 60); eGFR For Non-African Americans > 60 (> 60)
[2021-06-25] MEDS: Simethicone 80 MG TAB.CHEW PO SCH ×3 (08:08→21:04)
[2021-06-25] MEDS: Gabapentin 300 MG CAPSULE PO SCH ×3 (08:08→21:04)
[2021-06-25] MEDS: Loratadine 10 MG TABLET PO SCH (08:09)
[2021-06-25] MEDS: Lactobacillus 1 EACH CAP.SPRINK PO SCH ×2 (08:09→21:03)
[2021-06-25] MEDS: Baclofen 10 MG TABLET PO SCH ×2 (08:09→21:04)
[2021-06-25] MEDS: Insulin DETEMIR 100 UNIT/ML X5UNITS SUBQ SCH ×3 (08:09→21:12)
[2021-06-25] MEDS: Insulin LISPRO 300 UNITS/3 ML VIAL SUBQ SCH ×6 (08:09→21:04)
[2021-06-25] MEDS: Sucralfate 1 GM TABLET PO SCH ×2 (08:09→21:04)
[2021-06-25] MEDS ORDERED: 0.9 % Sodium Chloride 250 ML IVC SCH (08:30)
[2021-06-25] MEDS: *HR* HYDROmorphone (PF) 1 MG/ML SYRINGE IVP PRN (11:08)
[2021-06-25] MEDS ORDERED: 0.9 % Sodium Chloride 250 ML ONE (12:42)
[2021-06-25 16:44] LABS: Hematocrit 27.3 % (37.5-50.1); Hemoglobin 8.7 g/dL (12.9-16.9)
[2021-06-25] MEDS: Leptospermum Honey Gel 44 ML TUBE TP SCH ×2 (18:04→21:05)
[2021-06-25] MEDS: Mirtazapine 15 MG TABLET PO SCH (21:04)
[2021-06-26 02:35] LABS: Alanine Aminotransferase 17 Units/L (7-52); Albumin 2.1 g/dL (3.5-5.7); Albumin/Globulin Ratio 0.5 (1.1-2.2); Alkaline Phosphatase 114 Units/L (34-104); Aspartate Amino Transferase 30 Units/L (13-39); BUN/Creatinine Ratio 30 (6-26); Bilirubin,Total 0.3 mg/dL (0.3-1.0); Blood Urea Nitrogen 34 mg/dL (8-23); Calcium 8.3 mg/dL (8.6-10.3); Carbon Dioxide 28 mEq/L (23-29); Chloride 101 mEq/L (98-107); Glucose 194 mg/dL (70-105); Magnesium 1.8 mg/dL (1.6-2.6); Osmolality,Calculated 295 (280-300); Phosphorous 4.5 mg/dL (2.7-4.5); Potassium 6.3 mEq/L (3.5-5.1); Sodium 136 mEq/L (136-145); Total Protein 6.1 g/dL (6.4-8.9); eGFR For African Americans > 60 (> 60); eGFR For Non-African Americans > 60 (> 60)
[2021-06-26] MEDS: Insulin LISPRO 300 UNITS/3 ML VIAL SUBQ SCH ×7 (07:42→20:25)
[2021-06-26] MEDS: Lactobacillus 1 EACH CAP.SPRINK PO SCH ×2 (07:43→20:20)
[2021-06-26] MEDS: Loratadine 10 MG TABLET PO SCH (07:43)
[2021-06-26] MEDS: Baclofen 10 MG TABLET PO SCH ×2 (07:43→20:20)
[2021-06-26] MEDS: Simethicone 80 MG TAB.CHEW PO SCH ×3 (07:43→20:20)
[2021-06-26] MEDS: Sucralfate 1 GM TABLET PO SCH ×2 (07:43→20:20)
[2021-06-26] MEDS: Gabapentin 300 MG CAPSULE PO SCH ×3 (07:43→20:20)
[2021-06-26] MEDS: Insulin DETEMIR 100 UNIT/ML X5UNITS SUBQ SCH ×2 (07:44→20:25)
[2021-06-26 08:26] LABS: Hematocrit 26.9 % (37.5-50.1); Hemoglobin 8.3 g/dL (12.9-16.9)
[2021-06-26] MEDS: Leptospermum Honey Gel 44 ML TUBE TP SCH ×2 (14:50→20:20)
[2021-06-26 18:16] LABS: ABG Base Excess 8 mEq/L (-2 to 3); ABG HCO3 34 mEq/L (21-27); ABG Oxygen Saturation 93 % (95-98); ABG PCO2 53 mmHg (35-45); ABG PH 7.41 pH Units (7.32-7.45); ABG PO2 68 mmHg (85-104); ABG TCO2 35 mEq/L (20-26)
[2021-06-26] MEDS: Mirtazapine 15 MG TABLET PO SCH (20:20)
[2021-06-27 02:03] LABS: Basophils # 0.1 K/mcL (0.0-0.2); Eosinophils % 9.2 %; Hematocrit 28.5 % (37.5-50.1); Hemoglobin 8.7 g/dL (12.9-16.9); Immature Granulocytes % 1.5 % (0-4); Lymphocytes # 1.7 K/mcL (0.6-4.6); Lymphocytes % 15.6 %; Mean Corpuscular HGB Conc 30.5 g/dL (31.6-35.5); Mean Corpuscular Volume 91.6 fL (83.0-100.0); Mean Platelet Volume 10.4 fL (9.4-12.4); Monocytes # 1.2 K/mcL (0.0-1.3); Monocytes % 11.6 %; Neutrophils # 6.5 K/mcL (1.6-8.9); Platelet Count 368 K/mcL (140-400); Red Blood Count 3.11 M/mcL (4.19-5.50); Red Cell Distribution Width 16.4 % (11.5-14.5); Segmented Neutrophils % 61.1 %; White Blood Count 10.6 K/mcL (4.3-11.1)
[2021-06-27 02:28] LABS: BUN/Creatinine Ratio 26 (6-26); Blood Urea Nitrogen 31 mg/dL (8-23); Calcium 8.3 mg/dL (8.6-10.3); Carbon Dioxide 32 mEq/L (23-29); Chloride 98 mEq/L (98-107); Glucose 308 mg/dL (70-105); Magnesium 1.7 mg/dL (1.6-2.6); Osmolality,Calculated 300 (280-300); Phosphorous 4.4 mg/dL (2.7-4.5); Potassium 5.2 mEq/L (3.5-5.1); Sodium 136 mEq/L (136-145); eGFR For African Americans > 60 (> 60); eGFR For Non-African Americans > 60 (> 60)
[2021-06-27] MEDS: Acetaminophen 325 MG TABLET PO PRN ×2 (03:48→23:34)
[2021-06-27] MEDS: Lactobacillus 1 EACH CAP.SPRINK PO SCH ×2 (09:25→21:18)
[2021-06-27] MEDS: Simethicone 80 MG TAB.CHEW PO SCH ×3 (09:25→21:18)
[2021-06-27] MEDS: Loratadine 10 MG TABLET PO SCH (09:25)
[2021-06-27] MEDS: Sucralfate 1 GM TABLET PO SCH ×2 (09:25→21:18)
[2021-06-27] MEDS: polyethylene glycoL 3350 17 GM POWD.PACK PO PRN (09:25)
[2021-06-27] MEDS: Gabapentin 300 MG CAPSULE PO SCH ×3 (09:25→21:18)
[2021-06-27] MEDS: Baclofen 10 MG TABLET PO SCH ×2 (09:26→21:18)
[2021-06-27] MEDS: Insulin LISPRO 300 UNITS/3 ML VIAL SUBQ SCH ×7 (09:30→21:18)
[2021-06-27] MEDS: Leptospermum Honey Gel 44 ML TUBE TP SCH ×2 (09:54→21:18)
[2021-06-27] MEDS: Insulin DETEMIR 100 UNIT/ML X5UNITS SUBQ SCH ×2 (10:11→21:18)
[2021-06-27] MEDS: *HR* HYDROmorphone (PF) 1 MG/ML SYRINGE IVP PRN (17:03)
[2021-06-27] MEDS: Mirtazapine 15 MG TABLET PO SCH (21:18)
[2021-06-28 01:44] LABS: Basophils # 0.1 K/mcL (0.0-0.2); Basophils % 0.8 %; Eosinophils # 1.1 K/mcL (0.0-0.6); Eosinophils % 9.2 %; Hematocrit 26.2 % (37.5-50.1); Hemoglobin 8.1 g/dL (12.9-16.9); Immature Granulocytes % 1.2 % (0-4); Lymphocytes # 1.7 K/mcL (0.6-4.6); Lymphocytes % 14.9 %; Mean Corpuscular HGB Conc 30.9 g/dL (31.6-35.5); Mean Corpuscular Hemoglobin 28.4 pg (28.0-33.3); Mean Corpuscular Volume 91.9 fL (83.0-100.0); Mean Platelet Volume 10.3 fL (9.4-12.4); Monocytes # 1.2 K/mcL (0.0-1.3); Monocytes % 10.3 %; Neutrophils # 7.3 K/mcL (1.6-8.9); Platelet Count 343 K/mcL (140-400); Red Blood Count 2.85 M/mcL (4.19-5.50); Red Cell Distribution Width 16.2 % (11.5-14.5); Segmented Neutrophils % 63.6 %; White Blood Count 11.5 K/mcL (4.3-11.1)
[2021-06-28] MEDS ORDERED: 0.9 % Sodium Chloride 1,000 ML ONE (01:58)
[2021-06-28 01:59] LABS: BUN/Creatinine Ratio 31 (6-26); Blood Urea Nitrogen 37 mg/dL (8-23); Calcium 8.5 mg/dL (8.6-10.3); Carbon Dioxide 31 mEq/L (23-29); Chloride 100 mEq/L (98-107); Glucose 272 mg/dL (70-105); Magnesium 1.5 mg/dL (1.6-2.6); Osmolality,Calculated 302 (280-300); Potassium 4.9 mEq/L (3.5-5.1); Sodium 137 mEq/L (136-145); eGFR For African Americans > 60 (> 60); eGFR For Non-African Americans > 60 (> 60)
[2021-06-28] MEDS: 0.9 % Sodium Chloride 1,000 ML IVC ONE ×2 (03:52→04:29)
[2021-06-28] MEDS ORDERED: 0.9 % Sodium Chloride 1,000 ML IVC ONE ×2 (04:24→06:12)
[2021-06-28] MEDS ORDERED: Meropenem 1,000 MG in 0.9 % Sodium Chloride Mini Bag 100 ML IVPB SCH (05:00)
[2021-06-28] MEDS: Gabapentin 300 MG CAPSULE PO SCH ×3 (09:15→21:50)
[2021-06-28] MEDS: Loratadine 10 MG TABLET PO SCH (09:15)
[2021-06-28] MEDS: Simethicone 80 MG TAB.CHEW PO SCH ×3 (09:15→21:50)
[2021-06-28] MEDS: Lactobacillus 1 EACH CAP.SPRINK PO SCH ×2 (09:15→21:50)
[2021-06-28] MEDS: polyethylene glycoL 3350 17 GM POWD.PACK PO PRN (09:15)
[2021-06-28] MEDS: Sucralfate 1 GM TABLET PO SCH ×2 (09:15→21:50)
[2021-06-28] MEDS: Baclofen 10 MG TABLET PO SCH ×2 (09:15→21:50)
[2021-06-28] MEDS: Insulin DETEMIR 100 UNIT/ML X5UNITS SUBQ SCH ×2 (09:16→21:56)
[2021-06-28] MEDS: Insulin LISPRO 300 UNITS/3 ML VIAL SUBQ SCH ×7 (09:17→21:50)
[2021-06-28] MEDS: Leptospermum Honey Gel 44 ML TUBE TP SCH ×2 (09:18→22:10)
[2021-06-28] MEDS: Acetaminophen 325 MG TABLET PO PRN (11:06)
[2021-06-28] MEDS: Magnesium Oxide 400 MG TABLET PO SCH ×2 (14:46→21:50)
[2021-06-28] MEDS: Meropenem 1,000 MG in 0.9 % Sodium Chloride Mini Bag 100 ML IVPB SCH ×2 (14:48→23:41)
[2021-06-28] MEDS: Mirtazapine 15 MG TABLET PO SCH (21:50)
[2021-06-29] MEDS: Insulin LISPRO 300 UNITS/3 ML VIAL SUBQ SCH ×7 (07:36→20:10)
[2021-06-29] MEDS: Loratadine 10 MG TABLET PO SCH (07:37)
[2021-06-29] MEDS: Sucralfate 1 GM TABLET PO SCH ×2 (07:37→20:10)
[2021-06-29] MEDS: Simethicone 80 MG TAB.CHEW PO SCH ×3 (07:37→20:10)
[2021-06-29] MEDS: Baclofen 10 MG TABLET PO SCH ×2 (07:37→20:10)
[2021-06-29] MEDS: Magnesium Oxide 400 MG TABLET PO SCH ×2 (07:37→20:10)
[2021-06-29] MEDS: Lactobacillus 1 EACH CAP.SPRINK PO SCH ×2 (07:37→20:10)
[2021-06-29] MEDS: Gabapentin 300 MG CAPSULE PO SCH ×3 (07:37→20:10)
[2021-06-29] MEDS: Meropenem 1,000 MG in 0.9 % Sodium Chloride Mini Bag 100 ML IVPB SCH ×3 (07:38→23:49)
[2021-06-29] MEDS: Insulin DETEMIR 100 UNIT/ML X5UNITS SUBQ SCH ×2 (07:38→20:10)
[2021-06-29] MEDS: Leptospermum Honey Gel 44 ML TUBE TP SCH ×2 (16:51→20:10)
[2021-06-29] MEDS: *HR* HYDROmorphone (PF) 1 MG/ML SYRINGE IVP PRN (16:58)
[2021-06-29] MEDS: Acetaminophen 325 MG TABLET PO PRN (16:59)
[2021-06-29] MEDS: Mirtazapine 15 MG TABLET PO SCH (20:10)
[2021-06-30 02:31] LABS: Basophils # 0.1 K/mcL (0.0-0.2); Basophils % 0.9 %; Eosinophils # 1.1 K/mcL (0.0-0.6); Eosinophils % 11.6 %; Hematocrit 26.6 % (37.5-50.1); Hemoglobin 8.2 g/dL (12.9-16.9); Immature Granulocytes % 2.7 % (0-4); Lymphocytes # 1.2 K/mcL (0.6-4.6); Lymphocytes % 12.7 %; Mean Corpuscular HGB Conc 30.8 g/dL (31.6-35.5); Mean Corpuscular Hemoglobin 28.6 pg (28.0-33.3); Mean Corpuscular Volume 92.7 fL (83.0-100.0); Mean Platelet Volume 10.5 fL (9.4-12.4); Monocytes # 0.9 K/mcL (0.0-1.3); Neutrophils # 5.8 K/mcL (1.6-8.9); Platelet Count 355 K/mcL (140-400); Red Blood Count 2.87 M/mcL (4.19-5.50); Red Cell Distribution Width 16.2 % (11.5-14.5); Segmented Neutrophils % 62.1 %; White Blood Count 9.3 K/mcL (4.3-11.1)
[2021-06-30 02:36] LABS: BUN/Creatinine Ratio 30 (6-26); Blood Urea Nitrogen 34 mg/dL (8-23); Calcium 8.4 mg/dL (8.6-10.3); Carbon Dioxide 31 mEq/L (23-29); Chloride 103 mEq/L (98-107); Glucose 305 mg/dL (70-105); Osmolality,Calculated 305 (280-300); Potassium 5.2 mEq/L (3.5-5.1); Sodium 138 mEq/L (136-145); eGFR For African Americans > 60 (> 60); eGFR For Non-African Americans > 60 (> 60)
[2021-06-30] MEDS: Insulin DETEMIR 100 UNIT/ML X5UNITS SUBQ SCH ×2 (08:17→20:57)
[2021-06-30] MEDS: Insulin LISPRO 300 UNITS/3 ML VIAL SUBQ SCH ×7 (08:18→20:57)
[2021-06-30] MEDS: Sucralfate 1 GM TABLET PO SCH ×2 (08:21→20:57)
[2021-06-30] MEDS: Baclofen 10 MG TABLET PO SCH ×2 (08:21→20:57)
[2021-06-30] MEDS: Simethicone 80 MG TAB.CHEW PO SCH ×3 (08:21→20:57)
[2021-06-30] MEDS: Lactobacillus 1 EACH CAP.SPRINK PO SCH ×2 (08:21→20:57)
[2021-06-30] MEDS: Gabapentin 300 MG CAPSULE PO SCH ×3 (08:21→20:57)
[2021-06-30] MEDS: Meropenem 1,000 MG in 0.9 % Sodium Chloride Mini Bag 100 ML IVPB SCH ×3 (08:21→23:25)
[2021-06-30] MEDS: Loratadine 10 MG TABLET PO SCH (08:21)
[2021-06-30] MEDS: Leptospermum Honey Gel 44 ML TUBE TP SCH (11:46)
[2021-06-30] MEDS: Mirtazapine 15 MG TABLET PO SCH (20:57)
[2021-06-30] MEDS: *HR* HYDROmorphone (PF) 1 MG/ML SYRINGE IVP PRN (22:50)
[2021-07-01 02:12] LABS: Hematocrit 25.3 % (37.5-50.1); Hemoglobin 7.8 g/dL (12.9-16.9); Lymphocytes % 15.8 %; Mean Corpuscular HGB Conc 30.8 g/dL (31.6-35.5); Mean Corpuscular Hemoglobin 28.1 pg (28.0-33.3); Mean Platelet Volume 10.6 fL (9.4-12.4); Monocytes % 9.7 %; Platelet Count 316 K/mcL (140-400); Red Blood Count 2.78 M/mcL (4.19-5.50); Segmented Neutrophils % 59.7 %; White Blood Count 11.4 K/mcL (4.3-11.1)
[2021-07-01 02:13] LABS: Basophils # 0.1 K/mcL (0.0-0.2); Basophils % 0.9 %; Eosinophils # 1.1 K/mcL (0.0-0.6); Eosinophils % 9.9 %; Lymphocytes # 1.8 K/mcL (0.6-4.6); Monocytes # 1.1 K/mcL (0.0-1.3); Neutrophils # 6.8 K/mcL (1.6-8.9)
[2021-07-01 02:31] LABS: BUN/Creatinine Ratio 33 (6-26); Blood Urea Nitrogen 33 mg/dL (8-23); Calcium 8.3 mg/dL (8.6-10.3); Carbon Dioxide 31 mEq/L (23-29); Chloride 102 mEq/L (98-107); Glucose 239 mg/dL (70-105); Osmolality,Calculated 299 (280-300); Potassium 6.1 mEq/L (3.5-5.1); Sodium 137 mEq/L (136-145); eGFR For African Americans > 60 (> 60); eGFR For Non-African Americans > 60 (> 60)
[2021-07-01] MEDS: Lactobacillus 1 EACH CAP.SPRINK PO SCH ×2 (07:32→20:58)
[2021-07-01] MEDS: Sucralfate 1 GM TABLET PO SCH ×2 (07:32→20:58)
[2021-07-01] MEDS: Loratadine 10 MG TABLET PO SCH (07:32)
[2021-07-01] MEDS: Gabapentin 300 MG CAPSULE PO SCH ×3 (07:32→20:58)
[2021-07-01] MEDS: Simethicone 80 MG TAB.CHEW PO SCH ×3 (07:32→20:58)
[2021-07-01] MEDS: Insulin DETEMIR 100 UNIT/ML X5UNITS SUBQ SCH ×2 (07:32→21:01)
[2021-07-01] MEDS: Meropenem 1,000 MG in 0.9 % Sodium Chloride Mini Bag 100 ML IVPB SCH ×2 (07:32→15:49)
[2021-07-01] MEDS: Baclofen 10 MG TABLET PO SCH ×2 (07:32→20:58)
[2021-07-01] MEDS: Insulin LISPRO 300 UNITS/3 ML VIAL SUBQ SCH ×7 (07:33→20:47)
[2021-07-01] MEDS ORDERED: Furosemide 20 MG/2 ML VIAL IVP ONE (09:00)
[2021-07-01] MEDS ORDERED: Insulin Human Regular 10 UNIT in 0.9 % Sodium Chloride 10 ML IV ONE (09:00)
[2021-07-01] MEDS: SODIUM ZIRCONIUM CYCLOSILICATE 5 GM POWD.PACK PO SCH (09:35)
[2021-07-01] MEDS: *HR* HYDROmorphone (PF) 1 MG/ML SYRINGE IVP PRN ×2 (14:34→18:38)
[2021-07-01] MEDS: *HR* OxyCODONE Immed Rel 5 MG TABLET PO PRN (16:21)
[2021-07-01] MEDS: Melatonin 3 MG TABLET PO PRN (20:58)
[2021-07-01] MEDS: Mirtazapine 15 MG TABLET PO SCH (20:58)
[2021-07-01 21:29] LABS: BUN/Creatinine Ratio 33 (6-26); Blood Urea Nitrogen 34 mg/dL (8-23); Calcium 8.5 mg/dL (8.6-10.3); Carbon Dioxide 34 mEq/L (23-29); Chloride 101 mEq/L (98-107); Glucose 216 mg/dL (70-105); Osmolality,Calculated 298 (280-300); Potassium 5.1 mEq/L (3.5-5.1); Sodium 137 mEq/L (136-145); eGFR For African Americans > 60 (> 60); eGFR For Non-African Americans > 60 (> 60)
[2021-07-02] MEDS: Meropenem 1,000 MG in 0.9 % Sodium Chloride Mini Bag 100 ML IVPB SCH ×4 (00:36→23:28)
[2021-07-02] MEDS: *HR* OxyCODONE Immed Rel 5 MG TABLET PO PRN ×2 (00:41→17:56)
[2021-07-02] MEDS: *HR* HYDROmorphone (PF) 1 MG/ML SYRINGE IVP PRN ×3 (05:27→20:45)
[2021-07-02 05:34] LABS: Basophils # 0.1 K/mcL (0.0-0.2); Eosinophils # 1.1 K/mcL (0.0-0.6); Eosinophils % 9.4 %; Hematocrit 24.5 % (37.5-50.1); Hemoglobin 7.7 g/dL (12.9-16.9); Immature Granulocytes % 2.8 % (0-4); Lymphocytes # 1.7 K/mcL (0.6-4.6); Lymphocytes % 14.9 %; Mean Corpuscular HGB Conc 31.4 g/dL (31.6-35.5); Mean Corpuscular Hemoglobin 28.8 pg (28.0-33.3); Mean Corpuscular Volume 91.8 fL (83.0-100.0); Mean Platelet Volume 10.4 fL (9.4-12.4); Monocytes # 1.1 K/mcL (0.0-1.3); Monocytes % 9.1 %; Neutrophils # 7.3 K/mcL (1.6-8.9); Platelet Count 332 K/mcL (140-400); Red Blood Count 2.67 M/mcL (4.19-5.50); Red Cell Distribution Width 16.3 % (11.5-14.5); Segmented Neutrophils % 62.8 %; White Blood Count 11.6 K/mcL (4.3-11.1)
[2021-07-02 05:53] LABS: BUN/Creatinine Ratio 34 (6-26); Blood Urea Nitrogen 34 mg/dL (8-23); Calcium 8.6 mg/dL (8.6-10.3); Carbon Dioxide 36 mEq/L (23-29); Chloride 99 mEq/L (98-107); Glucose 155 mg/dL (70-105); Osmolality,Calculated 295 (280-300); Potassium 4.7 mEq/L (3.5-5.1); Sodium 137 mEq/L (136-145); eGFR For African Americans > 60 (> 60); eGFR For Non-African Americans > 60 (> 60)
[2021-07-02] MEDS: Insulin LISPRO 300 UNITS/3 ML VIAL SUBQ SCH ×7 (11:08→20:55)
[2021-07-02] MEDS: Gabapentin 300 MG CAPSULE PO SCH ×3 (11:08→20:51)
[2021-07-02] MEDS: Loratadine 10 MG TABLET PO SCH (11:09)
[2021-07-02] MEDS: Simethicone 80 MG TAB.CHEW PO SCH ×3 (11:09→20:50)
[2021-07-02] MEDS: SODIUM ZIRCONIUM CYCLOSILICATE 5 GM POWD.PACK PO SCH (11:12)
[2021-07-02] MEDS: Lactobacillus 1 EACH CAP.SPRINK PO SCH ×2 (11:37→20:51)
[2021-07-02] MEDS: Insulin DETEMIR 100 UNIT/ML X5UNITS SUBQ SCH ×2 (12:04→20:54)
[2021-07-02] MEDS: Sucralfate 1 GM TABLET PO SCH ×2 (12:05→20:51)
[2021-07-02] MEDS: Baclofen 10 MG TABLET PO SCH ×2 (13:20→20:50)
[2021-07-02] MEDS: Acetaminophen 325 MG TABLET PO PRN (20:51)
[2021-07-02] MEDS: Mirtazapine 15 MG TABLET PO SCH (20:51)
[2021-07-03 07:24] LABS: Basophils # 0.1 K/mcL (0.0-0.2); Basophils % 0.8 %; Eosinophils % 9.1 %; Hematocrit 26.6 % (37.5-50.1); Hemoglobin 8.4 g/dL (12.9-16.9); Immature Granulocytes % 3.2 % (0-4); Lymphocytes # 1.5 K/mcL (0.6-4.6); Lymphocytes % 13.5 %; Mean Corpuscular HGB Conc 31.6 g/dL (31.6-35.5); Mean Corpuscular Hemoglobin 29.1 pg (28.0-33.3); Mean Platelet Volume 10.1 fL (9.4-12.4); Monocytes % 8.9 %; Neutrophils # 7.3 K/mcL (1.6-8.9); Platelet Count 353 K/mcL (140-400); Red Blood Count 2.89 M/mcL (4.19-5.50); Red Cell Distribution Width 16.2 % (11.5-14.5); Segmented Neutrophils % 64.5 %; White Blood Count 11.3 K/mcL (4.3-11.1)
[2021-07-03 07:44] LABS: BUN/Creatinine Ratio 37 (6-26); Blood Urea Nitrogen 34 mg/dL (8-23); Calcium 9.1 mg/dL (8.6-10.3); Carbon Dioxide 34 mEq/L (23-29); Chloride 100 mEq/L (98-107); Glucose 177 mg/dL (70-105); Osmolality,Calculated 298 (280-300); Potassium 4.6 mEq/L (3.5-5.1); Sodium 138 mEq/L (136-145); eGFR For African Americans > 60 (> 60); eGFR For Non-African Americans > 60 (> 60)
[2021-07-03] MEDS: Lactobacillus 1 EACH CAP.SPRINK PO SCH ×2 (08:49→21:04)
[2021-07-03] MEDS: Gabapentin 300 MG CAPSULE PO SCH ×3 (08:50→21:04)
[2021-07-03] MEDS: Baclofen 10 MG TABLET PO SCH ×2 (08:50→21:05)
[2021-07-03] MEDS: SODIUM ZIRCONIUM CYCLOSILICATE 5 GM POWD.PACK PO SCH (08:50)
[2021-07-03] MEDS: Meropenem 1,000 MG in 0.9 % Sodium Chloride Mini Bag 100 ML IVPB SCH ×2 (08:50→15:21)
[2021-07-03] MEDS: Sucralfate 1 GM TABLET PO SCH ×2 (08:50→21:03)
[2021-07-03] MEDS: Loratadine 10 MG TABLET PO SCH (08:50)
[2021-07-03] MEDS: Simethicone 80 MG TAB.CHEW PO SCH ×3 (08:50→21:03)
[2021-07-03] MEDS: Insulin LISPRO 300 UNITS/3 ML VIAL SUBQ SCH ×7 (08:55→21:06)
[2021-07-03] MEDS: Insulin DETEMIR 100 UNIT/ML X5UNITS SUBQ SCH ×2 (10:14→21:03)
[2021-07-03] MEDS ORDERED: *HR* Labetalol 20 MG/4 ML SYRINGE IVP ONE (11:08)
[2021-07-03] MEDS: Ondansetron ODT 4 MG TAB.RAPDIS SL PRN (14:02)
[2021-07-03] MEDS: *HR* HYDROmorphone (PF) 1 MG/ML SYRINGE IVP PRN (14:05)
[2021-07-03] MEDS: Mirtazapine 15 MG TABLET PO SCH (21:04)
[2021-07-03] MEDS: Melatonin 3 MG TABLET PO PRN (21:04)
[2021-07-03] MEDS: *HR* OxyCODONE Immed Rel 5 MG TABLET PO PRN (21:05)
[2021-07-04] MEDS: Meropenem 1,000 MG in 0.9 % Sodium Chloride Mini Bag 100 ML IVPB SCH ×4 (00:30→23:05)
[2021-07-04 02:07] LABS: Basophils # 0.1 K/mcL (0.0-0.2); Basophils % 0.8 %; Eosinophils # 0.8 K/mcL (0.0-0.6); Eosinophils % 7.6 %; Hematocrit 23.9 % (37.5-50.1); Hemoglobin 7.5 g/dL (12.9-16.9); Immature Granulocytes % 1.9 % (0-4); Lymphocytes # 1.6 K/mcL (0.6-4.6); Lymphocytes % 14.9 %; Mean Corpuscular HGB Conc 31.4 g/dL (31.6-35.5); Mean Corpuscular Hemoglobin 28.7 pg (28.0-33.3); Mean Corpuscular Volume 91.6 fL (83.0-100.0); Mean Platelet Volume 10.5 fL (9.4-12.4); Monocytes # 0.9 K/mcL (0.0-1.3); Monocytes % 7.9 %; Neutrophils # 7.3 K/mcL (1.6-8.9); Platelet Count 304 K/mcL (140-400); Red Blood Count 2.61 M/mcL (4.19-5.50); Red Cell Distribution Width 16.1 % (11.5-14.5); Segmented Neutrophils % 66.9 %; White Blood Count 10.9 K/mcL (4.3-11.1)
[2021-07-04 02:24] LABS: BUN/Creatinine Ratio 44 (6-26); Blood Urea Nitrogen 37 mg/dL (8-23); Carbon Dioxide 32 mEq/L (23-29); Chloride 101 mEq/L (98-107); Glucose 198 mg/dL (70-105); Osmolality,Calculated 298 (280-300); Potassium 4.7 mEq/L (3.5-5.1); Sodium 137 mEq/L (136-145); eGFR For African Americans > 60 (> 60); eGFR For Non-African Americans > 60 (> 60)
[2021-07-04] MEDS: Gabapentin 300 MG CAPSULE PO SCH ×3 (07:48→20:17)
[2021-07-04] MEDS: Insulin LISPRO 300 UNITS/3 ML VIAL SUBQ SCH ×7 (07:49→20:17)
[2021-07-04] MEDS: Sucralfate 1 GM TABLET PO SCH ×2 (07:49→20:17)
[2021-07-04] MEDS: Insulin DETEMIR 100 UNIT/ML X5UNITS SUBQ SCH ×2 (07:49→20:18)
[2021-07-04] MEDS: Loratadine 10 MG TABLET PO SCH (07:49)
[2021-07-04] MEDS: Lactobacillus 1 EACH CAP.SPRINK PO SCH ×2 (07:49→20:18)
[2021-07-04] MEDS: Baclofen 10 MG TABLET PO SCH ×2 (07:49→20:17)
[2021-07-04] MEDS: Simethicone 80 MG TAB.CHEW PO SCH ×3 (07:49→20:17)
[2021-07-04] MEDS: *HR* HYDROmorphone (PF) 1 MG/ML SYRINGE IVP PRN ×3 (08:10→22:30)
[2021-07-04] MEDS: *HR* OxyCODONE Immed Rel 5 MG TABLET PO PRN ×2 (11:40→20:18)
[2021-07-04] MEDS: Mirtazapine 15 MG TABLET PO SCH (20:18)
[2021-07-05] MEDS: *HR* HYDROmorphone (PF) 1 MG/ML SYRINGE IVP PRN ×4 (04:24→19:37)
[2021-07-05 05:14] LABS: Basophils # 0.1 K/mcL (0.0-0.2); Basophils % 0.7 %; Eosinophils # 0.9 K/mcL (0.0-0.6); Eosinophils % 8.4 %; Hematocrit 24.5 % (37.5-50.1); Hemoglobin 7.7 g/dL (12.9-16.9); Immature Granulocytes % 2.3 % (0-4); Lymphocytes # 1.7 K/mcL (0.6-4.6); Lymphocytes % 15.6 %; Mean Corpuscular HGB Conc 31.4 g/dL (31.6-35.5); Mean Corpuscular Hemoglobin 28.5 pg (28.0-33.3); Mean Corpuscular Volume 90.7 fL (83.0-100.0); Mean Platelet Volume 10.4 fL (9.4-12.4); Monocytes # 0.9 K/mcL (0.0-1.3); Monocytes % 8.6 %; Platelet Count 320 K/mcL (140-400); Red Cell Distribution Width 16.4 % (11.5-14.5); Segmented Neutrophils % 64.4 %; White Blood Count 10.9 K/mcL (4.3-11.1)
[2021-07-05 05:29] LABS: BUN/Creatinine Ratio 44 (6-26); Blood Urea Nitrogen 36 mg/dL (8-23); Calcium 8.8 mg/dL (8.6-10.3); Carbon Dioxide 35 mEq/L (23-29); Chloride 101 mEq/L (98-107); Glucose 158 mg/dL (70-105); Osmolality,Calculated 296 (280-300); Potassium 4.5 mEq/L (3.5-5.1); Sodium 137 mEq/L (136-145); eGFR For African Americans > 60 (> 60); eGFR For Non-African Americans > 60 (> 60)
[2021-07-05] MEDS: Insulin LISPRO 300 UNITS/3 ML VIAL SUBQ SCH ×7 (08:24→19:37)
[2021-07-05] MEDS: Baclofen 10 MG TABLET PO SCH ×2 (08:25→19:38)
[2021-07-05] MEDS: Meropenem 1,000 MG in 0.9 % Sodium Chloride Mini Bag 100 ML IVPB SCH ×3 (08:25→23:06)
[2021-07-05] MEDS: Gabapentin 300 MG CAPSULE PO SCH ×3 (08:25→19:38)
[2021-07-05] MEDS: Simethicone 80 MG TAB.CHEW PO SCH ×3 (08:25→19:38)
[2021-07-05] MEDS: Sucralfate 1 GM TABLET PO SCH ×2 (08:26→19:38)
[2021-07-05] MEDS: Lactobacillus 1 EACH CAP.SPRINK PO SCH ×2 (08:26→19:38)
[2021-07-05] MEDS: Loratadine 10 MG TABLET PO SCH (08:26)
[2021-07-05] MEDS: Insulin DETEMIR 100 UNIT/ML X5UNITS SUBQ SCH ×2 (08:37→19:37)
[2021-07-05] MEDS: *HR* OxyCODONE Immed Rel 5 MG TABLET PO PRN ×2 (17:12→23:12)
[2021-07-05] MEDS: Mirtazapine 15 MG TABLET PO SCH (19:38)
[2021-07-06] MEDS: Acetaminophen 325 MG TABLET PO PRN ×2 (04:47→23:26)
[2021-07-06] MEDS: *HR* HYDROmorphone (PF) 1 MG/ML SYRINGE IVP PRN ×4 (04:47→16:00)
[2021-07-06 06:23] LABS: Basophils # 0.1 K/mcL (0.0-0.2); Basophils % 0.7 %; Eosinophils # 0.7 K/mcL (0.0-0.6); Eosinophils % 5.9 %; Hematocrit 25.5 % (37.5-50.1); Hemoglobin 8.1 g/dL (12.9-16.9); Lymphocytes # 1.8 K/mcL (0.6-4.6); Lymphocytes % 15.2 %; Mean Corpuscular HGB Conc 31.8 g/dL (31.6-35.5); Mean Corpuscular Hemoglobin 29.3 pg (28.0-33.3); Mean Corpuscular Volume 92.4 fL (83.0-100.0); Mean Platelet Volume 10.3 fL (9.4-12.4); Monocytes # 1.1 K/mcL (0.0-1.3); Monocytes % 9.7 %; Neutrophils # 7.8 K/mcL (1.6-8.9); Platelet Count 326 K/mcL (140-400); Red Blood Count 2.76 M/mcL (4.19-5.50); Red Cell Distribution Width 16.7 % (11.5-14.5); Segmented Neutrophils % 66.5 %; White Blood Count 11.7 K/mcL (4.3-11.1)
[2021-07-06 06:48] LABS: BUN/Creatinine Ratio 45 (6-26); Blood Urea Nitrogen 37 mg/dL (8-23); Carbon Dioxide 31 mEq/L (23-29); Chloride 99 mEq/L (98-107); Glucose 210 mg/dL (70-105); Osmolality,Calculated 297 (280-300); Potassium 4.8 mEq/L (3.5-5.1); Sodium 136 mEq/L (136-145); eGFR For African Americans > 60 (> 60); eGFR For Non-African Americans > 60 (> 60)
[2021-07-06] MEDS: Gabapentin 300 MG CAPSULE PO SCH ×3 (07:48→20:22)
[2021-07-06] MEDS: Baclofen 10 MG TABLET PO SCH ×2 (07:48→20:23)
[2021-07-06] MEDS: Sucralfate 1 GM TABLET PO SCH ×2 (07:48→20:23)
[2021-07-06] MEDS: Lactobacillus 1 EACH CAP.SPRINK PO SCH ×2 (07:48→20:23)
[2021-07-06] MEDS: Insulin LISPRO 300 UNITS/3 ML VIAL SUBQ SCH ×7 (07:49→20:23)
[2021-07-06] MEDS: Meropenem 1,000 MG in 0.9 % Sodium Chloride Mini Bag 100 ML IVPB SCH ×3 (07:49→23:26)
[2021-07-06] MEDS: Simethicone 80 MG TAB.CHEW PO SCH ×3 (07:49→20:23)
[2021-07-06 10:58] LABS: Bilirubin,Urine Negative (Negative); Blood,Urine Small (Negative); Clarity,Urine Ex.Turbid (Clear); Color,Urine Dark-Yellow (Yellow); Glucose,Urine (UA) 30 mg/dL (Normal); Ketones,Urine Negative (Negative); Leukocyte Esterase,Urine Large (Negative); Nitrite,Urine Negative (Negative); PH,Urine 6.5 pH Units (5.0-8.0); Protein,Urine 200 mg/dL (Neg-Trace); Specific Gravity,Urine 1.018 (1.010-1.025); Urobilinogen,Urine Normal (Normal)
[2021-07-06 11:00] LABS: WBC,Urine TNTC per hpf (0-3)
[2021-07-06 11:01] LABS: Bacteria,Urine Few per hpf (None-Few)
[2021-07-06 11:02] LABS: Budding Yeast,Urine Many per hpf (None Seen); Mucus,Urine Few per lpf (None-Few)
[2021-07-06] MEDS: Insulin DETEMIR 100 UNIT/ML X5UNITS SUBQ SCH ×2 (12:33→20:22)
[2021-07-06] MEDS: *HR* OxyCODONE Immed Rel 5 MG TABLET PO PRN (14:41)
[2021-07-06] MEDS: Mirtazapine 15 MG TABLET PO SCH (20:23)
[2021-07-07 00:38] LABS: Basophils # 0.1 K/mcL (0.0-0.2); Basophils % 0.6 %; Eosinophils # 0.5 K/mcL (0.0-0.6); Eosinophils % 3.9 %; Hematocrit 26.3 % (37.5-50.1); Hemoglobin 8.2 g/dL (12.9-16.9); Immature Granulocytes % 1.5 % (0-4); Lymphocytes # 2.1 K/mcL (0.6-4.6); Mean Corpuscular HGB Conc 31.2 g/dL (31.6-35.5); Mean Corpuscular Hemoglobin 28.2 pg (28.0-33.3); Mean Corpuscular Volume 90.4 fL (83.0-100.0); Mean Platelet Volume 10.4 fL (9.4-12.4); Monocytes % 7.7 %; Neutrophils # 9.1 K/mcL (1.6-8.9); Platelet Count 357 K/mcL (140-400); Red Blood Count 2.91 M/mcL (4.19-5.50); Red Cell Distribution Width 16.6 % (11.5-14.5); Segmented Neutrophils % 70.3 %
[2021-07-07 00:46] LABS: BUN/Creatinine Ratio 45 (6-26); Blood Urea Nitrogen 39 mg/dL (8-23); Calcium 9.1 mg/dL (8.6-10.3); Carbon Dioxide 29 mEq/L (23-29); Chloride 101 mEq/L (98-107); Glucose 164 mg/dL (70-105); Osmolality,Calculated 295 (280-300); Potassium 4.8 mEq/L (3.5-5.1); Sodium 136 mEq/L (136-145); eGFR For African Americans > 60 (> 60); eGFR For Non-African Americans > 60 (> 60)
[2021-07-07] MEDS: *HR* HYDROmorphone (PF) 1 MG/ML SYRINGE IVP PRN ×6 (01:05→20:41)
[2021-07-07] MEDS: Insulin LISPRO 300 UNITS/3 ML VIAL SUBQ SCH ×7 (08:04→20:09)
[2021-07-07] MEDS: Gabapentin 300 MG CAPSULE PO SCH ×3 (08:05→20:09)
[2021-07-07] MEDS: Simethicone 80 MG TAB.CHEW PO SCH ×3 (08:05→20:09)
[2021-07-07] MEDS: Lactobacillus 1 EACH CAP.SPRINK PO SCH ×2 (08:05→20:09)
[2021-07-07] MEDS: Baclofen 10 MG TABLET PO SCH ×2 (08:05→20:09)
[2021-07-07] MEDS: Sucralfate 1 GM TABLET PO SCH ×2 (08:05→20:09)
[2021-07-07] MEDS: Meropenem 1,000 MG in 0.9 % Sodium Chloride Mini Bag 100 ML IVPB SCH ×2 (08:06→15:29)
[2021-07-07] MEDS: *HR* OxyCODONE Immed Rel 5 MG TABLET PO PRN ×2 (08:30→15:27)
[2021-07-07] MEDS: Insulin DETEMIR 100 UNIT/ML X5UNITS SUBQ SCH ×2 (11:28→20:09)
[2021-07-07] MEDS: Ondansetron ODT 4 MG TAB.RAPDIS SL PRN (14:48)
[2021-07-07] MEDS: Mirtazapine 15 MG TABLET PO SCH (20:09)
[2021-07-08] MEDS: Acetaminophen 325 MG TABLET PO PRN ×2 (00:05→12:58)
[2021-07-08] MEDS: Meropenem 1,000 MG in 0.9 % Sodium Chloride Mini Bag 100 ML IVPB SCH ×3 (00:05→15:24)
[2021-07-08] MEDS: Insulin DETEMIR 100 UNIT/ML X5UNITS SUBQ SCH ×2 (08:03→20:45)
[2021-07-08] MEDS: Insulin LISPRO 300 UNITS/3 ML VIAL SUBQ SCH ×7 (08:04→20:44)
[2021-07-08] MEDS: Gabapentin 300 MG CAPSULE PO SCH ×3 (08:07→20:46)
[2021-07-08] MEDS: Simethicone 80 MG TAB.CHEW PO SCH ×3 (08:07→20:46)
[2021-07-08] MEDS: Lactobacillus 1 EACH CAP.SPRINK PO SCH ×2 (08:07→20:46)
[2021-07-08] MEDS: Sucralfate 1 GM TABLET PO SCH ×2 (08:07→20:46)
[2021-07-08] MEDS: Baclofen 10 MG TABLET PO SCH ×2 (08:07→20:46)
[2021-07-08] MEDS: *HR* OxyCODONE Immed Rel 5 MG TABLET PO PRN ×2 (08:11→17:30)
[2021-07-08 09:20] LABS: Basophils # 0.1 K/mcL (0.0-0.2); Basophils % 0.7 %; Eosinophils # 0.6 K/mcL (0.0-0.6); Eosinophils % 5.6 %; Hematocrit 26.8 % (37.5-50.1); Hemoglobin 8.3 g/dL (12.9-16.9); Immature Granulocytes % 1.8 % (0-4); Lymphocytes # 1.5 K/mcL (0.6-4.6); Lymphocytes % 13.4 %; Mean Corpuscular Hemoglobin 28.6 pg (28.0-33.3); Mean Corpuscular Volume 92.4 fL (83.0-100.0); Monocytes # 1.1 K/mcL (0.0-1.3); Monocytes % 9.5 %; Neutrophils # 7.9 K/mcL (1.6-8.9); Platelet Count 351 K/mcL (140-400); Red Cell Distribution Width 17.2 % (11.5-14.5); White Blood Count 11.4 K/mcL (4.3-11.1)
[2021-07-08 09:38] LABS: BUN/Creatinine Ratio 43 (6-26); Blood Urea Nitrogen 44 mg/dL (8-23); Calcium 9.6 mg/dL (8.6-10.3); Carbon Dioxide 32 mEq/L (23-29); Chloride 100 mEq/L (98-107); Glucose 275 mg/dL (70-105); Osmolality,Calculated 297 (280-300); Potassium 4.8 mEq/L (3.5-5.1); Sodium 133 mEq/L (136-145); eGFR For African Americans > 60 (> 60); eGFR For Non-African Americans > 60 (> 60)
[2021-07-08] MEDS: *HR* HYDROmorphone (PF) 1 MG/ML SYRINGE IVP PRN ×3 (09:51→20:45)
[2021-07-08] MEDS: 0.9 % Sodium Chloride 1,000 ML IVC SCH (16:06)
[2021-07-08 16:29] LABS: Bacteria,Urine Few per hpf (None-Few); Bilirubin,Urine Negative (Negative); Blood,Urine Negative (Negative); Budding Yeast,Urine Few per hpf (None Seen); Clarity,Urine Clear (Clear); Color,Urine Yellow (Yellow); Glucose,Urine (UA) 300 mg/dL (Normal); Hyaline Casts,Urine Few per lpf (None Seen); Ketones,Urine Negative (Negative); Leukocyte Esterase,Urine Moderate (Negative); Mucus,Urine Few per lpf (None-Few); Nitrite,Urine Negative (Negative); Protein,Urine 100 mg/dL (Neg-Trace); Squamous Epithelial Cell,Urine Few per hpf (None-Few); Urobilinogen,Urine Normal (Normal); WBC,Urine 50-100 per hpf (0-3)
[2021-07-08] MEDS: Mirtazapine 15 MG TABLET PO SCH (20:46)
[2021-07-09] MEDS: Meropenem 1,000 MG in 0.9 % Sodium Chloride Mini Bag 100 ML IVPB SCH ×4 (01:08→23:38)
[2021-07-09] MEDS: 0.9 % Sodium Chloride 1,000 ML IVC SCH (01:11)
[2021-07-09] MEDS: Acetaminophen 325 MG TABLET PO PRN (01:11)
[2021-07-09] MEDS: *HR* HYDROmorphone (PF) 1 MG/ML SYRINGE IVP PRN ×4 (05:05→15:20)
[2021-07-09] MEDS: polyethylene glycoL 3350 17 GM POWD.PACK PO SCH (05:58)
[2021-07-09 06:26] LABS: Basophils # 0.1 K/mcL (0.0-0.2); Basophils % 0.7 %; Eosinophils # 0.7 K/mcL (0.0-0.6); Eosinophils % 6.7 %; Hematocrit 22.3 % (37.5-50.1); Hemoglobin 6.9 g/dL (12.9-16.9); Immature Granulocytes % 1.4 % (0-4); Lymphocytes # 1.7 K/mcL (0.6-4.6); Mean Corpuscular HGB Conc 30.9 g/dL (31.6-35.5); Mean Corpuscular Volume 90.7 fL (83.0-100.0); Mean Platelet Volume 10.1 fL (9.4-12.4); Monocytes % 9.7 %; Neutrophils # 6.8 K/mcL (1.6-8.9); Platelet Count 294 K/mcL (140-400); Red Blood Count 2.46 M/mcL (4.19-5.50); Segmented Neutrophils % 65.5 %; White Blood Count 10.3 K/mcL (4.3-11.1)
[2021-07-09 06:45] LABS: BUN/Creatinine Ratio 53 (6-26); Blood Urea Nitrogen 45 mg/dL (8-23); Calcium 9.3 mg/dL (8.6-10.3); Carbon Dioxide 28 mEq/L (23-29); Chloride 102 mEq/L (98-107); Glucose 234 mg/dL (70-105); Osmolality,Calculated 295 (280-300); Potassium 4.5 mEq/L (3.5-5.1); Sodium 133 mEq/L (136-145); eGFR For African Americans > 60 (> 60); eGFR For Non-African Americans > 60 (> 60)
[2021-07-09 07:51] LABS: Hematocrit 22.3 % (37.5-50.1); Hemoglobin 7.1 g/dL (12.9-16.9)
[2021-07-09] MEDS: Baclofen 10 MG TABLET PO SCH ×2 (08:00→21:08)
[2021-07-09] MEDS: Gabapentin 300 MG CAPSULE PO SCH ×3 (08:00→21:08)
[2021-07-09] MEDS: Simethicone 80 MG TAB.CHEW PO SCH ×3 (08:00→21:08)
[2021-07-09] MEDS: Lactobacillus 1 EACH CAP.SPRINK PO SCH ×2 (08:00→21:08)
[2021-07-09] MEDS: Sennosides/Docusate Sodium TABLET PO SCH ×2 (08:01→21:08)
[2021-07-09] MEDS: Insulin LISPRO 300 UNITS/3 ML VIAL SUBQ SCH ×7 (08:01→20:58)
[2021-07-09] MEDS: Sucralfate 1 GM TABLET PO SCH ×2 (08:01→21:08)
[2021-07-09] MEDS: Insulin DETEMIR 100 UNIT/ML X5UNITS SUBQ SCH ×2 (08:02→21:08)
[2021-07-09] MEDS: Mirtazapine 15 MG TABLET PO SCH (21:08)
[2021-07-09] MEDS: *HR* OxyCODONE Immed Rel 5 MG TABLET PO PRN (21:08)
[2021-07-10] MEDS: *HR* HYDROmorphone (PF) 1 MG/ML SYRINGE IVP PRN ×6 (00:28→21:06)
[2021-07-10] MEDS: polyethylene glycoL 3350 17 GM POWD.PACK PO SCH (05:36)
[2021-07-10 07:31] LABS: Basophils # 0.1 K/mcL (0.0-0.2); Basophils % 0.5 %; Eosinophils # 0.6 K/mcL (0.0-0.6); Eosinophils % 6.9 %; Hematocrit 23.8 % (37.5-50.1); Hemoglobin 7.3 g/dL (12.9-16.9); Immature Granulocytes % 1.3 % (0-4); Lymphocytes # 1.4 K/mcL (0.6-4.6); Lymphocytes % 14.8 %; Mean Corpuscular HGB Conc 30.7 g/dL (31.6-35.5); Mean Corpuscular Hemoglobin 28.2 pg (28.0-33.3); Mean Corpuscular Volume 91.9 fL (83.0-100.0); Mean Platelet Volume 10.6 fL (9.4-12.4); Monocytes # 0.9 K/mcL (0.0-1.3); Monocytes % 9.9 %; Neutrophils # 6.2 K/mcL (1.6-8.9); Platelet Count 301 K/mcL (140-400); Red Blood Count 2.59 M/mcL (4.19-5.50); Red Cell Distribution Width 16.7 % (11.5-14.5); Segmented Neutrophils % 66.6 %; White Blood Count 9.3 K/mcL (4.3-11.1)
[2021-07-10 07:41] LABS: BUN/Creatinine Ratio 48 (6-26); Blood Urea Nitrogen 41 mg/dL (8-23); Calcium 9.2 mg/dL (8.6-10.3); Carbon Dioxide 31 mEq/L (23-29); Chloride 101 mEq/L (98-107); Glucose 276 mg/dL (70-105); Osmolality,Calculated 298 (280-300); Potassium 4.4 mEq/L (3.5-5.1); Sodium 134 mEq/L (136-145); eGFR For African Americans > 60 (> 60); eGFR For Non-African Americans > 60 (> 60)
[2021-07-10] MEDS: Lactobacillus 1 EACH CAP.SPRINK PO SCH ×2 (07:59→21:05)
[2021-07-10] MEDS: Sucralfate 1 GM TABLET PO SCH ×2 (07:59→21:05)
[2021-07-10] MEDS: Gabapentin 300 MG CAPSULE PO SCH ×3 (07:59→21:05)
[2021-07-10] MEDS: Simethicone 80 MG TAB.CHEW PO SCH ×3 (07:59→21:04)
[2021-07-10] MEDS: Baclofen 10 MG TABLET PO SCH ×2 (07:59→21:05)
[2021-07-10] MEDS: Sennosides/Docusate Sodium TABLET PO SCH ×2 (08:00→21:05)
[2021-07-10] MEDS: Meropenem 1,000 MG in 0.9 % Sodium Chloride Mini Bag 100 ML IVPB SCH ×2 (08:00→16:34)
[2021-07-10] MEDS: Insulin LISPRO 300 UNITS/3 ML VIAL SUBQ SCH ×7 (08:01→21:15)
[2021-07-10] MEDS: Insulin DETEMIR 100 UNIT/ML X5UNITS SUBQ SCH ×2 (12:20→21:38)
[2021-07-10] MEDS: *HR* OxyCODONE Immed Rel 5 MG TABLET PO PRN (16:39)
[2021-07-10] MEDS: Mirtazapine 15 MG TABLET PO SCH (21:05)
[2021-07-10] MEDS: Melatonin 3 MG TABLET PO PRN (21:06)
[2021-07-11] MEDS: Meropenem 1,000 MG in 0.9 % Sodium Chloride Mini Bag 100 ML IVPB SCH ×4 (00:39→23:37)
[2021-07-11 02:16] LABS: Hematocrit 23.7 % (37.5-50.1); Hemoglobin 7.6 g/dL (12.9-16.9); Mean Corpuscular HGB Conc 32.1 g/dL (31.6-35.5); Mean Corpuscular Hemoglobin 28.8 pg (28.0-33.3); Mean Corpuscular Volume 89.8 fL (83.0-100.0); Mean Platelet Volume 10.2 fL (9.4-12.4); Platelet Count 314 K/mcL (140-400); Red Blood Count 2.64 M/mcL (4.19-5.50); Red Cell Distribution Width 16.8 % (11.5-14.5); White Blood Count 10.3 K/mcL (4.3-11.1)
[2021-07-11 02:41] LABS: BUN/Creatinine Ratio 41 (6-26); Blood Urea Nitrogen 38 mg/dL (8-23); Calcium 9.5 mg/dL (8.6-10.3); Carbon Dioxide 28 mEq/L (23-29); Chloride 101 mEq/L (98-107); Glucose 177 mg/dL (70-105); Osmolality,Calculated 291 (280-300); Potassium 4.5 mEq/L (3.5-5.1); Sodium 134 mEq/L (136-145); eGFR For African Americans > 60 (> 60); eGFR For Non-African Americans > 60 (> 60)
[2021-07-11] MEDS: Acetaminophen 325 MG TABLET PO PRN (02:53)
[2021-07-11] MEDS: *HR* OxyCODONE Immed Rel 5 MG TABLET PO PRN ×3 (04:30→23:37)
[2021-07-11] MEDS: polyethylene glycoL 3350 17 GM POWD.PACK PO SCH (04:31)
[2021-07-11] MEDS: *HR* HYDROmorphone (PF) 1 MG/ML SYRINGE IVP PRN ×3 (06:33→20:48)
[2021-07-11] MEDS: Insulin DETEMIR 100 UNIT/ML X5UNITS SUBQ SCH ×2 (07:58→20:25)
[2021-07-11] MEDS: Lactobacillus 1 EACH CAP.SPRINK PO SCH ×2 (07:59→20:26)
[2021-07-11] MEDS: Gabapentin 300 MG CAPSULE PO SCH ×3 (07:59→20:26)
[2021-07-11] MEDS: Baclofen 10 MG TABLET PO SCH ×2 (07:59→20:26)
[2021-07-11] MEDS: Simethicone 80 MG TAB.CHEW PO SCH ×3 (07:59→20:26)
[2021-07-11] MEDS: Insulin LISPRO 300 UNITS/3 ML VIAL SUBQ SCH ×7 (07:59→20:25)
[2021-07-11] MEDS: Sennosides/Docusate Sodium TABLET PO SCH ×2 (07:59→20:26)
[2021-07-11] MEDS: Sucralfate 1 GM TABLET PO SCH ×2 (07:59→20:26)
[2021-07-11] MEDS ORDERED: Ondansetron 4 MG/2 ML VIAL IVP PRN (10:06)
[2021-07-11] MEDS ORDERED: Lidocaine -MPF 4% 5 ML AMPUL ONE (10:10)
[2021-07-11] MEDS ORDERED: *HR* Propofol 200 MG/20 ML VIAL IVP ONE (10:10)
[2021-07-11] MEDS ORDERED: *HR* FentaNYL (PF) 100 MCG/2 ML VIAL ONE (10:10)
[2021-07-11] MEDS ORDERED: Lidocaine -MPF 2% 5 ML VIAL ONE (10:10)
[2021-07-11] MEDS ORDERED: *HR* Rocuronium Bromide 50 MG/5 ML VIAL ONE (10:10)
[2021-07-11] MEDS: *HR* HYDROmorphone PF 0.5 MG/0.5 ML SYRINGE IVP PRN ×2 (12:55→13:02)
[2021-07-11 20:09] VITALS: BP 130/93
[2021-07-11] MEDS: Mirtazapine 15 MG TABLET PO SCH (20:26)
[2021-07-11 23:55] VITALS: PULSE 106; TEMP 99.4; O2SAT 100
[2021-07-12] MEDS: *HR* HYDROmorphone (PF) 1 MG/ML SYRINGE IVP PRN (00:20)
== END 2021-07-12 00:45 | disposition short-term general hospital (02) | DRG 853 ==
LOC: 4WAOSI 09:12 → EMEROOARM 09:12 → SUATTDRO 11:32 → 3ANU 12:41 → SUATTDRO 04-23 21:02 → 3ANU 04-27 12:42 → 2NENU 05-08 18:18
PROVIDERS: ADMIT Internal Medicine; ATTEND Family Medicine

== ENCOUNTER 2021-11-08 15:32 | Inpatient (IN) ==
[2021-11-08 18:51] LABS: Basophils # 0.1 K/mcL (0.0-0.2); Basophils % 0.5 %; Eosinophils # 0.4 K/mcL (0.0-0.6); Eosinophils % 2.8 %; Hemoglobin 8.5 g/dL (12.9-16.9); Immature Granulocytes % 1.3 % (0-4); Lymphocytes # 1.6 K/mcL (0.6-4.6); Lymphocytes % 10.2 %; Mean Corpuscular HGB Conc 29.3 g/dL (31.6-35.5); Mean Corpuscular Hemoglobin 27.1 pg (28.0-33.3); Mean Corpuscular Volume 92.4 fL (83.0-100.0); Mean Platelet Volume 9.5 fL (9.4-12.4); Monocytes # 1.1 K/mcL (0.0-1.3); Monocytes % 7.1 %; Platelet Count 457 K/mcL (140-400); Red Blood Count 3.14 M/mcL (4.19-5.50); Red Cell Distribution Width 16.6 % (11.5-14.5); Segmented Neutrophils % 78.1 %; White Blood Count 15.4 K/mcL (4.3-11.1)
[2021-11-08] MEDS ORDERED: Iopamidol - 370 500 ML MLS IVP ONE (19:14)
[2021-11-08 19:18] LABS: BUN/Creatinine Ratio 37 (6-26); Blood Urea Nitrogen 34 mg/dL (8-23); Calcium 8.3 mg/dL (8.6-10.3); Carbon Dioxide 28 mEq/L (23-29); Chloride 102 mEq/L (98-107); Glucose 191 mg/dL (70-105); Osmolality,Calculated 295 (280-300); Potassium 4.5 mEq/L (3.5-5.1); Sodium 136 mEq/L (136-145); Troponin I < 0.03 ng/mL (< 0.04); eGFR For African Americans > 60 (> 60); eGFR For Non-African Americans > 60 (> 60)
[2021-11-08] MEDS ORDERED: Morphine Sulfate 2 MG/ML SYRINGE IVP STA ×2 (20:10→23:19)
[2021-11-08] MEDS ORDERED: Meropenem 1,000 MG in Water for inj. (sterile) 20 ML IVP STA (20:26)
[2021-11-08] MEDS ORDERED: Vancomycin 1,500 MG/265 ML IV.SOLN IVPB ONE (20:27)
[2021-11-09] MEDS ORDERED: *HR* Heparin 5,000 UNIT/ML VIAL IVP ONE
[2021-11-09] MEDS ORDERED: *HR* Heparin 5,000 UNIT/ML VIAL IVP PRN
[2021-11-09] MEDS: Heparin 25,000UNIT/250ML 1/2NS 25,000 UNIT/250 ML IV.SOLN IVC SCH ×2 (00:25→16:09)
[2021-11-09 00:47] LABS: INR 1.6; Prothrombin Time 18.1 Seconds (9.4-12.1)
[2021-11-09] MEDS ORDERED: Naloxone 0.4 MG/ML INJ IVP PRN (01:17)
[2021-11-09] MEDS ORDERED: Melatonin 3 MG TABLET PO PRN (01:17)
[2021-11-09] MEDS ORDERED: Ondansetron 4 MG/2 ML VIAL IVP PRN (01:17)
[2021-11-09] MEDS ORDERED: D5% in Water 1,000 ML IVC PRN (01:28)
[2021-11-09] MEDS ORDERED: Dextrose Gel 15 GM/37.5 ML TUBE PO PRN ×2 (01:28)
[2021-11-09] MEDS ORDERED: *HR* Dextrose 50 % in Water (Syg) 50 ML SYRINGE IVP PRN (01:28)
[2021-11-09] MEDS: *HR* OxyCODONE Immed Rel 5 MG TABLET PO PRN ×2 (03:47→14:38)
[2021-11-09] MEDS: Calcium Gluconate 1gm/50mL 1 GM/50 ML BAG IVPB SCH ×4 (03:48→12:17)
[2021-11-09] MEDS ORDERED: *HR* Metoprolol 5 MG/5 ML VIAL IVP ONE (03:59)
[2021-11-09] MEDS ORDERED: Ringers Solution, Lactated 1,000 ML IVC ONE (04:51)
[2021-11-09 04:57] LABS: Basophils % 0.2 %; Eosinophils # 0.2 K/mcL (0.0-0.6); Eosinophils % 0.9 %; Hemoglobin 8.8 g/dL (12.9-16.9); Immature Granulocytes % 1.2 % (0-4); Lymphocytes # 0.5 K/mcL (0.6-4.6); Lymphocytes % 2.7 %; Mean Corpuscular HGB Conc 29.3 g/dL (31.6-35.5); Mean Platelet Volume 10.6 fL (9.4-12.4); Monocytes # 0.3 K/mcL (0.0-1.3); Monocytes % 1.4 %; Neutrophils # 17.8 K/mcL (1.6-8.9); Platelet Count 463 K/mcL (140-400); Red Blood Count 3.26 M/mcL (4.19-5.50); Red Cell Distribution Width 16.8 % (11.5-14.5); Segmented Neutrophils % 93.6 %; White Blood Count 19.1 K/mcL (4.3-11.1)
[2021-11-09 05:00] LABS: INR 1.7; Prothrombin Time 19.1 Seconds (9.4-12.1)
[2021-11-09 05:02] LABS: Activated Partial Thrombo Time 69.5 Seconds (26.0-36.0)
[2021-11-09 05:10] LABS: % Iron Saturation 7 % (20-55); Iron 12 mcg/dL (65-175); Transferrin 131 mg/dL (203-362)
[2021-11-09 05:16] LABS: Alanine Aminotransferase 11 Units/L (7-52); Albumin 1.7 g/dL (3.5-5.7); Albumin/Globulin Ratio 0.4 (1.1-2.2); Alkaline Phosphatase 97 Units/L (34-104); Aspartate Amino Transferase 15 Units/L (13-39); BUN/Creatinine Ratio 33 (6-26); Bilirubin,Total 0.3 mg/dL (0.3-1.0); Blood Urea Nitrogen 23 mg/dL (8-23); C-Reactive Protein 139 mg/L (Less than 10); Carbon Dioxide 17 mEq/L (23-29); Chloride 115 mEq/L (98-107); Globulin 3.9 g/dL (2.4-3.5); Glucose 130 mg/dL (70-105); Magnesium 1.2 mg/dL (1.6-2.6); Osmolality,Calculated 297 (280-300); Phosphorous 2.7 mg/dL (2.7-4.5); Potassium 3.4 mEq/L (3.5-5.1); Sodium 141 mEq/L (136-145); Total Protein 5.6 g/dL (6.4-8.9); eGFR For African Americans > 60 (> 60); eGFR For Non-African Americans > 60 (> 60)
[2021-11-09 05:33] LABS: Folate 21.3 ng/mL (3.0-16.0)
[2021-11-09 05:39] LABS: Ferritin > 1500 ng/mL (20-250)
[2021-11-09] MEDS: Insulin LISPRO 300 UNITS/3 ML VIAL SUBQ SCH ×3 (06:18→18:27)
[2021-11-09] MEDS: Meropenem 1,000 MG in 0.9 % Sodium Chloride Mini Bag 100 ML IVPB SCH ×2 (06:21→14:38)
[2021-11-09 07:22] LABS: VBG Ionized Calcium 1.14 mmol/L (1.15-1.35)
[2021-11-09] MEDS: *HR* HYDROcodone/Acet 5/325 mg TABLET PO PRN ×2 (07:57→19:59)
[2021-11-09] MEDS: 0.9 % Sodium Chloride 1,000 ML IVC SCH ×2 (07:58→16:09)
[2021-11-09] MEDS: Lactobacillus 1 EACH CAP.SPRINK PO SCH ×2 (07:58→19:59)
[2021-11-09] MEDS: Chlorhexidine Rinse 15 ML MOUTHWASH MM SCH ×2 (07:58→19:59)
[2021-11-09] MEDS: Multivit/Ca/Min/Fe/FA 1 TAB TABLET PO SCH (07:58)
[2021-11-09] MEDS ORDERED: Ertapenem 1,000 MG in 0.9 % Sodium Chloride Mini Bag 100 ML IVPB SCH (09:00)
[2021-11-09] MEDS ORDERED: Insulin DETEMIR 100 UNIT/ML X5UNITS SUBQ SCH (09:00)
[2021-11-09] MEDS ORDERED: Vancomycin 1,500 MG/265 ML IV.SOLN IVPB SCH (10:00)
[2021-11-09] MEDS: Ascorbic Acid 500 MG TABLET PO SCH ×2 (14:37→19:59)
[2021-11-09] MEDS: Gabapentin 400 MG CAPSULE PO SCH ×2 (14:38→19:59)
[2021-11-09] MEDS: Baclofen 10 MG TABLET PO SCH ×2 (14:38→19:59)
[2021-11-09] MEDS: *HR* FentaNYL PATCH 25 MCG PATCH TD SCH (15:44)
[2021-11-09 16:50] LABS: Bilirubin,Urine Negative (Negative); Blood,Urine Negative (Negative); Budding Yeast,Urine Few per hpf (None Seen); Clarity,Urine Clear (Clear); Color,Urine Yellow (Yellow); Glucose,Urine (UA) Normal (Normal); Ketones,Urine Trace mg/dL (Negative); Leukocyte Esterase,Urine Large (Negative); Nitrite,Urine Negative (Negative); PH,Urine 6.5 pH Units (5.0-8.0); Protein,Urine 100 mg/dL (Neg-Trace); Specific Gravity,Urine > 1.030 (1.010-1.025); Urobilinogen,Urine Normal (Normal); WBC,Urine TNTC per hpf (0-3)
[2021-11-09] MEDS: Acetaminophen 325 MG TABLET PO PRN (17:16)
[2021-11-09] MEDS: Insulin DETEMIR 100 UNIT/ML X5UNITS SUBQ SCH (19:59)
[2021-11-09] MEDS: Sennosides/Docusate Sodium TABLET PO SCH (19:59)
[2021-11-09] MEDS: polyethylene glycoL 3350 17 GM POWD.PACK PO SCH (19:59)
[2021-11-09] MEDS: traZODone 50 MG TABLET PO SCH (19:59)
[2021-11-09] MEDS: Vancomycin 1,500 MG/265 ML IV.SOLN IVPB SCH (19:59)
[2021-11-09] MEDS ORDERED: CALCIPOTRIENE TP SCH (21:00)
[2021-11-10] MEDS: Insulin LISPRO 300 UNITS/3 ML VIAL SUBQ SCH ×4 (00:40→17:53)
[2021-11-10] MEDS: Meropenem 1,000 MG in 0.9 % Sodium Chloride Mini Bag 100 ML IVPB SCH ×3 (00:41→16:29)
[2021-11-10] MEDS: *HR* OxyCODONE Immed Rel 5 MG TABLET PO PRN ×2 (00:47→19:58)
[2021-11-10] MEDS: *HR* HYDROcodone/Acet 5/325 mg TABLET PO PRN ×2 (04:43→10:06)
[2021-11-10 06:15] LABS: Hematocrit 29.3 % (37.5-50.1); Hemoglobin 8.6 g/dL (12.9-16.9); Mean Corpuscular HGB Conc 29.4 g/dL (31.6-35.5); Mean Corpuscular Hemoglobin 27.1 pg (28.0-33.3); Mean Corpuscular Volume 92.4 fL (83.0-100.0); Mean Platelet Volume 10.4 fL (9.4-12.4); Platelet Count 350 K/mcL (140-400); Red Blood Count 3.17 M/mcL (4.19-5.50); Red Cell Distribution Width 16.8 % (11.5-14.5); White Blood Count 12.8 K/mcL (4.3-11.1)
[2021-11-10] MEDS: Lactobacillus 1 EACH CAP.SPRINK PO SCH ×2 (09:16→19:57)
[2021-11-10] MEDS: Ascorbic Acid 500 MG TABLET PO SCH ×3 (09:16→19:57)
[2021-11-10] MEDS: Multivit/Ca/Min/Fe/FA 1 TAB TABLET PO SCH (09:16)
[2021-11-10] MEDS: Baclofen 10 MG TABLET PO SCH ×3 (09:16→19:59)
[2021-11-10] MEDS: Metoprolol XL (24 HR) Succ 25 MG TAB.ER.24H PO SCH (09:16)
[2021-11-10] MEDS: Chlorhexidine Rinse 15 ML MOUTHWASH MM SCH ×2 (09:17→19:57)
[2021-11-10] MEDS: Sennosides/Docusate Sodium TABLET PO SCH ×2 (09:17→19:58)
[2021-11-10] MEDS: Cholecalciferol (D-3) 1,000 UNIT (25MCG) TABLET PO SCH (09:17)
[2021-11-10] MEDS: Gabapentin 400 MG CAPSULE PO SCH ×3 (09:17→19:58)
[2021-11-10] MEDS: polyethylene glycoL 3350 17 GM POWD.PACK PO SCH ×2 (09:17→20:01)
[2021-11-10] MEDS: Insulin DETEMIR 100 UNIT/ML X5UNITS SUBQ SCH ×2 (10:05→19:53)
[2021-11-10 12:35] LABS: BUN/Creatinine Ratio 29 (6-26); Blood Urea Nitrogen 26 mg/dL (8-23); Calcium 7.4 mg/dL (8.6-10.3); Carbon Dioxide 24 mEq/L (23-29); Chloride 106 mEq/L (98-107); Glucose 367 mg/dL (70-105); Osmolality,Calculated 302 (280-300); Potassium 4.5 mEq/L (3.5-5.1); Sodium 136 mEq/L (136-145); eGFR For African Americans > 60 (> 60); eGFR For Non-African Americans > 60 (> 60)
[2021-11-10] MEDS: Heparin 25,000UNIT/250ML 1/2NS 25,000 UNIT/250 ML IV.SOLN IVC SCH (16:28)
[2021-11-10] MEDS: Ammonium Lactate 30 APPL/225 GM BOTTLE TP SCH (16:30)
[2021-11-10] MEDS: traZODone 50 MG TABLET PO SCH (19:57)
[2021-11-10] MEDS: Vancomycin 1,500 MG/265 ML IV.SOLN IVPB SCH (19:59)
[2021-11-10] MEDS ORDERED: Insulin LISPRO 300 UNITS/3 ML VIAL SUBQ SCH (21:00)
[2021-11-11] MEDS: *HR* HYDROcodone/Acet 5/325 mg TABLET PO PRN ×2 (00:40→17:53)
[2021-11-11] MEDS: Vancomycin 1,750 MG/517.5 ML IV.SOLN IVPB SCH ×2 (00:41→23:17)
[2021-11-11] MEDS: Meropenem 1,000 MG in 0.9 % Sodium Chloride Mini Bag 100 ML IVPB SCH ×4 (00:42→19:41)
[2021-11-11] MEDS: *HR* Heparin 5,000 UNIT/ML VIAL IVP PRN (03:01)
[2021-11-11 05:50] LABS: Hematocrit 22.7 % (37.5-50.1); Hemoglobin 6.6 g/dL (12.9-16.9); Mean Corpuscular HGB Conc 29.1 g/dL (31.6-35.5); Mean Platelet Volume 10.5 fL (9.4-12.4); Platelet Count 317 K/mcL (140-400); Red Blood Count 2.44 M/mcL (4.19-5.50); Red Cell Distribution Width 16.4 % (11.5-14.5); White Blood Count 8.2 K/mcL (4.3-11.1)
[2021-11-11 06:27] LABS: BUN/Creatinine Ratio 27 (6-26); Blood Urea Nitrogen 23 mg/dL (8-23); Carbon Dioxide 26 mEq/L (23-29); Chloride 106 mEq/L (98-107); Glucose 320 mg/dL (70-105); Osmolality,Calculated 298 (280-300); Potassium 4.4 mEq/L (3.5-5.1); Sodium 136 mEq/L (136-145); eGFR For African Americans > 60 (> 60); eGFR For Non-African Americans > 60 (> 60)
[2021-11-11] MEDS: *HR* OxyCODONE Immed Rel 5 MG TABLET PO PRN ×2 (06:53→15:12)
[2021-11-11] MEDS: Metoprolol XL (24 HR) Succ 25 MG TAB.ER.24H PO SCH ×2 (08:50→17:47)
[2021-11-11] MEDS: Gabapentin 400 MG CAPSULE PO SCH ×3 (08:51→19:39)
[2021-11-11] MEDS: Baclofen 10 MG TABLET PO SCH ×3 (08:51→19:40)
[2021-11-11] MEDS: Multivit/Ca/Min/Fe/FA 1 TAB TABLET PO SCH (08:51)
[2021-11-11] MEDS: Ascorbic Acid 500 MG TABLET PO SCH ×3 (08:51→19:41)
[2021-11-11] MEDS: Cholecalciferol (D-3) 1,000 UNIT (25MCG) TABLET PO SCH (08:51)
[2021-11-11] MEDS: Lactobacillus 1 EACH CAP.SPRINK PO SCH ×2 (08:51→19:40)
[2021-11-11] MEDS: Insulin DETEMIR 100 UNIT/ML X5UNITS SUBQ SCH ×2 (08:52→23:18)
[2021-11-11] MEDS: Chlorhexidine Rinse 15 ML MOUTHWASH MM SCH ×2 (08:52→19:40)
[2021-11-11] MEDS: polyethylene glycoL 3350 17 GM POWD.PACK PO SCH ×2 (08:52→19:40)
[2021-11-11] MEDS: Sennosides/Docusate Sodium TABLET PO SCH ×2 (08:52→19:40)
[2021-11-11] MEDS: Heparin 25,000UNIT/250ML 1/2NS 25,000 UNIT/250 ML IV.SOLN IVC SCH (15:47)
[2021-11-11] MEDS: Insulin LISPRO 300 UNITS/3 ML VIAL SUBQ SCH ×3 (16:20→23:18)
[2021-11-11] MEDS: Ammonium Lactate 30 APPL/225 GM BOTTLE TP SCH (16:21)
[2021-11-11] MEDS: traZODone 50 MG TABLET PO SCH (19:40)
[2021-11-12] MEDS: Meropenem 1,000 MG in 0.9 % Sodium Chloride Mini Bag 100 ML IVPB SCH ×3 (05:43→22:01)
[2021-11-12] MEDS: *HR* OxyCODONE Immed Rel 5 MG TABLET PO PRN ×2 (05:51→13:40)
[2021-11-12 06:01] LABS: Basophils % 0.1 %; Eosinophils # 0.9 K/mcL (0.0-0.6); Eosinophils % 5.9 %; Hemoglobin 7.4 g/dL (12.9-16.9); Immature Granulocytes % 1.3 % (0-4); Lymphocytes # 0.8 K/mcL (0.6-4.6); Lymphocytes % 5.4 %; Mean Corpuscular HGB Conc 29.6 g/dL (31.6-35.5); Mean Corpuscular Volume 91.2 fL (83.0-100.0); Mean Platelet Volume 9.7 fL (9.4-12.4); Monocytes # 0.9 K/mcL (0.0-1.3); Monocytes % 6.1 %; Neutrophils # 12.3 K/mcL (1.6-8.9); Platelet Count 355 K/mcL (140-400); Red Blood Count 2.74 M/mcL (4.19-5.50); Red Cell Distribution Width 16.6 % (11.5-14.5); Segmented Neutrophils % 81.2 %; White Blood Count 15.2 K/mcL (4.3-11.1)
[2021-11-12 06:18] LABS: Alanine Aminotransferase 12 Units/L (7-52); Albumin 1.9 g/dL (3.5-5.7); Albumin/Globulin Ratio 0.5 (1.1-2.2); Alkaline Phosphatase 112 Units/L (34-104); Aspartate Amino Transferase 20 Units/L (13-39); BUN/Creatinine Ratio 23 (6-26); Bilirubin,Total 0.2 mg/dL (0.3-1.0); Blood Urea Nitrogen 19 mg/dL (8-23); Calcium 7.1 mg/dL (8.6-10.3); Carbon Dioxide 25 mEq/L (23-29); Chloride 104 mEq/L (98-107); Globulin 3.9 g/dL (2.4-3.5); Glucose 338 mg/dL (70-105); Osmolality,Calculated 294 (280-300); Potassium 4.4 mEq/L (3.5-5.1); Sodium 134 mEq/L (136-145); Total Protein 5.8 g/dL (6.4-8.9); eGFR For African Americans > 60 (> 60); eGFR For Non-African Americans > 60 (> 60)
[2021-11-12] MEDS: Insulin LISPRO 300 UNITS/3 ML VIAL SUBQ SCH ×6 (08:32→20:34)
[2021-11-12] MEDS: Heparin 25,000UNIT/250ML 1/2NS 25,000 UNIT/250 ML IV.SOLN IVC SCH ×2 (08:32→22:54)
[2021-11-12] MEDS: Insulin DETEMIR 100 UNIT/ML X5UNITS SUBQ SCH ×2 (08:32→20:33)
[2021-11-12] MEDS: polyethylene glycoL 3350 17 GM POWD.PACK PO SCH ×2 (08:33→20:31)
[2021-11-12] MEDS: Baclofen 10 MG TABLET PO SCH ×3 (08:34→20:33)
[2021-11-12] MEDS: Ascorbic Acid 500 MG TABLET PO SCH ×3 (08:34→20:32)
[2021-11-12] MEDS: Multivit/Ca/Min/Fe/FA 1 TAB TABLET PO SCH (08:34)
[2021-11-12] MEDS: Chlorhexidine Rinse 15 ML MOUTHWASH MM SCH ×2 (08:34→20:31)
[2021-11-12] MEDS: Sennosides/Docusate Sodium TABLET PO SCH ×2 (08:34→20:32)
[2021-11-12] MEDS: Metoprolol XL (24 HR) Succ 25 MG TAB.ER.24H PO SCH ×2 (08:34→20:33)
[2021-11-12] MEDS: Gabapentin 400 MG CAPSULE PO SCH ×3 (08:34→20:32)
[2021-11-12] MEDS: Cholecalciferol (D-3) 1,000 UNIT (25MCG) TABLET PO SCH (08:35)
[2021-11-12] MEDS: Lactobacillus 1 EACH CAP.SPRINK PO SCH ×2 (08:35→20:32)
[2021-11-12] MEDS: *HR* HYDROcodone/Acet 5/325 mg TABLET PO PRN (08:51)
[2021-11-12] MEDS: Ammonium Lactate 30 APPL/225 GM BOTTLE TP SCH (13:40)
[2021-11-12] MEDS: Acetaminophen 325 MG TABLET PO PRN (17:05)
[2021-11-12] MEDS: *HR* FentaNYL PATCH 25 MCG PATCH TD SCH (17:06)
[2021-11-12] MEDS: *HR* OxyCODONE/APAP 5/325 TABLET PO SCH ×2 (18:08→23:56)
[2021-11-12] MEDS: traZODone 50 MG TABLET PO SCH (20:33)
[2021-11-12] MEDS: Vancomycin 1,750 MG/517.5 ML IV.SOLN IVPB SCH (22:54)
[2021-11-13] MEDS: *HR* OxyCODONE Immed Rel 5 MG TABLET PO PRN (04:08)
[2021-11-13] MEDS: *HR* OxyCODONE/APAP 5/325 TABLET PO SCH ×3 (05:26→17:49)
[2021-11-13] MEDS: Meropenem 1,000 MG in 0.9 % Sodium Chloride Mini Bag 100 ML IVPB SCH ×3 (05:27→21:26)
[2021-11-13] MEDS: *HR* Heparin 5,000 UNIT/ML VIAL IVP PRN ×3 (07:16→21:25)
[2021-11-13] MEDS: Insulin LISPRO 300 UNITS/3 ML VIAL SUBQ SCH ×7 (09:08→22:28)
[2021-11-13] MEDS: Chlorhexidine Rinse 15 ML MOUTHWASH MM SCH ×2 (09:16→20:09)
[2021-11-13] MEDS: Cholecalciferol (D-3) 1,000 UNIT (25MCG) TABLET PO SCH (09:16)
[2021-11-13] MEDS: Insulin DETEMIR 100 UNIT/ML X5UNITS SUBQ SCH ×2 (09:16→22:29)
[2021-11-13] MEDS: Ammonium Lactate 30 APPL/225 GM BOTTLE TP SCH (09:16)
[2021-11-13] MEDS: Ascorbic Acid 500 MG TABLET PO SCH ×3 (09:16→20:08)
[2021-11-13] MEDS: Multivit/Ca/Min/Fe/FA 1 TAB TABLET PO SCH (09:16)
[2021-11-13] MEDS: Metoprolol XL (24 HR) Succ 25 MG TAB.ER.24H PO SCH ×2 (09:17→20:08)
[2021-11-13] MEDS: polyethylene glycoL 3350 17 GM POWD.PACK PO SCH ×2 (09:17→20:09)
[2021-11-13] MEDS: Baclofen 10 MG TABLET PO SCH ×3 (09:17→20:08)
[2021-11-13] MEDS: Gabapentin 400 MG CAPSULE PO SCH ×3 (09:17→20:08)
[2021-11-13] MEDS: Lactobacillus 1 EACH CAP.SPRINK PO SCH ×2 (09:17→20:08)
[2021-11-13] MEDS: Sennosides/Docusate Sodium TABLET PO SCH ×2 (09:17→20:08)
[2021-11-13] MEDS: Acetaminophen 325 MG TABLET PO PRN ×2 (09:35→16:26)
[2021-11-13] MEDS: Heparin 25,000UNIT/250ML 1/2NS 25,000 UNIT/250 ML IV.SOLN IVC SCH (14:00)
[2021-11-13] MEDS: traZODone 50 MG TABLET PO SCH (20:08)
[2021-11-14] MEDS: Vancomycin 1,750 MG/517.5 ML IV.SOLN IVPB SCH (00:50)
[2021-11-14] MEDS: *HR* OxyCODONE/APAP 5/325 TABLET PO SCH ×4 (00:50→19:32)
[2021-11-14] MEDS: Heparin 25,000UNIT/250ML 1/2NS 25,000 UNIT/250 ML IV.SOLN IVC SCH ×2 (02:28→20:34)
[2021-11-14 04:40] LABS: Hemoglobin 6.7 g/dL (12.9-16.9); Mean Corpuscular HGB Conc 29.1 g/dL (31.6-35.5); Mean Corpuscular Hemoglobin 27.3 pg (28.0-33.3); Mean Corpuscular Volume 93.9 fL (83.0-100.0); Mean Platelet Volume 9.8 fL (9.4-12.4); Platelet Count 268 K/mcL (140-400); Red Blood Count 2.45 M/mcL (4.19-5.50); White Blood Count 9.9 K/mcL (4.3-11.1)
[2021-11-14 05:26] LABS: BUN/Creatinine Ratio 28 (6-26); Blood Urea Nitrogen 23 mg/dL (8-23); Calcium 7.4 mg/dL (8.6-10.3); Carbon Dioxide 24 mEq/L (23-29); Chloride 106 mEq/L (98-107); Glucose 265 mg/dL (70-105); Osmolality,Calculated 291 (280-300); Potassium 4.8 mEq/L (3.5-5.1); Sodium 134 mEq/L (136-145); eGFR For African Americans > 60 (> 60); eGFR For Non-African Americans > 60 (> 60)
[2021-11-14] MEDS: Meropenem 1,000 MG in 0.9 % Sodium Chloride Mini Bag 100 ML IVPB SCH (06:26)
[2021-11-14] MEDS: Ascorbic Acid 500 MG TABLET PO SCH ×3 (08:35→19:34)
[2021-11-14] MEDS: polyethylene glycoL 3350 17 GM POWD.PACK PO SCH ×2 (08:35→19:36)
[2021-11-14] MEDS: Baclofen 10 MG TABLET PO SCH ×3 (08:36→19:33)
[2021-11-14] MEDS: Multivit/Ca/Min/Fe/FA 1 TAB TABLET PO SCH (08:36)
[2021-11-14] MEDS: Metoprolol XL (24 HR) Succ 25 MG TAB.ER.24H PO SCH ×2 (08:36→19:33)
[2021-11-14] MEDS: Sennosides/Docusate Sodium TABLET PO SCH ×2 (08:36→19:34)
[2021-11-14] MEDS: Lactobacillus 1 EACH CAP.SPRINK PO SCH ×2 (08:37→19:34)
[2021-11-14] MEDS: Chlorhexidine Rinse 15 ML MOUTHWASH MM SCH ×2 (08:37→19:48)
[2021-11-14] MEDS: Cholecalciferol (D-3) 1,000 UNIT (25MCG) TABLET PO SCH (08:37)
[2021-11-14] MEDS: Gabapentin 400 MG CAPSULE PO SCH ×3 (08:37→19:31)
[2021-11-14] MEDS: Insulin DETEMIR 100 UNIT/ML X5UNITS SUBQ SCH ×2 (08:38→20:41)
[2021-11-14] MEDS: Ammonium Lactate 30 APPL/225 GM BOTTLE TP SCH (08:38)
[2021-11-14] MEDS: Insulin LISPRO 300 UNITS/3 ML VIAL SUBQ SCH ×7 (08:39→20:36)
[2021-11-14] MEDS: *HR* OxyCODONE Immed Rel 5 MG TABLET PO PRN (13:24)
[2021-11-14] MEDS: Cefdinir 300 MG CAPSULE PO SCH (15:11)
[2021-11-14] MEDS: traZODone 50 MG TABLET PO SCH (19:32)
[2021-11-15] MEDS: *HR* OxyCODONE Immed Rel 5 MG TABLET PO PRN (01:58)
[2021-11-15] MEDS: *HR* OxyCODONE/APAP 5/325 TABLET PO SCH ×4 (02:26→17:59)
[2021-11-15 05:10] LABS: BUN/Creatinine Ratio 26 (6-26); Blood Urea Nitrogen 22 mg/dL (8-23); Calcium 7.8 mg/dL (8.6-10.3); Carbon Dioxide 26 mEq/L (23-29); Chloride 104 mEq/L (98-107); Glucose 121 mg/dL (70-105); Hematocrit 22.9 % (37.5-50.1); Mean Corpuscular HGB Conc 30.6 g/dL (31.6-35.5); Mean Corpuscular Hemoglobin 27.5 pg (28.0-33.3); Mean Corpuscular Volume 89.8 fL (83.0-100.0); Mean Platelet Volume 10.1 fL (9.4-12.4); Osmolality,Calculated 287 (280-300); Platelet Count 319 K/mcL (140-400); Potassium 4.7 mEq/L (3.5-5.1); Red Blood Count 2.55 M/mcL (4.19-5.50); Red Cell Distribution Width 17.1 % (11.5-14.5); Sodium 136 mEq/L (136-145); White Blood Count 12.9 K/mcL (4.3-11.1); eGFR For African Americans > 60 (> 60); eGFR For Non-African Americans > 60 (> 60)
[2021-11-15] MEDS: Insulin LISPRO 300 UNITS/3 ML VIAL SUBQ SCH ×5 (07:29→21:48)
[2021-11-15] MEDS: Chlorhexidine Rinse 15 ML MOUTHWASH MM SCH (07:30)
[2021-11-15] MEDS: Insulin DETEMIR 100 UNIT/ML X5UNITS SUBQ SCH ×2 (07:30→21:49)
[2021-11-15] MEDS: Baclofen 10 MG TABLET PO SCH ×3 (07:30→21:46)
[2021-11-15] MEDS: polyethylene glycoL 3350 17 GM POWD.PACK PO SCH ×2 (07:30→21:48)
[2021-11-15] MEDS: Lactobacillus 1 EACH CAP.SPRINK PO SCH ×2 (07:30→21:46)
[2021-11-15] MEDS: Cefdinir 300 MG CAPSULE PO SCH ×2 (07:31→21:47)
[2021-11-15] MEDS: Ascorbic Acid 500 MG TABLET PO SCH ×3 (07:31→21:46)
[2021-11-15] MEDS: Gabapentin 400 MG CAPSULE PO SCH ×3 (07:31→23:12)
[2021-11-15] MEDS: Sennosides/Docusate Sodium TABLET PO SCH ×2 (07:31→21:48)
[2021-11-15] MEDS: Cholecalciferol (D-3) 1,000 UNIT (25MCG) TABLET PO SCH (07:31)
[2021-11-15] MEDS: Multivit/Ca/Min/Fe/FA 1 TAB TABLET PO SCH (07:31)
[2021-11-15] MEDS: Metoprolol XL (24 HR) Succ 25 MG TAB.ER.24H PO SCH ×2 (07:40→21:47)
[2021-11-15] MEDS: Ammonium Lactate 30 APPL/225 GM BOTTLE TP SCH (12:42)
[2021-11-15] MEDS: *HR* FentaNYL PATCH 25 MCG PATCH TD SCH ×2 (15:31→21:49)
[2021-11-15] MEDS: Heparin 25,000UNIT/250ML 1/2NS 25,000 UNIT/250 ML IV.SOLN IVC SCH (15:31)
[2021-11-15] MEDS ORDERED: Lidocaine -MPF 2% 5 ML VIAL ONE (15:53)
[2021-11-15] MEDS ORDERED: *HR* Propofol 200 MG/20 ML VIAL IVP ONE (15:53)
[2021-11-15] MEDS ORDERED: *HR* FentaNYL (PF) 100 MCG/2 ML VIAL ONE (15:53)
[2021-11-15] MEDS ORDERED: *HR* Rocuronium Bromide 50 MG/5 ML VIAL ONE (15:53)
[2021-11-15] MEDS ORDERED: Ondansetron 4 MG/2 ML VIAL ONE (15:53)
[2021-11-15] MEDS ORDERED: EPINEPHrine 1 MG/ML VIAL ONE (16:05)
[2021-11-15] MEDS ORDERED: Heparin 1,000 UNITS/500 mL 0 ML ONE (16:05)
[2021-11-15] MEDS ORDERED: *HR* Heparin 5,000 UNIT/ML VIAL ONE (16:05)
[2021-11-15] MEDS ORDERED: *HR* Phenylephrine 10 MG/ML VIAL ONE (17:43)
[2021-11-15] MEDS ORDERED: *HR* OxyCODONE Immed Rel 5 MG TABLET PO PRN (17:53)
[2021-11-15] MEDS ORDERED: Ondansetron 4 MG/2 ML VIAL IVP PRN ×2 (17:53→20:42)
[2021-11-15] MEDS ORDERED: Promethazine 6.25 MG in Water for inj. (sterile) 20 ML IVPB PRN (17:53)
[2021-11-15] MEDS ORDERED: *HR* HYDROmorphone PF 0.5 MG/0.5 ML SYRINGE IVP PRN (17:53)
[2021-11-15] MEDS ORDERED: Neostigmine Methylsulfate 3 MG/3 ML SYRINGE ONE ×2 (18:59→19:00)
[2021-11-15] MEDS ORDERED: *HR* HYDROmorphone (PF) 1 MG/ML SYRINGE ONE (20:01)
[2021-11-15] MEDS: *HR* HYDROmorphone PF 0.5 MG/0.5 ML SYRINGE IVP PRN ×2 (20:03→20:22)
[2021-11-15] MEDS ORDERED: Naloxone 0.4 MG/ML INJ IVP PRN (20:42)
[2021-11-15] MEDS ORDERED: Melatonin 3 MG TABLET PO PRN (20:42)
[2021-11-15] MEDS ORDERED: Dextrose Gel 15 GM/37.5 ML TUBE PO PRN ×2 (20:42)
[2021-11-15] MEDS ORDERED: D5% in Water 1,000 ML IVC PRN (20:42)
[2021-11-15] MEDS ORDERED: *HR* Dextrose 50 % in Water (Syg) 50 ML SYRINGE IVP PRN (20:42)
[2021-11-15] MEDS: traZODone 50 MG TABLET PO SCH (21:47)
[2021-11-15] MEDS ORDERED: *HR* OxyCODONE/APAP 5/325 TABLET PO ONE (23:35)
[2021-11-16] MEDS ORDERED: *HR* OxyCODONE Immed Rel 5 MG TABLET PO ONE (01:58)
[2021-11-16] MEDS ORDERED: *HR* HYDROmorphone 2 MG TABLET PO ONE (05:42)
[2021-11-16 05:43] LABS: Hematocrit 22.8 % (37.5-50.1); Hemoglobin 6.9 g/dL (12.9-16.9); Mean Corpuscular HGB Conc 30.3 g/dL (31.6-35.5); Mean Corpuscular Hemoglobin 27.6 pg (28.0-33.3); Mean Corpuscular Volume 91.2 fL (83.0-100.0); Platelet Count 340 K/mcL (140-400); Red Cell Distribution Width 17.1 % (11.5-14.5); White Blood Count 18.1 K/mcL (4.3-11.1)
[2021-11-16 06:12] LABS: BUN/Creatinine Ratio 30 (6-26); Blood Urea Nitrogen 25 mg/dL (8-23); Calcium 7.5 mg/dL (8.6-10.3); Carbon Dioxide 26 mEq/L (23-29); Chloride 102 mEq/L (98-107); Glucose 202 mg/dL (70-105); Osmolality,Calculated 286 (280-300); Potassium 5.9 mEq/L (3.5-5.1); Sodium 133 mEq/L (136-145); eGFR For African Americans > 60 (> 60); eGFR For Non-African Americans > 60 (> 60)
[2021-11-16] MEDS: Baclofen 10 MG TABLET PO SCH ×3 (09:17→22:21)
[2021-11-16] MEDS: Gabapentin 400 MG CAPSULE PO SCH ×3 (09:17→22:22)
[2021-11-16] MEDS: Cholecalciferol (D-3) 1,000 UNIT (25MCG) TABLET PO SCH (09:18)
[2021-11-16] MEDS: Multivit/Ca/Min/Fe/FA 1 TAB TABLET PO SCH (09:18)
[2021-11-16] MEDS: Sennosides/Docusate Sodium TABLET PO SCH ×2 (09:19→22:23)
[2021-11-16] MEDS: Ascorbic Acid 500 MG TABLET PO SCH ×3 (09:19→22:23)
[2021-11-16] MEDS: Metoprolol XL (24 HR) Succ 25 MG TAB.ER.24H PO SCH ×2 (09:19→22:22)
[2021-11-16] MEDS: Cefdinir 300 MG CAPSULE PO SCH ×2 (09:20→22:23)
[2021-11-16] MEDS: Lactobacillus 1 EACH CAP.SPRINK PO SCH ×2 (09:21→22:22)
[2021-11-16] MEDS: polyethylene glycoL 3350 17 GM POWD.PACK PO SCH ×2 (09:21→22:23)
[2021-11-16] MEDS: Ammonium Lactate 30 APPL/225 GM BOTTLE TP SCH (09:23)
[2021-11-16] MEDS: Insulin DETEMIR 100 UNIT/ML X5UNITS SUBQ SCH ×2 (09:31→23:45)
[2021-11-16] MEDS: Insulin LISPRO 300 UNITS/3 ML VIAL SUBQ SCH ×4 (09:32→22:04)
[2021-11-16] MEDS: *HR* OxyCODONE/APAP 5/325 TABLET PO SCH ×3 (12:35→23:45)
[2021-11-16] MEDS ORDERED: 0.9 % Sodium Chloride 250 ML ONE (13:46)
[2021-11-16] MEDS: traZODone 50 MG TABLET PO SCH (22:21)
[2021-11-16 23:03] LABS: Hemoglobin 9.1 g/dL (12.9-16.9)
[2021-11-17 05:38] LABS: Basophils # 0.1 K/mcL (0.0-0.2); Basophils % 0.5 %; Eosinophils # 0.5 K/mcL (0.0-0.6); Eosinophils % 3.6 %; Hematocrit 28.8 % (37.5-50.1); Hemoglobin 8.5 g/dL (12.9-16.9); Immature Granulocytes % 3.2 % (0-4); Lymphocytes # 1.8 K/mcL (0.6-4.6); Lymphocytes % 14.7 %; Mean Corpuscular HGB Conc 29.5 g/dL (31.6-35.5); Mean Corpuscular Hemoglobin 26.9 pg (28.0-33.3); Mean Corpuscular Volume 91.1 fL (83.0-100.0); Mean Platelet Volume 9.4 fL (9.4-12.4); Monocytes % 8.2 %; Neutrophils # 8.7 K/mcL (1.6-8.9); Platelet Count 333 K/mcL (140-400); Red Blood Count 3.16 M/mcL (4.19-5.50); Red Cell Distribution Width 17.7 % (11.5-14.5); Segmented Neutrophils % 69.8 %; White Blood Count 12.5 K/mcL (4.3-11.1)
[2021-11-17 05:57] LABS: Alanine Aminotransferase 12 Units/L (7-52); Albumin 2.2 g/dL (3.5-5.7); Albumin/Globulin Ratio 0.5 (1.1-2.2); Alkaline Phosphatase 110 Units/L (34-104); Aspartate Amino Transferase 41 Units/L (13-39); BUN/Creatinine Ratio 34 (6-26); Bilirubin,Total 0.2 mg/dL (0.3-1.0); Blood Urea Nitrogen 28 mg/dL (8-23); Calcium 7.7 mg/dL (8.6-10.3); Carbon Dioxide 26 mEq/L (23-29); Chloride 106 mEq/L (98-107); Globulin 4.1 g/dL (2.4-3.5); Glucose 184 mg/dL (70-105); Osmolality,Calculated 294 (280-300); Potassium 4.8 mEq/L (3.5-5.1); Sodium 137 mEq/L (136-145); Total Protein 6.3 g/dL (6.4-8.9); eGFR For African Americans > 60 (> 60); eGFR For Non-African Americans > 60 (> 60)
[2021-11-17] MEDS: *HR* OxyCODONE/APAP 5/325 TABLET PO SCH ×3 (06:56→17:14)
[2021-11-17] MEDS: Multivit/Ca/Min/Fe/FA 1 TAB TABLET PO SCH (08:38)
[2021-11-17] MEDS: Cholecalciferol (D-3) 1,000 UNIT (25MCG) TABLET PO SCH (08:38)
[2021-11-17] MEDS: Cefdinir 300 MG CAPSULE PO SCH ×2 (08:39→22:20)
[2021-11-17] MEDS: Ascorbic Acid 500 MG TABLET PO SCH ×3 (08:39→22:27)
[2021-11-17] MEDS: Metoprolol XL (24 HR) Succ 25 MG TAB.ER.24H PO SCH ×2 (08:39→22:28)
[2021-11-17] MEDS: Lactobacillus 1 EACH CAP.SPRINK PO SCH ×2 (08:39→22:21)
[2021-11-17] MEDS: Gabapentin 400 MG CAPSULE PO SCH ×3 (08:39→22:27)
[2021-11-17] MEDS: Baclofen 10 MG TABLET PO SCH ×3 (08:40→22:27)
[2021-11-17] MEDS: polyethylene glycoL 3350 17 GM POWD.PACK PO SCH ×2 (08:40→22:28)
[2021-11-17] MEDS: Sennosides/Docusate Sodium TABLET PO SCH ×2 (08:41→22:27)
[2021-11-17] MEDS: Insulin DETEMIR 100 UNIT/ML X5UNITS SUBQ SCH ×2 (08:52→22:28)
[2021-11-17] MEDS: Insulin LISPRO 300 UNITS/3 ML VIAL SUBQ SCH ×4 (08:52→22:28)
[2021-11-17] MEDS: Ammonium Lactate 30 APPL/225 GM BOTTLE TP SCH (12:26)
[2021-11-17] MEDS: traZODone 50 MG TABLET PO SCH (22:21)
[2021-11-18] MEDS: *HR* OxyCODONE/APAP 5/325 TABLET PO SCH ×5 (00:46→23:09)
[2021-11-18 02:17] LABS: Basophils # 0.1 K/mcL (0.0-0.2); Basophils % 0.4 %; Eosinophils # 0.7 K/mcL (0.0-0.6); Eosinophils % 4.6 %; Hematocrit 26.3 % (37.5-50.1); Hemoglobin 7.7 g/dL (12.9-16.9); Immature Granulocytes % 1.5 % (0-4); Lymphocytes # 1.9 K/mcL (0.6-4.6); Lymphocytes % 12.6 %; Mean Corpuscular HGB Conc 29.3 g/dL (31.6-35.5); Mean Corpuscular Hemoglobin 26.8 pg (28.0-33.3); Mean Corpuscular Volume 91.6 fL (83.0-100.0); Mean Platelet Volume 9.7 fL (9.4-12.4); Monocytes # 1.3 K/mcL (0.0-1.3); Monocytes % 8.8 %; Neutrophils # 10.7 K/mcL (1.6-8.9); Platelet Count 322 K/mcL (140-400); Red Blood Count 2.87 M/mcL (4.19-5.50); Red Cell Distribution Width 17.8 % (11.5-14.5); Segmented Neutrophils % 72.1 %; White Blood Count 14.9 K/mcL (4.3-11.1)
[2021-11-18 02:42] LABS: Alanine Aminotransferase 14 Units/L (7-52); Albumin 2.1 g/dL (3.5-5.7); Albumin/Globulin Ratio 0.6 (1.1-2.2); Alkaline Phosphatase 103 Units/L (34-104); Aspartate Amino Transferase 44 Units/L (13-39); BUN/Creatinine Ratio 31 (6-26); Bilirubin,Total 0.2 mg/dL (0.3-1.0); Blood Urea Nitrogen 25 mg/dL (8-23); Calcium 7.4 mg/dL (8.6-10.3); Carbon Dioxide 27 mEq/L (23-29); Chloride 102 mEq/L (98-107); Globulin 3.8 g/dL (2.4-3.5); Glucose 148 mg/dL (70-105); Osmolality,Calculated 283 (280-300); Potassium 5.3 mEq/L (3.5-5.1); Sodium 133 mEq/L (136-145); Total Protein 5.9 g/dL (6.4-8.9); eGFR For African Americans > 60 (> 60); eGFR For Non-African Americans > 60 (> 60)
[2021-11-18] MEDS: Ascorbic Acid 500 MG TABLET PO SCH ×3 (07:52→21:03)
[2021-11-18] MEDS: Acetaminophen 325 MG TABLET PO PRN (07:52)
[2021-11-18] MEDS: Gabapentin 400 MG CAPSULE PO SCH ×3 (07:53→21:02)
[2021-11-18] MEDS: Lactobacillus 1 EACH CAP.SPRINK PO SCH ×2 (07:53→21:03)
[2021-11-18] MEDS: Cefdinir 300 MG CAPSULE PO SCH ×2 (07:53→21:03)
[2021-11-18] MEDS: Multivit/Ca/Min/Fe/FA 1 TAB TABLET PO SCH (07:54)
[2021-11-18] MEDS: Metoprolol XL (24 HR) Succ 25 MG TAB.ER.24H PO SCH ×2 (07:54→21:02)
[2021-11-18] MEDS: Sennosides/Docusate Sodium TABLET PO SCH ×2 (07:54→21:02)
[2021-11-18] MEDS: Cholecalciferol (D-3) 1,000 UNIT (25MCG) TABLET PO SCH (07:54)
[2021-11-18] MEDS: Baclofen 10 MG TABLET PO SCH ×3 (07:54→21:04)
[2021-11-18] MEDS: polyethylene glycoL 3350 17 GM POWD.PACK PO SCH ×2 (07:55→21:05)
[2021-11-18] MEDS: Insulin LISPRO 300 UNITS/3 ML VIAL SUBQ SCH ×4 (08:05→21:06)
[2021-11-18] MEDS: Insulin DETEMIR 100 UNIT/ML X5UNITS SUBQ SCH ×2 (08:11→21:05)
[2021-11-18] MEDS: Morphine Sulfate 2 MG/ML SYRINGE IVP PRN ×3 (11:26→20:21)
[2021-11-18] MEDS ORDERED: SODIUM ZIRCONIUM CYCLOSILICATE 5 GM POWD.PACK PO SCH (11:30)
[2021-11-18] MEDS: Ammonium Lactate 30 APPL/225 GM BOTTLE TP SCH (14:14)
[2021-11-18] MEDS ORDERED: Morphine Sulfate 2 MG/ML SYRINGE IVP ONE (15:00)
[2021-11-18] MEDS: traZODone 50 MG TABLET PO SCH (21:03)
[2021-11-18] MEDS: *HR* FentaNYL PATCH 25 MCG PATCH TD SCH (21:04)
[2021-11-18] MEDS: SODIUM ZIRCONIUM CYCLOSILICATE 5 GM POWD.PACK PO SCH (21:05)
[2021-11-19] MEDS: Morphine Sulfate 2 MG/ML SYRINGE IVP PRN ×4 (01:17→20:23)
[2021-11-19 02:13] LABS: Basophils # 0.1 K/mcL (0.0-0.2); Basophils % 0.4 %; Eosinophils # 0.4 K/mcL (0.0-0.6); Eosinophils % 3.4 %; Hematocrit 30.9 % (37.5-50.1); Hemoglobin 9.1 g/dL (12.9-16.9); Immature Granulocytes % 1.3 % (0-4); Lymphocytes # 1.6 K/mcL (0.6-4.6); Lymphocytes % 12.9 %; Mean Corpuscular HGB Conc 29.4 g/dL (31.6-35.5); Mean Corpuscular Hemoglobin 26.8 pg (28.0-33.3); Mean Corpuscular Volume 91.2 fL (83.0-100.0); Mean Platelet Volume 9.8 fL (9.4-12.4); Monocytes % 8.2 %; Platelet Count 335 K/mcL (140-400); Red Blood Count 3.39 M/mcL (4.19-5.50); Red Cell Distribution Width 17.5 % (11.5-14.5); Segmented Neutrophils % 73.8 %; White Blood Count 12.2 K/mcL (4.3-11.1)
[2021-11-19 02:35] LABS: Alanine Aminotransferase 16 Units/L (7-52); Albumin 2.4 g/dL (3.5-5.7); Albumin/Globulin Ratio 0.6 (1.1-2.2); Alkaline Phosphatase 121 Units/L (34-104); Aspartate Amino Transferase 35 Units/L (13-39); BUN/Creatinine Ratio 29 (6-26); Bilirubin,Total 0.2 mg/dL (0.3-1.0); Blood Urea Nitrogen 25 mg/dL (8-23); Calcium 7.7 mg/dL (8.6-10.3); Carbon Dioxide 27 mEq/L (23-29); Chloride 100 mEq/L (98-107); Globulin 4.1 g/dL (2.4-3.5); Glucose 327 mg/dL (70-105); Osmolality,Calculated 287 (280-300); Potassium 5.4 mEq/L (3.5-5.1); Sodium 130 mEq/L (136-145); Total Protein 6.5 g/dL (6.4-8.9); eGFR For African Americans > 60 (> 60); eGFR For Non-African Americans > 60 (> 60)
[2021-11-19] MEDS: *HR* OxyCODONE/APAP 5/325 TABLET PO SCH ×3 (05:15→17:51)
[2021-11-19] MEDS: SODIUM ZIRCONIUM CYCLOSILICATE 5 GM POWD.PACK PO SCH (08:58)
[2021-11-19] MEDS: Insulin LISPRO 300 UNITS/3 ML VIAL SUBQ SCH ×4 (08:58→20:22)
[2021-11-19] MEDS: Insulin DETEMIR 100 UNIT/ML X5UNITS SUBQ SCH ×2 (08:58→20:20)
[2021-11-19] MEDS: Sennosides/Docusate Sodium TABLET PO SCH ×2 (08:59→20:21)
[2021-11-19] MEDS: Ascorbic Acid 500 MG TABLET PO SCH ×3 (08:59→20:21)
[2021-11-19] MEDS: Metoprolol XL (24 HR) Succ 25 MG TAB.ER.24H PO SCH ×2 (08:59→20:21)
[2021-11-19] MEDS: Gabapentin 400 MG CAPSULE PO SCH ×3 (08:59→20:20)
[2021-11-19] MEDS: Cefdinir 300 MG CAPSULE PO SCH ×2 (08:59→20:21)
[2021-11-19] MEDS: Multivit/Ca/Min/Fe/FA 1 TAB TABLET PO SCH (08:59)
[2021-11-19] MEDS: Baclofen 10 MG TABLET PO SCH ×3 (08:59→20:19)
[2021-11-19] MEDS: Lactobacillus 1 EACH CAP.SPRINK PO SCH ×2 (08:59→20:18)
[2021-11-19] MEDS: Cholecalciferol (D-3) 1,000 UNIT (25MCG) TABLET PO SCH (09:00)
[2021-11-19] MEDS: polyethylene glycoL 3350 17 GM POWD.PACK PO SCH ×2 (09:01→20:20)
[2021-11-19] MEDS: Ammonium Lactate 30 APPL/225 GM BOTTLE TP SCH (09:01)
[2021-11-19] MEDS: traZODone 50 MG TABLET PO SCH (20:21)
[2021-11-20] MEDS: *HR* OxyCODONE/APAP 5/325 TABLET PO SCH ×3 (00:09→12:17)
[2021-11-20] MEDS: Morphine Sulfate 2 MG/ML SYRINGE IVP PRN (04:02)
[2021-11-20] MEDS: Ascorbic Acid 500 MG TABLET PO SCH ×3 (10:02→19:38)
[2021-11-20] MEDS: Metoprolol XL (24 HR) Succ 25 MG TAB.ER.24H PO SCH ×2 (10:02→19:38)
[2021-11-20] MEDS: Cholecalciferol (D-3) 1,000 UNIT (25MCG) TABLET PO SCH (10:02)
[2021-11-20] MEDS: Gabapentin 400 MG CAPSULE PO SCH ×3 (10:02→19:38)
[2021-11-20] MEDS: Baclofen 10 MG TABLET PO SCH ×3 (10:02→19:38)
[2021-11-20] MEDS: Multivit/Ca/Min/Fe/FA 1 TAB TABLET PO SCH (10:02)
[2021-11-20] MEDS: Lactobacillus 1 EACH CAP.SPRINK PO SCH ×2 (10:02→19:38)
[2021-11-20] MEDS: Insulin LISPRO 300 UNITS/3 ML VIAL SUBQ SCH ×4 (10:03→22:08)
[2021-11-20] MEDS: Sennosides/Docusate Sodium TABLET PO SCH ×2 (10:03→19:38)
[2021-11-20] MEDS: Insulin DETEMIR 100 UNIT/ML X5UNITS SUBQ SCH ×2 (10:03→22:10)
[2021-11-20] MEDS: polyethylene glycoL 3350 17 GM POWD.PACK PO SCH ×2 (10:03→19:39)
[2021-11-20] MEDS: Cefdinir 300 MG CAPSULE PO SCH ×2 (10:03→19:38)
[2021-11-20] MEDS: Ammonium Lactate 30 APPL/225 GM BOTTLE TP SCH (10:05)
[2021-11-20 10:29] LABS: Basophils # 0.1 K/mcL (0.0-0.2); Basophils % 0.4 %; Eosinophils # 0.6 K/mcL (0.0-0.6); Eosinophils % 4.3 %; Immature Granulocytes % 1.3 % (0-4); Lymphocytes # 1.4 K/mcL (0.6-4.6); Lymphocytes % 10.5 %; Mean Corpuscular HGB Conc 29.6 g/dL (31.6-35.5); Mean Corpuscular Hemoglobin 27.2 pg (28.0-33.3); Mean Corpuscular Volume 91.8 fL (83.0-100.0); Mean Platelet Volume 9.7 fL (9.4-12.4); Monocytes # 1.2 K/mcL (0.0-1.3); Monocytes % 8.9 %; Neutrophils # 10.1 K/mcL (1.6-8.9); Platelet Count 360 K/mcL (140-400); Red Blood Count 2.94 M/mcL (4.19-5.50); Red Cell Distribution Width 17.5 % (11.5-14.5); Segmented Neutrophils % 74.6 %; White Blood Count 13.6 K/mcL (4.3-11.1)
[2021-11-20 10:49] LABS: BUN/Creatinine Ratio 28 (6-26); Blood Urea Nitrogen 27 mg/dL (8-23); Calcium 7.7 mg/dL (8.6-10.3); Carbon Dioxide 31 mEq/L (23-29); Chloride 99 mEq/L (98-107); Glucose 372 mg/dL (70-105); Osmolality,Calculated 292 (280-300); Potassium 5.3 mEq/L (3.5-5.1); Sodium 131 mEq/L (136-145); eGFR For African Americans > 60 (> 60); eGFR For Non-African Americans > 60 (> 60)
[2021-11-20] MEDS ORDERED: *HR* OxyCODONE Immed Rel 5 MG TABLET PO PRN (12:26)
[2021-11-20] MEDS: *HR* OxyCODONE Immed Rel 5 MG TABLET PO PRN ×2 (14:44→19:59)
[2021-11-20 15:32] LABS: Bacteria,Urine Moderate per hpf (None-Few); Bilirubin,Urine Negative (Negative); Blood,Urine Negative (Negative); Budding Yeast,Urine Many per hpf (None Seen); Clarity,Urine Ex.Turbid (Clear); Color,Urine Yellow (Yellow); Glucose,Urine (UA) 500 mg/dL (Normal); Ketones,Urine Negative (Negative); Leukocyte Esterase,Urine Large (Negative); Nitrite,Urine Negative (Negative); PH,Urine 6.5 pH Units (5.0-8.0); Protein,Urine 70 mg/dL (Neg-Trace); Specific Gravity,Urine 1.015 (1.010-1.025); Urobilinogen,Urine Normal (Normal)
[2021-11-20] MEDS: traZODone 50 MG TABLET PO SCH (19:38)
[2021-11-21] MEDS: Acetaminophen 325 MG TABLET PO PRN ×2 (00:36→12:09)
[2021-11-21] MEDS: Ammonium Lactate 30 APPL/225 GM BOTTLE TP SCH (09:08)
[2021-11-21] MEDS: Insulin LISPRO 300 UNITS/3 ML VIAL SUBQ SCH ×4 (09:09→22:13)
[2021-11-21] MEDS: Insulin DETEMIR 100 UNIT/ML X5UNITS SUBQ SCH ×2 (09:10→22:08)
[2021-11-21] MEDS: Gabapentin 400 MG CAPSULE PO SCH ×3 (09:10→22:05)
[2021-11-21] MEDS: polyethylene glycoL 3350 17 GM POWD.PACK PO SCH ×2 (09:10→22:31)
[2021-11-21] MEDS: *HR* OxyCODONE Immed Rel 5 MG TABLET PO PRN ×3 (09:10→22:02)
[2021-11-21] MEDS: Ascorbic Acid 500 MG TABLET PO SCH ×3 (09:11→22:03)
[2021-11-21] MEDS: Cefdinir 300 MG CAPSULE PO SCH (09:11)
[2021-11-21] MEDS: Sennosides/Docusate Sodium TABLET PO SCH ×2 (09:11→22:04)
[2021-11-21] MEDS: Baclofen 10 MG TABLET PO SCH ×3 (09:11→22:04)
[2021-11-21] MEDS: Lactobacillus 1 EACH CAP.SPRINK PO SCH ×2 (09:11→22:03)
[2021-11-21] MEDS: Multivit/Ca/Min/Fe/FA 1 TAB TABLET PO SCH (09:11)
[2021-11-21] MEDS: Metoprolol XL (24 HR) Succ 25 MG TAB.ER.24H PO SCH ×2 (09:11→22:03)
[2021-11-21] MEDS: Cholecalciferol (D-3) 1,000 UNIT (25MCG) TABLET PO SCH (09:11)
[2021-11-21 10:46] LABS: Basophils # 0.1 K/mcL (0.0-0.2); Basophils % 0.4 %; Eosinophils # 0.5 K/mcL (0.0-0.6); Eosinophils % 4.2 %; Hematocrit 29.1 % (37.5-50.1); Hemoglobin 8.8 g/dL (12.9-16.9); Immature Granulocytes % 1.1 % (0-4); Lymphocytes # 1.2 K/mcL (0.6-4.6); Lymphocytes % 9.6 %; Mean Corpuscular HGB Conc 30.2 g/dL (31.6-35.5); Mean Corpuscular Hemoglobin 27.6 pg (28.0-33.3); Mean Corpuscular Volume 91.2 fL (83.0-100.0); Mean Platelet Volume 9.7 fL (9.4-12.4); Monocytes # 1.1 K/mcL (0.0-1.3); Monocytes % 8.8 %; Neutrophils # 9.5 K/mcL (1.6-8.9); Platelet Count 373 K/mcL (140-400); Red Blood Count 3.19 M/mcL (4.19-5.50); Red Cell Distribution Width 17.3 % (11.5-14.5); Segmented Neutrophils % 75.9 %; White Blood Count 12.5 K/mcL (4.3-11.1)
[2021-11-21 11:09] LABS: BUN/Creatinine Ratio 30 (6-26); Blood Urea Nitrogen 32 mg/dL (8-23); Calcium 8.3 mg/dL (8.6-10.3); Carbon Dioxide 28 mEq/L (23-29); Chloride 97 mEq/L (98-107); Glucose 377 mg/dL (70-105); Osmolality,Calculated 292 (280-300); Potassium 5.7 mEq/L (3.5-5.1); Sodium 130 mEq/L (136-145); eGFR For African Americans > 60 (> 60); eGFR For Non-African Americans > 60 (> 60)
[2021-11-21] MEDS: *HR* FentaNYL (PF) 100 MCG/2 ML VIAL IVP PRN ×2 (12:04→17:41)
[2021-11-21] MEDS ORDERED: Insulin Human Regular 10 UNIT in 0.9 % Sodium Chloride 10 ML IV ONE (13:06)
[2021-11-21] MEDS ORDERED: Calcium Gluconate 1gm/50mL 1 GM/50 ML BAG IVPB ONE (13:45)
[2021-11-21 13:58] LABS: Potassium,Urine 48.1 mEq/L; Sodium, Urine 81.6 mEq/L
[2021-11-21] MEDS: 0.9 % Sodium Chloride 1,000 ML IVC SCH (15:10)
[2021-11-21] MEDS: SODIUM ZIRCONIUM CYCLOSILICATE 5 GM POWD.PACK PO SCH (15:11)
[2021-11-21] MEDS ORDERED: *HR* Heparin 5,000 UNIT/ML VIAL IVP ONE (17:38)
[2021-11-21] MEDS ORDERED: *HR* Heparin 5,000 UNIT/ML VIAL IVP PRN (17:38)
[2021-11-21] MEDS ORDERED: Vancomycin 1,500 MG/265 ML IV.SOLN IVPB SCH (18:00)
[2021-11-21] MEDS ORDERED: Vancomycin 1,750 MG/517.5 ML IV.SOLN IVPB SCH (18:00)
[2021-11-21 18:13] LABS: BUN/Creatinine Ratio 29 (6-26); Blood Urea Nitrogen 31 mg/dL (8-23); C-Reactive Protein 208 mg/L (Less than 10); Calcium 8.7 mg/dL (8.6-10.3); Carbon Dioxide 26 mEq/L (23-29); Chloride 98 mEq/L (98-107); Glucose 183 mg/dL (70-105); Osmolality,Calculated 283 (280-300); Potassium 5.2 mEq/L (3.5-5.1); Sodium 131 mEq/L (136-145); Vancomycin,Trough 3 mcg/mL (5-10); eGFR For African Americans > 60 (> 60); eGFR For Non-African Americans > 60 (> 60)
[2021-11-21 19:19] LABS: Hematocrit 28.3 % (37.5-50.1); Hemoglobin 8.3 g/dL (12.9-16.9); Mean Corpuscular HGB Conc 29.3 g/dL (31.6-35.5); Mean Corpuscular Hemoglobin 26.3 pg (28.0-33.3); Mean Corpuscular Volume 89.8 fL (83.0-100.0); Mean Platelet Volume 9.7 fL (9.4-12.4); Platelet Count 414 K/mcL (140-400); Red Blood Count 3.15 M/mcL (4.19-5.50); Red Cell Distribution Width 17.3 % (11.5-14.5); White Blood Count 13.3 K/mcL (4.3-11.1)
[2021-11-21 21:02] LABS: Heparin anti-factor XA UFH < 0.04 IU/mL (0.30-0.70)
[2021-11-21 21:03] LABS: INR 1.3; Prothrombin Time 14.5 Seconds (9.4-12.1)
[2021-11-21] MEDS: traZODone 50 MG TABLET PO SCH (22:05)
[2021-11-21] MEDS: *HR* FentaNYL PATCH 25 MCG PATCH TD SCH (22:07)
[2021-11-21] MEDS: Heparin 25,000UNIT/250ML 1/2NS 25,000 UNIT/250 ML IV.SOLN IVC SCH (22:14)
[2021-11-21] MEDS: Piperacillin/Tazobactam 3.375 GM in 0.9 % Sodium Chloride Mini Bag 100 ML IVPB SCH (23:55)
[2021-11-22 05:30] LABS: Basophils % 0.4 %; Eosinophils # 0.7 K/mcL (0.0-0.6); Eosinophils % 5.9 %; Hematocrit 25.7 % (37.5-50.1); Hemoglobin 7.9 g/dL (12.9-16.9); Immature Granulocytes % 1.1 % (0-4); Lymphocytes # 1.2 K/mcL (0.6-4.6); Lymphocytes % 10.8 %; Mean Corpuscular HGB Conc 30.7 g/dL (31.6-35.5); Mean Corpuscular Hemoglobin 27.5 pg (28.0-33.3); Mean Corpuscular Volume 89.5 fL (83.0-100.0); Mean Platelet Volume 10.2 fL (9.4-12.4); Monocytes # 0.7 K/mcL (0.0-1.3); Monocytes % 6.1 %; Neutrophils # 8.5 K/mcL (1.6-8.9); Platelet Count 396 K/mcL (140-400); Red Blood Count 2.87 M/mcL (4.19-5.50); Red Cell Distribution Width 17.4 % (11.5-14.5); Segmented Neutrophils % 75.7 %; White Blood Count 11.2 K/mcL (4.3-11.1)
[2021-11-22 05:38] LABS: BUN/Creatinine Ratio 26 (6-26); Blood Urea Nitrogen 31 mg/dL (8-23); Carbon Dioxide 25 mEq/L (23-29); Chloride 99 mEq/L (98-107); Glucose 196 mg/dL (70-105); Osmolality,Calculated 288 (280-300); Potassium 5.1 mEq/L (3.5-5.1); Sodium 133 mEq/L (136-145); eGFR For African Americans > 60 (> 60); eGFR For Non-African Americans > 60 (> 60)
[2021-11-22] MEDS: Metoprolol XL (24 HR) Succ 25 MG TAB.ER.24H PO SCH ×2 (07:33→21:57)
[2021-11-22] MEDS: Lactobacillus 1 EACH CAP.SPRINK PO SCH ×2 (07:33→21:56)
[2021-11-22] MEDS: Ascorbic Acid 500 MG TABLET PO SCH ×3 (07:33→21:58)
[2021-11-22] MEDS: SODIUM ZIRCONIUM CYCLOSILICATE 5 GM POWD.PACK PO SCH (07:33)
[2021-11-22] MEDS: Baclofen 10 MG TABLET PO SCH ×3 (07:34→21:58)
[2021-11-22] MEDS: Cholecalciferol (D-3) 1,000 UNIT (25MCG) TABLET PO SCH (07:34)
[2021-11-22] MEDS: Piperacillin/Tazobactam 3.375 GM in 0.9 % Sodium Chloride Mini Bag 100 ML IVPB SCH ×2 (07:34→15:10)
[2021-11-22] MEDS: Multivit/Ca/Min/Fe/FA 1 TAB TABLET PO SCH (07:34)
[2021-11-22] MEDS: Sennosides/Docusate Sodium TABLET PO SCH ×2 (07:34→22:00)
[2021-11-22] MEDS: Gabapentin 400 MG CAPSULE PO SCH ×3 (07:34→22:01)
[2021-11-22] MEDS: Insulin LISPRO 300 UNITS/3 ML VIAL SUBQ SCH ×4 (07:36→22:38)
[2021-11-22] MEDS: *HR* Heparin 5,000 UNIT/ML VIAL IVP PRN ×2 (07:36→15:14)
[2021-11-22] MEDS: polyethylene glycoL 3350 17 GM POWD.PACK PO SCH ×2 (07:55→21:56)
[2021-11-22] MEDS: Insulin DETEMIR 100 UNIT/ML X5UNITS SUBQ SCH ×2 (08:00→22:04)
[2021-11-22] MEDS: 0.9 % Sodium Chloride 1,000 ML IVC SCH ×2 (11:24→15:10)
[2021-11-22] MEDS: Ammonium Lactate 30 APPL/225 GM BOTTLE TP SCH (11:24)
[2021-11-22] MEDS: *HR* OxyCODONE Immed Rel 5 MG TABLET PO PRN ×2 (12:20→17:20)
[2021-11-22] MEDS: Heparin 25,000UNIT/250ML 1/2NS 25,000 UNIT/250 ML IV.SOLN IVC SCH (15:08)
[2021-11-22] MEDS: Vancomycin 1,250 MG/262.5 ML IV.SOLN IVPB SCH (17:42)
[2021-11-22] MEDS: traZODone 50 MG TABLET PO SCH (21:00)
[2021-11-23] MEDS: Piperacillin/Tazobactam 3.375 GM in 0.9 % Sodium Chloride Mini Bag 100 ML IVPB SCH ×3 (00:10→17:22)
[2021-11-23] MEDS: Heparin 25,000UNIT/250ML 1/2NS 25,000 UNIT/250 ML IV.SOLN IVC SCH ×2 (04:56→20:33)
[2021-11-23 05:46] LABS: Basophils # 0.1 K/mcL (0.0-0.2); Basophils % 0.5 %; Eosinophils % 10.2 %; Hematocrit 23.6 % (37.5-50.1); Hemoglobin 6.9 g/dL (12.9-16.9); Immature Granulocytes % 0.9 % (0-4); Lymphocytes # 1.2 K/mcL (0.6-4.6); Lymphocytes % 12.7 %; Mean Corpuscular HGB Conc 29.2 g/dL (31.6-35.5); Mean Corpuscular Hemoglobin 26.6 pg (28.0-33.3); Mean Corpuscular Volume 91.1 fL (83.0-100.0); Mean Platelet Volume 9.7 fL (9.4-12.4); Monocytes # 0.9 K/mcL (0.0-1.3); Neutrophils # 6.1 K/mcL (1.6-8.9); Platelet Count 339 K/mcL (140-400); Red Blood Count 2.59 M/mcL (4.19-5.50); Red Cell Distribution Width 17.5 % (11.5-14.5); Segmented Neutrophils % 65.7 %; White Blood Count 9.3 K/mcL (4.3-11.1)
[2021-11-23 06:01] LABS: BUN/Creatinine Ratio 27 (6-26); Blood Urea Nitrogen 30 mg/dL (8-23); Calcium 7.7 mg/dL (8.6-10.3); Carbon Dioxide 26 mEq/L (23-29); Chloride 102 mEq/L (98-107); Glucose 335 mg/dL (70-105); Osmolality,Calculated 297 (280-300); Potassium 4.5 mEq/L (3.5-5.1); Sodium 134 mEq/L (136-145); eGFR For African Americans > 60 (> 60); eGFR For Non-African Americans > 60 (> 60)
[2021-11-23] MEDS ORDERED: 0.9 % Sodium Chloride 250 ML IVC SCH (07:00)
[2021-11-23] MEDS: 0.9 % Sodium Chloride 1,000 ML IVC SCH (08:24)
[2021-11-23] MEDS: polyethylene glycoL 3350 17 GM POWD.PACK PO SCH ×2 (08:29→20:33)
[2021-11-23] MEDS: SODIUM ZIRCONIUM CYCLOSILICATE 5 GM POWD.PACK PO SCH (08:29)
[2021-11-23] MEDS: Ascorbic Acid 500 MG TABLET PO SCH ×3 (08:29→20:34)
[2021-11-23] MEDS: Multivit/Ca/Min/Fe/FA 1 TAB TABLET PO SCH (08:30)
[2021-11-23] MEDS: Lactobacillus 1 EACH CAP.SPRINK PO SCH ×2 (08:31→20:34)
[2021-11-23] MEDS: Gabapentin 400 MG CAPSULE PO SCH ×3 (08:31→20:34)
[2021-11-23] MEDS: Sennosides/Docusate Sodium TABLET PO SCH ×2 (08:31→20:34)
[2021-11-23] MEDS: Cholecalciferol (D-3) 1,000 UNIT (25MCG) TABLET PO SCH (08:31)
[2021-11-23] MEDS: Metoprolol XL (24 HR) Succ 25 MG TAB.ER.24H PO SCH ×2 (08:31→20:36)
[2021-11-23] MEDS: Baclofen 10 MG TABLET PO SCH ×3 (08:32→20:34)
[2021-11-23] MEDS: Insulin LISPRO 300 UNITS/3 ML VIAL SUBQ SCH ×6 (08:34→20:35)
[2021-11-23] MEDS: *HR* OxyCODONE Immed Rel 5 MG TABLET PO PRN ×3 (09:04→17:23)
[2021-11-23] MEDS: Insulin DETEMIR 100 UNIT/ML X5UNITS SUBQ SCH ×2 (09:05→20:35)
[2021-11-23] MEDS ORDERED: Insulin LISPRO 300 UNITS/3 ML VIAL SUBQ SCH (12:00)
[2021-11-23] MEDS: Ammonium Lactate 30 APPL/225 GM BOTTLE TP SCH (13:28)
[2021-11-23 16:08] LABS: Hematocrit 30.4 % (37.5-50.1)
[2021-11-23 16:09] LABS: Hemoglobin 9.2 g/dL (12.9-16.9)
[2021-11-23] MEDS: *HR* Heparin 5,000 UNIT/ML VIAL IVP PRN (16:54)
[2021-11-23 17:05] LABS: Hematocrit 29.1 % (37.5-50.1); Hemoglobin 8.8 g/dL (12.9-16.9)
[2021-11-23] MEDS: Vancomycin 1,250 MG/262.5 ML IV.SOLN IVPB SCH (18:18)
[2021-11-23] MEDS: traZODone 50 MG TABLET PO SCH (20:34)
[2021-11-24] MEDS: Piperacillin/Tazobactam 3.375 GM in 0.9 % Sodium Chloride Mini Bag 100 ML IVPB SCH ×4 (00:47→23:30)
[2021-11-24] MEDS: 0.9 % Sodium Chloride 1,000 ML IVC SCH ×3 (00:49→20:46)
[2021-11-24] MEDS: *HR* OxyCODONE Immed Rel 5 MG TABLET PO PRN ×5 (03:16→22:40)
[2021-11-24] MEDS: Acetaminophen 325 MG TABLET PO PRN (05:13)
[2021-11-24 05:34] LABS: Protein/Creatinine Ratio,Urine 3.66 mg/mg (0.00-0.20)
[2021-11-24 05:45] LABS: Basophils # 0.1 K/mcL (0.0-0.2); Basophils % 0.6 %; Eosinophils # 0.8 K/mcL (0.0-0.6); Eosinophils % 8.2 %; Hematocrit 25.5 % (37.5-50.1); Hemoglobin 7.7 g/dL (12.9-16.9); Immature Granulocytes % 1.3 % (0-4); Lymphocytes # 1.2 K/mcL (0.6-4.6); Mean Corpuscular HGB Conc 30.2 g/dL (31.6-35.5); Mean Corpuscular Hemoglobin 27.8 pg (28.0-33.3); Mean Corpuscular Volume 92.1 fL (83.0-100.0); Mean Platelet Volume 10.3 fL (9.4-12.4); Monocytes # 1.1 K/mcL (0.0-1.3); Monocytes % 10.9 %; Neutrophils # 6.5 K/mcL (1.6-8.9); Platelet Count 343 K/mcL (140-400); Red Blood Count 2.77 M/mcL (4.19-5.50); Red Cell Distribution Width 16.8 % (11.5-14.5); White Blood Count 9.6 K/mcL (4.3-11.1)
[2021-11-24] MEDS: Heparin 25,000UNIT/250ML 1/2NS 25,000 UNIT/250 ML IV.SOLN IVC SCH (08:19)
[2021-11-24] MEDS: Gabapentin 400 MG CAPSULE PO SCH ×3 (08:20→20:44)
[2021-11-24] MEDS: Ascorbic Acid 500 MG TABLET PO SCH ×3 (08:20→20:44)
[2021-11-24] MEDS: Cholecalciferol (D-3) 1,000 UNIT (25MCG) TABLET PO SCH (08:20)
[2021-11-24] MEDS: Lactobacillus 1 EACH CAP.SPRINK PO SCH ×2 (08:20→20:45)
[2021-11-24] MEDS: Sennosides/Docusate Sodium TABLET PO SCH ×2 (08:20→20:44)
[2021-11-24] MEDS: polyethylene glycoL 3350 17 GM POWD.PACK PO SCH ×2 (08:20→20:45)
[2021-11-24] MEDS: Metoprolol XL (24 HR) Succ 25 MG TAB.ER.24H PO SCH ×2 (08:21→20:43)
[2021-11-24] MEDS: Multivit/Ca/Min/Fe/FA 1 TAB TABLET PO SCH (08:21)
[2021-11-24] MEDS: Baclofen 10 MG TABLET PO SCH ×3 (08:21→20:44)
[2021-11-24] MEDS: Insulin LISPRO 300 UNITS/3 ML VIAL SUBQ SCH ×7 (08:22→20:43)
[2021-11-24] MEDS: Insulin DETEMIR 100 UNIT/ML X5UNITS SUBQ SCH ×2 (08:30→20:52)
[2021-11-24 08:31] LABS: BUN/Creatinine Ratio 25 (6-26); Blood Urea Nitrogen 25 mg/dL (8-23); Calcium 7.6 mg/dL (8.6-10.3); Carbon Dioxide 26 mEq/L (23-29); Chloride 103 mEq/L (98-107); Glucose 317 mg/dL (70-105); Osmolality,Calculated 295 (280-300); Potassium 4.5 mEq/L (3.5-5.1); Sodium 134 mEq/L (136-145); eGFR For African Americans > 60 (> 60); eGFR For Non-African Americans > 60 (> 60)
[2021-11-24] MEDS: Ammonium Lactate 30 APPL/225 GM BOTTLE TP SCH (17:45)
[2021-11-24] MEDS: Vancomycin 1,250 MG/262.5 ML IV.SOLN IVPB SCH (18:35)
[2021-11-24] MEDS: *HR* Enoxaparin 120 MG/0.8 ML SYRINGE SQ SCH (18:46)
[2021-11-24] MEDS: Vancomycin 1,500 MG/265 ML IV.SOLN IVPB SCH (19:11)
[2021-11-24] MEDS: *HR* FentaNYL PATCH 25 MCG PATCH TD SCH (20:45)
[2021-11-24] MEDS: traZODone 50 MG TABLET PO SCH (20:45)
[2021-11-25] MEDS: 0.9 % Sodium Chloride 1,000 ML IVC SCH ×2 (02:39→13:23)
[2021-11-25] MEDS: *HR* OxyCODONE Immed Rel 5 MG TABLET PO PRN ×4 (02:40→21:06)
[2021-11-25] MEDS: *HR* Enoxaparin 120 MG/0.8 ML SYRINGE SQ SCH ×2 (05:33→17:29)
[2021-11-25 05:55] LABS: Basophils # 0.1 K/mcL (0.0-0.2); Basophils % 0.6 %; Eosinophils # 0.7 K/mcL (0.0-0.6); Eosinophils % 7.7 %; Hematocrit 24.7 % (37.5-50.1); Hemoglobin 7.5 g/dL (12.9-16.9); Immature Granulocytes % 1.6 % (0-4); Lymphocytes % 11.6 %; Mean Corpuscular HGB Conc 30.4 g/dL (31.6-35.5); Mean Corpuscular Hemoglobin 27.8 pg (28.0-33.3); Mean Corpuscular Volume 91.5 fL (83.0-100.0); Monocytes # 0.9 K/mcL (0.0-1.3); Monocytes % 10.4 %; Platelet Count 321 K/mcL (140-400); Red Cell Distribution Width 16.8 % (11.5-14.5); Segmented Neutrophils % 68.1 %; White Blood Count 8.9 K/mcL (4.3-11.1)
[2021-11-25 06:21] LABS: Alanine Aminotransferase 22 Units/L (7-52); Albumin/Globulin Ratio 0.5 (1.1-2.2); Alkaline Phosphatase 150 Units/L (34-104); Aspartate Amino Transferase 17 Units/L (13-39); BUN/Creatinine Ratio 25 (6-26); Bilirubin,Total 0.2 mg/dL (0.3-1.0); Blood Urea Nitrogen 22 mg/dL (8-23); Calcium 7.7 mg/dL (8.6-10.3); Carbon Dioxide 25 mEq/L (23-29); Chloride 106 mEq/L (98-107); Globulin 3.8 g/dL (2.4-3.5); Glucose 291 mg/dL (70-105); Osmolality,Calculated 294 (280-300); Potassium 4.7 mEq/L (3.5-5.1); Sodium 135 mEq/L (136-145); Total Protein 5.8 g/dL (6.4-8.9); eGFR For African Americans > 60 (> 60); eGFR For Non-African Americans > 60 (> 60)
[2021-11-25] MEDS: Gabapentin 400 MG CAPSULE PO SCH ×3 (08:36→19:46)
[2021-11-25] MEDS: Baclofen 10 MG TABLET PO SCH ×3 (08:36→19:47)
[2021-11-25] MEDS: Multivit/Ca/Min/Fe/FA 1 TAB TABLET PO SCH (08:37)
[2021-11-25] MEDS: Insulin LISPRO 300 UNITS/3 ML VIAL SUBQ SCH ×7 (08:37→20:14)
[2021-11-25] MEDS: Sennosides/Docusate Sodium TABLET PO SCH ×2 (08:37→19:46)
[2021-11-25] MEDS: polyethylene glycoL 3350 17 GM POWD.PACK PO SCH ×2 (08:37→19:46)
[2021-11-25] MEDS: Ascorbic Acid 500 MG TABLET PO SCH ×3 (08:37→19:47)
[2021-11-25] MEDS: Cholecalciferol (D-3) 1,000 UNIT (25MCG) TABLET PO SCH (08:37)
[2021-11-25] MEDS: Lactobacillus 1 EACH CAP.SPRINK PO SCH ×2 (08:37→19:47)
[2021-11-25] MEDS: Metoprolol XL (24 HR) Succ 25 MG TAB.ER.24H PO SCH ×3 (08:37→19:46)
[2021-11-25] MEDS: Insulin DETEMIR 100 UNIT/ML X5UNITS SUBQ SCH ×2 (08:37→19:59)
[2021-11-25] MEDS: Piperacillin/Tazobactam 3.375 GM in 0.9 % Sodium Chloride Mini Bag 100 ML IVPB SCH ×3 (08:38→23:49)
[2021-11-25] MEDS: Ammonium Lactate 30 APPL/225 GM BOTTLE TP SCH (08:39)
[2021-11-25 13:12] LABS: Adenovirus Not Detected (Not Detect); Bordetella Pertussis Not Detected (Not Detect); Chlamydophila pneumoniae Not Detected (Not Detect); Coronavirus 229E Not Detected (Not Detect); Coronavirus HKU1 Not Detected (Not Detect); Coronavirus NL63 Not Detected (Not Detect); Coronavirus OC43 Not Detected (Not Detect); Human Metapneumovirus Not Detected (Not Detect); Human Rhinovirus/Enterovirus Not Detected (Not Detect); Influenza A Subtype 2009 H1 Not Detected (Not Detect); Influenza B Not Detected (Not Detect); Mycoplasma pneumoniae Not Detected (Not Detect); Parainfluenza Virus 1 Not Detected (Not Detect); Parainfluenza Virus 2 Not Detected (Not Detect); Parainfluenza Virus 3 Not Detected (Not Detect); Parainfluenza Virus 4 Not Detected (Not Detect); Respiratory Syncytial Virus Not Detected (Not Detect); SARS-CoV-2 Not Detected (Not Detect)
[2021-11-25] MEDS: Vancomycin 1,500 MG/265 ML IV.SOLN IVPB SCH (19:46)
[2021-11-25] MEDS: traZODone 50 MG TABLET PO SCH (19:47)
[2021-11-26] MEDS: 0.9 % Sodium Chloride 1,000 ML IVC SCH ×2 (02:39→15:40)
[2021-11-26 04:13] LABS: Alanine Aminotransferase 18 Units/L (7-52); Albumin/Globulin Ratio 0.5 (1.1-2.2); Alkaline Phosphatase 149 Units/L (34-104); Aspartate Amino Transferase 17 Units/L (13-39); BUN/Creatinine Ratio 23 (6-26); Basophils # 0.1 K/mcL (0.0-0.2); Basophils % 0.8 %; Bilirubin,Total 0.2 mg/dL (0.3-1.0); Blood Urea Nitrogen 21 mg/dL (8-23); Carbon Dioxide 24 mEq/L (23-29); Chloride 107 mEq/L (98-107); Eosinophils # 0.8 K/mcL (0.0-0.6); Eosinophils % 6.7 %; Glucose 124 mg/dL (70-105); Hematocrit 26.3 % (37.5-50.1); Hemoglobin 7.9 g/dL (12.9-16.9); Immature Granulocytes % 1.9 % (0-4); Lymphocytes # 1.3 K/mcL (0.6-4.6); Lymphocytes % 11.7 %; Mean Corpuscular Hemoglobin 27.5 pg (28.0-33.3); Mean Corpuscular Volume 91.6 fL (83.0-100.0); Mean Platelet Volume 9.7 fL (9.4-12.4); Monocytes # 1.1 K/mcL (0.0-1.3); Monocytes % 9.3 %; Neutrophils # 7.9 K/mcL (1.6-8.9); Osmolality,Calculated 288 (280-300); Platelet Count 369 K/mcL (140-400); Potassium 4.3 mEq/L (3.5-5.1); Red Blood Count 2.87 M/mcL (4.19-5.50); Red Cell Distribution Width 17.1 % (11.5-14.5); Segmented Neutrophils % 69.6 %; Sodium 137 mEq/L (136-145); White Blood Count 11.4 K/mcL (4.3-11.1); eGFR For African Americans > 60 (> 60); eGFR For Non-African Americans > 60 (> 60)
[2021-11-26] MEDS: *HR* OxyCODONE Immed Rel 5 MG TABLET PO PRN ×4 (04:31→21:42)
[2021-11-26] MEDS: *HR* Enoxaparin 120 MG/0.8 ML SYRINGE SQ SCH ×2 (05:45→17:00)
[2021-11-26] MEDS: Acetaminophen 325 MG TABLET PO PRN (05:55)
[2021-11-26] MEDS: Lactobacillus 1 EACH CAP.SPRINK PO SCH ×2 (09:23→21:40)
[2021-11-26] MEDS: Multivit/Ca/Min/Fe/FA 1 TAB TABLET PO SCH (09:23)
[2021-11-26] MEDS: Insulin DETEMIR 100 UNIT/ML X5UNITS SUBQ SCH ×2 (09:23→21:41)
[2021-11-26] MEDS: Ascorbic Acid 500 MG TABLET PO SCH ×3 (09:24→21:41)
[2021-11-26] MEDS: Cholecalciferol (D-3) 1,000 UNIT (25MCG) TABLET PO SCH (09:24)
[2021-11-26] MEDS: Sennosides/Docusate Sodium TABLET PO SCH ×2 (09:24→21:40)
[2021-11-26] MEDS: Baclofen 10 MG TABLET PO SCH ×3 (09:24→21:41)
[2021-11-26] MEDS: Metoprolol XL (24 HR) Succ 25 MG TAB.ER.24H PO SCH ×2 (09:24→21:41)
[2021-11-26] MEDS: Gabapentin 400 MG CAPSULE PO SCH ×3 (09:25→21:40)
[2021-11-26] MEDS: Insulin LISPRO 300 UNITS/3 ML VIAL SUBQ SCH ×7 (09:27→21:42)
[2021-11-26] MEDS: Piperacillin/Tazobactam 3.375 GM in 0.9 % Sodium Chloride Mini Bag 100 ML IVPB SCH ×3 (09:28→23:46)
[2021-11-26] MEDS: polyethylene glycoL 3350 17 GM POWD.PACK PO SCH ×2 (09:30→21:43)
[2021-11-26] MEDS: Ammonium Lactate 30 APPL/225 GM BOTTLE TP SCH (15:47)
[2021-11-26] MEDS: *HR* Labetalol 20 MG/4 ML SYRINGE IVP PRN (17:40)
[2021-11-26] MEDS: Vancomycin 1,500 MG/265 ML IV.SOLN IVPB SCH (19:51)
[2021-11-26] MEDS: traZODone 50 MG TABLET PO SCH (21:40)
[2021-11-27] MEDS: *HR* OxyCODONE Immed Rel 5 MG TABLET PO PRN ×5 (02:14→21:34)
[2021-11-27 04:34] LABS: Basophils # 0.1 K/mcL (0.0-0.2); Basophils % 0.8 %; Eosinophils # 0.6 K/mcL (0.0-0.6); Eosinophils % 5.5 %; Hematocrit 25.4 % (37.5-50.1); Hemoglobin 7.9 g/dL (12.9-16.9); Lymphocytes # 1.2 K/mcL (0.6-4.6); Lymphocytes % 11.1 %; Mean Corpuscular HGB Conc 31.1 g/dL (31.6-35.5); Mean Corpuscular Hemoglobin 28.2 pg (28.0-33.3); Mean Corpuscular Volume 90.7 fL (83.0-100.0); Mean Platelet Volume 9.5 fL (9.4-12.4); Monocytes # 0.8 K/mcL (0.0-1.3); Monocytes % 7.7 %; Neutrophils # 7.8 K/mcL (1.6-8.9); Platelet Count 331 K/mcL (140-400); Red Cell Distribution Width 17.2 % (11.5-14.5); Segmented Neutrophils % 72.9 %; White Blood Count 10.7 K/mcL (4.3-11.1)
[2021-11-27 04:55] LABS: Alanine Aminotransferase 14 Units/L (7-52); Albumin 2.1 g/dL (3.5-5.7); Albumin/Globulin Ratio 0.6 (1.1-2.2); Alkaline Phosphatase 133 Units/L (34-104); Aspartate Amino Transferase 15 Units/L (13-39); BUN/Creatinine Ratio 26 (6-26); Bilirubin,Total 0.2 mg/dL (0.3-1.0); Blood Urea Nitrogen 24 mg/dL (8-23); Calcium 7.8 mg/dL (8.6-10.3); Carbon Dioxide 24 mEq/L (23-29); Chloride 108 mEq/L (98-107); Globulin 3.8 g/dL (2.4-3.5); Glucose 184 mg/dL (70-105); Osmolality,Calculated 293 (280-300); Potassium 4.3 mEq/L (3.5-5.1); Sodium 137 mEq/L (136-145); Total Protein 5.9 g/dL (6.4-8.9); eGFR For African Americans > 60 (> 60); eGFR For Non-African Americans > 60 (> 60)
[2021-11-27] MEDS: 0.9 % Sodium Chloride 1,000 ML IVC SCH ×2 (05:03→17:36)
[2021-11-27] MEDS: *HR* Enoxaparin 120 MG/0.8 ML SYRINGE SQ SCH ×2 (05:55→17:02)
[2021-11-27] MEDS: Baclofen 10 MG TABLET PO SCH ×3 (09:07→21:34)
[2021-11-27] MEDS: Cholecalciferol (D-3) 1,000 UNIT (25MCG) TABLET PO SCH (09:07)
[2021-11-27] MEDS: Sennosides/Docusate Sodium TABLET PO SCH ×2 (09:07→21:35)
[2021-11-27] MEDS: Gabapentin 400 MG CAPSULE PO SCH ×3 (09:07→21:34)
[2021-11-27] MEDS: Ascorbic Acid 500 MG TABLET PO SCH ×3 (09:07→21:34)
[2021-11-27] MEDS: Lactobacillus 1 EACH CAP.SPRINK PO SCH ×2 (09:07→21:33)
[2021-11-27] MEDS: Piperacillin/Tazobactam 3.375 GM in 0.9 % Sodium Chloride Mini Bag 100 ML IVPB SCH ×2 (09:08→15:33)
[2021-11-27] MEDS: Multivit/Ca/Min/Fe/FA 1 TAB TABLET PO SCH (09:08)
[2021-11-27] MEDS: Insulin DETEMIR 100 UNIT/ML X5UNITS SUBQ SCH ×2 (09:08→21:30)
[2021-11-27] MEDS: Insulin LISPRO 300 UNITS/3 ML VIAL SUBQ SCH ×7 (09:08→21:29)
[2021-11-27] MEDS: Metoprolol XL (24 HR) Succ 25 MG TAB.ER.24H PO SCH ×2 (09:08→21:34)
[2021-11-27] MEDS: Ammonium Lactate 30 APPL/225 GM BOTTLE TP SCH (09:09)
[2021-11-27] MEDS: polyethylene glycoL 3350 17 GM POWD.PACK PO SCH ×2 (09:32→21:35)
[2021-11-27] MEDS: Vancomycin 1,500 MG/265 ML IV.SOLN IVPB SCH (21:30)
[2021-11-27] MEDS: *HR* FentaNYL PATCH 25 MCG PATCH TD SCH (21:31)
[2021-11-27] MEDS: traZODone 50 MG TABLET PO SCH (21:35)
[2021-11-28] MEDS: Piperacillin/Tazobactam 3.375 GM in 0.9 % Sodium Chloride Mini Bag 100 ML IVPB SCH ×3 (00:48→15:26)
[2021-11-28] MEDS: *HR* OxyCODONE Immed Rel 5 MG TABLET PO PRN ×5 (03:52→21:41)
[2021-11-28] MEDS: *HR* Enoxaparin 120 MG/0.8 ML SYRINGE SQ SCH ×2 (06:21→17:15)
[2021-11-28] MEDS: 0.9 % Sodium Chloride 1,000 ML IVC SCH (06:22)
[2021-11-28 06:55] LABS: Hematocrit 26.8 % (37.5-50.1); Hemoglobin 7.9 g/dL (12.9-16.9); Mean Corpuscular HGB Conc 29.5 g/dL (31.6-35.5); Mean Corpuscular Hemoglobin 27.4 pg (28.0-33.3); Mean Corpuscular Volume 93.1 fL (83.0-100.0); Mean Platelet Volume 9.9 fL (9.4-12.4); Platelet Count 357 K/mcL (140-400); Red Blood Count 2.88 M/mcL (4.19-5.50); Red Cell Distribution Width 17.5 % (11.5-14.5); White Blood Count 10.3 K/mcL (4.3-11.1)
[2021-11-28 06:56] LABS: Basophils # 0.1 K/mcL (0.0-0.2); Eosinophils # 0.5 K/mcL (0.0-0.6); Eosinophils % 5.3 %; Immature Granulocytes % 2.6 % (0-4); Lymphocytes # 1.2 K/mcL (0.6-4.6); Lymphocytes % 11.2 %; Monocytes # 0.7 K/mcL (0.0-1.3); Monocytes % 6.9 %; Neutrophils # 7.5 K/mcL (1.6-8.9)
[2021-11-28 07:20] LABS: Alanine Aminotransferase 13 Units/L (7-52); Albumin 2.1 g/dL (3.5-5.7); Albumin/Globulin Ratio 0.6 (1.1-2.2); Alkaline Phosphatase 120 Units/L (34-104); Aspartate Amino Transferase 22 Units/L (13-39); BUN/Creatinine Ratio 24 (6-26); Bilirubin,Total 0.2 mg/dL (0.3-1.0); Blood Urea Nitrogen 21 mg/dL (8-23); Calcium 7.7 mg/dL (8.6-10.3); Carbon Dioxide 24 mEq/L (23-29); Chloride 108 mEq/L (98-107); Globulin 3.8 g/dL (2.4-3.5); Glucose 222 mg/dL (70-105); Osmolality,Calculated 296 (280-300); Potassium 4.2 mEq/L (3.5-5.1); Sodium 138 mEq/L (136-145); Total Protein 5.9 g/dL (6.4-8.9); eGFR For African Americans > 60 (> 60); eGFR For Non-African Americans > 60 (> 60)
[2021-11-28] MEDS: polyethylene glycoL 3350 17 GM POWD.PACK PO SCH ×2 (08:19→21:36)
[2021-11-28] MEDS: Lactobacillus 1 EACH CAP.SPRINK PO SCH ×2 (08:20→21:40)
[2021-11-28] MEDS: Sennosides/Docusate Sodium TABLET PO SCH ×2 (08:20→21:40)
[2021-11-28] MEDS: Cholecalciferol (D-3) 1,000 UNIT (25MCG) TABLET PO SCH (08:20)
[2021-11-28] MEDS: Gabapentin 400 MG CAPSULE PO SCH ×3 (08:20→21:59)
[2021-11-28] MEDS: Metoprolol XL (24 HR) Succ 25 MG TAB.ER.24H PO SCH ×2 (08:20→21:39)
[2021-11-28] MEDS: Ascorbic Acid 500 MG TABLET PO SCH ×3 (08:20→21:40)
[2021-11-28] MEDS: Baclofen 10 MG TABLET PO SCH ×3 (08:20→21:40)
[2021-11-28] MEDS: Insulin DETEMIR 100 UNIT/ML X5UNITS SUBQ SCH ×2 (08:20→21:43)
[2021-11-28] MEDS: Insulin LISPRO 300 UNITS/3 ML VIAL SUBQ SCH ×7 (08:21→21:43)
[2021-11-28] MEDS: Multivit/Ca/Min/Fe/FA 1 TAB TABLET PO SCH (08:21)
[2021-11-28] MEDS: Ammonium Lactate 30 APPL/225 GM BOTTLE TP SCH (08:21)
[2021-11-28] MEDS ORDERED: Morphine Sulfate 2 MG/ML SYRINGE IVP ONE (10:49)
[2021-11-28] MEDS: traZODone 50 MG TABLET PO SCH (21:39)
[2021-11-28] MEDS: Vancomycin 1,500 MG/265 ML IV.SOLN IVPB SCH (21:43)
[2021-11-29] MEDS: Piperacillin/Tazobactam 3.375 GM in 0.9 % Sodium Chloride Mini Bag 100 ML IVPB SCH ×3 (00:29→16:42)
[2021-11-29 02:44] LABS: Basophils # 0.1 K/mcL (0.0-0.2); Basophils % 0.9 %; Eosinophils # 0.5 K/mcL (0.0-0.6); Eosinophils % 4.8 %; Hematocrit 26.9 % (37.5-50.1); Hemoglobin 8.2 g/dL (12.9-16.9); Immature Granulocytes % 2.3 % (0-4); Lymphocytes # 1.5 K/mcL (0.6-4.6); Lymphocytes % 13.6 %; Mean Corpuscular HGB Conc 30.5 g/dL (31.6-35.5); Mean Corpuscular Volume 91.8 fL (83.0-100.0); Mean Platelet Volume 9.8 fL (9.4-12.4); Monocytes # 0.8 K/mcL (0.0-1.3); Monocytes % 7.5 %; Neutrophils # 7.8 K/mcL (1.6-8.9); Platelet Count 352 K/mcL (140-400); Red Blood Count 2.93 M/mcL (4.19-5.50); Red Cell Distribution Width 17.7 % (11.5-14.5); Segmented Neutrophils % 70.9 %
[2021-11-29] MEDS: *HR* OxyCODONE Immed Rel 5 MG TABLET PO PRN ×5 (03:02→22:32)
[2021-11-29 03:06] LABS: Alanine Aminotransferase 11 Units/L (7-52); Albumin 2.1 g/dL (3.5-5.7); Albumin/Globulin Ratio 0.5 (1.1-2.2); Alkaline Phosphatase 133 Units/L (34-104); Aspartate Amino Transferase 21 Units/L (13-39); Bilirubin,Total 0.2 mg/dL (0.3-1.0); Blood Urea Nitrogen 19 mg/dL (8-23); Calcium 7.6 mg/dL (8.6-10.3); Carbon Dioxide 22 mEq/L (23-29); Chloride 108 mEq/L (98-107); Globulin 3.9 g/dL (2.4-3.5); Glucose 207 mg/dL (70-105); Osmolality,Calculated 292 (280-300); Potassium 4.1 mEq/L (3.5-5.1); Sodium 137 mEq/L (136-145)
[2021-11-29 04:21] LABS: BUN/Creatinine Ratio 21 (6-26); eGFR For African Americans > 60 (> 60); eGFR For Non-African Americans > 60 (> 60)
[2021-11-29] MEDS: *HR* Labetalol 20 MG/4 ML SYRINGE IVP PRN (05:21)
[2021-11-29] MEDS: *HR* Enoxaparin 120 MG/0.8 ML SYRINGE SQ SCH ×2 (05:22→16:42)
[2021-11-29] MEDS: polyethylene glycoL 3350 17 GM POWD.PACK PO SCH ×2 (07:59→22:29)
[2021-11-29] MEDS: Sennosides/Docusate Sodium TABLET PO SCH (08:00)
[2021-11-29] MEDS: Insulin DETEMIR 100 UNIT/ML X5UNITS SUBQ SCH ×2 (08:00→22:35)
[2021-11-29] MEDS: Gabapentin 400 MG CAPSULE PO SCH ×3 (08:00→22:31)
[2021-11-29] MEDS: Multivit/Ca/Min/Fe/FA 1 TAB TABLET PO SCH (08:01)
[2021-11-29] MEDS: Lactobacillus 1 EACH CAP.SPRINK PO SCH ×2 (08:01→22:30)
[2021-11-29] MEDS: Ascorbic Acid 500 MG TABLET PO SCH ×3 (08:01→22:31)
[2021-11-29] MEDS: Baclofen 10 MG TABLET PO SCH ×2 (08:01→17:34)
[2021-11-29] MEDS: Metoprolol XL (24 HR) Succ 25 MG TAB.ER.24H PO SCH ×2 (08:01→22:30)
[2021-11-29] MEDS: Cholecalciferol (D-3) 1,000 UNIT (25MCG) TABLET PO SCH (08:01)
[2021-11-29] MEDS: Insulin LISPRO 300 UNITS/3 ML VIAL SUBQ SCH ×5 (08:02→16:43)
[2021-11-29] MEDS: Ammonium Lactate 30 APPL/225 GM BOTTLE TP SCH (08:02)
[2021-11-29 18:53] LABS: Influenza A PCR Negative (Negative); Influenza B PCR Negative (Negative); Resp. Syncytial Virus PCR Negative (Negative); SARS-CoV-2 by PCR (In House) Negative (Negative)
[2021-11-29] MEDS: traZODone 50 MG TABLET PO SCH (22:30)
[2021-11-30] MEDS: Piperacillin/Tazobactam 3.375 GM in 0.9 % Sodium Chloride Mini Bag 100 ML IVPB SCH ×2 (01:06→08:10)
[2021-11-30] MEDS: *HR* OxyCODONE Immed Rel 5 MG TABLET PO PRN ×5 (03:27→23:39)
[2021-11-30 06:06] LABS: Basophils # 0.1 K/mcL (0.0-0.2); Basophils % 0.8 %; Eosinophils # 0.5 K/mcL (0.0-0.6); Eosinophils % 5.9 %; Hematocrit 21.9 % (37.5-50.1); Immature Granulocytes % 2.6 % (0-4); Lymphocytes # 1.3 K/mcL (0.6-4.6); Lymphocytes % 15.2 %; Mean Corpuscular HGB Conc 29.7 g/dL (31.6-35.5); Mean Corpuscular Hemoglobin 27.7 pg (28.0-33.3); Mean Corpuscular Volume 93.2 fL (83.0-100.0); Mean Platelet Volume 10.4 fL (9.4-12.4); Monocytes # 0.6 K/mcL (0.0-1.3); Monocytes % 7.5 %; Neutrophils # 5.7 K/mcL (1.6-8.9); Platelet Count 298 K/mcL (140-400); Red Blood Count 2.35 M/mcL (4.19-5.50); Red Cell Distribution Width 17.7 % (11.5-14.5); White Blood Count 8.4 K/mcL (4.3-11.1)
[2021-11-30 06:07] LABS: Hemoglobin 6.5 g/dL (12.9-16.9)
[2021-11-30 06:24] LABS: BUN/Creatinine Ratio 25 (6-26); Blood Urea Nitrogen 19 mg/dL (8-23); Calcium 6.8 mg/dL (8.6-10.3); Carbon Dioxide 21 mEq/L (23-29); Chloride 112 mEq/L (98-107); Glucose 185 mg/dL (70-105); Osmolality,Calculated 295 (280-300); Potassium 3.6 mEq/L (3.5-5.1); Sodium 139 mEq/L (136-145); eGFR For African Americans > 60 (> 60); eGFR For Non-African Americans > 60 (> 60)
[2021-11-30] MEDS: *HR* Enoxaparin 120 MG/0.8 ML SYRINGE SQ SCH ×2 (06:24→16:57)
[2021-11-30] MEDS: Baclofen 10 MG TABLET PO SCH ×3 (06:26→15:41)
[2021-11-30] MEDS: Sennosides/Docusate Sodium TABLET PO SCH ×2 (06:26→08:10)
[2021-11-30] MEDS ORDERED: 0.9 % Sodium Chloride 250 ML IVC SCH (07:00)
[2021-11-30] MEDS: Multivit/Ca/Min/Fe/FA 1 TAB TABLET PO SCH (08:09)
[2021-11-30] MEDS: Cholecalciferol (D-3) 1,000 UNIT (25MCG) TABLET PO SCH (08:09)
[2021-11-30] MEDS: Lactobacillus 1 EACH CAP.SPRINK PO SCH (08:09)
[2021-11-30] MEDS: Gabapentin 400 MG CAPSULE PO SCH ×2 (08:09→15:41)
[2021-11-30] MEDS: polyethylene glycoL 3350 17 GM POWD.PACK PO SCH (08:09)
[2021-11-30] MEDS: Ascorbic Acid 500 MG TABLET PO SCH ×2 (08:10→15:42)
[2021-11-30] MEDS: Metoprolol XL (24 HR) Succ 25 MG TAB.ER.24H PO SCH (08:10)
[2021-11-30] MEDS: Insulin DETEMIR 100 UNIT/ML X5UNITS SUBQ SCH (08:13)
[2021-11-30] MEDS: Insulin LISPRO 300 UNITS/3 ML VIAL SUBQ SCH ×6 (08:17→16:59)
[2021-11-30 09:38] LABS: Hematocrit 29.3 % (37.5-50.1)
[2021-11-30 09:39] LABS: Hemoglobin 8.9 g/dL (12.9-16.9)
[2021-11-30 09:40] LABS: VBG Ionized Calcium 1.11 mmol/L (1.15-1.35)
[2021-11-30] MEDS ORDERED: Morphine Sulfate 2 MG/ML SYRINGE IVP ONE (10:26)
[2021-11-30] MEDS: Ammonium Lactate 30 APPL/225 GM BOTTLE TP SCH (12:29)
[2021-11-30] MEDS ORDERED: cefTRIAXone 2,000 MG in 0.9 % Sodium Chloride 20 ML IVP SCH (16:00)
[2021-11-30] MEDS ORDERED: *HR* FentaNYL PATCH 25 MCG PATCH TD SCH (21:00)
[2021-12-01] MEDS: Acetaminophen 325 MG TABLET PO PRN (03:28)
[2021-12-01] MEDS: *HR* Labetalol 20 MG/4 ML SYRINGE IVP PRN (03:31)
[2021-12-01] MEDS: *HR* OxyCODONE Immed Rel 5 MG TABLET PO PRN ×3 (04:28→12:31)
[2021-12-01] MEDS: *HR* Enoxaparin 120 MG/0.8 ML SYRINGE SQ SCH (06:24)
[2021-12-01 07:37] LABS: Basophils # 0.1 K/mcL (0.0-0.2); Basophils % 1.2 %; Eosinophils # 0.6 K/mcL (0.0-0.6); Eosinophils % 5.6 %; Hematocrit 29.5 % (37.5-50.1); Hemoglobin 8.9 g/dL (12.9-16.9); Immature Granulocytes % 2.3 % (0-4); Lymphocytes # 1.4 K/mcL (0.6-4.6); Lymphocytes % 12.4 %; Mean Corpuscular HGB Conc 30.2 g/dL (31.6-35.5); Mean Corpuscular Hemoglobin 27.4 pg (28.0-33.3); Mean Corpuscular Volume 90.8 fL (83.0-100.0); Mean Platelet Volume 9.6 fL (9.4-12.4); Monocytes # 0.8 K/mcL (0.0-1.3); Monocytes % 6.9 %; Neutrophils # 7.9 K/mcL (1.6-8.9); Platelet Count 384 K/mcL (140-400); Red Blood Count 3.25 M/mcL (4.19-5.50); Red Cell Distribution Width 18.5 % (11.5-14.5); Segmented Neutrophils % 71.6 %; White Blood Count 11.1 K/mcL (4.3-11.1)
[2021-12-01] MEDS: Insulin DETEMIR 100 UNIT/ML X5UNITS SUBQ SCH ×2 (07:38→09:08)
[2021-12-01] MEDS: Lactobacillus 1 EACH CAP.SPRINK PO SCH ×2 (07:38→08:53)
[2021-12-01] MEDS: Baclofen 10 MG TABLET PO SCH ×2 (07:39→08:56)
[2021-12-01] MEDS: Gabapentin 400 MG CAPSULE PO SCH ×2 (07:40→08:54)
[2021-12-01] MEDS: polyethylene glycoL 3350 17 GM POWD.PACK PO SCH ×2 (07:40→08:53)
[2021-12-01] MEDS: traZODone 50 MG TABLET PO SCH (07:41)
[2021-12-01] MEDS: Metoprolol XL (24 HR) Succ 25 MG TAB.ER.24H PO SCH ×2 (07:41→08:56)
[2021-12-01] MEDS: Sennosides/Docusate Sodium TABLET PO SCH ×2 (07:41→08:53)
[2021-12-01] MEDS: Ascorbic Acid 500 MG TABLET PO SCH ×2 (07:42→08:56)
[2021-12-01 07:53] VITALS: PULSE 80; O2SAT 95
[2021-12-01 08:01] LABS: BUN/Creatinine Ratio 22 (6-26); Blood Urea Nitrogen 21 mg/dL (8-23); Calcium 8.2 mg/dL (8.6-10.3); Carbon Dioxide 26 mEq/L (23-29); Chloride 104 mEq/L (98-107); Glucose 106 mg/dL (70-105); Osmolality,Calculated 283 (280-300); Potassium 4.5 mEq/L (3.5-5.1); Sodium 135 mEq/L (136-145); eGFR For African Americans > 60 (> 60); eGFR For Non-African Americans > 60 (> 60)
[2021-12-01] MEDS: Multivit/Ca/Min/Fe/FA 1 TAB TABLET PO SCH (08:54)
[2021-12-01] MEDS: Cholecalciferol (D-3) 1,000 UNIT (25MCG) TABLET PO SCH (08:57)
[2021-12-01] MEDS: Insulin LISPRO 300 UNITS/3 ML VIAL SUBQ SCH ×3 (08:57→12:42)
[2021-12-01] MEDS ORDERED: *HR* FentaNYL PATCH 25 MCG PATCH TD SCH (09:00)
[2021-12-01] MEDS: Ammonium Lactate 30 APPL/225 GM BOTTLE TP SCH (10:35)
[2021-12-01 11:34] VITALS: BP 176/79; TEMP 97.5
== END 2021-12-01 12:46 | disposition other institution (70) | DRG 853 ==
LOC: 3ANU 15:32 → EMEROOARM 15:32 → SUATTDRO 11-09 00:03 → 3ANU 11-09 00:33 → SUATTDRO 11-09 13:23
PROVIDERS: ADMIT Internal Medicine; ATTEND Student in an Organized Health Care Education/Training Program